=== PATIENT | male | born 1990 | race Caucasian/White ===

== ENCOUNTER 2016-12-19 16:44 | Emergency (ER) | payer OTHER ==
[~2016-12-19] VITALS: Ht 160 cm; Wt 54.5 kg
[~2016-12-19 16:44] MED LIST: ACET-1256 PO; CIPR-255 PO; DIAZ-165 PO; DIAZ12.5 PR; IBUP-103 PO; LEVE500T26 PO; LRS10 PO
[2016-12-19 16:56] VITALS: TEMP 36.4; Ht 160 cm; Wt 54.5 kg
[2016-12-19 18:04] LABS: BASO % 0.6 %; BASO ABS # 0.03 K/uL (0-0.2); COMPLETE YES; EOS % 5.3 %; HEMATOCRIT 39.3 % (42-52); IG% 0.2 %; LYMPH % 17.9 %; LYMPH ABS # 0.95 K/uL (1.2-3.4); MEAN CELL VOLUME 85.8 fL (80-100); MEAN CORPUSCULAR HEMOGLOBIN 30.8 pg (25-34); MEAN CORPUSCULAR HGB CONC 35.9 g/dl (32-36); MEAN PLATELET VOLUME 9.7 fL (7.4-10.4); MONO % 11.7 %; NEUT % 64.3 %; PLATELET COUNT 261 K/uL (130-400); RED BLOOD COUNT 4.58 M/uL (4.7-6.1); WHITE BLOOD COUNT 5.32 K/uL (4.8-10.8)
[2016-12-19] MEDS ORDERED: VLM5CL PO (18:05)
[2016-12-19] MEDS ORDERED: LEVE500T PO (18:05)
[2016-12-19 18:23] LABS: BUN/CREATININE RATIO 22.6 (10-20); CALCIUM 8.9 mg/dl (8.5-10.1); CREATININE 0.89 mg/dl (0.60-1.40); POTASSIUM 3.6 mmol/L (3.5-5.1)
--- NOTE | 2016-12-19 18:32 | DIAGNOSTIC IMAGING REPORT ---
AP CHEST WITH ABDOMINAL SERIES CLINICAL HISTORY: Constipation. FINDINGS: An AP upright chest radiograph is compared to study dated 06/08/2016. The examination is significantly degraded by patient rotation. Midline sternotomy wires are noted. The cardiac silhouette is mildly enlarged. The pulmonary vasculature is noncongested. There are low lung volumes. No airspace consolidation, large pleural effusion, or pneumothorax is seen. The skeletal structures are osteopenic. The bony thorax is grossly intact. Supine and decubitus abdominal radiographs are correlated with abdominal CT dated 12/18/2013. There is a nonobstructed abdominal bowel gas pattern noting rectosigmoid fecal impaction and moderate to severe constipation. No evidence of intraperitoneal free air is seen on the decubitus view. There are no abnormal abdominal calcifications. The lumbosacral spine and bony pelvis appear intact. IMPRESSION: 1. Mild cardiac enlargement with evidence of previous midline sternotomy. 2. Low lung volumes. The lungs are otherwise clear. 3. Nonobstructed abdominal bowel gas pattern. There is rectosigmoid fecal impaction and moderate to severe constipation. 4. No intraperitoneal free air is seen. Electronically signed by: Jairon Alfonso M.D. 12/19/2016 6:30 PM Dictated Date/Time: 12/19/2016 6:28 PM
[2016-12-19] MEDS ORDERED: SODIUM CHLORIDE 0.9% 500ML 500 ML IV STA (18:49)
[2016-12-19 19:00] LABS: URINE APPEARANCE CLEAR (CLEAR); URINE BILIRUBIN NEG (NEG); URINE COLOR DK YELLOW; URINE NITRITE NEG (NEG); URINE SPECIFIC GRAVITY 1.025 (1.000-1.030); UROBILINOGEN POS (NEG); ZZURINE CULT IF INDIC CATH NO
[2016-12-19] MEDS ORDERED: [UNRECOGNIZED DRUG - CODE] PO (19:08)
[2016-12-19] MEDS ORDERED: ZONI100C2 PO (19:08)
--- NOTE | 2016-12-19 19:16 | EMERGENCY ROOM VISIT NOTE ---
History First contact with patient: 17:23 Chief Complaint: CONSTIPATION Stated Complaint: CONSTIPATION Nursing Triage Summary: Pt presents with mom who states pt gets a suppository daily, has not had a bowel movement for 1 week. Denies emesis. Mom states, "He was very cranky today." History of Present Illness The patient is a 26 year old male with hx of Cerebral palsy, Developmental delay , chronic constipation who presents to the Emergency Room with complaints of constipation x 1 wk. Patient is non-verbal so history is per mother. According to mother, he has required regular dulcolax suppository every other day since childhood. Mother was concerned because he has not been able to have a Bowel movement in 1 week and wanted to make she he was not obstructed. Per mother he has not had any vomiting and has not exhibites any obvious new signs of abdominal pain or discomfort. He was recently treated outpatient for a UTI last week. He finished the abx 2 days ago. Review of Systems full ROS was not possible as patient is nonverbal Past Medical/Surgical History Medical Problems: (1) EP (epilepsy) (2) History of cerebral palsy (3) History of chronic constipation (4) History of seizure disorder (5) Kidney disease Family History Hypertension Kidney disease Kidney stones Social History Smoking Status: Never Smoker Alcohol Use: none Drug Use: none Marital Status: single Housing Status: lives with family Occupation Status: disabled Current/Historical Medications Scheduled Diazepam (Diazepam), 5 MG PO BID Levetiractam (Levetiracetam), 1,500 MG PO BID Zonisamide (Zonegran), 200 MG PO HS Zonisamide (Zonegran), 100 MG PO QAM Scheduled PRN Acetaminophen (Tylenol), 500 MG PO Q4H PRN for Pain Diazepam (Anticonvulsant) (Diastat Acudial), 20 MG TX UD PRN for Seizure Ibuprofen Tab (Advil), 200-600 MG PO Q4H PRN for Pain Allergies Coded Allergies: Amoxicillin (Verified Allergy, Unknown, ., 06/08/16) Clavulanic Acid (Verified Allergy, Unknown, ., 06/08/16) Physical Exam Vital Signs Date Time Temp Pulse Resp B/P Pulse Ox O2 Delivery O2 Flow Rate FiO2 12/19/16 20:00 68 18 128/72 98 12/19/16 18:50 74 20 134/89 96 Room Air 12/19/16 16:56 36.4 77 16 127/80 96 Room Air Physical Exam GENERAL: alert, no distress, non-toxic EYE EXAM: normal conjunctiva, PERRL and EOM's grossly intact OROPHARYNX: no exudate, no erythema, lips, buccal mucosa, and tongue normal and mucous membranes are moist NECK: supple, no nuchal rigidity, no adenopathy, non-tender LUNGS: Clear to auscultation. Normal chest wall mechanics HEART: no murmurs, S1 normal and S2 normal ABDOMEN: abdomen soft, non-tender, normo-active bowel sounds, no masses, no rebound or guarding. BACK: Back is symmetrical on inspection and there is no deformity, no midline tenderness, no CVA tenderness. SKIN: no rashes and no bruising UPPER EXTREMITIES: upper extremities are grossly normal. LOWER EXTREMITIES: No pitting edema. Medical Decision & Procedures ER Provider Diagnostic Interpretation: AP CHEST WITH ABDOMINAL SERIES CLINICAL HISTORY: Constipation. FINDINGS: An AP upright chest radiograph is compared to study dated 06/08/2016. The examination is significantly degraded by patient rotation. Midline sternotomy wires are noted. The cardiac silhouette is mildly enlarged. The pulmonary vasculature is noncongested. There are low lung volumes. No airspace consolidation, large pleural effusion, or pneumothorax is seen. The skeletal structures are osteopenic. The bony thorax is grossly intact. Supine and decubitus abdominal radiographs are correlated with abdominal CT dated 12/18/2013. There is a nonobstructed abdominal bowel gas pattern noting rectosigmoid fecal impaction and moderate to severe constipation. No evidence of intraperitoneal free air is seen on the decubitus view. There are no abnormal abdominal calcifications. The lumbosacral spine and bony pelvis appear intact. IMPRESSION: 1. Mild cardiac enlargement with evidence of previous midline sternotomy. 2. Low lung volumes. The lungs are otherwise clear. 3. Nonobstructed abdominal bowel gas pattern. There is rectosigmoid fecal impaction and moderate to severe constipation. 4. No intraperitoneal free air is seen. Laboratory Results 12/19/16 00:00 Red Blood Count 4.58, Mean Corpuscular Volume 85.8, Mean Corpuscular Hemoglobin 30.8, Mean Corpuscular Hemoglobin Concent 35.9, Mean Platelet Volume 9.7, Neutrophils (%) (Auto) 64.3, Lymphocytes (%) (Auto) 17.9, Monocytes (%) (Auto) 11.7, Eosinophils (%) (Auto) 5.3, Basophils (%) (Auto) 0.6, Neutrophils # (Auto ) 3.43, Lymphocytes # (Auto) 0.95, Monocytes # (Auto) 0.62, Eosinophils # (Auto ) 0.28, Basophils # (Auto) 0.03 12/19/16 00:00 Test 12/19/16 00:00 12/19/16 18:32 12/19/16 18:40 White Blood Count 5.32 K/uL (4.8-10.8) Red Blood Count 4.58 M/uL (4.7-6.1) Hemoglobin 14.1 g/dL (14.0-18.0) Hematocrit 39.3 % (42-52) Mean Corpuscular Volume 85.8 fL (80-100) Mean Corpuscular Hemoglobin 30.8 pg (25-34) Mean Corpuscular Hemoglobin Concent 35.9 g/dl (32-36) Platelet Count 261 K/uL (130-400) Mean Platelet Volume 9.7 fL (7.4-10.4) Neutrophils (%) (Auto) 64.3 % Lymphocytes (%) (Auto) 17.9 % Monocytes (%) (Auto) 11.7 % Eosinophils (%) (Auto) 5.3 % Basophils (%) (Auto) 0.6 % Neutrophils # (Auto) 3.43 K/uL (1.4-6.5) Lymphocytes # (Auto) 0.95 K/uL (1.2-3.4) Monocytes # (Auto) 0.62 K/uL (0.11-0.59) Eosinophils # (Auto) 0.28 K/uL (0-0.5) Basophils # (Auto) 0.03 K/uL (0-0.2) RDW Standard Deviation 41.2 fL (36.4-46.3) RDW Coefficient of Variation 13.1 % (11.5-14.5) Immature Granulocyte % (Auto) 0.2 % Immature Granulocyte # (Auto) 0.01 K/uL (0.00-0.02) Anion Gap 6.0 mmol/L (3-11) Est Creatinine Clear Calc Drug Dose 96.1 ml/min Estimated GFR () 135.8 Estimated GFR (Non- 117.2 BUN/Creatinine Ratio 22.6 (10-20) Calcium Level 8.9 mg/dl (8.5-10.1) Total Bilirubin 0.5 mg/dl (0.2-1) Direct Bilirubin 0.1 mg/dl (0-0.2) Aspartate Amino Transf (AST/SGOT) 23 U/L (15-37) Alanine Aminotransferase (ALT/SGPT) 32 U/L (12-78) Alkaline Phosphatase 176 U/L (45-117) Total Protein 7.7 gm/dl (6.4-8.2) Albumin 3.6 gm/dl (3.4-5.0) Lipase 169 U/L (73-393) Urine Color DK YELLOW Urine Appearance CLEAR (CLEAR) Urine pH 6.0 (4.5-7.5) Urine Specific [place] 1.025 (1.000-1.030) Urine Protein NEG (NEG) Urine Glucose (UA) NEG (NEG) Urine Ketones NEG (NEG) Urine Occult Blood NEG (NEG) Urine Nitrite NEG (NEG) Urine Bilirubin NEG (NEG) Urine Urobilinogen POS (NEG) Urine Leukocyte Esterase NEG (NEG) Urine WBC (Auto) 1-5 /hpf (0-5) Urine RBC (Auto) 0-4 /hpf (0-4) Urine Hyaline Casts (Auto) 5-10 /lpf (0-5) Urine Epithelial Cells (Auto) 10-20 /lpf (0-5) Urine Bacteria (Auto) NEG (NEG) Medications Administered Medications (Trade) Dose Ordered Sig/Dariela Route Start Time Stop Time Status Last Admin Dose Admin Sodium Chloride (Nss 500ml) 500 ml @ 999 mls/hr Q31M STAT IV 12/19/16 18:49 12/19/16 19:19 DC 12/19/16 18:49 999 MLS/HR Sodium Biphosphate/ Sodium Phosphate (Fleet Enema) 132 ml NOW STAT TX 12/19/16 19:24 12/19/16 19:26 DC 12/19/16 19:59 132 ML Procedure Manual Disimpaction Medical Decision 26 yo M w/ hx 1 wk history of constipation and recent completion of UTI abx therapy Constipation CBC: unremarkable BMP: BUN 20, BUN/cr 22.6, otherwise unremarkable LFT: Alk Phos 176 , otherwise wnl Abdominal XR: Non-obstructed abdominal bowel gas pattern. There is rectosigmoid fecal impaction and moderate to severe constipation. Hx of UTI UA: unremarkable -adequately treated with outpatient therapy - Lack of Bowel movement in 1 wk secondary to chronic constipation. bowel obstruction ruled out with Abdominal XR - Attempted Manual Disimpaction, minimal feces removed - Discharged with Fleets enema which mother requested to administer Impression Primary Impression: Constipation Departure Information Referrals Chan Hernandez M.D. (PCP) Patient Instructions My [facility] Resident Tracking Resident Involvement: Resident Care Provided Care Provided: Adult ED
[2016-12-19 19:18] LABS: MANUAL MICROSCOPIC REQUIRED? NO; REVIEW REQ? NO
[2016-12-19] MEDS ORDERED: SOD PHOSPHATE/SOD BIPHOSPHATE ENEMA 132 ML BTL PR STA (19:24)
[2016-12-19 20:00] VITALS: BP 128/72; PULSE 68; O2SAT 98
--- NOTE | 2016-12-19 22:08 | EMERGENCY ROOM VISIT NOTE ---
History Report prepared by Yue: Avni Shukla Under the Supervision of: Dr. Michael Blanchard D.O. First contact with patient: 17:23 Chief Complaint: CONSTIPATION Stated Complaint: CONSTIPATION Nursing Triage Summary: Pt presents with mom who states pt gets a suppository daily, has not had a bowel movement for 1 week. Denies emesis. Mom states, "He was very cranky today." History of Present Illness The patient is a 26 year old male who presents to the Emergency Room with complaints of persistent constipation beginning 1 week ago. Per the patient's mother, the patient has a history of cerebral palsy, seizure disorder, and chronic constipation. He requires suppositories every other day. For the last week he has not had a bowel movement and has tried 3 Dulcolax suppositories. He has not vomited since the onset of the constipation. The patient was recently on Bactrim for a UTI, and finished the course 2 days ago. He had a bout of constipation when he was younger. The patient is completely non-verbal, and has not stated complaints. He has been slowing down on eating today. The patient takes Keppra, Zonegran, and Valium. Source of History: parent Onset: 1 week ago Position: other (rectum) Quality: other (constipation) Timing: other (persistent) Associated Symptoms: No vomiting Review of Systems See HPI for pertinent positives & negatives. A total of 10 systems reviewed and were otherwise negative. Past Medical & Surgical Medical Problems: (1) EP (epilepsy) (2) History of cerebral palsy (3) History of chronic constipation (4) History of seizure disorder (5) Kidney disease Family History Hypertension Kidney disease Kidney stones Social History Smoking Status: Never Smoker Alcohol Use: none Drug Use: none Marital Status: single Housing Status: lives with family Occupation Status: disabled Current/Historical Medications Scheduled Diazepam (Diazepam), 5 MG PO BID Levetiractam (Levetiracetam), 1,500 MG PO BID Zonisamide (Zonegran), 200 MG PO HS Zonisamide (Zonegran), 100 MG PO QAM Scheduled PRN Acetaminophen (Tylenol), 500 MG PO Q4H PRN for Pain Diazepam (Anticonvulsant) (Diastat Acudial), 20 MG NV UD PRN for Seizure Ibuprofen Tab (Advil), 200-600 MG PO Q4H PRN for Pain Allergies Coded Allergies: Amoxicillin (Verified Allergy, Unknown, ., 06/08/16) Clavulanic Acid (Verified Allergy, Unknown, ., 06/08/16) Physical Exam Vital Signs Date Time Temp Pulse Resp B/P Pulse Ox O2 Delivery O2 Flow Rate FiO2 12/19/16 20:00 68 18 128/72 98 12/19/16 18:50 74 20 134/89 96 Room Air 12/19/16 16:56 36.4 77 16 127/80 96 Room Air Physical Exam GENERAL: Sitting up in med, holding auditory device over left ear, disheveled, no acute distress. EYE EXAM: normal conjunctiva OROPHARYNX: no exudate, no erythema, lips, buccal mucosa, and tongue normal and mucous membranes are moist NECK: supple, no nuchal rigidity, no adenopathy, non-tender LUNGS: Clear to auscultation. Normal chest wall mechanics HEART: no murmurs, S1 normal and S2 normal ABDOMEN: abdomen soft, non-tender, normo-active bowel sounds, no masses, no rebound or guarding. BACK: Back is symmetrical on inspection and there is no deformity, no midline tenderness, no CVA tenderness. SKIN: no rashes and no bruising UPPER EXTREMITIES: upper extremities are grossly normal. LOWER EXTREMITIES: No pitting edema. NEURO EXAM: alert; nonverbal; nonfocal. Medical Decision & Procedures ER Provider Diagnostic Interpretation: Radiology results have been interpreted by the radiologist and reviewed by me. AP CHEST WITH ABDOMINAL SERIES FINDINGS: An AP upright chest radiograph is compared to study dated 06/08/2016. The examination is significantly degraded by patient rotation. Midline sternotomy wires are noted. The cardiac silhouette is mildly enlarged. The pulmonary vasculature is noncongested. There are low lung volumes. No airspace consolidation, large pleural effusion, or pneumothorax is seen. The skeletal structures are osteopenic. The bony thorax is grossly intact. Supine and decubitus abdominal radiographs are correlated with abdominal CT dated 12/18/2013. There is a nonobstructed abdominal bowel gas pattern noting rectosigmoid fecal impaction and moderate to severe constipation. No evidence of intraperitoneal free air is seen on the decubitus view. There are no abnormal abdominal calcifications. The lumbosacral spine and bony pelvis appear intact. IMPRESSION: 1. Mild cardiac enlargement with evidence of previous midline sternotomy. 2. Low lung volumes. The lungs are otherwise clear. 3. Nonobstructed abdominal bowel gas pattern. There is rectosigmoid fecal impaction and moderate to severe constipation. 4. No intraperitoneal free air is seen. Electronically signed by: Jairon Alfonso M.D. 12/19/2016 6:30 PM Dictated Date/Time: 12/19/2016 6:28 PM Laboratory Results 12/19/16 00:00 Red Blood Count 4.58, Mean Corpuscular Volume 85.8, Mean Corpuscular Hemoglobin 30.8, Mean Corpuscular Hemoglobin Concent 35.9, Mean Platelet Volume 9.7, Neutrophils (%) (Auto) 64.3, Lymphocytes (%) (Auto) 17.9, Monocytes (%) (Auto) 11.7, Eosinophils (%) (Auto) 5.3, Basophils (%) (Auto) 0.6, Neutrophils # (Auto ) 3.43, Lymphocytes # (Auto) 0.95, Monocytes # (Auto) 0.62, Eosinophils # (Auto ) 0.28, Basophils # (Auto) 0.03 12/19/16 00:00 Test 12/19/16 00:00 12/19/16 18:32 12/19/16 18:40 White Blood Count 5.32 K/uL (4.8-10.8) Red Blood Count 4.58 M/uL (4.7-6.1) Hemoglobin 14.1 g/dL (14.0-18.0) Hematocrit 39.3 % (42-52) Mean Corpuscular Volume 85.8 fL (80-100) Mean Corpuscular Hemoglobin 30.8 pg (25-34) Mean Corpuscular Hemoglobin Concent 35.9 g/dl (32-36) Platelet Count 261 K/uL (130-400) Mean Platelet Volume 9.7 fL (7.4-10.4) Neutrophils (%) (Auto) 64.3 % Lymphocytes (%) (Auto) 17.9 % Monocytes (%) (Auto) 11.7 % Eosinophils (%) (Auto) 5.3 % Basophils (%) (Auto) 0.6 % Neutrophils # (Auto) 3.43 K/uL (1.4-6.5) Lymphocytes # (Auto) 0.95 K/uL (1.2-3.4) Monocytes # (Auto) 0.62 K/uL (0.11-0.59) Eosinophils # (Auto) 0.28 K/uL (0-0.5) Basophils # (Auto) 0.03 K/uL (0-0.2) RDW Standard Deviation 41.2 fL (36.4-46.3) RDW Coefficient of Variation 13.1 % (11.5-14.5) Immature Granulocyte % (Auto) 0.2 % Immature Granulocyte # (Auto) 0.01 K/uL (0.00-0.02) Anion Gap 6.0 mmol/L (3-11) Est Creatinine Clear Calc Drug Dose 96.1 ml/min Estimated GFR () 135.8 Estimated GFR (Non- 117.2 BUN/Creatinine Ratio 22.6 (10-20) Calcium Level 8.9 mg/dl (8.5-10.1) Total Bilirubin 0.5 mg/dl (0.2-1) Direct Bilirubin 0.1 mg/dl (0-0.2) Aspartate Amino Transf (AST/SGOT) 23 U/L (15-37) Alanine Aminotransferase (ALT/SGPT) 32 U/L (12-78) Alkaline Phosphatase 176 U/L (45-117) Total Protein 7.7 gm/dl (6.4-8.2) Albumin 3.6 gm/dl (3.4-5.0) Lipase 169 U/L (73-393) Urine Color DK YELLOW Urine Appearance CLEAR (CLEAR) Urine pH 6.0 (4.5-7.5) Urine Specific [place] 1.025 (1.000-1.030) Urine Protein NEG (NEG) Urine Glucose (UA) NEG (NEG) Urine Ketones NEG (NEG) Urine Occult Blood NEG (NEG) Urine Nitrite NEG (NEG) Urine Bilirubin NEG (NEG) Urine Urobilinogen POS (NEG) Urine Leukocyte Esterase NEG (NEG) Urine WBC (Auto) 1-5 /hpf (0-5) Urine RBC (Auto) 0-4 /hpf (0-4) Urine Hyaline Casts (Auto) 5-10 /lpf (0-5) Urine Epithelial Cells (Auto) 10-20 /lpf (0-5) Urine Bacteria (Auto) NEG (NEG) Laboratory results per my review. Medications Administered Medications (Trade) Dose Ordered Sig/Dariela Route Start Time Stop Time Status Last Admin Dose Admin Sodium Chloride (Nss 500ml) 500 ml @ 999 mls/hr Q31M STAT IV 12/19/16 18:49 12/19/16 19:19 DC 12/19/16 18:49 999 MLS/HR Sodium Biphosphate/ Sodium Phosphate (Fleet Enema) 132 ml NOW STAT NV 12/19/16 19:24 12/19/16 19:26 DC 12/19/16 19:59 132 ML ED Course ED COURSE: Vital signs were reviewed and showed normal. The patients medical record was reviewed The above diagnostic studies were performed and reviewed. ED treatments and interventions as stated above. 1744: The patient was evaluated in room C5. A complete history and physical examination was performed. 1848: Ordered NSS 500 ml @ 999 mls/hr IV. 1899: Disimpaction performed by resident with small amount of brown stool removed. 1923: Ordered Fleet Enema 132 ml NV. 1929: Upon reevaluation, the patient is doing well.I discussed my findings with the patient and his mother and they understand and agrees with the treatment plan. Based on the patients age, coexisting illnesses, exam and lab findings the decision to treat as an outpatient was made. The patient remained stable while under my care. The patient appeared well at the time of discharge. Medical Decision Differential diagnoses includes but is not limited to gastritis, peptic ulcer disease, GERD, gallbladder disease, pancreatitis, small bowel obstruction, acute coronary syndrome, pericarditis, ischemic bowel, irritable bowel disease, irritable bowel syndrome, appendicitis, diverticulitis, malignancy, hernia, urinary tract infection, torsion, perforation, trauma, infectious. Patient is a nonverbal 26-year-old male who presents the ER for no bowel movement for the past 7 days. Patient has no complaints at this time and does not appear to be in any pain per the mother. He has been acting normally. He normally has trouble with constipation. Labs show no significant leukocytosis or anemia. BMP along with LFTs, bilirubin and lipase were unremarkable. UA was negative. Keppra was pending. Obstruction series shows large fecal impaction. He was disimpacted with a small amount of stool removed by my resident. I was present at bedside for the entirety of the procedure. Following this I recommended enemas mom preferred to do this at home. I also recommended MiraLAX bowel prep but the mother notes that the last time she did this he had multiple seizures and consequently we held on any oral medications. She will continue enemas and suppositories at home and follow-up with her PCP. Patient had absolutely no tenderness on exam, normal labs and normal vitals and consequently I did not CT his abdomen pelvis. Discussed with parent concerning signs and symptoms to watch out for. Parent was instructed to follow up with their PCP and discussed with the parent their option to return to the ED at anytime for persistent or worsening symptoms. The appropriate anticipatory guidance and out-patient management, including indications for return to the emergency department, were explained at length to the parent and understood. Impression Primary Impression: Constipation Scribe Attestation The scribe's documentation has been prepared under my direction and personally reviewed by me in its entirety. I confirm that the note above accurately reflects all work, treatment, procedures, and medical decision making performed by me. Departure Information Dispostion Home / Self-Care Referrals Chan Hernandez M.D. (PCP) Patient Instructions My [facility] Additional Instructions Please follow up with your primary care doctor with in the next 24 hours. Any worsening of your symptoms, please return to the ED immediately. Any persistent fevers greater than 100.4, abdominal pain, persistent nausea vomiting , or any other concerning signs or symptoms from your standpoint. Please try to remain as hydrated as possible. Please continue to take as much fiber as possible. Please use enemas and suppositories as needed. Problem Qualifiers Primary Impression: Constipation Constipation type: chronic idiopathic constipation Qualified Codes: K59.04 - Chronic idiopathic constipation
== END 2016-12-19 20:02 | disposition home or self-care (01) ==
LOC: C.EDB 16:45 → C.EDC 20:02
DX: K59.00 Constipation, unspecified (principal); G40.909 Epilepsy, unspecified, not intractable, without status epilepticus; Z87.442 Personal history of urinary calculi; G80.9 Cerebral palsy, unspecified; Z79.899 Other long term (current) drug therapy; Z88.1 Allergy status to other antibiotic agents; Z88.8 Allergy status to other drugs, medicaments and biological substances; Z82.49 Family history of ischemic heart disease and other diseases of the circulatory system; Z84.1 Family history of disorders of kidney and ureter

== ENCOUNTER 2017-02-27 09:26 | Emergency (ER) | payer OTHER ==
[~2017-02-27] VITALS: Ht 160 cm; Wt 57.0 kg
[~2017-02-27 09:26] MED LIST changes: -CIPR-255 PO; -DIAZ-165 PO; +LEVE500T PO; -LEVE500T26 PO; -LRS10 PO; +VLM5CL PO; +ZONI100C2 PO; +[UNRECOGNIZED DRUG - CODE] PO
[2017-02-27 09:48] VITALS: Ht 160 cm; Wt 57.0 kg
[2017-02-27 10:17] LABS: URINE APPEARANCE CLEAR (CLEAR); URINE BILIRUBIN NEG (NEG); URINE COLOR DK YELLOW; URINE NITRITE NEG (NEG); URINE SPECIFIC GRAVITY 1.026 (1.000-1.030); UROBILINOGEN NEG (NEG); ZZURINE CULT IF INDIC CATH NO
[2017-02-27 10:20] LABS: MANUAL MICROSCOPIC REQUIRED? NO; REVIEW REQ? NO
--- NOTE | 2017-02-27 10:21 | EMERGENCY ROOM VISIT NOTE ---
History Report prepared by Yue: Millie Ashford Under the Supervision of: Dr. Roni Gilliland M.D. First contact with patient: 09:29 Chief Complaint: OTHER COMPLAINT Stated Complaint: SCROTUM SWOLLEN History of Present Illness The patient is a 27 year old male who presents to the Emergency Room with complaints of worsening swelling to his scrotum bilaterally for the past couple of months. Mother states that it has been swelling over the past few months, but over the last 2 weeks it has been progressing more rapidly, and this morning it was significantly worse. He is scheduled for an US in 3 days, but mother did not feel comfortable waiting any longer to be evaluated. She rates his pain as a 4/10 in severity. He has been urinating normally. The patient is not on Lasix. He had a hernia when he was an infant, but does not have a history of a hernia repair. Source of History: patient Onset: a couple of months ago Position: other (scrotum) Symptom Intensity: 4/10 Quality: other (swelling) Timing: worsening Associated Symptoms: No urinary symptoms Review of Systems See HPI for pertinent positives & negatives. A total of 10 systems reviewed and were otherwise negative. Past Medical & Surgical Medical Problems: (1) EP (epilepsy) (2) History of cerebral palsy (3) History of chronic constipation (4) History of seizure disorder (5) Kidney disease Family History Hypertension Kidney disease Kidney stones Social History Smoking Status: Never Smoker Alcohol Use: none Drug Use: none Marital Status: single Housing Status: lives with family Occupation Status: disabled Current/Historical Medications Scheduled Diazepam (Diazepam), 5 MG PO BID Levetiractam (Levetiracetam), 1,500 MG PO BID Zonisamide (Zonegran), 200 MG PO HS Zonisamide (Zonegran), 100 MG PO QAM Scheduled PRN Acetaminophen (Tylenol), 500 MG PO Q4H PRN for Pain Acetaminophen/Codeine (Tylenol W/Codeine #3), 1 TAB PO Q4H PRN for Pain Diazepam (Anticonvulsant) (Diastat Acudial), 20 MG DC UD PRN for Seizure Ibuprofen Tab (Advil), 200-600 MG PO Q4H PRN for Pain Allergies Coded Allergies: Amoxicillin (Verified Allergy, Unknown, ., 02/27/17) Clavulanic Acid (Verified Allergy, Unknown, ., 02/27/17) Physical Exam Vital Signs Date Time Temp Pulse Resp B/P (MAP) Pulse Ox O2 Delivery O2 Flow Rate FiO2 02/27/17 17:25 36.5 75 18 151/98 98 Room Air 02/27/17 16:50 36.4 70 18 151/98 96 Room Air 02/27/17 16:18 36.7 73 18 156/102 100 Room Air 02/27/17 16:05 36.0 78 15 172/97 99 Room Air 02/27/17 15:55 76 12 154/107 95 Room Air 02/27/17 15:45 70 14 158/105 100 Mask 10 02/27/17 15:35 63 13 137/92 100 Mask 10 02/27/17 15:28 36.2 62 12 123/82 99 Mask 10 02/27/17 13:48 36.4 02/27/17 13:17 65 16 137/83 100 Room Air 02/27/17 13:08 61 02/27/17 10:51 79 18 125/83 96 Room Air 02/27/17 09:48 36.8 66 16 135/70 99 Room Air Physical Exam GENERAL: Patient is cachectic in appearance. HEAD: Normocephalic atraumatic EYES: Ocular movements intact pupils equal and react to light OROPHARYNX mucous membranes are moist no exudates present no erythema or edema present NECK: Supple no nuchal rigidity CHEST: Good equal expansion LUNGS: Clear and equal to auscultation CARDIAC: Normal S1 and S2 ABDOMEN: Soft nontender no guarding : Scrotum is grossly enlarged, feels firm, no masses noted. BACK: No CVA tenderness EXTREMITIES: No pain upon palpation normal muscle strength in all groups no clubbing cyanosis or edema NEURO: Patient does not answer questions, is interested in listening to his iPod. Medical Decision & Procedures ER Provider Diagnostic Interpretation: Radiology results as stated below per my review and radiologist interpretation: TESTICULAR ULTRASOUND HISTORY: Pain. Mass. Pt c/o Swollen scrotum COMPARISON: None. FINDINGS: Right testis: Right testis is within the right inguinal canal. It appears to be uniform in appearance with a maximum dimension of 3.8 cm. Normal vascular flow is present. Left testis: There is a left-sided hydrocele. Left testis measures 10.9 x 5.3 cm. It is diffusely heterogeneous. A neoplastic process must be excluded. IMPRESSION: 1. Left testicular mass with the left testis enlarged compared to the right. 2. A left testicular neoplasm must be excluded. 3. Left-sided hydrocele. 4. Right testis shows normal vascular flow but is located within the right inguinal canal. Electronically signed by: Maldonado Lopez M.D. 02/27/2017 12:06 PM Dictated Date/Time: 02/27/2017 11:57 AM CHEST ONE VIEW PORTABLE CLINICAL HISTORY: Left testicular mass. COMPARISON STUDY: Chest radiograph December 19, 2016. FINDINGS: Lung volumes are mildly diminished. This is unchanged. There are median sternotomy wires. Mild cardiomegaly is unchanged. There is no evidence of pulmonary edema. No pneumothorax or pleural effusion is present. No consolidation is identified. IMPRESSION: No acute cardiopulmonary findings. No change in appearance of the chest. Electronically signed by: Jamey Calvo M.D. 02/27/2017 1:33 PM Dictated Date/Time: 02/27/2017 1:31 PM Laboratory Results 02/27/17 13:13 Red Blood Count 4.85, Mean Corpuscular Volume 84.5, Mean Corpuscular Hemoglobin 29.5, Mean Corpuscular Hemoglobin Concent 34.9, Mean Platelet Volume 10.1, Neutrophils (%) (Auto) 61.9, Lymphocytes (%) (Auto) 23.2, Monocytes (%) (Auto) 8.8, Eosinophils (%) (Auto) 5.5, Basophils (%) (Auto) 0.4, Neutrophils # (Auto) 3.04, Lymphocytes # (Auto) 1.14, Monocytes # (Auto) 0.43, Eosinophils # (Auto) 0.27, Basophils # (Auto) 0.02 02/27/17 12:27 Test 02/27/17 10:05 02/27/17 12:27 02/27/17 13:13 Urine Color DK YELLOW Urine Appearance CLEAR (CLEAR) Urine pH 6.0 (4.5-7.5) Urine Specific [place] 1.026 (1.000-1.030) Urine Protein TRACE (NEG) Urine Glucose (UA) NEG (NEG) Urine Ketones NEG (NEG) Urine Occult Blood NEG (NEG) Urine Nitrite NEG (NEG) Urine Bilirubin NEG (NEG) Urine Urobilinogen NEG (NEG) Urine Leukocyte Esterase TRACE (NEG) Urine WBC (Auto) 5-10 /hpf (0-5) Urine RBC (Auto) 0-4 /hpf (0-4) Urine Hyaline Casts (Auto) 1-5 /lpf (0-5) Urine Epithelial Cells (Auto) 5-10 /lpf (0-5) Urine Bacteria (Auto) NEG (NEG) Anion Gap 6.0 mmol/L (3-11) Est Creatinine Clear Calc Drug Dose 98.3 ml/min Estimated GFR () 134.2 Estimated GFR (Non- 115.8 BUN/Creatinine Ratio 18.3 (10-20) Calcium Level 8.6 mg/dl (8.5-10.1) Total Bilirubin 0.8 mg/dl (0.2-1) Direct Bilirubin 0.2 mg/dl (0-0.2) Aspartate Amino Transf (AST/SGOT) 21 U/L (15-37) Alanine Aminotransferase (ALT/SGPT) 13 U/L (12-78) Alkaline Phosphatase 56 U/L (45-117) Lactate Dehydrogenase 207 U/L (87-241) Total Protein 7.0 gm/dl (6.4-8.2) Albumin 3.7 gm/dl (3.4-5.0) Lipase 134 U/L (73-393) White Blood Count 4.91 K/uL (4.8-10.8) Red Blood Count 4.85 M/uL (4.7-6.1) Hemoglobin 14.3 g/dL (14.0-18.0) Hematocrit 41.0 % (42-52) Mean Corpuscular Volume 84.5 fL (80-100) Mean Corpuscular Hemoglobin 29.5 pg (25-34) Mean Corpuscular Hemoglobin Concent 34.9 g/dl (32-36) Platelet Count 189 K/uL (130-400) Mean Platelet Volume 10.1 fL (7.4-10.4) Neutrophils (%) (Auto) 61.9 % Lymphocytes (%) (Auto) 23.2 % Monocytes (%) (Auto) 8.8 % Eosinophils (%) (Auto) 5.5 % Basophils (%) (Auto) 0.4 % Neutrophils # (Auto) 3.04 K/uL (1.4-6.5) Lymphocytes # (Auto) 1.14 K/uL (1.2-3.4) Monocytes # (Auto) 0.43 K/uL (0.11-0.59) Eosinophils # (Auto) 0.27 K/uL (0-0.5) Basophils # (Auto) 0.02 K/uL (0-0.2) RDW Standard Deviation 42.2 fL (36.4-46.3) RDW Coefficient of Variation 13.8 % (11.5-14.5) Immature Granulocyte % (Auto) 0.2 % Immature Granulocyte # (Auto) 0.01 K/uL (0.00-0.02) Labs reviewed by ED physician. Medications Administered Medications (Trade) Dose Ordered Sig/Dariela Route Start Time Stop Time Status Last Admin Dose Admin Bupivacaine HCl (Marcaine 0.5% MPF Inj) 30 ml STK-MED ONCE .ROUTE 02/27/17 14:17 02/27/17 14:18 DC 02/27/17 15:00 20 ML Acetaminophen/ Hydrocodone Bitart ([place] 5/325 Tab) 1 tab Q4H PRN PO 02/27/17 15:45 02/27/17 18:36 DC 02/27/17 17:40 1 TAB Ketorolac Tromethamine (Toradol Inj) 30 mg STK-MED ONCE .ROUTE 02/27/17 15:38 02/27/17 15:39 DC 02/27/17 15:42 30 MG ECG Indication: other Rate (beats per minute): 68 Rhythm: normal sinus Findings: RBBB, no acute ischemic change, no ectopy ED Course 0948: Past medical records reviewed. The patient was evaluated in room A9B. A complete history and physical examination was performed. 1219: At this time I discussed the patient's case with Dr. Borja of urology. He requested an AFP and beta hCG. He is going to come to the ED to evaluate the patient and possibly take him to the OR. 1222: I reassessed the patient at this time. He is doing well. I discussed the results and treatment plan with the patient's mother. I answered all pertaining questions that she had. She expressed understanding and verbalized agreement. Medical Decision Medication Reconciliation: I attest that I have personally reviewed the patient' s current medication list This is a 27-year-old male who presents to see department complaining of left testicular mass. The patient was sent for an ultrasound which was concerning for testicular cancer. For this reason laboratory work was obtained. I did discuss the case with the urologist on-call who agreed to take the patient to the operating room. Mother was in agreement with the treatment plan. Consults Time Called: 1214 Consulting Physician: Dr. Borja Returned Call: 1219 At this time I discussed the patient's case with Dr. Borja of urology. He requested an AFP and beta hCG. He is going to come to the ED to evaluate the patient and possibly take him to the OR. Impression Primary Impression: Testicular mass Scribe Attestation The scribe's documentation has been prepared under my direction and personally reviewed by me in its entirety. I confirm that the note above accurately reflects all work, treatment, procedures, and medical decision making performed by me. Departure Information Dispostion Being Evaluated By Surgeon Prescriptions Acetaminophen/Codeine (Tylenol W/Codeine #3) 300 Mg/30 Mg Tab 1 TAB PO Q4H Y for Pain, #30 TAB Prov: Shiv Borja M.D. 02/27/17 Referrals Chan Hernandez M.D. (PCP) Patient Instructions My [facility]
--- NOTE | 2017-02-27 12:07 | DIAGNOSTIC IMAGING REPORT ---
TESTICULAR ULTRASOUND HISTORY: Pain. Mass. Pt c/o Swollen scrotum COMPARISON: None. FINDINGS: Right testis: Right testis is within the right inguinal canal. It appears to be uniform in appearance with a maximum dimension of 3.8 cm. Normal vascular flow is present. Left testis: There is a left-sided hydrocele. Left testis measures 10.9 x 5.3 cm. It is diffusely heterogeneous. A neoplastic process must be excluded. IMPRESSION: 1. Left testicular mass with the left testis enlarged compared to the right. 2. A left testicular neoplasm must be excluded. 3. Left-sided hydrocele. 4. Right testis shows normal vascular flow but is located within the right inguinal canal. Electronically signed by: Maldonado Lopez M.D. 02/27/2017 12:06 PM Dictated Date/Time: 02/27/2017 11:57 AM
[2017-02-27 13:00] LABS: BUN/CREATININE RATIO 18.3 (10-20); CREATININE 0.9 mg/dl (0.60-1.40); POTASSIUM 4.2 mmol/L (3.5-5.1)
[2017-02-27 13:04] LABS: CALCIUM 8.6 mg/dl (8.5-10.1)
[2017-02-27 13:17] VITALS: O2SAT 100
[2017-02-27 13:20] LABS: BASO % 0.4 %; BASO ABS # 0.02 K/uL (0-0.2); COMPLETE YES; EOS % 5.5 %; IG% 0.2 %; LYMPH % 23.2 %; LYMPH ABS # 1.14 K/uL (1.2-3.4); MEAN CELL VOLUME 84.5 fL (80-100); MEAN CORPUSCULAR HEMOGLOBIN 29.5 pg (25-34); MEAN CORPUSCULAR HGB CONC 34.9 g/dl (32-36); MEAN PLATELET VOLUME 10.1 fL (7.4-10.4); MONO % 8.8 %; NEUT % 61.9 %; PLATELET COUNT 189 K/uL (130-400); RED BLOOD COUNT 4.85 M/uL (4.7-6.1); WHITE BLOOD COUNT 4.91 K/uL (4.8-10.8)
[2017-02-27] MEDS ORDERED: CLINDAMYCIN 600 MG/54 ML D5W IV ONE (13:30)
--- NOTE | 2017-02-27 13:33 | Urology Consultation ---
History General Date of Service: Feb 27, 2017. Chief Complaint: testicular swelling Primary Care Physician: Chan Hernandez M.D. Pt seen a urologist before?: No History of Present Illness 27 yo male with MR presents with his mother and grandmother today with c/o scrotal swelling x 2 weeks. Per his mother, the swelling has gotten worse. The pt has MR, and is non-communicative. His mother provides history today. The pt exhibits no signs of pain. Testicular u/s showing left hydrocele with left testicular mass concerning for neoplasm. Tumor markers and labs pending. Per mother, the pt has a hx of polycystic kidney disease. He has not yet seen a instrument panel assembler for this issue, or had any recent imaging. She follows with Dr. Chun herself for this issue. Also, the pt's mother reports baseline difficulty voiding. He currently voids in a diaper, but occasionally has been unable to void for up to 24hrs. He has never needed catheters for this issue. He does have chronic constipation for which she administers suppositories. He has had seizures after using Miralax in the past. His mother also reports a hx of UTI in the past. Denies gross hematuria. Imaging Imaging: Ultrasound (testicular ) Laboratory Last 24 Hours Test 02/27/17 10:05 02/27/17 12:27 02/27/17 13:13 Urine Color DK YELLOW Urine Appearance CLEAR Urine pH 6.0 Urine Specific [place] 1.026 Urine Protein TRACE Urine Glucose (UA) NEG Urine Ketones NEG Urine Occult Blood NEG Urine Nitrite NEG Urine Bilirubin NEG Urine Urobilinogen NEG Urine Leukocyte Esterase TRACE Urine WBC (Auto) 5-10 /hpf Urine RBC (Auto) 0-4 /hpf Urine Hyaline Casts (Auto) 1-5 /lpf Urine Epithelial Cells (Auto) 5-10 /lpf Urine Bacteria (Auto) NEG Sodium Level 142 mmol/L Potassium Level 4.2 mmol/L Chloride Level 107 mmol/L Carbon Dioxide Level 29 mmol/L Anion Gap 6.0 mmol/L Blood Urea Nitrogen 17 mg/dl Creatinine 0.90 mg/dl Est Creatinine Clear Calc Drug Dose 98.3 ml/min Estimated GFR () 134.2 Estimated GFR (Non- 115.8 BUN/Creatinine Ratio 18.3 Random Glucose 92 mg/dl Calcium Level 8.6 mg/dl Total Bilirubin 0.8 mg/dl Direct Bilirubin 0.2 mg/dl Aspartate Amino Transf (AST/SGOT) 21 U/L Alanine Aminotransferase (ALT/SGPT) 13 U/L Alkaline Phosphatase 56 U/L Lactate Dehydrogenase 207 U/L Total Protein 7.0 gm/dl Albumin 3.7 gm/dl Lipase 134 U/L Problem List Medical Problems: (1) Constipation Status: Acute Past History urinary tract infection, other (epilepsy, microcephaly, cerebral palsy, mental retardation, hip dysplasia) Past Surgical History: orthopedic surgery (bilateral club feet ), other (ASD/ VSD Repair, partial coccyx removal ) Family History Hypertension Kidney disease Kidney stones Social History Smoking: non-smoker Alcohol: never Drug use: none Marital status: single Housing status: lives with family Occupation status: disabled Allergies Coded Allergies: Amoxicillin (Verified Allergy, Unknown, ., 02/27/17) Clavulanic Acid (Verified Allergy, Unknown, ., 02/27/17) Medications Home Medications: Home Meds and Scripts Medications Dose Route/Sig Max Daily Dose Days Date Category Dose Instructions Levetiracetam (Levetiractam) 500 Mg Tab 1,500 Mg PO BID 12/19/16 Reported Diazepam 5 Mg Tab 5 Mg PO BID 12/19/16 Reported Tylenol (Acetaminophen) 500 Mg Tab 500 Mg PO Q4H PRN 06/08/16 Reported Advil (Ibuprofen) 200 Mg Tab 200-600 Mg PO Q4H PRN 06/08/16 Reported Diastat Acudial (Diazepam (Anticonvulsant)) 20 Mg Gel 20 Mg RI UD PRN 12/18/13 Reported RECTALLY FOR SEIZURE LONGER THAN 10 MINUTES Zonegran (Zonisamide) 100 Mg Cap 100 Mg PO QAM 10/01/13 Reported Zonegran (Zonisamide) 100 Mg Cap 200 Mg PO HS 10/01/13 Reported Review of Systems Review of Systems Additional Comments: Pt unable to answer questions d/t mental status. Physical Exam Vital Signs: Vital Signs Past 12 Hours Date Time Temp Pulse Resp B/P (MAP) Pulse Ox O2 Delivery O2 Flow Rate FiO2 02/27/17 13:08 61 02/27/17 10:51 79 18 125/83 96 Room Air 02/27/17 09:48 36.8 66 16 135/70 99 Room Air Physical Exam: General Appearance: no apparent distress Eyes: bilateral eyes normal inspection ENT: hearing grossly normal Neck: no JVD Respiratory/Chest: lungs clear, normal breath sounds, no respiratory distress, no accessory muscle use Cardiovascular: regular rate, rhythm, no JVD Gastrointestinal: Abdomen: normal abdomen, pertinent finding (abdominal sounds present in all 4 quadrants, No HSM; non-tender abdomen) Genitourinary - Male: Penis: normal penis, circumcised Scrotum: pertinent finding (large firm scrotum with hydrocele on exam; difficult to differentiate testicles d/t hydrocele; non-tender on exam) Extremities: normal inspection Neurologic/Psychiatric: alert, normal mood/affect, + pertinent finding (pt with MR; alert, but does not speak) Skin: normal color Assessment & Plan Assessment & Plan A/P: Left testicular mass and hydrocele AFVSS. Testicular mass concerning for neoplasm. Will plan to proceed to the OR this afternoon for a left orchiectomy with Dr. Borja. Risks and benefits of the procedure discussed with the pt's mother. All questions answered. Consent obtained from mother today. Pre-op, labs, chest x-ray, and EKG pending this afternoon. He will remain NPO. Expect d/c home later this afternoon after surgery. ADDENDUM: Large left hydrocele - not readily able to appreciate the mass secondary to the hydrocele US - however, clearly appears to show replacement of the left testis with mass - highly concerning for malignancy. Suspected diagnosis, risks, benefits, and alternatives all discussed with the patient's mother and grandmother. Plan for OR now for L radical inguinal orchiectomy
--- NOTE | 2017-02-27 13:34 | DIAGNOSTIC IMAGING REPORT ---
CHEST ONE VIEW PORTABLE CLINICAL HISTORY: Left testicular mass. COMPARISON STUDY: Chest radiograph December 19, 2016. FINDINGS: Lung volumes are mildly diminished. This is unchanged. There are median sternotomy wires. Mild cardiomegaly is unchanged. There is no evidence of pulmonary edema. No pneumothorax or pleural effusion is present. No consolidation is identified. IMPRESSION: No acute cardiopulmonary findings. No change in appearance of the chest. Electronically signed by: Jamey Calvo M.D. 02/27/2017 1:33 PM Dictated Date/Time: 02/27/2017 1:31 PM
[2017-02-27 13:48] VITALS: TEMP 36.4
[2017-02-27] MEDS ORDERED: FENTANYL CITRATE INJ 50 MCG/1 ML 2 ML VIAL ONE (13:49)
[2017-02-27] MEDS ORDERED: MIDAZOLAM HCL 1 MG/ML 2ML VIAL ONE (13:49)
[2017-02-27] MEDS ORDERED: LIDOCAINE HCL 2% 2 ML VIAL (20MG/ML) ONE (13:49)
[2017-02-27] MEDS ORDERED: DEXAMETHASONE SOD INJ 4 MG/ML VIAL ONE (13:49)
[2017-02-27] MEDS ORDERED: ROCURONIUM BROMIDE 10 MG/ML 5 ML VIAL ONE (13:49)
[2017-02-27] MEDS ORDERED: PROPOFOL IV EMULSION 10 MG/ML 20 ML VIAL IV ONE (13:49)
[2017-02-27] MEDS ORDERED: ONDANSETRON INJ 2 MG/ML 2 ML VIAL ONE (13:49)
[2017-02-27] MEDS ORDERED: BUPIVACAINE 0.5 % 5 MG/1 ML MPF 30ML VIAL ONE (14:17)
[2017-02-27] MEDS ORDERED: ATROPINE SULFATE 0.1 MG/ML 5ML SYR IV PRN (14:45)
[2017-02-27] MEDS ORDERED: ONDANSETRON INJ 2 MG/ML 2 ML VIAL IV PRN (14:45)
[2017-02-27] MEDS ORDERED: LABETALOL HCL IV 5 MG/ML 20ML IV PRN (14:45)
[2017-02-27] MEDS ORDERED: HYDROmorphone INJ 2 MG/ML SYR/VIAL IV PRN (14:45)
[2017-02-27] MEDS ORDERED: ACET-749 PO (15:30)
--- NOTE | 2017-02-27 15:30 | [facility] Post Operative Brief Note ---
Immediate Operative Summary Operative Date Feb 27, 2017. Pre-Operative Diagnosis Left testicular mass and hydrocele Post-Operative Diagnosis Left testicular mass and hydrocele, direct left inguinal hernia Procedure(s) Performed Left Radical Inguinal Orchiectomy, left inguinal hernia repair Surgeon Dr. Borja Plant And Instrument Engineer Surgeon(s) none Estimated Blood Loss 10ml Findings Large left hydrocele. Large left testicular mass. Direct inguinal hernia. Details as per dictation. Specimens A. Left Testicle Drains none Anesthesia gen Complication(s) None Disposition Recovery Room / PACU (stable)
[2017-02-27] MEDS ORDERED: KETOROLAC TROMETHAMINE 30 MG/ML VIAL IV STA (15:33)
[2017-02-27] MEDS ORDERED: SODIUM CHLORIDE 0.9% 1000ML 1,000 ML IV SCH (15:33)
--- NOTE | 2017-02-27 15:33 | Discharge Instructions ---
Discharge Instructions Date of Service Feb 27, 2017. Admission Reason for Admission: Scrotum Swollen Discharge Discharge Diagnosis / Problem: Testicular mass Discharge Goals Goal(s): Decrease discomfort, Improve function, Increase independence, Improve disease control, Prevent Disease Progression Activity Recommendations Activity Limitations: per Instructions/Follow-up section Lifting Limitations: no more than 25 pounds Exercise/Sports Limitations: until after follow-up appointment May Resume Sexual Activity: when tolerated Shower/Bathe: tomorrow (shower, no bath) . Instructions / Follow-Up Instructions / Follow-Up Dr. Borja's office will call you to arrange a follow up appointment. If you do not hear from his office by the end of this week - please call [phone] to confirm an appointment time. You do not need to keep a dressing on the incision. You may remove the current dressing tomorrow morning. Discharge Diet Recommended Diet: Regular Diet Procedures Procedures Performed: Left Radical Inguinal Orchiectomy, left inguinal hernia repair Pending Studies Studies pending at discharge: yes List of pending studies: labs Medical Emergencies . Who to Call and When: Medical Emergencies: If at any time you feel your situation is an emergency, please call 911 immediately. . Non-Emergent Contact Non-Emergency issues call your: Urologist Call Non-Emergent contact if: you have a fever, temperature is above 101.5, your pain is not controlled, your pain is worsening . . "Provider Documentation" section prepared by Eugenio Harrison. . VTE Core Measure Inpt VTE Proph given/why not?: Treatment not indicated
[2017-02-27] MEDS ORDERED: KETOROLAC TROMETHAMINE 30 MG/ML VIAL ONE (15:38)
[2017-02-27] MEDS ORDERED: HYDROCODONE/ACETAMOPHEN 5/325MG TAB PO PRN ×2 (15:45)
[2017-02-27] MEDS ORDERED: ACETAMINOPHEN 325 MG TAB PO PRN (15:45)
--- NOTE | 2017-02-27 16:09 | Anesthesiology Progress Note ---
Anesthesia Post Op Note Date & Time Feb 27, 2017 at 16:09 Vital Signs Pain Intensity: 0 Vital Signs Past 12 Hours Date Time Temp Pulse Resp B/P (MAP) Pulse Ox O2 Delivery O2 Flow Rate FiO2 02/27/17 15:55 76 12 154/107 95 Room Air 02/27/17 15:45 70 14 158/105 100 Mask 10 02/27/17 15:35 63 13 137/92 100 Mask 10 02/27/17 15:28 36.2 62 12 123/82 99 Mask 10 02/27/17 13:48 36.4 02/27/17 13:17 65 16 137/83 100 Room Air 02/27/17 13:08 61 02/27/17 10:51 79 18 125/83 96 Room Air 02/27/17 09:48 36.8 66 16 135/70 99 Room Air Notes Mental Status: alert / awake / arousable, participated in evaluation Pt Amnestic to Procedure: Yes Nausea / Vomiting: adequately controlled Pain: adequately controlled Airway Patency, RR, SpO2: stable & adequate BP & HR: stable & adequate Hydration State: stable & adequate Anesthetic Complications: no major complications apparent Pt doing well.
[2017-02-27 16:18] VITALS: BP 156/102; PULSE 73; TEMP 36.7; O2SAT 100
[2017-02-27 16:50] VITALS: BP 151/98; PULSE 70; TEMP 36.4; O2SAT 96
[2017-02-27 17:25] VITALS: BP 151/98; PULSE 75; TEMP 36.5; O2SAT 98
--- NOTE | 2017-02-27 20:57 | OPERATIVE REPORT ---
DATE OF OPERATION: 02/27/2017 PREOPERATIVE DIAGNOSES: Left testicular mass and hydrocele. POSTOPERATIVE DIAGNOSES: Left testicular mass and hydrocele as well as left direct inguinal hernia. ANESTHESIA: General. ESTIMATED BLOOD LOSS: 10 mL. URINE OUTPUT: Not recorded. SPECIMENS: Left testis for routine pathology. DRAINS: There are no drains. DESCRIPTION OF THE PROCEDURE: Michael Jane was identified in the preoperative holding area. Appropriate informed consents were reviewed and completed and the patient was transported to the operating suite. Upon arrival, he received appropriate preoperative antibiotics in the form of clindamycin and general anesthesia. He was placed in the supine position with the bed slightly flexed to open the lower abdomen. He has a tense scrotum with a very large hydrocele and a very difficult to palpate testis within the hydrocele. Note, the right testis is not palpable within the scrotum, but is palpable at the external inguinal ring and can be manipulated into the scrotum with significant difficulty. On ultrasonographic evaluation, his left testis is grossly abnormal within the hydrocele consistent with a testicular tumor. His right testis is slightly atrophied, but otherwise normal. To begin the procedure, I marked an incision along the line between the anterior superior iliac spine and the pubic tubercle on the left. This incision was carried through the skin utilizing a 15-blade scalpel for a length of approximately 4-5 cm. I subsequently carried it through the superficial tissues including Elizabeth's fascia. Of note, there were 2 large veins encountered which were suture ligated utilizing 0 silk ties. I then exposed the external oblique fascia. I was able to demarcate the lateral aspect of the inguinal ligament and developed this. I was additionally able to identify the external inguinal ring and made an incision overlying the canal of this utilizing a 15-blade scalpel. I gently incised the remaining part of the canal through the external oblique fascia with care to avoid transection of the nerve. The nerve was readily visible and was medialized by placing a hemostat against the medial aspect of the external oblique fascia incorporating the nerve and retracting it medially. A Weitlaner retractor was then used to help assist this further by spreading the external oblique fascia. Within the external oblique fascia and the inguinal canal, I was able to develop the cord structures and circumferentially surround these. I did obtain some cremaster muscle fibers as I did this. Of note, he had significant varicosities within this section of the cord and these were all entrapped within the cord. I double ligated it with a 0.5 inch Amy drain to help with limiting any hematologic spread of disease. After controlling the cord, I dissected distally down through the upper portion of the scrotum until I was able to begin to manipulate and move the hydrocele. Of note, this hydrocele is large enough that it would not easily accommodate passage into the inguinal region without decompression. I did not want to perform a transdermal decompression through the scrotal wall, so I elevated this hydrocele up against the lower part of my incision and with visualization of the tunica vaginalis I performed a needle decompression of the left hydrocele. I withdrew approximately 350 mL of straw-colored fluid without difficulty utilizing a 60 mL syringe and a 16 gauge needle. After decompressing this amount, I felt that it was likely adequate to facilitate passage through into this inguinal incision. It became very apparent as well after decompression of the hydrocele that his testicular mass was quite large. With gentle manipulation; however, I was able to successfully deliver this through the incision. I worked my way carefully to the gubernacular attachments controlling these with Bovie electrocautery. This entirely freed the testis the exception of the cord structures. I divided the cord proximal to my previously placed tourniquet into 3 separate packets. One packet contained the vas deferens, one the main artery and one the remaining structures. Each of these was double ligated first using a 0 silk tie followed by suture ligation utilizing a 2-0 silk. All sutures were left at approximately 1-1/2 inches for future marking if need be. I then transected the cord just distal to these ties removing the testis en bloc. This was passed off the table as a specimen. I tucked the cord remnant into the internal inguinal ring and inspected. There was excellent hemostasis throughout all aspects of the incision and the left hemiscrotum. At that time I inspected the right side as well and was able to palpate the testis easily within the right inguinal region and now with the hydrocele reduced I was able to in turn manipulate this into the upper scrotum with much less difficulty. On inspection of the left inguinal canal, I noted that there was a significant posterior bulge consistent with an early direct inguinal hernia. To repair this I further developed the flaps of the external oblique fascia and utilizing a 0 Ethibond stitch, I placed approximately 5 simple interrupted sutures to reinforce and close the floor of this canal. There appeared to be much stronger closure at the conclusion of this and I followed this by closing the remaining aspects of the external oblique fascia over top of the nerve and the rest of the canal. The nerve was carefully avoided to ensure there was no entrapment during this closure. I then proceeded to infiltrate the canal as well as the subcutaneous tissues and skin with 0.5% Marcaine. I reapproximated Elizabeth's fascia using a 2-0 Vicryl followed by closure of the skin using a 4-0 Monocryl. I placed Dermabond across the incision and the case was concluded. There were no complications. I attest to the content of the Intraoperative Record and any orders documented therein. Any exception s are noted below.
[2017-02-28 14:33] LABS: AFP TUMOR MARKER SERUM 3.2 NG/ML (<6.1)
== END 2017-02-27 17:50 | disposition home or self-care (01) ==
LOC: C.EDB 09:28 → C.EDA 17:50
DX: C62.92 Malignant neoplasm of left testis, unspecified whether descended or undescended (principal); N43.3 Hydrocele, unspecified; K40.90 Unilateral inguinal hernia, without obstruction or gangrene, not specified as recurrent; G40.909 Epilepsy, unspecified, not intractable, without status epilepticus; G80.9 Cerebral palsy, unspecified; Z68.22 Body mass index [BMI] 22.0-22.9, adult; Z88.1 Allergy status to other antibiotic agents; Z88.8 Allergy status to other drugs, medicaments and biological substances; Z82.49 Family history of ischemic heart disease and other diseases of the circulatory system; Z84.1 Family history of disorders of kidney and ureter

== ENCOUNTER → 2017-03-08 | Outpatient (CLI) | payer OTHER ==
[~2017-03-08] MED LIST changes: +ACET-749 PO; +OPTIRAY 320 IV PRN
--- NOTE | 2017-03-08 10:06 | DIAGNOSTIC IMAGING REPORT ---
CT ABD/PELVIS IV AND ORAL CONT CLINICAL HISTORY: Left testicular neoplasm status post orchiectomy. COMPARISON STUDY: 12/18/2013 TECHNIQUE: Following the IV administration of 92 mL of Optiray-320, CT scan of the abdomen and pelvis was performed from the lung bases to the proximal femurs. Images are reviewed in the axial, sagittal, and coronal planes. IV contrast was administered without complication. CT DOSE: 505.11 mGycm FINDINGS: Lower chest: There are trace pleural effusions. There is minor basilar atelectasis. Liver: There are multiple hepatic cysts. No solid hepatic masses are visualized. Gallbladder: Unremarkable. Spleen: Normal in size and attenuation. Pancreas: Unremarkable. Adrenal glands: Unremarkable. Kidneys: There is bilateral renal enlargement. There are multiple bilateral renal cysts. The findings are consistent with autosomal dominant polycystic kidney disease. There are bilateral renal calculi. Bowel: There are no transition zone to indicate bowel obstruction. There is no acute diverticulitis. There is no evidence of acute appendicitis. There is moderate fecal retention. There is borderline rectal sigmoid wall thickening. Peritoneum: There is no free air. There is no ascites. There is infiltration of the fat in the region of the left inguinal canal consistent with recent surgery. There is a small air droplets within the left inguinal canal consistent with recent surgery. There is scrotal edema consistent with recent surgery. Vasculature: The abdominal aorta is normal in course and caliber. The inferior vena cava below the level the renal veins is difficult to identify Adenopathy: Small aortocaval lymph nodes are visualized. There is no pathologic adenopathy by size criteria. Pelvic viscera: The bladder, and pelvic viscera are unremarkable. Skeletal structures: No destructive osseous lesions are seen. IMPRESSION: 1. No evidence of metastatic disease 2. Evidence of autosomal dominant polycystic kidney disease with multiple renal cysts and hepatic cysts. 3. Bilateral nephrolithiasis 4. Moderate fecal retention. Mild wall thickening of the rectosigmoid. Constipation is suspected. 5. Postsurgical changes of a recent orchiectomy. 6. The inferior vena cava inferior to the level the renal veins is difficult to visualize. 7. Trace bilateral pleural effusions Electronically signed by: Chencho Mcconnell M.D. 03/08/2017 10:05 AM Dictated Date/Time: 03/08/2017 9:54 AM
== END | disposition home or self-care (01) ==
LOC: C.CTS 09:07
PROVIDERS: ATTEND Urology
DX: C62.90 Malignant neoplasm of unspecified testis, unspecified whether descended or undescended (principal); Q61.2 Polycystic kidney, adult type; K76.89 Other specified diseases of liver; N20.0 Calculus of kidney; K59.00 Constipation, unspecified

== ENCOUNTER 2018-01-23 19:55 | Emergency (ER) | payer OTHER ==
[~2018-01-23] VITALS: Ht 160 cm; Wt 59.7 kg
[~2018-01-23 19:55] MED LIST changes: -ACET-749 PO; -OPTIRAY 320 IV PRN
[2018-01-23] MEDS ORDERED: SODIUM CHLORIDE 0.9% 1000ML 1,000 ML IV STA ×2 (20:07→21:45)
[2018-01-23] MEDS ORDERED: DIAZEPAM INJ 5 MG/ML 2 ML CARP IV STA (20:15)
[2018-01-23 20:16] VITALS: TEMP 36.9; Ht 160 cm; Wt 59.7 kg
[2018-01-23] MEDS ORDERED: LSN5 PO (20:25)
--- NOTE | 2018-01-23 20:43 | DIAGNOSTIC IMAGING REPORT ---
SINGLE VIEW CHEST CLINICAL HISTORY: Atypical chest pain. FINDINGS: 2 AP, portable, upright and semierect chest radiographs are compared to study dated 02/27/2017. The examination is significantly degraded by portable technique and patient rotation. Midline sternotomy wires are noted. The heart is top normal for projection. The pulmonary vasculature is noncongested. There are low lung volumes with bibasilar atelectasis. The lungs and pleural spaces are otherwise clear. No pneumothorax is seen. The skeletal structures are osteopenic. The bony thorax is grossly intact. IMPRESSION: Low lung volumes with no acute cardiopulmonary abnormality. Electronically signed by: Jairon Alfonso M.D. 01/23/2018 8:42 PM Dictated Date/Time: 01/23/2018 8:41 PM
--- NOTE | 2018-01-23 20:50 | EMERGENCY ROOM VISIT NOTE ---
History Report prepared by Yue: Shaheed Menjivar Under the Supervision of: Dr. Micheal Urias M.D. First contact with patient: 20:02 Stated Complaint: MUSCLE SPASMS History of Present Illness The patient is a 28 year old male who presents to the Emergency Room with complaints of worse intermittent muscles spasms every 2-3 minutes today. The patient's family states that the patient has spasms once or twice per day, and it has gotten worse for the past three weeks more so at night. The patient has a history of cerebral palsy, epilepsy, and right hip dysplasia. He has not had any recent fever, chills, nausea, and vomiting, and the patient has not had very much to eat today which is not normal since he usually eats a lot. The family states that the patient has not had any recent falls. The family states that the patient takes Valium twice per day for his spasms, and he was given an extra one today around 1700, and nothing has helped his spasms. He does not currently take baclofen. The family states that the patient has been acting normally today other than his spasms, and he has not had any recent falls. The patient has a history of seizures, and the family states that the last seizure was in August, and his seizures consist of staring spells. Source of History: patient Onset: today Position: other (global) Quality: other (muscle spasms) Timing: intermittent, worsening Modifying Factors (Relieving): other (nothing) Associated Symptoms: No fevers, No chills, No nausea, No vomiting Review of Systems See HPI for pertinent positives and negatives. A total of ten systems were reviewed and were otherwise negative. Past Medical & Surgical Medical Problems: (1) EP (epilepsy) (2) History of cerebral palsy (3) History of chronic constipation (4) History of seizure disorder (5) Kidney disease Family History Hypertension Kidney disease Kidney stones Social History Smoking Status: Never Smoker Alcohol Use: none Drug Use: none Marital Status: single Housing Status: lives with family Occupation Status: disabled Current/Historical Medications Scheduled Cefdinir (Omnicef), 300 MG PO Q12H Diazepam (Diazepam), 5 MG PO BID Levetiractam (Levetiracetam), 1,500 MG PO BID Lisinopril (Lisinopril), 5 MG PO DAILY Saccharomyces Boulardii (Florastor), 1 CAP PO BID Zonisamide (Zonegran), 200 MG PO HS Zonisamide (Zonegran), 100 MG PO QAM Scheduled PRN Acetaminophen (Tylenol), 500 MG PO Q4H PRN for Pain Diazepam (Anticonvulsant) (Diastat Acudial), 20 MG NC UD PRN for Seizure Ibuprofen Tab (Advil), 200-600 MG PO Q4H PRN for Pain Allergies Coded Allergies: Amoxicillin (Verified Allergy, Unknown, ., 02/27/17) Clavulanic Acid (Verified Allergy, Unknown, ., 02/27/17) Physical Exam Vital Signs Date Time Temp Pulse Resp B/P (MAP) Pulse Ox O2 Delivery O2 Flow Rate FiO2 01/23/18 23:34 76 20 129/87 100 01/23/18 22:36 81 19 100 Room Air 01/23/18 22:31 125/99 01/23/18 22:06 91 23 83 Room Air 01/23/18 22:01 127/89 01/23/18 21:45 92 20 98 Room Air 01/23/18 21:35 94 01/23/18 21:30 99 16 133/94 100 Room Air 01/23/18 21:30 99 Room Air 01/23/18 20:16 36.9 102 20 130/91 97 Room Air Physical Exam GENERAL: Awake, alert, fatigued-appearing, in no distress HENT: Normocephalic, atraumatic. Dry cracked mucous membranes otherwise oropharynx unremarkable. EYES: Normal conjunctiva. Sclera non-icteric. NECK: Supple. No nuchal rigidity. FROM. No JVD. RESPIRATORY: Clear to auscultation. CARDIAC: Regular rate, normal rhythm. Extremities warm and well perfused. Pulses equal. ABDOMEN: Soft, non-distended. No tenderness to palpation. No rebound or guarding. No masses. RECTAL: Deferred. MUSCULOSKELETAL: Chest examination reveals no tenderness. The back is symmetrical on inspection without obvious abnormality. There is no CVA tenderness to palpation. No joint edema. LOWER EXTREMITIES: Calves are equal size bilaterally and non-tender. No edema. No discoloration. NEURO: Intermittent rigid muscle spasms in all extremities. Otherwise interacting at baseline per the family. SKIN: No rash or jaundice noted. Medical Decision & Procedures ER Provider Diagnostic Interpretation: Radiology results as stated below per my review and radiologist interpretation: CT SCAN OF THE BRAIN WITHOUT IV CONTRAST CLINICAL HISTORY: Muscle spasms. COMPARISON STUDY: No priors. TECHNIQUE: Unenhanced axial CT scan of the brain is performed from the vertex to the skull base. A dose lowering technique was utilized adhering to the principles of ALARA. The examination is significantly degraded by motion artifact. CT DOSE: 844.62 mGy.cm FINDINGS: Brain parenchyma: There is cortical atrophy identified, greatest involving the parietal lobes. These changes are likely on a congenital basis. There is no hemorrhage, mass effect, or evidence of acute territorial ischemia by CT criteria. Valderrama-white matter is preserved. No extra-axial fluid collection is seen. Ventricles, sulci, cisterns: Ventriculomegaly is likely chronic. Intracranial vasculature: The visualized intracranial vasculature at the skull base is normal in appearance. 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 No destructive calvarial lesion is identified. Sinuses and mastoids: The visualized paranasal sinuses are clear. The mastoid air cells are underpneumatized. Cerumen is noted in the external auditory canals. Orbits: The bony orbits are grossly intact. IMPRESSION: 1. There is no hemorrhage, mass effect, or evidence of acute territorial ischemia by CT criteria. 2. 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 3. 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 Correlation with the patient's medical history and any prior outside imaging studies will be required. Electronically signed by: Jairon Alfonso M.D. 01/23/2018 9:31 PM Dictated Date/Time: 01/23/2018 9:28 PM SINGLE VIEW CHEST CLINICAL HISTORY: Atypical chest pain. FINDINGS: 2 AP, portable, upright and semierect chest radiographs are compared to study dated 02/27/2017. The examination is significantly degraded by portable technique and patient rotation. Midline sternotomy wires are noted. The heart is top normal for projection. The pulmonary vasculature is noncongested. There are low lung volumes with bibasilar atelectasis. The lungs and pleural spaces are otherwise clear. No pneumothorax is seen. The skeletal structures are osteopenic. The bony thorax is grossly intact. IMPRESSION: Low lung volumes with no acute cardiopulmonary abnormality. Electronically signed by: Jairon Alfonso M.D. 01/23/2018 8:42 PM Dictated Date/Time: 01/23/2018 8:41 PM Laboratory Results 01/23/18 20:50 Red Blood Count 4.91, Mean Corpuscular Volume 87.2, Mean Corpuscular Hemoglobin 32.0, Mean Corpuscular Hemoglobin Concent 36.7, Mean Platelet Volume 10.8, Neutrophils (%) (Auto) 79.0, Lymphocytes (%) (Auto) 10.9, Monocytes (%) (Auto) 9.0, Eosinophils (%) (Auto) 0.4, Basophils (%) (Auto) 0.4, Neutrophils # (Auto) 5.99, Lymphocytes # (Auto) 0.83, Monocytes # (Auto) 0.68, Eosinophils # (Auto) 0.03, Basophils # (Auto) 0.03 01/23/18 20:50 Test 01/23/18 20:50 01/23/18 21:45 White Blood Count 7.58 K/uL (4.8-10.8) Red Blood Count 4.91 M/uL (4.7-6.1) Hemoglobin 15.7 g/dL (14.0-18.0) Hematocrit 42.8 % (42-52) Mean Corpuscular Volume 87.2 fL (80-100) Mean Corpuscular Hemoglobin 32.0 pg (25-34) Mean Corpuscular Hemoglobin Concent 36.7 g/dl (32-36) Platelet Count 188 K/uL (130-400) Mean Platelet Volume 10.8 fL (7.4-10.4) Neutrophils (%) (Auto) 79.0 % Lymphocytes (%) (Auto) 10.9 % Monocytes (%) (Auto) 9.0 % Eosinophils (%) (Auto) 0.4 % Basophils (%) (Auto) 0.4 % Neutrophils # (Auto) 5.99 K/uL (1.4-6.5) Lymphocytes # (Auto) 0.83 K/uL (1.2-3.4) Monocytes # (Auto) 0.68 K/uL (0.11-0.59) Eosinophils # (Auto) 0.03 K/uL (0-0.5) Basophils # (Auto) 0.03 K/uL (0-0.2) RDW Standard Deviation 41.3 fL (36.4-46.3) RDW Coefficient of Variation 12.8 % (11.5-14.5) Immature Granulocyte % (Auto) 0.3 % Immature Granulocyte # (Auto) 0.02 K/uL (0.00-0.02) Anion Gap 6.0 mmol/L (3-11) Est Creatinine Clear Calc Drug Dose 85.1 ml/min Estimated GFR () 113.2 Estimated GFR (Non- 97.7 BUN/Creatinine Ratio 27.0 (10-20) Lactic Acid Level 1.6 mmol/L (0.4-2.0) Calcium Level 9.3 mg/dl (8.5-10.1) Phosphorus Level 2.7 mg/dl (2.5-4.9) Magnesium Level 1.9 mg/dl (1.8-2.4) Total Bilirubin 0.6 mg/dl (0.2-1) Direct Bilirubin 0.2 mg/dl (0-0.2) Aspartate Amino Transf (AST/SGOT) 21 U/L (15-37) Alanine Aminotransferase (ALT/SGPT) 41 U/L (12-78) Alkaline Phosphatase 79 U/L (45-117) Total Creatine Kinase 205 U/L (39-308) Troponin I < 0.015 ng/ml (0-0.045) Total Protein 8.0 gm/dl (6.4-8.2) Albumin 4.5 gm/dl (3.4-5.0) Lipase 83 U/L (73-393) Urine Color YELLOW Urine Appearance CLOUDY (CLEAR) Urine pH 6.0 (4.5-7.5) Urine Specific [place] 1.025 (1.000-1.030) Urine Protein 1+ (NEG) Urine Glucose (UA) NEG (NEG) Urine Ketones NEG (NEG) Urine Occult Blood 3+ (NEG) Urine Nitrite NEG (NEG) Urine Bilirubin NEG (NEG) Urine Urobilinogen NEG (NEG) Urine Leukocyte Esterase LARGE (NEG) Urine WBC (Auto) >30 /hpf (0-5) Urine RBC (Auto) >30 /hpf (0-4) Urine Hyaline Casts (Auto) 1-5 /lpf (0-5) Urine Epithelial Cells (Auto) 0-5 /lpf (0-5) Urine Bacteria (Auto) 1+ (NEG) Urine Yeast (Auto) (NONE PRSENT) Laboratory results reviewed by me Medications Administered Medications (Trade) Dose Ordered Sig/Dariela Route Start Time Stop Time Status Last Admin Dose Admin Sodium Chloride 1,000 ml @ 999 mls/hr Q1H1M STAT IV 01/23/18 20:07 01/23/18 21:07 DC 01/23/18 21:06 999 MLS/HR Diazepam (Valium Inj) 5 mg STK-MED ONCE .ROUTE 01/23/18 20:59 01/23/18 21:00 DC 01/23/18 21:01 5 MG Sodium Chloride 1,000 ml @ 999 mls/hr Q1H1M STAT IV 01/23/18 21:45 01/23/18 22:45 DC 01/23/18 22:11 999 MLS/HR Ceftriaxone Sodium (Rocephin Inj) 1 gm NOW STAT IV 01/23/18 22:14 01/23/18 22:16 DC 01/23/18 22:37 1 GM ECG Per My Interpretation Indication: other (spasms) Rate (beats per minute): 100 Rhythm: sinus rhythm Findings: PVC (occasional ), RBBB, other (normal axis, significant artifact due to the patient's spasms) ED Course 2001: The patient was evaluated in room B5. A complete history and physical exam was performed. 2145: I reevaluated the patient, and he is doing well and getting more hydration. 2229: I reevaluated the patient. Discussed results and discharge instructions: the family verbalized understanding and agreement. The patient is ready for discharge. Medical Decision I reviewed the patient's past medical history, medications, and the nursing notes as described above. Differential diagnosis: Etiologies such as metabolic, infection, hypo/hyperglycemia, electrolyte abnormalities, cardiac sources, intracerebral event, toxicologic, neurologic, as well as others were entertained. The patient is a 28-year-old gentleman with a past medical history of cerebral palsy, renal disease, seizure disorder who presents to emergency department with increased extremity/muscle spasms per hpi. On arrival the patient is no acute distress, afebrile stable vital signs. Patient does appear clinically dry with dry cracked mucous membranes. He exhibits frequent recurrent episodes of extremity/muscle spasms, which the family report are not like his seizures given that the patient is alert during these episodes. The patient was given IV fluid hydration as well as 5 mg of IV Valium with resolution of symptoms. Chest x-ray negative. CT head without evidence of acute findings. Labs unremarkable including WBC, lactate, and CPK within normal limits. UA grossly positive for UTI. The patient was given IV ceftriaxone and will discharge on Cefdinir. The patient continued to feel improved in the emergency department with no subsequent episodes of muscle spasms. Plan for PCP follow-up. Findings and plan for follow-up reviewed with patient. Patient agreeable and d/c'd per discharge instructions. Medication Reconcilliation Current Medication List: was personally reviewed by me Blood Pressure Screening Patient's blood pressure: Normal blood pressure Impression Primary Impression: Urinary tract infection Additional Impressions: Dehydration Muscle spasm Scribe Attestation The scribe's documentation has been prepared under my direction and personally reviewed by me in its entirety. I confirm that the note above accurately reflects all work, treatment, procedures, and medical decision making performed by me. Departure Information Dispostion Home / Self-Care Prescriptions Saccharomyces Boulardii (Florastor) 250 Mg Cap 1 CAP PO BID for 10 Days, #20 CAP Prov: Micheal Urias M.D. 01/23/18 Cefdinir (OMNICEF) 300 Mg Cap 300 MG PO Q12H for 10 Days, #20 CAP Prov: Micheal Urias M.D. 01/23/18 Referrals Chan Hernandez M.D. (PCP) Forms HOME CARE DOCUMENTATION FORM, IMPORTANT VISIT INFORMATION, WORK / SCHOOL INSTRUCTIONS Patient Instructions ED Dehydration, ED Spasm Muscle, ED UTI Cystitis Male, My [facility] Additional Instructions Please follow up with your primary care physician in the next 1-3 days for re- evaluation. You were found to have a urinary tract infection which likely provoked your increased muscle spasms in the setting of associated dehydration. Otherwise, your exam, chest xray, lab results, and CT scan did not show signs of an emergent condition at this time. Continue your current medications as prescribed. If having persistent muscle spasms you may repeat your dose of Valium. Ceftin ear as directed. Florastor, probiotic, to help prevent antibiotic associated diarrhea. Drink plenty of fluids to ensure hydration. Return to the emergency department for worsening symptoms as described in the accompanying instructions. Problem Qualifiers
[2018-01-23] MEDS ORDERED: DIAZEPAM 5 MG/ML INJ 10ML VIAL ONE (20:59)
[2018-01-23 21:13] LABS: BASO % 0.4 %; BASO ABS # 0.03 K/uL (0-0.2); EOS % 0.4 %; EOS ABS # 0.03 K/uL (0-0.5); HEMATOCRIT 42.8 % (42-52); HEMOGLOBIN 15.7 g/dL (14.0-18.0); IG# 0.02 K/uL (0.00-0.02); LYMPH % 10.9 %; LYMPH ABS # 0.83 K/uL (1.2-3.4); MEAN CELL VOLUME 87.2 fL (80-100); MEAN CORPUSCULAR HGB CONC 36.7 g/dl (32-36); MEAN PLATELET VOLUME 10.8 fL (7.4-10.4); MONO ABS # 0.68 K/uL (0.11-0.59); NEUT ABS # 5.99 K/uL (1.4-6.5); PLATELET COUNT 188 K/uL (130-400); RED CELL DISTRIBUTION WIDTH CV 12.8 % (11.5-14.5); RED CELL DISTRIBUTION WIDTH SD 41.3 fL (36.4-46.3); WHITE BLOOD COUNT 7.58 K/uL (4.8-10.8)
[2018-01-23 21:27] LABS: ALBUMIN 4.5 gm/dl (3.4-5.0); ALT/SGPT 41 U/L (12-78); AST/SGOT 21 U/L (15-37); BLOOD UREA NITROGEN 28 mg/dl (7-18); CALCIUM 9.3 mg/dl (8.5-10.1); CARBON DIOXIDE 24 mmol/L (21-32); CREATININE 1.03 mg/dl (0.60-1.40); GLUCOSE 97 mg/dl (70-99); LIPASE 83 U/L (73-393); POTASSIUM 4.1 mmol/L (3.5-5.1); SODIUM 141 mmol/L (136-145)
[2018-01-23 21:30] VITALS: O2SAT 99
[2018-01-23 21:31] LABS: ALKALINE PHOSPHATASE 79 U/L (45-117); PHOSPHORUS 2.7 mg/dl (2.5-4.9)
--- NOTE | 2018-01-23 21:32 | DIAGNOSTIC IMAGING REPORT ---
CT SCAN OF THE BRAIN WITHOUT IV CONTRAST CLINICAL HISTORY: Muscle spasms. COMPARISON STUDY: No priors. TECHNIQUE: Unenhanced axial CT scan of the brain is performed from the vertex to the skull base. A dose lowering technique was utilized adhering to the principles of ALARA. The examination is significantly degraded by motion artifact. CT DOSE: 844.62 mGy.cm FINDINGS: Brain parenchyma: There is cortical atrophy identified, greatest involving the parietal lobes. These changes are likely on a congenital basis. There is no hemorrhage, mass effect, or evidence of acute territorial ischemia by CT criteria. Valderrama-white matter is preserved. No extra-axial fluid collection is seen. Ventricles, sulci, cisterns: Ventriculomegaly is likely chronic. Intracranial vasculature: The visualized intracranial vasculature at the skull base is normal in appearance. 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 No destructive calvarial lesion is identified. Sinuses and mastoids: The visualized paranasal sinuses are clear. The mastoid air cells are underpneumatized. Cerumen is noted in the external auditory canals. Orbits: The bony orbits are grossly intact. IMPRESSION: 1. There is no hemorrhage, mass effect, or evidence of acute territorial ischemia by CT criteria. 2. 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 3. 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 Correlation with the patient's medical history and any prior outside imaging studies will be required. Electronically signed by: Jairon Alfonso M.D. 01/23/2018 9:31 PM Dictated Date/Time: 01/23/2018 9:28 PM
[2018-01-23] MEDS ORDERED: CEFTRIAXONE SOD INJ 1 GM ADDVIAL IV STA (22:14)
[2018-01-23] MEDS ORDERED: SACC250C3 PO (22:17)
[2018-01-23] MEDS ORDERED: CEFD300C2 PO (22:17)
[2018-01-23 23:34] VITALS: BP 129/87; PULSE 76; O2SAT 100
== END 2018-01-23 23:35 | disposition home or self-care (01) ==
LOC: EDBD 19:55 → C.EDB 19:58
DX: N39.0 Urinary tract infection, site not specified (principal); E86.0 Dehydration; M62.838 Other muscle spasm; G40.909 Epilepsy, unspecified, not intractable, without status epilepticus; G80.9 Cerebral palsy, unspecified; Z88.1 Allergy status to other antibiotic agents; Z88.8 Allergy status to other drugs, medicaments and biological substances; Z79.899 Other long term (current) drug therapy

== ENCOUNTER 2018-02-01 04:05 | Emergency (ER) | payer OTHER ==
[~2018-02-01] VITALS: Ht 160 cm; Wt 60.5 kg
[~2018-02-01 04:05] MED LIST changes: -ACET-1256 PO; +CEFD300C2 PO; -IBUP-103 PO; -LEVE500T PO; +SACC250C3 PO; -VLM5CL PO; -ZONI100C2 PO; -[UNRECOGNIZED DRUG - CODE] PO
[2018-02-01 04:06] VITALS: TEMP 36.7; Ht 160 cm; Wt 60.5 kg
[2018-02-01] MEDS ORDERED: SODIUM CHLORIDE 0.9% 1000ML 1,000 ML IV STA (04:18)
[2018-02-01] MEDS ORDERED: DIAZEPAM INJ 5 MG/ML 2 ML CARP IV STA ×2 (04:18→05:05)
[2018-02-01] MEDS ORDERED: SACC250C PO (04:30)
[2018-02-01] MEDS ORDERED: CEFD1CAP14 PO (04:30)
[2018-02-01 04:34] LABS: BASO % 0.3 %; BASO ABS # 0.02 K/uL (0-0.2); EOS % 0.3 %; EOS ABS # 0.02 K/uL (0-0.5); HEMATOCRIT 42.4 % (42-52); HEMOGLOBIN 15.3 g/dL (14.0-18.0); IG# 0.02 K/uL (0.00-0.02); LYMPH % 15.6 %; LYMPH ABS # 0.95 K/uL (1.2-3.4); MEAN CELL VOLUME 86.9 fL (80-100); MEAN CORPUSCULAR HEMOGLOBIN 31.4 pg (25-34); MEAN CORPUSCULAR HGB CONC 36.1 g/dl (32-36); MEAN PLATELET VOLUME 10.3 fL (7.4-10.4); MONO % 6.6 %; NEUT % 76.9 %; NEUT ABS # 4.69 K/uL (1.4-6.5); PLATELET COUNT 217 K/uL (130-400); RED CELL DISTRIBUTION WIDTH CV 12.9 % (11.5-14.5); RED CELL DISTRIBUTION WIDTH SD 41.3 fL (36.4-46.3)
[2018-02-01 04:58] LABS: ALBUMIN 4.1 gm/dl (3.4-5.0); ALT/SGPT 37 U/L (12-78); AST/SGOT 17 U/L (15-37); BLOOD UREA NITROGEN 16 mg/dl (7-18); CARBON DIOXIDE 25 mmol/L (21-32); CREATININE 1.23 mg/dl (0.60-1.40); GLUCOSE 102 mg/dl (70-99); LIPASE 114 U/L (73-393); POTASSIUM 3.8 mmol/L (3.5-5.1); SODIUM 139 mmol/L (136-145)
[2018-02-01 05:01] LABS: ALKALINE PHOSPHATASE 84 U/L (45-117); TOTAL PROTEIN 8.2 gm/dl (6.4-8.2)
--- NOTE | 2018-02-01 05:37 | EMERGENCY ROOM VISIT NOTE ---
History First contact with patient: 04:08 Chief Complaint: OTHER COMPLAINT Stated Complaint: MUSCLE SPASMS History of Present Illness The patient is a 28 year old male who presents to the Emergency Room with complaints of increasing spasticity who has cerebral palsy CP for the past month. The mother reports that her son is having increasing muscle spasms over the past month. She has been given the Valium as directed which is 5 mg twice daily. She was seen here in the ER last week and placed on cefdinir for possible UTI. Mother reports they have an appointment in 2 months with neurology in [place]. The mother states she is called multiple times to get a sooner appointment but has been unsuccessful. Mother reports that the child is acting normal otherwise. Mother denies fevers, vomiting, diarrhea, lethargy, rashes, change in behavior. Mother states her son is eating and drinking normally. The mother gives the history as the patient is nonverbal with CP. Mother states that he the child crawls around or is wheelchair-bound. Review of Systems An 10 system review of systems was completed with positives and pertinent negatives listed in the HPI. Past Medical/Surgical History Medical Problems: (1) EP (epilepsy) (2) History of cerebral palsy (3) History of chronic constipation (4) History of seizure disorder (5) Kidney disease Family History Hypertension Kidney disease Kidney stones Social History Smoking Status: Never Smoker Alcohol Use: none Drug Use: none Marital Status: single Housing Status: lives with family Occupation Status: disabled Current/Historical Medications Scheduled Cefdinir (Omnicef), 300 MG PO Q12H Diazepam (Diazepam), 5 MG PO BID Levetiractam (Levetiracetam), 1,500 MG PO BID Lisinopril (Lisinopril), 5 MG PO DAILY Saccharomyces Boulardii (Florastor), 250 MG PO BID Zonisamide (Zonegran), 200 MG PO HS Zonisamide (Zonegran), 100 MG PO QAM Scheduled PRN Acetaminophen (Tylenol), 500 MG PO Q4H PRN for Pain Diazepam (Anticonvulsant) (Diastat Acudial), 20 MG AR UD PRN for Seizure Ibuprofen Tab (Advil), 200-600 MG PO Q4H PRN for Pain Physical Exam Vital Signs Date Time Temp Pulse Resp B/P (MAP) Pulse Ox O2 Delivery O2 Flow Rate FiO2 02/01/18 06:14 80 19 115/66 98 02/01/18 05:05 87 19 02/01/18 05:01 125/83 02/01/18 04:35 105 29 98 02/01/18 04:31 124/74 02/01/18 04:27 142/85 02/01/18 04:25 Room Air 02/01/18 04:11 108 02/01/18 04:08 126/80 02/01/18 04:06 36.7 112 16 126/80 98 Room Air Physical Exam VITALS: Vitals are noted on the nurse's note and reviewed by myself. Vital signs stable. GENERAL: Pleasant patient moving all extremities, in no acute distress, nondiaphoretic, well-developed well-nourished. SKIN: The skin was without rashes, erythema, edema, or bruising. There is no tenting of the skin. Capillary reflex less than 2 seconds. HEAD: Normocephalic atraumatic. EARS: External auditory canals clear, tympanic membranes pearly valderrama without erythema or effusion bilaterally. EYES: Pupils equal round and reactive to light and accommodation. Conjunctivae without injection, sclerae without icterus. Extraocular movements intact. NOSE: Patent, turbinates without inflammation or discharge. No sinus tenderness. MOUTH: Mucous membranes mildly dry. Pharynx without erythema or exudate. Uvula midline. Airway patent. Tongue does not deviate. NECK: Supple without nuchal rigidity. No lymphadenopathy. No thyromegaly. Cervical spine is nontender. No JVD. HEART: Regular rate and rhythm LUNGS: Clear to auscultation bilaterally without wheezes, rales or rhonchi. No retractions or accessory muscle use. ABDOMEN: Positive bowel sounds x 4. Normal tympanic percussion. Soft, nontender, without masses or organomegaly. Martínez sign negative. No guarding or rebound tenderness. No CVA tenderness MUSCULOSKELETAL: No muscle erythema, or edema noted. Intermittent rigid muscle spasms in all extremities NEURO: Patient was alert and moving all extremities. No focal neurological deficits. Medical Decision & Procedures Laboratory Results 02/01/18 04:20 Red Blood Count 4.88, Mean Corpuscular Volume 86.9, Mean Corpuscular Hemoglobin 31.4, Mean Corpuscular Hemoglobin Concent 36.1, Mean Platelet Volume 10.3, Neutrophils (%) (Auto) 76.9, Lymphocytes (%) (Auto) 15.6, Monocytes (%) (Auto) 6.6, Eosinophils (%) (Auto) 0.3, Basophils (%) (Auto) 0.3, Neutrophils # (Auto) 4.69, Lymphocytes # (Auto) 0.95, Monocytes # (Auto) 0.40, Eosinophils # (Auto) 0.02, Basophils # (Auto) 0.02 02/01/18 04:20 Test 02/01/18 04:20 02/01/18 04:35 White Blood Count 6.10 K/uL (4.8-10.8) Red Blood Count 4.88 M/uL (4.7-6.1) Hemoglobin 15.3 g/dL (14.0-18.0) Hematocrit 42.4 % (42-52) Mean Corpuscular Volume 86.9 fL (80-100) Mean Corpuscular Hemoglobin 31.4 pg (25-34) Mean Corpuscular Hemoglobin Concent 36.1 g/dl (32-36) Platelet Count 217 K/uL (130-400) Mean Platelet Volume 10.3 fL (7.4-10.4) Neutrophils (%) (Auto) 76.9 % Lymphocytes (%) (Auto) 15.6 % Monocytes (%) (Auto) 6.6 % Eosinophils (%) (Auto) 0.3 % Basophils (%) (Auto) 0.3 % Neutrophils # (Auto) 4.69 K/uL (1.4-6.5) Lymphocytes # (Auto) 0.95 K/uL (1.2-3.4) Monocytes # (Auto) 0.40 K/uL (0.11-0.59) Eosinophils # (Auto) 0.02 K/uL (0-0.5) Basophils # (Auto) 0.02 K/uL (0-0.2) RDW Standard Deviation 41.3 fL (36.4-46.3) RDW Coefficient of Variation 12.9 % (11.5-14.5) Immature Granulocyte % (Auto) 0.3 % Immature Granulocyte # (Auto) 0.02 K/uL (0.00-0.02) Anion Gap 7.0 mmol/L (3-11) Est Creatinine Clear Calc Drug Dose 71.3 ml/min Estimated GFR () 91.4 Estimated GFR (Non- 78.8 BUN/Creatinine Ratio 12.6 (10-20) Calcium Level 9.0 mg/dl (8.5-10.1) Total Bilirubin 0.3 mg/dl (0.2-1) Direct Bilirubin < 0.1 mg/dl (0-0.2) Aspartate Amino Transf (AST/SGOT) 17 U/L (15-37) Alanine Aminotransferase (ALT/SGPT) 37 U/L (12-78) Alkaline Phosphatase 84 U/L (45-117) Total Protein 8.2 gm/dl (6.4-8.2) Albumin 4.1 gm/dl (3.4-5.0) Lipase 114 U/L (73-393) Urine Color YELLOW Urine Appearance CLEAR (CLEAR) Urine pH 7.0 (4.5-7.5) Urine Specific [place] 1.015 (1.000-1.030) Urine Protein NEG (NEG) Urine Glucose (UA) NEG (NEG) Urine Ketones NEG (NEG) Urine Occult Blood NEG (NEG) Urine Nitrite NEG (NEG) Urine Bilirubin NEG (NEG) Urine Urobilinogen NEG (NEG) Urine Leukocyte Esterase TRACE (NEG) Urine WBC (Auto) 1-5 /hpf (0-5) Urine RBC (Auto) 0-4 /hpf (0-4) Urine Hyaline Casts (Auto) 1-5 /lpf (0-5) Urine Epithelial Cells (Auto) 5-10 /lpf (0-5) Urine Bacteria (Auto) NEG (NEG) Medications Administered Medications (Trade) Dose Ordered Sig/Dariela Route Start Time Stop Time Status Last Admin Dose Admin Sodium Chloride 1,000 ml @ 999 mls/hr Q1H1M STAT IV 02/01/18 04:18 02/01/18 05:18 DC 02/01/18 04:24 999 MLS/HR Diazepam (Valium Inj) 5 mg NOW STAT IV 02/01/18 04:18 02/01/18 04:20 DC 02/01/18 04:24 5 MG Diazepam (Valium Inj) 5 mg NOW STAT IV 02/01/18 05:05 02/01/18 05:06 DC 02/01/18 05:12 5 MG ED Course Prior records/ancillary studies reviewed and summarized above. Nursing notes reviewed. Additional history obtained from mother who gives the history. The patient's history was concerning for increasing spasticity who has CP. Differential diagnosis: Etiologies such as progression of CP, metabolic, infection, hypo/hyperglycemia, electrolyte abnormalities, cardiac sources, intracerebral event, toxicologic, neurologic, as well as others were entertained. Physical examination: As above. ER treatment provided: IV Lock Valium On reassessment the patient felt better. Diagnostics interpretation by me: ECG: Normal sinus, right bundle branch block, no acute ST-T wave changes, rate of 100. Impression right bundle branch block interpreted by myself and is unchanged from prior The labs revealed no worrisome leukocytosis or electrolyte abnormality Negative urine Imaging studies: CHEST ONE VIEW PORTABLE CLINICAL HISTORY: CP, increase MS mental status change COMPARISON STUDY: 01/23/2018 FINDINGS: Findings of a prior median sternotomy. Vague parenchymal infiltrate left base. Lungs otherwise appear clear. Several mildly distended loops of bowel inferior to the diaphragms. IMPRESSION: Vague parenchymal infiltrate left lung base. Mildly distended loops of bowel within the upper abdomen. The above report was generated using voice recognition software. It may contain grammatical, syntax or spelling errors. Electronically signed by: Maldonado Lopez M.D. [~ rep ct add3]] CT SCAN OF THE BRAIN WITHOUT IV CONTRAST CLINICAL HISTORY: Muscle spasms. COMPARISON STUDY: No priors. TECHNIQUE: Unenhanced axial CT scan of the brain is performed from the vertex to the skull base. A dose lowering technique was utilized adhering to the principles of ALARA. The examination is significantly degraded by motion artifact. CT DOSE: 844.62 mGy.cm FINDINGS: Brain parenchyma: There is cortical atrophy identified, greatest involving the parietal lobes. These changes are likely on a congenital basis. There is no hemorrhage, mass effect, or evidence of acute territorial ischemia by CT criteria. Valderrama-white matter is preserved. No extra-axial fluid collection is seen. Ventricles, sulci, cisterns: Ventriculomegaly is likely chronic. Intracranial vasculature: The visualized intracranial vasculature at the skull base is normal in appearance. 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 No destructive calvarial lesion is identified. Sinuses and mastoids: The visualized paranasal sinuses are clear. The mastoid air cells are underpneumatized. Cerumen is noted in the external auditory canals. Orbits: The bony orbits are grossly intact. IMPRESSION: 1. There is no hemorrhage, mass effect, or evidence of acute territorial ischemia by CT criteria. 2. 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 3. 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 Correlation with the patient's medical history and any prior outside imaging studies will be required. Electronically signed by: Jairon Alfonso M.D. Consultation: A consultation was placed with the hospitalist. The case was discussed and diagnostics were reviewed. The patient was evaluated in the ER for further treatment. Exam and history seem consistent with spasticity from cerebral palsy. Patient was not coughing and had no fever. He had no white count. He was not hypoxic. My attending and myself believe this is on over call. Patient is on low- dose Valium. The mother was advised to give Valium 5-10 mg 3 times daily and is allowed to give an extra dose if warranted. Case management will help facilitate sooner follow-up with neurology in [place]. Case management, Charley, antonio will did obtain the contact information and will inquire about this. The mother reports the child is at his baseline. He was afebrile nontoxic. His CT scan the other day that was negative of his brain. He had no leukocytosis. No electrolyte abnormality. He has history of polycystic kidney disease and I believe the hematuria is related to this. His urine culture from the other day was negative. By the evaluation outlined above emergent etiologies such as electrolyte abnormalities, cardiac sources, intracerebral event, toxologic, neurologic, abnormalities blood glucose, metabolic, as well as others were deemed relatively unlikely. The patient's mother was given a month supply of Valium by my attending, Dr. Britt Belcher. The mother of the patient informed about the findings as listed above. All questions were answered and pleased with the treatment. Return instructions were outlined and the patient was discharged in stable condition. Outpatient prescription management: Valium Referral: The patient was referred back to neurology and primary care physician for follow -up in 2 to 3 days for a recheck of the current condition. Case reviewed with my attending The chart was completed utilizing [employer] voice recognition software. Grammatical errors, random word insertions, pronoun errors, and incomplete sentences are an occassional consequence of this system due to software limitations, ambient noise, and hardware issues. Any formal questions or concerns about the content, text, or information contained within the body of this dictation should be directly addressed to the physician compounding assistant for clarification. Medical Decision As above Medication Reconcilliation Current Medication List: was personally reviewed by me Blood Pressure Screening Patient's blood pressure: Normal blood pressure Impression Primary Impression: Spasticity Additional Impression: Cerebral palsy Departure Information Dispostion Home / Self-Care Condition GOOD Referrals No Doctor, Assigned (PCP) Patient Instructions [facility] Additional Instructions Valium 5 m-2 tablets every 8 hours as needed for muscle spasms. Avoid alcohol, operating machinery or dangerous equipment, working on ladders or roofs , DRIVING, or situations where being under the influence may be dangerous. It is recommended to use an [id number] stool softener such as Colace, 100mg twice daily while taking this medication to avoid constipation. Recommend he stop the Flexeril. Case management will contact [place] neurology today and help facilitate a sooner appointment. If you do not hear back from case management today by noon , then call back to the ER and ask to speak to nurse rifle case repairer. Continue current medications. Return to the ER immediately for any fevers, abnormal behavior, vomiting, confusion, worsening signs or symptoms or as needed. Follow up with your primary care physician and neurology within 3-5 days for a recheck of your current condition. Problem Qualifiers
--- NOTE | 2018-02-01 06:28 | DIAGNOSTIC IMAGING REPORT ---
CHEST ONE VIEW PORTABLE CLINICAL HISTORY: CP, increase MS mental status change COMPARISON STUDY: 01/23/2018 FINDINGS: Findings of a prior median sternotomy. Vague parenchymal infiltrate left base. Lungs otherwise appear clear. Several mildly distended loops of bowel inferior to the diaphragms. IMPRESSION: Vague parenchymal infiltrate left lung base. Mildly distended loops of bowel within the upper abdomen. The above report was generated using voice recognition software. It may contain grammatical, syntax or spelling errors. Electronically signed by: Maldonado Lopez M.D. 02/01/2018 6:27 AM Dictated Date/Time: 02/01/2018 6:26 AM
[2018-02-01 08:14] VITALS: BP 107/76; PULSE 71; O2SAT 97
[2018-02-01] MEDS ORDERED: ACET-1256 PO (09:29)
[2018-02-01] MEDS ORDERED: IBUP-103 PO (09:29)
[2018-02-01] MEDS ORDERED: VLM5CL PO (18:05)
[2018-02-01] MEDS ORDERED: LEVE500T PO (18:05)
[2018-02-01] MEDS ORDERED: [UNRECOGNIZED DRUG - CODE] PO (19:08)
[2018-02-01] MEDS ORDERED: ZONI100C2 PO (19:08)
[2018-02-01] MEDS ORDERED: LSN5 PO (20:25)
[2018-02-03] MEDS ORDERED: DLN100 PO (10:42)
== END 2018-02-01 06:15 | disposition home or self-care (01) ==
LOC: EDBD 04:05 → C.EDA 04:06
DX: R25.2 Cramp and spasm (principal); G80.9 Cerebral palsy, unspecified; G40.909 Epilepsy, unspecified, not intractable, without status epilepticus

== ENCOUNTER 2018-02-01 15:01 | Inpatient (IN) | payer OTHER ==
[~2018-02-01] VITALS: Ht 160 cm; Wt 65.4 kg
[~2018-02-01 15:01] MED LIST changes: +ACET-1256 PO; +CEFD1CAP14 PO; +IBUP-103 PO; +SACC250C PO
[2018-02-01] MEDS ORDERED: SODIUM CHLORIDE 0.9% 1000ML 1,000 ML IV STA (15:24)
[2018-02-01] MEDS ORDERED: DIAZEPAM INJ 5 MG/ML 2 ML CARP IV STA (15:24)
--- NOTE | 2018-02-01 15:24 | EMERGENCY ROOM VISIT NOTE ---
History Report prepared by Yue: Donny Herrera Under the Supervision of: Dr. Micheal Urias M.D. First contact with patient: 15:04 Stated Complaint: SEIZURE, REFERRED BY DOCTOR History of Present Illness The patient is a 28 year old male with a history of epilepsy and cerebral palsy who presents to the Emergency Room via EMS with episodes of seizure-like episodes that started last night. Per the nursing staff, the patient came here from [facility], and was seen here earlier this morning as well. The patient has developmental delay. The patient's mother is here. The patient was given Valium 5 mg around 4 and a half hours ago, but the spasms/?seizures started happening again. He is currently being treated for a UTI, and tomorrow is his last day of his antibiotic. Source of History: parent, nursing staff Onset: Last night Position: other (global) Symptom Intensity: Valium did not help Quality: other (seizure) Timing: other (episodes) Note: Associated symptoms: Currently being treated for UTI. Review of Systems See HPI for pertinent positives and negatives. A total of ten systems were reviewed and were otherwise negative. Past Medical & Surgical Medical Problems: (1) EP (epilepsy) (2) History of cerebral palsy (3) History of chronic constipation (4) History of seizure disorder (5) Kidney disease (6) Status epilepticus Family History Hypertension Kidney disease Kidney stones Social History Smoking Status: Never Smoker Alcohol Use: none Drug Use: none Marital Status: single Housing Status: lives with family Occupation Status: disabled Current/Historical Medications Scheduled Cefdinir (Omnicef), 300 MG PO Q12H Diazepam (Diazepam), 5 MG PO BID Levetiractam (Levetiracetam), 1,500 MG PO BID Lisinopril (Lisinopril), 5 MG PO DAILY Saccharomyces Boulardii (Florastor), 250 MG PO BID Zonisamide (Zonegran), 200 MG PO HS Zonisamide (Zonegran), 100 MG PO QAM Scheduled PRN Acetaminophen (Tylenol), 500 MG PO Q4H PRN for Pain Diazepam (Anticonvulsant) (Diastat Acudial), 20 MG ME UD PRN for Seizure Ibuprofen Tab (Advil), 200-600 MG PO Q4H PRN for Pain Allergies Coded Allergies: Amoxicillin (Verified Allergy, Unknown, ., 02/01/18) Clavulanic Acid (Verified Allergy, Unknown, ., 02/01/18) Physical Exam Vital Signs Date Time Temp Pulse Resp B/P (MAP) Pulse Ox O2 Delivery O2 Flow Rate FiO2 02/01/18 16:13 71 14 116/91 99 Room Air 02/01/18 15:24 72 02/01/18 15:11 36.5 92 20 153/93 99 Room Air 02/01/18 15:11 99 Room Air Physical Exam GENERAL: Awake, alert, fatigued-appearing, in no distress HENT: Normocephalic, atraumatic. Dry cracked mucous membranes otherwise oropharynx unremarkable. EYES: Normal conjunctiva. Sclera non-icteric. NECK: Supple. No nuchal rigidity. FROM. No JVD. RESPIRATORY: Clear to auscultation. CARDIAC: Regular rate, normal rhythm. Extremities warm and well perfused. Pulses equal. ABDOMEN: Soft, non-distended. No tenderness to palpation. No rebound or guarding. No masses. RECTAL: Deferred. MUSCULOSKELETAL: Chest examination reveals no tenderness. The back is symmetrical on inspection without obvious abnormality. There is no CVA tenderness to palpation. No joint edema. LOWER EXTREMITIES: Calves are equal size bilaterally and non-tender. No edema. No discoloration. NEURO: Intermittent rigid muscle spasms in all extremities. Otherwise interacting at baseline per the family. DTR wnl. No clonus. SKIN: No rash or jaundice noted. Medical Decision & Procedures Laboratory Results 02/01/18 16:52 Red Blood Count 4.48, Mean Corpuscular Volume 86.8, Mean Corpuscular Hemoglobin 31.0, Mean Corpuscular Hemoglobin Concent 35.7, Mean Platelet Volume 10.2, Neutrophils (%) (Auto) 71.3, Lymphocytes (%) (Auto) 18.9, Monocytes (%) (Auto) 8.1, Eosinophils (%) (Auto) 1.1, Basophils (%) (Auto) 0.2, Neutrophils # (Auto) 3.17, Lymphocytes # (Auto) 0.84, Monocytes # (Auto) 0.36, Eosinophils # (Auto) 0.05, Basophils # (Auto) 0.01 02/01/18 16:52 Test 02/01/18 16:52 White Blood Count 4.45 K/uL (4.8-10.8) Red Blood Count 4.48 M/uL (4.7-6.1) Hemoglobin 13.9 g/dL (14.0-18.0) Hematocrit 38.9 % (42-52) Mean Corpuscular Volume 86.8 fL (80-100) Mean Corpuscular Hemoglobin 31.0 pg (25-34) Mean Corpuscular Hemoglobin Concent 35.7 g/dl (32-36) Platelet Count 196 K/uL (130-400) Mean Platelet Volume 10.2 fL (7.4-10.4) Neutrophils (%) (Auto) 71.3 % Lymphocytes (%) (Auto) 18.9 % Monocytes (%) (Auto) 8.1 % Eosinophils (%) (Auto) 1.1 % Basophils (%) (Auto) 0.2 % Neutrophils # (Auto) 3.17 K/uL (1.4-6.5) Lymphocytes # (Auto) 0.84 K/uL (1.2-3.4) Monocytes # (Auto) 0.36 K/uL (0.11-0.59) Eosinophils # (Auto) 0.05 K/uL (0-0.5) Basophils # (Auto) 0.01 K/uL (0-0.2) RDW Standard Deviation 41.4 fL (36.4-46.3) RDW Coefficient of Variation 13.0 % (11.5-14.5) Immature Granulocyte % (Auto) 0.4 % Immature Granulocyte # (Auto) 0.02 K/uL (0.00-0.02) Anion Gap 8.0 mmol/L (3-11) Est Creatinine Clear Calc Drug Dose 97.4 ml/min Estimated GFR () 133.3 Estimated GFR (Non- 115.0 BUN/Creatinine Ratio 13.5 (10-20) Calcium Level 8.5 mg/dl (8.5-10.1) Phosphorus Level 3.0 mg/dl (2.5-4.9) Magnesium Level 1.8 mg/dl (1.8-2.4) Total Bilirubin 0.5 mg/dl (0.2-1) Direct Bilirubin 0.2 mg/dl (0-0.2) Aspartate Amino Transf (AST/SGOT) 16 U/L (15-37) Alanine Aminotransferase (ALT/SGPT) 31 U/L (12-78) Alkaline Phosphatase 64 U/L (45-117) Total Creatine Kinase 271 U/L (39-308) Total Protein 7.0 gm/dl (6.4-8.2) Albumin 3.8 gm/dl (3.4-5.0) Lipase 97 U/L (73-393) Laboratory results reviewed by me Medications Administered Medications (Trade) Dose Ordered Sig/Dariela Route Start Time Stop Time Status Last Admin Dose Admin Sodium Chloride 1,000 ml @ 999 mls/hr Q1H1M STAT IV 02/01/18 15:24 02/01/18 16:24 DC 02/01/18 16:07 999 MLS/HR Phenytoin Sodium 1000 mg/Sodium Chloride 120 ml @ 360 mls/hr NOW ONCE IV 02/01/18 16:00 02/01/18 16:19 DC 02/01/18 16:07 360 MLS/HR Lorazepam (Ativan Inj) 2 mg STK-MED ONCE .ROUTE 02/01/18 15:52 02/01/18 15:53 DC 02/01/18 15:57 1 MG ECG Per My Interpretation Indication: other (seizure) Rate (beats per minute): 69 Rhythm: normal sinus Findings: RBBB, other (nonspecific precordial T-wave abnormalities) ED Course 1520: The patient was evaluated in room A2. A complete history and physical exam was performed. 1700: Upon reexamination, the patient was resting. I discussed the test results and treatment plan with the patient's mother. The patient will be evaluated for further management. 1705: I discussed the patient with Dr. Deb Pacheco die hardener - he will evaluate the patient for further treatment. Medical Decision I reviewed the patient's past medical history, medications, and the nursing notes as described above. Differential diagnosis: Etiologies such as infection, hypoglycemia, electrolyte abnormalities, cardiac sources, intracerebral event, trauma, toxicologic, neurologic, as well as others were entertained. The patient is a 28-year-old gentleman with a past medical history of cerebral palsy, and seizure disorder who presents emergency department with worsening of his extremity spasticity after being seen in the ED last night in the setting of being seen in the ED several weeks ago for the same diagnosed with UTI, now referred by the neurology clinic after he was seen there concern for partial seizures. On arrival the patient is in no acute distress, afebrile stable vital signs. Labs unremarkable. Patient demonstrates intermittent spasticity of all extremities with apparent deliberate gaze. Neurology PA at the bedside to evaluate the patient and Dr. Ramirez, neurology shader and toner who also evaluated the patient. She was given 1 mg of IV Ativan without significant improvement. He was subsequently given 1 g of Dilantin with resolution of his spastic movements. Given the patient appears to be controlled on Dilantin I discussed with Dr. Alonzo and we agree there is no need for transfer at this time, rather appropriate to admit the patient for further observation. Case was discussed with Junior Berumen hospitalist who will admit the patient for further management. Medication Reconcilliation Current Medication List: was personally reviewed by me Blood Pressure Screening Patient's blood pressure: Normal blood pressure Consults Time Called: 1700 Consulting Physician: Dr. Deb Pacheco die hardener Returned Call: 1705 I discussed the patient with Dr. Deb Pacheco die hardener - he will evaluate the patient for further treatment. Impression Primary Impression: Seizures Scribe Attestation The scribe's documentation has been prepared under my direction and personally reviewed by me in its entirety. I confirm that the note above accurately reflects all work, treatment, procedures, and medical decision making performed by me. Departure Information Dispostion Being Evaluated By Hospitalist Referrals No Doctor, Assigned (PCP)
[2018-02-01] MEDS ORDERED: LORAZEPAM 2 MG/ML 1 ML VIAL ONE (15:52)
[2018-02-01] MEDS ORDERED: NURSING VERBAL MED ORDER ONE (15:55)
[2018-02-01] MEDS ORDERED: PHENYTOIN IV INFUSION 1,000 MG in SODIUM CHLORIDE 0.9% 100ML 100 ML IV ONE (16:00)
[2018-02-01] MEDS ORDERED: LORAZEPAM 2 MG/ML 1 ML VIAL IV ONE (16:00)
[2018-02-01 17:02] LABS: BASO % 0.2 %; BASO ABS # 0.01 K/uL (0-0.2); EOS % 1.1 %; EOS ABS # 0.05 K/uL (0-0.5); HEMATOCRIT 38.9 % (42-52); HEMOGLOBIN 13.9 g/dL (14.0-18.0); IG# 0.02 K/uL (0.00-0.02); LYMPH % 18.9 %; LYMPH ABS # 0.84 K/uL (1.2-3.4); MEAN CELL VOLUME 86.8 fL (80-100); MEAN CORPUSCULAR HGB CONC 35.7 g/dl (32-36); MEAN PLATELET VOLUME 10.2 fL (7.4-10.4); MONO % 8.1 %; MONO ABS # 0.36 K/uL (0.11-0.59); NEUT % 71.3 %; NEUT ABS # 3.17 K/uL (1.4-6.5); PLATELET COUNT 196 K/uL (130-400); RED CELL DISTRIBUTION WIDTH SD 41.4 fL (36.4-46.3); WHITE BLOOD COUNT 4.45 K/uL (4.8-10.8)
[2018-02-01 17:41] LABS: ALBUMIN 3.8 gm/dl (3.4-5.0); CALCIUM 8.5 mg/dl (8.5-10.1); CREATININE 0.9 mg/dl (0.60-1.40); POTASSIUM 3.6 mmol/L (3.5-5.1)
[2018-02-01] MEDS ORDERED: ONDANSETRON INJ 2 MG/ML 2 ML VIAL IV PRN (17:45)
[2018-02-01] MEDS ORDERED: DIAZEPAM 5 MG/ML INJ 10ML VIAL IV PRN (17:45)
[2018-02-01] MEDS ORDERED: LEVE500T PO (18:05)
[2018-02-01] MEDS ORDERED: VLM5CL PO (18:05)
--- NOTE | 2018-02-01 18:29 | History and Physical ---
History & Physical Date & Time of Service: February 01, 2018 at 18:09 Chief Complaint: Seizure, Referred By Doctor Primary Care Physician: No Doctor, Assigned History of Present Illness Source: family (Mom) He is a 28-year-old male with significant past medical history of cerebral palsy and seizure disorder and apparently was sent in from neurologist office today with the probable status epilepticus. The history is taken from the mom and according to her he has been having spasm involving the upper and lower extremities at times and that has been going on for a while recently he was seen in the ER with the UTI and more of the symptoms. He was also seen in the ER yesterday with ongoing spasm involving the upper and lower extremities. Today he went to see his urologist and he was noted to have continued spasm type of movements involving the extremities and he was sent into ER for continuation of care. The episodes of spasm can come any time and usually lasts for less than a minute occasionally there may be incontinence of urine but no loss of consciousness and no injury from that activity. He received intravenous Dilantin in the ER and the spasms were controlled with that. He was seen by neurologist and Dilantin continue intravenously for continuation of care. Past Medical/Surgical History Medical Problems: (1) Back pain (2) Breakthrough seizure (3) Cerebral palsy (4) Constipation (5) Constipation (6) Dehydration (7) EP (epilepsy) (8) History of cerebral palsy (9) History of chronic constipation (10) History of seizure disorder (11) Kidney disease (12) Kidney stone on left side (13) MR (mental retardation) (14) Muscle spasm (15) Seizure (16) Spasticity (17) Status epilepticus (18) Testicular cancer (19) Testicular mass (20) Urinary tract infection Family History Hypertension Kidney disease Kidney stones Social History Smoking Status: Never Smoker Smokeless Tobacco Use: Yes (Mom takes care of him) Drug Use: none Marital Status: single Housing status: lives with family Occupational Status: disabled Immunizations History of Tetanus Vaccine?: Yes History of Hepatitis B Vaccine: Yes Allergies Coded Allergies: Amoxicillin (Verified Allergy, Unknown, ., 02/01/18) Clavulanic Acid (Verified Allergy, Unknown, ., 02/01/18) Home Medications Scheduled Cefdinir (Omnicef), 300 MG PO Q12H Diazepam (Diazepam), 5 MG PO BID Levetiractam (Levetiracetam), 1,500 MG PO BID Lisinopril (Lisinopril), 5 MG PO DAILY Saccharomyces Boulardii (Florastor), 250 MG PO BID Zonisamide (Zonegran), 200 MG PO HS Zonisamide (Zonegran), 100 MG PO QAM Scheduled PRN Acetaminophen (Tylenol), 500 MG PO Q4H PRN for Pain Diazepam (Anticonvulsant) (Diastat Acudial), 20 MG ND UD PRN for Seizure Ibuprofen Tab (Advil), 200-600 MG PO Q4H PRN for Pain Review of Systems Constitutional: + weakness (Bed bound.Cerebral Palsy) Musculoskeletal: + problem reported (Jarky movement with soasticity of extremoties ) Neurologic: + paralysis, + weakness (Cerebral Palsy) Physical Exam Vital Signs Date Time Temp Pulse Resp B/P (MAP) Pulse Ox O2 Delivery O2 Flow Rate FiO2 02/01/18 17:54 63 16 118/74 97 Room Air 02/01/18 16:13 71 14 116/91 99 Room Air 02/01/18 15:24 72 02/01/18 15:11 36.5 92 20 153/93 99 Room Air 02/01/18 15:11 99 Room Air General Appearance: + mild distress (Uneasy ) Head: normocephalic Eyes: normal inspection ENT: normal ENT inspection Neck: supple Respiratory/Chest: lungs clear, normal breath sounds Cardiovascular: regular rate, rhythm Abdomen/GI: normal bowel sounds, soft Extremities/Musculoskelatal: + pertinent finding (Extremities are inFlexed position ) Neurologic/Psych: + aphasia, + pertinent finding (Flaccid with flexture deformity of all extremities) Skin: normal color Lymphatic: no adenopathy Diagnostics Laboratory Results Results Past 24 Hours Test 02/01/18 16:52 Range/Units White Blood Count 4.45 4.8-10.8 K/uL Red Blood Count 4.48 4.7-6.1 M/uL Hemoglobin 13.9 14.0-18.0 g/dL Hematocrit 38.9 42-52 % Mean Corpuscular Volume 86.8 80-100 fL Mean Corpuscular Hemoglobin 31.0 25-34 pg Mean Corpuscular Hemoglobin Concent 35.7 32-36 g/dl Platelet Count 196 130-400 K/uL Mean Platelet Volume 10.2 7.4-10.4 fL Neutrophils (%) (Auto) 71.3 % Lymphocytes (%) (Auto) 18.9 % Monocytes (%) (Auto) 8.1 % Eosinophils (%) (Auto) 1.1 % Basophils (%) (Auto) 0.2 % Neutrophils # (Auto) 3.17 1.4-6.5 K/uL Lymphocytes # (Auto) 0.84 1.2-3.4 K/uL Monocytes # (Auto) 0.36 0.11-0.59 K/uL Eosinophils # (Auto) 0.05 0-0.5 K/uL Basophils # (Auto) 0.01 0-0.2 K/uL RDW Standard Deviation 41.4 36.4-46.3 fL RDW Coefficient of Variation 13.0 11.5-14.5 % Immature Granulocyte % (Auto) 0.4 % Immature Granulocyte # (Auto) 0.02 0.00-0.02 K/uL Sodium Level 142 136-145 mmol/L Potassium Level 3.6 3.5-5.1 mmol/L Chloride Level 111 98-107 mmol/L Carbon Dioxide Level 23 21-32 mmol/L Anion Gap 8.0 3-11 mmol/L Blood Urea Nitrogen 12 7-18 mg/dl Creatinine 0.90 0.60-1.40 mg/dl Est Creatinine Clear Calc Drug Dose 97.4 ml/min Estimated GFR () 133.3 Estimated GFR (Non- 115.0 BUN/Creatinine Ratio 13.5 10-20 Random Glucose 108 70-99 mg/dl Calcium Level 8.5 8.5-10.1 mg/dl Phosphorus Level 3.0 2.5-4.9 mg/dl Magnesium Level 1.8 1.8-2.4 mg/dl Total Bilirubin 0.5 0.2-1 mg/dl Direct Bilirubin 0.2 0-0.2 mg/dl Aspartate Amino Transf (AST/SGOT) 16 15-37 U/L Alanine Aminotransferase (ALT/SGPT) 31 12-78 U/L Alkaline Phosphatase 64 45-117 U/L Total Creatine Kinase 271 39-308 U/L Total Protein 7.0 6.4-8.2 gm/dl Albumin 3.8 3.4-5.0 gm/dl Lipase 97 73-393 U/L EKG SR ,rate of 69,RBBB: No change from prior Impression Assessment and Plan POSSIBLE STATUS EPILEPTICUS History of abnormal movements of extremities with spasticity which last for less than a minute Has had prolonged episode of abnormal movement of the spasticity today Received intravenous Dilantin in the emergency room and symptoms improved He will be admitted to telemetry unit Neurology Consult-gordon Fong. Seizure and fall precaution Continue with intravenous Dilantin May use Valium IV for any acute seizures If seizures are not controlled we need to transfer to tertiary care center Cerebral palsy with known seizure disorder Continue with Keppra on top of Dilantin He is bedbound and is taken care of by the mother Status post atrial and ventricular septal defect closure No acute cardiac symptoms History of seminoma testes Received antineoplastic therapy for neck DVT PROPHYLAXIS SCDs for now No pharmacologic anticoagulation due to seizure activity Will start Heparin from tomorrow if no seizure CODE STATUS: Full In my assessment the beneficiary meets criteria for 2 midnight stay in the hospital Resuscitation Status VTE Prophylaxis Will order VTE Prophylaxis: No Reason for no VTE drug order: Contraindicated Reason no Mechanical VTE Order: Contraindicated
[2018-02-01] MEDS ORDERED: [UNRECOGNIZED DRUG - CODE] PO (19:08)
[2018-02-01] MEDS ORDERED: ZONI100C2 PO (19:08)
[2018-02-01 20:20] VITALS: BP 118/77; PULSE 74; TEMP 36.3; O2SAT 96; Ht 160 cm; Wt 65.4 kg
[2018-02-01] MEDS ORDERED: LSN5 PO (20:25)
[2018-02-01] MEDS: DIAZEPAM 5MG TAB PO SCH (21:07)
[2018-02-01] MEDS: LEVETIRACETAM IV 1,500 MG in DEXTROSE 5% 100ML 100 ML IV SCH (21:07)
[2018-02-01] MEDS: D5NSS + 20MEQ KCL 1,000 ML IV SCH (22:29)
[2018-02-01] MEDS: PHENYTOIN IV 100 MG in SYRINGE 0 ML IV SCH (23:28)
[2018-02-01] MEDS: SODIUM CHLOR 0.9% 10ML FLUSH 20 ML in SYRINGE 0 ML IV SCH (23:29)
[2018-02-01 23:58] VITALS: BP 125/79; PULSE 67; TEMP 36.3; O2SAT 96
[2018-02-02 05:00] VITALS: BP 114/72; PULSE 86; TEMP 36.9; O2SAT 97
[2018-02-02] MEDS: PHENYTOIN IV 100 MG in SYRINGE 0 ML IV SCH (06:10)
[2018-02-02] MEDS: SODIUM CHLOR 0.9% 10ML FLUSH 20 ML in SYRINGE 0 ML IV SCH (06:11)
[2018-02-02 06:12] LABS: HEMATOCRIT 38.8 % (42-52); HEMOGLOBIN 13.6 g/dL (14.0-18.0); MEAN CELL VOLUME 87.8 fL (80-100); MEAN CORPUSCULAR HEMOGLOBIN 30.8 pg (25-34); MEAN CORPUSCULAR HGB CONC 35.1 g/dl (32-36); MEAN PLATELET VOLUME 10.1 fL (7.4-10.4); PLATELET COUNT 194 K/uL (130-400); RED CELL DISTRIBUTION WIDTH CV 13.1 % (11.5-14.5); RED CELL DISTRIBUTION WIDTH SD 42.7 fL (36.4-46.3); WHITE BLOOD COUNT 2.72 K/uL (4.8-10.8)
[2018-02-02 06:30] LABS: CALCIUM 8.3 mg/dl (8.5-10.1); CREATININE 0.99 mg/dl (0.60-1.40)
[2018-02-02 07:17] VITALS: BP 115/72; PULSE 77; TEMP 36.5; O2SAT 98
[2018-02-02] MEDS ORDERED: MAGNESIUM SULFATE 1GM / D5W 100 ML IV STA (07:40)
[2018-02-02] MEDS: ZONISAMIDE 100 MG CAP PO SCH (08:25)
[2018-02-02] MEDS: DIAZEPAM 5MG TAB PO SCH ×2 (08:38→20:45)
[2018-02-02] MEDS: LEVETIRACETAM IV 1,500 MG in DEXTROSE 5% 100ML 100 ML IV SCH (09:37)
[2018-02-02] MEDS: D5NSS + 20MEQ KCL 1,000 ML IV SCH (11:13)
--- NOTE | 2018-02-02 11:17 | PROGRESS NOTE ---
DATE: 02/02/2018 SUBJECTIVE: I am seeing Michael in followup of frequent seizures myoclonic versus flexor spasm. His mother indicates she has not seen any recurrent events. In speaking to her about this, this has been ongoing for 8 years, but frequent just over the last 10 days, but he has certainly had episodes of multiple seizures. It does sound like at times they have been stimulus induced if he is in pain or sometimes if he hears a loud noise. His mother has even noted some of the twitching in his face has resolved since Dilantin has been added. He does not appear to have any itching and is awaking back to his baseline, although his mother indicates he is not smiling as much as he had. His Dilantin level this morning was 18.6. VITAL SIGNS: VITAL SIGNS: 36.5, 77, 18, 115/72, 98%. GENERAL: He is awake, alert, following no commands, listening to music. Eye movements are conjugate and roving. He is at least essentially mute during the time I was there. There is mild increased tone in the arms and legs. He sits in a somewhat position. IMPRESSION AND PLAN: Michael looks much improved today. I think I would call these myoclonic seizures and they seem to have resolved with Dilantin. I have switched him to Dilantin 100 three times a day orally. When he is discharged, he can take 300 mg once a day. I would like him to have a Dilantin level in a week to be forwarded to my office. I have switched him to oral Keppra, he should continue Zonegran. It is a question in my mind whether or not we should take him off Zonegran at some point, he has had kidney stones and his mother reports that at times he has sediment in his urine. Ultimately, I would not make any changes as an outpatient. 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 He should see me in followup in the next 2 or 3 weeks. I would keep him overnight for monitoring to rule out recurrent seizures and if he is stable, discharge him tomorrow. ROBERTO
--- NOTE | 2018-02-02 11:51 | Progress Note ---
Internal Med Progress Note Date of Service: February 02, 2018. Provider Documentation: SUBJECTIVE: Seen and examine joel bedside Patient is non verbal No Seizure activity since hospitalization Family at bedside Comfortable lying in bed Family at bedside OBJECTIVE: Vital Signs-as noted below Physical Exam: General Appearance:Moderately built and nourished, no apparent distress Head: normocephalic, Atraumatic Eyes: normal inspection, EOMI, PERRL Neck: supple, Trachea midline Respiratory/Chest: Normal breath sounds, CTA Cardiovascular: S1, S2, No murmur Abdomen/GI:Soft, Non tender, Bowel sounds present Extremities/Musculoskelatal:normal inspection, no edema Neurologic/Psych:grossly no focal neurological deficits Skin: normal color, warm Lab data as noted below. ASSESSMENT & PLAN: Myoclonic Seizures: H/O Seizure disorder Continue Dilantin, Keppra, Diazepam, Zonegran IV Diazepam PRN for seizures Appreciate Neurology Input Seizure/fall precaution Will need Dilantin level checked in 1 week Needs follow up with Neurology in 2-3 weeks upon DC Cerebral palsy Stable S/P Atrial and ventricular septal defect closure No acute cardiac symptoms H/O seminoma testes Received antineoplastic therapy for neck DVT Px SCDs Code Status: Full Code Disposition: Monitor in Tele Vital Signs: Date Time Temp Pulse Resp B/P (MAP) Pulse Ox O2 Delivery O2 Flow Rate FiO2 02/02/18 08:00 Room Air 02/02/18 07:17 36.5 77 18 115/72 (86) 98 Room Air 02/02/18 05:00 36.9 86 16 114/72 (86) 97 Room Air 02/02/18 04:00 Room Air 02/02/18 00:05 Room Air 02/01/18 23:58 36.3 67 18 125/79 (94) 96 Room Air 02/01/18 20:20 36.3 74 16 118/77 96 Room Air 02/01/18 18:53 65 16 113/69 98 02/01/18 17:54 63 16 118/74 97 Room Air 02/01/18 16:13 71 14 116/91 99 Room Air 02/01/18 15:24 72 02/01/18 15:11 36.5 92 20 153/93 99 Room Air 02/01/18 15:11 99 Room Air Lab Results: Results Past 24 Hours Test 02/01/18 16:52 02/01/18 20:21 02/02/18 05:50 Range/Units White Blood Count 4.45 2.72 4.8-10.8 K/uL Red Blood Count 4.48 4.42 4.7-6.1 M/uL Hemoglobin 13.9 13.6 14.0-18.0 g/dL Hematocrit 38.9 38.8 42-52 % Mean Corpuscular Volume 86.8 87.8 80-100 fL Mean Corpuscular Hemoglobin 31.0 30.8 25-34 pg Mean Corpuscular Hemoglobin Concent 35.7 35.1 32-36 g/dl Platelet Count 196 194 130-400 K/uL Mean Platelet Volume 10.2 10.1 7.4-10.4 fL Neutrophils (%) (Auto) 71.3 % Lymphocytes (%) (Auto) 18.9 % Monocytes (%) (Auto) 8.1 % Eosinophils (%) (Auto) 1.1 % Basophils (%) (Auto) 0.2 % Neutrophils # (Auto) 3.17 1.4-6.5 K/uL Lymphocytes # (Auto) 0.84 1.2-3.4 K/uL Monocytes # (Auto) 0.36 0.11-0.59 K/uL Eosinophils # (Auto) 0.05 0-0.5 K/uL Basophils # (Auto) 0.01 0-0.2 K/uL RDW Standard Deviation 41.4 42.7 36.4-46.3 fL RDW Coefficient of Variation 13.0 13.1 11.5-14.5 % Immature Granulocyte % (Auto) 0.4 % Immature Granulocyte # (Auto) 0.02 0.00-0.02 K/uL Sodium Level 142 140 136-145 mmol/L Potassium Level 3.6 4.0 3.5-5.1 mmol/L Chloride Level 111 109 98-107 mmol/L Carbon Dioxide Level 23 24 21-32 mmol/L Anion Gap 8.0 7.0 3-11 mmol/L Blood Urea Nitrogen 12 14 7-18 mg/dl Creatinine 0.90 0.99 0.60-1.40 mg/dl Est Creatinine Clear Calc Drug Dose 97.4 88.6 ml/min Estimated GFR () 133.3 118.8 Estimated GFR (Non- 115.0 102.5 BUN/Creatinine Ratio 13.5 14.0 10-20 Random Glucose 108 93 70-99 mg/dl Calcium Level 8.5 8.3 8.5-10.1 mg/dl Phosphorus Level 3.0 3.0 2.5-4.9 mg/dl Magnesium Level 1.8 1.7 1.8-2.4 mg/dl Total Bilirubin 0.5 0.2-1 mg/dl Direct Bilirubin 0.2 0-0.2 mg/dl Aspartate Amino Transf (AST/SGOT) 16 15-37 U/L Alanine Aminotransferase (ALT/SGPT) 31 12-78 U/L Alkaline Phosphatase 64 45-117 U/L Total Creatine Kinase 271 39-308 U/L Total Protein 7.0 6.4-8.2 gm/dl Albumin 3.8 3.4-5.0 gm/dl Lipase 97 73-393 U/L Phenytoin (Dilantin) Level 22.6 18.6 10-20 mcg/mL
[2018-02-02] MEDS ORDERED: D5NSS + 20MEQ KCL 1,000 ML IV ONE (12:00)
[2018-02-02 12:09] VITALS: BP 125/74; PULSE 76; TEMP 36.7; O2SAT 97
[2018-02-02] MEDS: PHENYTOIN SODIUM ER 100 MG CAP PO SCH ×2 (14:08→20:45)
[2018-02-02 14:40] VITALS: BP 127/82; PULSE 83; TEMP 36.6; O2SAT 98
[2018-02-02 19:08] VITALS: BP 132/81; PULSE 80; TEMP 36.8; O2SAT 96
[2018-02-02] MEDS: LEVETIRACETAM 500 MG TAB PO SCH (20:45)
[2018-02-02] MEDS ORDERED: ZONISAMIDE 100 MG CAP PO SCH (21:00)
[2018-02-02 23:37] VITALS: BP 157/81; PULSE 86; TEMP 36; O2SAT 97
[2018-02-03] MEDS ORDERED: PHENYTOIN SODIUM ER 100 MG CAP PO SCH ×2
[2018-02-03 04:58] VITALS: BP 132/85; PULSE 91; TEMP 36.6; O2SAT 96
[2018-02-03 06:14] LABS: HEMATOCRIT 42.9 % (42-52); HEMOGLOBIN 15.2 g/dL (14.0-18.0); MEAN CELL VOLUME 87.4 fL (80-100); MEAN CORPUSCULAR HGB CONC 35.4 g/dl (32-36); MEAN PLATELET VOLUME 10.1 fL (7.4-10.4); PLATELET COUNT 200 K/uL (130-400); RED CELL DISTRIBUTION WIDTH CV 13.1 % (11.5-14.5); RED CELL DISTRIBUTION WIDTH SD 41.6 fL (36.4-46.3); WHITE BLOOD COUNT 4.17 K/uL (4.8-10.8)
[2018-02-03 06:39] LABS: CALCIUM 8.8 mg/dl (8.5-10.1); CREATININE 1.03 mg/dl (0.60-1.40); POTASSIUM 3.8 mmol/L (3.5-5.1)
[2018-02-03 07:03] VITALS: BP 122/76; PULSE 78; TEMP 36.7; O2SAT 97
[2018-02-03] MEDS ORDERED: LISINOPRIL 5 MG TAB PO SCH (09:00)
[2018-02-03] MEDS: LEVETIRACETAM 500 MG TAB PO SCH (09:11)
[2018-02-03] MEDS: ZONISAMIDE 100 MG CAP PO SCH (09:14)
[2018-02-03] MEDS: DIAZEPAM 5MG TAB PO SCH (09:15)
[2018-02-03] MEDS: PHENYTOIN SODIUM ER 100 MG CAP PO SCH ×2 (10:18→14:00)
--- NOTE | 2018-02-03 10:40 | Progress Note ---
Internal Med Progress Note Date of Service: February 03, 2018. Provider Documentation: SUBJECTIVE: Seen and examine joel bedside Doing well Comfortable lying in bed Patient non verbal No Seizure activity since hospitalization Family at bedside Discussed with Family and Neurology in detail OBJECTIVE: Vital Signs-as noted below Physical Exam: General Appearance:Moderately built and nourished, no apparent distress Head: normocephalic, Atraumatic Eyes: normal inspection, EOMI, PERRL Neck: supple, Trachea midline Respiratory/Chest: Normal breath sounds, CTA Cardiovascular: S1, S2, No murmur Abdomen/GI:Soft, Non tender, Bowel sounds present Extremities/Musculoskelatal:normal inspection, no edema Neurologic/Psych:grossly no focal neurological deficits Skin: normal color, warm Lab data as noted below. ASSESSMENT & PLAN: Myoclonic Seizures: H/O Seizure disorder Continue Dilantin, Keppra, Diazepam, Zonegran IV Diazepam PRN for seizures Appreciate Neurology Input Seizure/fall precaution Dilantin level:21.1 Continue Phenytoin at 300mg daily. May need to decrease if Phenytoin levels trend up Advised to recheck Dilantin level and LFTs checked in 1 week as per Needs follow up with Neurology in 2-3 weeks upon DC Cerebral palsy Stable S/P Atrial and ventricular septal defect closure No acute cardiac symptoms H/O seminoma testes Received antineoplastic therapy for neck DVT Px SCDs Code Status: Full Code Disposition: Plan to discharge home today Follow up with your PCP Dr. Shankar on 02/08/18 at 9:15AM Follow up with your Neurologist Ariana Lang on 02/26/18 at 1:25pm Get blood test (Phenytoin levels/LFTs) in 1 week and follow up with your Neurologist for possible phenytoin dose adjustment as advised Seek immediate medical attention if your symptoms reoccur or worsen Vital Signs: Date Time Temp Pulse Resp B/P (MAP) Pulse Ox O2 Delivery O2 Flow Rate FiO2 02/03/18 07:03 36.7 78 16 122/76 (91) 97 Room Air 02/03/18 04:58 36.6 91 18 132/85 (101) 96 Room Air 02/03/18 04:00 Room Air 02/03/18 00:07 Room Air 02/02/18 23:37 36.0 86 18 157/81 (106) 97 Room Air 02/02/18 20:00 Room Air 02/02/18 19:08 36.8 80 18 132/81 (98) 96 Room Air 02/02/18 16:00 Room Air 02/02/18 14:40 36.6 83 20 127/82 (97) 98 02/02/18 12:09 36.7 76 22 125/74 (91) 97 Room Air 02/02/18 12:00 Room Air Lab Results: Results Past 24 Hours Test 02/03/18 05:47 Range/Units White Blood Count 4.17 4.8-10.8 K/uL Red Blood Count 4.91 4.7-6.1 M/uL Hemoglobin 15.2 14.0-18.0 g/dL Hematocrit 42.9 42-52 % Mean Corpuscular Volume 87.4 80-100 fL Mean Corpuscular Hemoglobin 31.0 25-34 pg Mean Corpuscular Hemoglobin Concent 35.4 32-36 g/dl RDW Standard Deviation 41.6 36.4-46.3 fL RDW Coefficient of Variation 13.1 11.5-14.5 % Platelet Count 200 130-400 K/uL Mean Platelet Volume 10.1 7.4-10.4 fL Sodium Level 138 136-145 mmol/L Potassium Level 3.8 3.5-5.1 mmol/L Chloride Level 108 98-107 mmol/L Carbon Dioxide Level 23 21-32 mmol/L Anion Gap 7.0 3-11 mmol/L Blood Urea Nitrogen 10 7-18 mg/dl Creatinine 1.03 0.60-1.40 mg/dl Est Creatinine Clear Calc Drug Dose 85.1 ml/min Estimated GFR () 113.2 Estimated GFR (Non- 97.7 BUN/Creatinine Ratio 9.7 10-20 Random Glucose 95 70-99 mg/dl Calcium Level 8.8 8.5-10.1 mg/dl Magnesium Level 1.9 1.8-2.4 mg/dl Phenytoin (Dilantin) Level 21.1 10-20 mcg/mL
[2018-02-03] MEDS ORDERED: DLN100 PO (10:42)
--- NOTE | 2018-02-03 10:43 | Discharge Summary ---
Discharge Summary Date of Service February 03, 2018. Discharge Summary Admission Date: February 01, 2018 at 17:39 Discharge Date: February 03, 2018 Discharge Disposition: Home Principal Diagnosis: Seizure disorder Procedures: None Consultations: Neurology Pending Studies/Follow-Up: Follow up with your PCP Dr. Shankar on 02/08/18 at 9:15AM Follow up with your Neurologist Ariana Lang on 02/26/18 at 1:25pm Get blood test (Phenytoin levels/LFTs) in 1 week and follow up with your Neurologist for possible phenytoin dose adjustment as advised Seek immediate medical attention if your symptoms reoccur or worsen Medication Reconciliation New Medications: Phenytoin Sodium (Dilantin) 100 Mg Cap 300 MG PO DAILY for 30 Days, #90 CAP 1 Refill Continued Medications: Acetaminophen (Tylenol) 500 Mg Tab 500 MG PO Q4H PRN for Pain, TAB Cefdinir (Omnicef) 300 Mg Cap 300 MG PO Q12H for 10 Days, #20 CAP STARTED 01/24/2018, TAKE DIRECTED UNTIL GONE Diazepam (Diazepam) 5 Mg Tab 5 MG PO BID Diazepam (Anticonvulsant) (Diastat Acudial) 20 Mg Gel 20 MG OR UD PRN for Seizure RECTALLY FOR SEIZURE LONGER THAN 10 MINUTES Ibuprofen Tab (Advil) 200 Mg Tab 200-600 MG PO Q4H PRN for Pain, TAB Levetiractam (Levetiracetam) 500 Mg Tab 1500 MG PO BID Lisinopril (Lisinopril) 5 Mg Tab 5 MG PO DAILY Saccharomyces Boulardii (Florastor) 250 Mg Cap 250 MG PO BID for 10 Days STARTED 01/24/2018, TAKE DIRECTED UNTIL GONE Zonisamide (Zonegran) 100 Mg Cap 200 MG PO HS, CAP Zonisamide (Zonegran) 100 Mg Cap 100 MG PO QAM, CAP Admission Information HPI (per Admitting provider): He is a 28-year-old male with significant past medical history of cerebral palsy and seizure disorder and apparently was sent in from neurologist office today with the probable status epilepticus. The history is taken from the mom and according to her he has been having spasm involving the upper and lower extremities at times and that has been going on for a while recently he was seen in the ER with the UTI and more of the symptoms. He was also seen in the ER yesterday with ongoing spasm involving the upper and lower extremities. Today he went to see his urologist and he was noted to have continued spasm type of movements involving the extremities and he was sent into ER for continuation of care. The episodes of spasm can come any time and usually lasts for less than a minute occasionally there may be incontinence of urine but no loss of consciousness and no injury from that activity. He received intravenous Dilantin in the ER and the spasms were controlled with that. He was seen by neurologist and Dilantin continue intravenously for continuation of care. Physical Exam (per Admitting): General Appearance: + mild distress (Uneasy ) Head: normocephalic Eyes: normal inspection ENT: normal ENT inspection Neck: supple Respiratory/Chest: lungs clear, normal breath sounds Cardiovascular: regular rate, rhythm Abdomen/GI: normal bowel sounds, soft Extremities/Musculoskelatal: + pertinent finding (Extremities are inFlexed position ) Neurologic/Psych: + aphasia, + pertinent finding (Flaccid with flexture deformity of all extremities) Skin: normal color Lymphatic: no adenopathy Hospital Course Myoclonic Seizures: H/O Seizure disorder Continue Dilantin, Keppra, Diazepam, Zonegran IV Diazepam PRN for seizures Appreciate Neurology Input Seizure/fall precaution Dilantin level:21.1 Continue Phenytoin at 300mg daily. May need to decrease if Phenytoin levels trend up Advised to recheck Dilantin level and LFTs checked in 1 week as per Needs follow up with Neurology in 2-3 weeks upon DC Cerebral palsy Stable S/P Atrial and ventricular septal defect closure No acute cardiac symptoms H/O seminoma testes Received antineoplastic therapy for neck DVT Px SCDs Code Status: Full Code Disposition: Plan to discharge home today Follow up with your PCP Dr. Shankar on 02/08/18 at 9:15AM Follow up with your Neurologist Ariana Lang on 02/26/18 at 1:25pm Get blood test (Phenytoin levels/LFTs) in 1 week and follow up with your Neurologist for possible phenytoin dose adjustment as advised Seek immediate medical attention if your symptoms reoccur or worsen Total time spent on discharge = 35 minutes This includes examination of the patient, discharge planning, medication reconciliation, and communication with other providers. Discharge Instructions Discharge Instructions Date of Service February 03, 2018. Admission Reason for Admission: Status Epilepticus Discharge Discharge Diagnosis / Problem: Seizure disorder Discharge Goals Goal(s): Decrease discomfort, Improve function Activity Recommendations Activity Limitations: resume your previous activity Exercise/Sports Limitations: as tolerated . Instructions / Follow-Up Instructions / Follow-Up Follow up with your PCP Dr. Shankar on 02/08/18 at 9:15AM Follow up with your Neurologist Ariana Lang on 02/26/18 at 1:25pm Get blood test (Phenytoin levels/LFTs) in 1 week and follow up with your Neurologist for possible phenytoin dose adjustment as advised Seek immediate medical attention if your symptoms reoccur or worsen Current Hospital Diet Patient's current hospital diet: Regular Diet Discharge Diet Recommended Diet: Regular Diet Pending Studies Studies pending at discharge: no Medical Emergencies . Who to Call and When: Medical Emergencies: If at any time you feel your situation is an emergency, please call 911 immediately. . Non-Emergent Contact Non-Emergency issues call your: Primary Care Provider, Neurologist Call Non-Emergent contact if: you have a fever, your pain is not controlled, your pain is worsening, your pain is unusual for you, your pain is concerning you, you have any medication questions Seek immediate medical attention if your symptoms reoccur or worsen . . "Provider Documentation" section prepared by Benedict Feliciano. .
[2018-02-03 11:16] VITALS: BP 122/76; PULSE 78; TEMP 36.7; O2SAT 97
[2018-02-03 11:20] VITALS: BP 113/73; PULSE 78; TEMP 36.8; O2SAT 97
--- NOTE | 2018-02-03 11:50 | PROGRESS NOTE ---
DATE: 02/03/2018 SUBJECTIVE: I am seeing Michael in follow-up. He has congenital brain malformation, mental retardation, "cerebral palsy". For at least 8 years, he has had these episodes of myoclonic spasms, but had them every 3 minutes on the day of admission. They have resolved entirely with Dilantin as has some additional twitching. He is returning to his baseline. He is starting to smile some more. They have not witnessed any itching, myoclonic jerks, or twitching. PHYSICAL EXAMINATION: VITAL SIGNS: 36.7, 78, 16, 122/76, 97%. GENERAL: The patient is awake and alert. NEUROLOGIC: He has spontaneous eye movements, do not have any evidence of nystagmus. He is mute, smiled once, listened to music on a battery operated radio. He moves his extremities fairly symmetrically, although he has an upper motor neuron posture of all 4 extremities. IMPRESSION AND PLAN: The patient had multiple breakthrough seizures that looked like myoclonic spasms. He is much improved today. Although his Dilantin level is 21.1, I would continue 300 mg of Dilantin daily and recheck a level with a hepatic in 1 week. I should see him back in 2-3 weeks. I spoke to his mother on the phone. We spoke about the risk for rash, need for routine blood monitoring, when to seek advice about seizures and/or utilization of the Emergency Room. The patient may safely be discharged today with continuation of his prehospital dosing of Keppra and Zonegran. MTDD
[2018-02-03 14:46] VITALS: BP 122/74; PULSE 84; TEMP 36.9; O2SAT 97
[2018-02-03] MEDS ORDERED: NURSING VERBAL MED ORDER ONE (15:15)
--- NOTE | 2018-02-04 08:02 | NEUROLOGY CONSULTATION ---
DATE OF CONSULTATION: 02/01/2018 REASON FOR CONSULTATION: Frequent seizures. HISTORY OF PRESENT ILLNESS: The patient is a 28-year-old ambidextrous male with a history of cerebral palsy, secondary seizure disorder, microcephalous, and developmental delay, congenital heart disease, seminoma. On this background, the patient has had seizures since infancy. He generally has reasonably well controlled seizures with rare generalized seizures which began with head and eye deviation, probably to the right. Recently beginning about a week ago, the patient began having spasms of flexion of the upper extremities and flexion of the hips lasting about a minute intermittently. They were fairly frequent on 01/23/2018 and the patient was brought in by his mom to the hospital. At that time, it was thought this was related to urinary tract infection. He was evaluated, had a CT of the head, which I have reviewed, which shows colpocephaly, hydrocephalus. These were attributed to a urinary tract infection and treatment of the urinary tract infection helped the symptoms resolve. The patient was seen last night in our Emergency Room for frequent spells approximately every 3 minutes of these episodes. They improved somewhat with Ativan had been given in the ambulance. He was discharged from the Emergency Room and sent over to our office for an appointment where he was noted to have frequent episodes of flexor spasms lasting 1 minute or so and approximately every 3 minutes. He was sent to this facility for evaluation. We noted the aforementioned episodes of flexor spasms and treated with 1 mg of Ativan which did not break the episode and then loaded the patient with intravenous Dilantin 1 g. He appears to have not had any recurrent spells. Since having did that, there is some minor movement of the legs, but no extension and flexion at the trunk or flexion at the trunk and extension of the arms. He has been in his usual state of health. He has not otherwise been ill. None of his medicines are new or changed in dose. He has not had any falls. PAST SURGICAL HISTORY: Unknown to this examiner. It is said that he has a seminoma. SOCIAL HISTORY: Nonsmoker, nondrinker. He lives with his parents. PAST MEDICAL HISTORY: Had seizures, CP, autosomal dominant polycystic kidney disease, encounter for antineoplastic chemotherapy, status post ASD closure, VSD closure, and congenital aortic valve insufficiency. FAMILY HISTORY: In mother's family, there is polycystic kidney disease. No history of aneurysm, hypertension. MEDICATIONS: Prior to admission are Tylenol. He was finishing up Omnicef 300 every 12 hours. He was given Flexeril for the spasms. He has Diastat AcuDial 20 mg at home for prolonged seizure, takes Valium 5 mg twice a day, Keppra 1500 twice a day, Prinivil 5 mg once a day and Zonegran 100 mg in the morning, 200 at night. ALLERGIES: AMOXICILLIN AND CLAVULANIC ACID. PHYSICAL EXAMINATION: VITAL SIGNS: 36.5, 92, 20, 153/93 on admission, O2 sat 99%. LABORATORY DATA: White count 4.45, H & H 13.9, 38, platelet count 196. Chemistry profile pending. Toxicology pending. The patient when I examined him, he was awake, having intermittent flexor spasms. His pupils were reactive. There was no fixed gaze preference. When he was not having the episode, he was mute. He appeared to respond to external stimuli. He is qudriparetic with increased tone in the lowers. His reflexes were brisk. Toes were mute. Sensory, cerebellar is not testable. IMPRESSION: This patient has a longstanding history of seizures, cerebral palsy, colpocephaly, with breakthrough flexor spasms as a manifestation of seizure. PLAN: Continue Dilantin 100 mg 3 times a day, Dilantin at 8:00 p.m. and in the morning. Continue home Keppra dose, Zonegran dose, Valium if he is taking by mouth, otherwise, will have to be given intravenously which I would prefer not to do. Due to the fact that this is a change in the pattern of his usual seizure disorder, would consider repeating MRI of the brain if that was possible. The patient does have a history of a seminoma of the testes. We will check for any electrolyte abnormalities which could have caused this, although he had prior labs earlier in the last 2 weeks that I believe were noncontributory. If the patient were not to return to his cognitive baseline of being alert or have frequent spasms, seizures, he would need transfer to a tertiary care center for continuous EEG monitoring. [facility]
== END 2018-02-03 15:35 | disposition home or self-care (01) | DRG 101 ==
LOC: EDBD 15:01 → C.EDA 15:03 → C.MED 17:39 → ENRESERV 18:45
PROVIDERS: ADMIT Internal Medicine; ATTEND Internal Medicine
DX: G40.901 Epilepsy, unspecified, not intractable, with status epilepticus (principal); G80.9 Cerebral palsy, unspecified; Z82.49 Family history of ischemic heart disease and other diseases of the circulatory system; Z88.1 Allergy status to other antibiotic agents; Z88.8 Allergy status to other drugs, medicaments and biological substances

== ENCOUNTER → 2018-04-24 | Outpatient (CLI) | payer OTHER ==
[~2018-04-24] MED LIST changes: -CEFD1CAP14 PO; -CEFD300C2 PO; +DLN100 PO; -IBUP-103 PO; +LEVE500T PO; +LISI-730 PO; +LVNIS100 SQ; +OPTIRAY 320 IV PRN; -SACC250C PO; -SACC250C3 PO; +VLM5CL PO; +ZONI100C2 PO; +[UNRECOGNIZED DRUG - CODE] PO
--- NOTE | 2018-04-24 11:38 | DIAGNOSTIC IMAGING REPORT ---
CT SCAN OF THE ABDOMEN AND PELVIS WITH IV CONTRAST CLINICAL HISTORY: Testicular cancer. COMPARISON STUDY: Abdominal CT dated 03/08/2017. TECHNIQUE: Following the IV administration of 121 cc of Optiray 320, CT scan of the abdomen and pelvis is performed from the lung bases to the proximal femora. Images are reviewed in the axial, sagittal, and coronal planes. IV contrast was administered without complication. A dose lowering technique was utilized adhering to the principles of ALARA. The examination is degraded by motion artifact, as well as by streak artifact from the right arm which could not be elevated above the abdomen. CT DOSE: 377.56 mGy.cm FINDINGS: Lung bases: The heart is mildly enlarged and without pericardial effusion. There are small pleural effusions. Liver: The contrast-enhanced liver is normal in size, contour, and attenuation. There is no intrahepatic biliary ductal dilatation. The hepatic veins and portal veins are patent. There are numerous (greater than 20) hepatic cysts and hypodensities. These are similar to previous. Gallbladder: Unremarkable. Spleen: Normal in size and attenuation. Pancreas: Unremarkable. Adrenal glands: Unremarkable. Kidneys: The contrast enhanced kidneys are enlarged and without hydronephrosis. The kidneys are infiltrated by too numerous to count cysts consistent with autosomal dominant polycystic kidney disease. The largest cysts measure up to 5.5 cm. Additional subcentimeter cortical hypodensities also likely represent cysts but are too small for definitive characterization. Nonobstructing calculi are present in both kidneys. The kidneys enhance symmetrically. Abdominal vasculature: The abdominal aorta is normal in course and caliber. There is extensive deep venous thrombosis identified in the left common iliac vein into the left common femoral vein. The inferior vena cava is diminutive and may be occluded. Bowel: There is moderate colonic fecal retention. No bowel obstruction is seen. The appendix is well-visualized and normal. Peritoneum: There is no intraperitoneal free air or abdominal ascites. There is a fat-containing umbilical hernia. Lymphadenopathy: None. Pelvic viscera: The bladder is distended and grossly unremarkable. The prostate gland appears mildly enlarged measuring 5.1 cm in transverse diameter. The seminal vesicles are normal as visualized. There is irregular low-attenuation lesion identified in the right ventral pelvis on image #[id number] above the inguinal ring. This measures 2.7 x 2.2 cm, and there is an additional soft tissue nodule below the inguinal canal seen on image #[id number]. Skeletal structures: No lytic or blastic lesions are seen. IMPRESSION: 1. Streak and motion compromised examination. 2. There is no evidence of metastatic disease in the abdomen or pelvis. 3. There is abnormal nodular soft tissue seen above and below the right inguinal canal. This likely represents an undescended testis and epididymis, and appears proximally migrated as compared to 03/08/2017. 4. There is extensive left lower extremity deep venous thrombosis which extends from the common iliac vein into the visualized left lower extremity veins. 5. The inferior vena cava is diminutive and may be occluded. 6. Findings are consistent was autosomal dominant polycystic kidneys disease. 7. There are nonobstructing bilateral renal calculi. 8. Cardiomegaly and small pleural effusions. These are similar to previous. 9. Moderate colonic fecal retention. Electronically signed by: Jairon Alfonso M.D. 04/24/2018 11:36 AM Dictated Date/Time: 04/24/2018 11:06 AM
== END | disposition home or self-care (01) ==
LOC: C.CTS 10:00
PROVIDERS: ATTEND Physician Assistant
DX: C62.92 Malignant neoplasm of left testis, unspecified whether descended or undescended (principal); K59.00 Constipation, unspecified; I51.7 Cardiomegaly

== ENCOUNTER 2020-08-09 19:26 | Inpatient (IN) ==
[2020-08-09] MEDS ORDERED: SODIUM CHLORIDE 0.9% 1000ML 1,000 ML IV ONE (19:44)
[2020-08-09] MEDS ORDERED: CEFEPIME 2,000 MG/20 ML VIAL IV STA (19:44)
[2020-08-09] MEDS ORDERED: ALBUTEROL HFA 8 GM INHALER INH ONE (19:59)
--- NOTE | 2020-08-09 20:06 | Emergency Department Note ---
Impression & Plan Sepsis, Fever, Wheezing, COVID-19 ED Provider Note NAME: YULIANA COLIN AGE: 30 SEX: M : 1990 ARRIVES VIA: Walk-In INFORMANT: [mother] ED PROVIDER(S): [Jairon Stahl MD] CHIEF COMPLAINT: Fever HISTORY OF PRESENT ILLNESS: The patient is a 30-year-old male with epilepsy and mental delay. As per his mother, he has had a stuffy nose and cough for a few days. Today, he developed a fever. She states that he is wheezing but this is often the case. He wheezes sometimes when he is not sick. He does have an nebulizer that is used at home. The mother states that there was no wheezing on the ride up. He started doing the wheezing when he got to the ED. Mother did give some Tylenol just prior to arrival, it has not helped the fever. There has been no vomiting or diarrhea. No rash. Patient has had no known coronavirus exposures. There has been no sick contacts. Patient is having some difficulty with swallowing, aspiration is a concern. Over the mental delay, no further history obtainable. REVIEW OF SYSTEMS: Unobtainable given the mental delay. PMHx/PSHx: See Below SOCIAL HISTORY: See Below. PHYSICAL EXAM: GENERAL: Patient is in mild respiratory distress. HEENT: No acute trauma, normocephalic atraumatic, mucous membranes moist, no nasal congestion, no scleral icterus. NECK: No stridor, no adenopathy, no meningismus, trachea is midline. LUNGS: There is some expiratory wheeze heard. He does have an increased respiratory rate. There is some mild respiratory distress. HEART: Tachycardic, regular rhythm. Equal radial pulses bilaterally. ABDOMEN: Soft, nontender, bowel sounds positive, no hernias, no peritonitis. EXTREMITIES: No cyanosis, mild bilateral pedal edema, full range of motion of all the joints without pain or difficulty, no signs for acute trauma. NEUROLOGIC: Awake and alert, moves his upper extremities equally. Mental delay noted. Nonverbal. SKIN: No rash, no jaundice, no diaphoresis. DIFFERENTIAL DIAGNOSIS: Sepsis, UTI, pneumonia, metabolic, electrolyte abnormalities, influenza, coronavirus, aspiration, cardiac sources, intracerebral event, toxicologic, neurologic, as well as other pathologies. EMERGENCY DEPARTMENT COURSE/PROCEDURES: ECG: Indication was tachycardia. The ECG shows a sinus tachycardia with a rate of 120. There is a right bundle branch block. The QTc is 520. There is no ST elevation. No PVCs. Compared to an ECG from 01 November 2019, the rate has increased. Continuous Cardiac Monitoring: An order was placed for continuous cardiac monitoring. The monitor shows a rate of 102 with sinus tachycardia. Critical Care Note: I have personally spent 54 minutes of critical care time in the direct management of this patient. This includes bedside care, interpretation of diagnostic studies, and testing, discussion with consultants, patient, and family members, and other required patient management activities. This 54 minutes is in excess of all separately billable procedures. MEDICAL DECISION MAKING: There is no leukocytosis or concerning anemia. There is a normal platelet count. Potassium slightly low at 3.2. No kidney failure. Magnesium was somewhat low at 1.7. No worrisome liver enzyme elevation. Lactic acid level was slightly elevated consistent with dehydration and/or sepsis. Urinalysis result is currently pending. Valproic acid level was slightly elevated. Covid testing returned positive. Influenza testing returned negative. Chest x-ray did not show pneumonia or CHF. The patient presents wheezing, febrile, tachycardic. He does have some intellectual disability. The patient was aggressively managed. He did meet criteria for sepsis. He was given albuterol via MDI and a spacer. He received IV cefepime as empiric antibiotic coverage. He was given IV saline for hydration. Patient does meet criteria for a hospital stay. I do think his illness is from COVID-19. I spoke to the patient's mother, I spoke with case management. The on-call hospitalist was consulted. Past Med/Surg History Medical History Cerebral palsy Epilepsy Kidney disease Testicular cancer Surgical History No pertinent past surgical history Family History Other Hypertension Social History Smoking Status: Never smoker Hx Alcohol Use: No Hx Substance Use: No Communication Ability: Unable Weigher Packing Required: No Beliefs That Will Affect Care: None marital status: Single Current Living Situation: Parent current occupational status: disabled Feels Safe at Home: Yes Assistive Devices: None Allergies Allergies Allergy/AdvReac Type Severity Reaction Status Date / Time amoxicillin Allergy Unknown . Verified 08/09/20 21:02 clavulanic acid Allergy Unknown . Verified 08/09/20 21:02 Home Meds Home Medications Medication Instructions Recorded Confirmed Eliquis 5 mg PO BID 10/17/19 08/09/20 acetaminophen [Tylenol Extra 1,000 mg PO Q6H PRN 10/17/19 08/09/20 Strength] diazepam 5 mg PO BID 10/17/19 08/09/20 divalproex 500 mg PO BID 10/17/19 08/09/20 levetiracetam 1,500 mg PO BID 10/17/19 08/09/20 lisinopril 5 mg PO QAM 10/17/19 08/09/20 lorazepam 2 mg PO DIRECTED PRN 10/17/19 08/09/20 zonisamide 100 mg PO QAM 10/17/19 08/09/20 zonisamide 200 mg PO HS 10/17/19 08/09/20 baclofen 10 mg PO .QAFTERNOON 11/01/19 08/09/20 baclofen 20 mg PO BID 08/09/20 08/09/20 Previous Rx's Medication Instructions Recorded albuterol sulfate 0.63 mg INH Q8H PRN #75 ml 11/06/19 Results & Data (ED) Vital Signs Vital Signs - 24 hr 08/09/20 19:33 08/09/20 20:40 08/09/20 21:20 Temperature 39.4 C H Temperature Source Oral Pulse Rate 133 H Pulse Rate [Right Finger] 112 H Respiratory Rate 26 H 20 Respiratory Effort / Characteristics Spontaneous Non-Labored Respiratory Depth Normal Normal Blood Pressure 137/77 Blood Pressure [Right Arm] 135/81 Blood Pressure Mean 97 Blood Pressure Mean [Right Arm] 99 Blood Pressure Position [Right Arm] Lying Pulse Oximetry 93 94 94 Oxygen Delivery Method Room Air Room Air Room Air Sepsis Recent Fever Within 48 Hours Yes Sepsis New/Unexplained Change in Mental Status N/A Sepsis Action Taken by Nursing Physician Notified 08/09/20 21:48 08/09/20 23:00 Temperature 38.4 C H Temperature Source Oral Pulse Rate Pulse Rate [Right Finger] 102 H Respiratory Rate 20 Respiratory Effort / Characteristics Respiratory Depth Blood Pressure Blood Pressure [Right Arm] 95/60 L Blood Pressure Mean Blood Pressure Mean [Right Arm] 71 Blood Pressure Position [Right Arm] Lying Pulse Oximetry 93 Oxygen Delivery Method Room Air Sepsis Recent Fever Within 48 Hours Sepsis New/Unexplained Change in Mental Status Sepsis Action Taken by [facility] Medications Current Medication List: was personally reviewed by me Laboratory Data Attestation: I reviewed the patient's lab results. Result diagrams: 08/09/20 20:38 08/09/20 20:38 Lab Results 08/09/20 08/09/20 08/09/20 Range/Units 20:38 20:38 20:38 WBC 5.24 (4.8-10.8) K/uL RBC 4.78 (4.7-6.1) M/uL Hgb 14.6 (14.0-18.0) g/dL Hct 42.3 (42-52) % MCV 88.5 (80-100) fL MCH 30.5 (25-34) pg MCHC 34.5 (32-36) g/dL RDW Std Deviation 45.1 (36.4-46.3) fL RDW Coeff of Holley 14.0 (11.5-14.5) % Plt Count 145 (130-400) K/uL MPV 11.7 H (7.4-10.4) fL Immature Gran % (Auto) 0.2 % Neut % (Auto) 82.8 % Lymph % (Auto) 10.9 % Roberts % (Auto) 5.9 % Eos % (Auto) 0.2 % Baso % (Auto) 0.0 % Neut # (Auto) 4.34 (1.4-6.5) K/uL Lymph # (Auto) 0.57 L (1.2-3.4) K/uL Roberts # (Auto) 0.31 (0.11-0.59) K/uL Eos # (Auto) 0.01 (0-0.5) K/uL Baso # (Auto) 0.00 (0-0.2) K/uL Immature Gran # (Auto) 0.01 (0.00-0.02) K/uL Sodium 137 (136-145) mmol/L Potassium 3.2 L (3.5-5.1) mmol/L Chloride 108 H (98-107) mmol/L Carbon Dioxide 21 (21-32) mmol/L Anion Gap 8.0 (3-11) BUN 13 (7-18) mg/dl Creatinine 1.29 (0.6-1.4) mg/dl Est Cr Clr Drug Dosing 80.2 ml/min Est GFR ( Amer) 85.1 Est GFR (Non-Af Amer) 73.4 BUN/Creatinine Ratio 9.8 L (10-20) Glucose 113 H (70-99) mg/dl Lactate 2.3 H* (0.4-2.0) mmol/L Calcium 8.8 (8.5-10.1) mg/dl Magnesium 1.7 L (1.8-2.4) mg/dl Total Bilirubin 0.3 (0.2-1) mg/dl AST 11 L (15-37) U/L ALT 26 (12-78) U/L Alkaline Phosphatase 68 (45-117) U/L Total Protein 7.5 (6.4-8.2) gm/dl Albumin 3.5 (3.4-5.0) gm/dl Globulin 4.0 (2.5-4.0) gm/dl Albumin/Globulin Ratio 0.9 (0.9-2) Valproic Acid (50-100) mcg/ml COVID-19 Eval Order Influ A Molecular Assay (Negative) Influ B Molecular Assay (Negative) SARS-CoV-2, RNA, NAAT (NEGATIVE) 08/09/20 08/09/20 08/09/20 Range/Units 20:38 21:07 21:07 WBC (4.8-10.8) K/uL RBC (4.7-6.1) M/uL Hgb (14.0-18.0) g/dL Hct (42-52) % MCV (80-100) fL MCH (25-34) pg MCHC (32-36) g/dL RDW Std Deviation (36.4-46.3) fL RDW Coeff of Holley (11.5-14.5) % Plt Count (130-400) K/uL MPV (7.4-10.4) fL Immature Gran % (Auto) % Neut % (Auto) % Lymph % (Auto) % Roberts % (Auto) % Eos % (Auto) % Baso % (Auto) % Neut # (Auto) (1.4-6.5) K/uL Lymph # (Auto) (1.2-3.4) K/uL Roberts # (Auto) (0.11-0.59) K/uL Eos # (Auto) (0-0.5) K/uL Baso # (Auto) (0-0.2) K/uL Immature Gran # (Auto) (0.00-0.02) K/uL Sodium (136-145) mmol/L Potassium (3.5-5.1) mmol/L Chloride (98-107) mmol/L Carbon Dioxide (21-32) mmol/L Anion Gap (3-11) BUN (7-18) mg/dl Creatinine (0.6-1.4) mg/dl Est Cr Clr Drug Dosing ml/min Est GFR ( Amer) Est GFR (Non-Af Amer) BUN/Creatinine Ratio (10-20) Glucose (70-99) mg/dl Lactate (0.4-2.0) mmol/L Calcium (8.5-10.1) mg/dl Magnesium (1.8-2.4) mg/dl Total Bilirubin (0.2-1) mg/dl AST (15-37) U/L ALT (12-78) U/L Alkaline Phosphatase (45-117) U/L Total Protein (6.4-8.2) gm/dl Albumin (3.4-5.0) gm/dl Globulin (2.5-4.0) gm/dl Albumin/Globulin Ratio (0.9-2) Valproic Acid 101 H (50-100) mcg/ml COVID-19 Eval [facility] Influ A Molecular Assay (Negative) Influ B Molecular Assay (Negative) SARS-CoV-2, RNA, NAAT POSITIVE A* (NEGATIVE) 08/09/20 08/09/20 Range/Units 21:47 22:48 WBC (4.8-10.8) K/uL RBC (4.7-6.1) M/uL Hgb (14.0-18.0) g/dL Hct (42-52) % MCV (80-100) fL MCH (25-34) pg MCHC (32-36) g/dL RDW Std Deviation (36.4-46.3) fL RDW Coeff of Holley (11.5-14.5) % Plt Count (130-400) K/uL MPV (7.4-10.4) fL Immature Gran % (Auto) % Neut % (Auto) % Lymph % (Auto) % Roberts % (Auto) % Eos % (Auto) % Baso % (Auto) % Neut # (Auto) (1.4-6.5) K/uL Lymph # (Auto) (1.2-3.4) K/uL Roberts # (Auto) (0.11-0.59) K/uL Eos # (Auto) (0-0.5) K/uL Baso # (Auto) (0-0.2) K/uL Immature Gran # (Auto) (0.00-0.02) K/uL Sodium (136-145) mmol/L Potassium (3.5-5.1) mmol/L Chloride (98-107) mmol/L Carbon Dioxide (21-32) mmol/L Anion Gap (3-11) BUN (7-18) mg/dl Creatinine (0.6-1.4) mg/dl Est Cr Clr Drug Dosing ml/min Est GFR ( Amer) Est GFR (Non-Af Amer) BUN/Creatinine Ratio (10-20) Glucose (70-99) mg/dl Lactate 0.7 (0.4-2.0) mmol/L Calcium (8.5-10.1) mg/dl Magnesium (1.8-2.4) mg/dl Total Bilirubin (0.2-1) mg/dl AST (15-37) U/L ALT (12-78) U/L Alkaline Phosphatase (45-117) U/L Total Protein (6.4-8.2) gm/dl Albumin (3.4-5.0) gm/dl Globulin (2.5-4.0) gm/dl Albumin/Globulin Ratio (0.9-2) Valproic Acid (50-100) mcg/ml COVID-19 Eval Order Influ A Molecular Assay Negative (Negative) Influ B Molecular Assay Negative (Negative) SARS-CoV-2, RNA, NAAT (NEGATIVE) Administered Medications Discontinued Medications Albuterol (Albuterol Hfa 8 Gm Inhaler) 3 puffs INH NOW ONE Stop: 08/09/20 20:00 Last Admin: 08/09/20 21:09 Dose: 3 puffs Documented by: [id number] Sodium Chloride (Nss 1000ml) 1,000 mls @ 999 mls/hr IV .Q1H1M ONE Stop: 08/09/20 20:44 Last Infusion: 08/09/20 22:51 Dose: 0 mls/hr Documented by: [id number] Admin: 08/09/20 21:09 Dose: 999 mls/hr Documented by: [id number] Cefepime HCl (Maxipime) 2,000 mg in 20 mls @ 5 mls/min IV NOW STA; Protocol Stop: 08/09/20 19:47 Last Admin: 08/09/20 22:50 Dose: 5 mls/min Documented by: [id number] Sodium Chloride (Nss 1000ml) 500 mls @ 999 mls/hr IV .Q31M ONE Stop: 08/09/20 22:40 Last Admin: 08/10/20 00:07 Dose: 999 mls/hr Documented by: [id number] Imaging Data Radiologist's Impression: XR chest 1V portable CLINICAL HISTORY: Fever. COMPARISON STUDY: Chest radiograph November 03, 2019. FINDINGS: Lung volumes are diminished. This is unchanged. Gaseous distention of the stomach is noted. This is been shown on prior exams. There is mild left basilar opacity. No pneumothorax or pleural effusion is noted. Cardiomediastinal silhouette is stable. There is no evidence for pulmonary edema. IMPRESSION: 1. Low lung volumes with bibasilar opacities favor atelectasis. 2. Gaseous distention of the stomach which has been shown on several prior exams. 3. No significant change in appearance of the chest. Discharge Plan Visit Data Chief Complaint: Fever Stated Complaint: fever, cough, wheezing ED Provider: Jairon Stahl Discharge Problem: Sepsis, Fever, Wheezing, COVID-19 Patient Disposition: Admitted As Inpatient Condition: Fair Forms Stand Alone Forms: [facility] Prescriptions Prescriptions: No Action levetiracetam 500 mg tablet 1,500 mg PO BID RF: 0 divalproex 500 mg tablet,delayed release (DR/EC) 500 mg PO BID RF: 0 acetaminophen [Tylenol Extra Strength] 500 mg Tablet 1,000 mg PO Q6H PRN (Reason: Pain) RF: 0 zonisamide 100 mg capsule 100 mg PO QAM RF: 0 zonisamide 100 mg capsule 200 mg PO HS RF: 0 lisinopril 5 mg tablet 5 mg PO QAM RF: 0 lorazepam 1 mg tablet 2 mg PO DIRECTED PRN (Reason: Spasms) RF: 0 diazepam 5 mg tablet 5 mg PO BID RF: 0 Eliquis 5 mg tablet 5 mg PO BID RF: 0 baclofen 10 mg tablet 10 mg PO .QAFTERNOON RF: 0 albuterol sulfate 0.63 mg/3 mL solution for nebulization 0.63 mg INH Q8H PRN (Reason: bronchospasm) Qty: 75 RF: 0 baclofen 20 mg tablet 20 mg PO BID RF: 0 Referrals Referrals: Carlos Shankar PA-C [Primary Care Provider] - Discharge Problem: Sepsis Qualifiers: Sepsis type: sepsis due to unspecified organism Sepsis acute organ dysfunction status: without acute organ dysfunction Qualified Code(s): A41.9 - Sepsis, unspecified organism Fever Qualifiers: Fever type: unspecified Qualified Code(s): R50.9 - Fever, unspecified
--- NOTE | 2020-08-09 20:36 | XRay Report ---
XR chest 1V portable CLINICAL HISTORY: Fever. COMPARISON STUDY: Chest radiograph November 03, 2019. FINDINGS: Lung volumes are diminished. This is unchanged. Gaseous distention of the stomach is noted. This is been shown on prior exams. There is mild left basilar opacity. No pneumothorax or pleural ef fusion is noted. Cardiomediastinal silhouette is stable. There is no evidence for pulmonary edema. IMPRESSION: 1. Low lung volumes with bibasilar opacities favor atelectasis. 2. Gaseous distention of the stomach which has been shown on several prior exams. 3. No significant change in appearance of the chest. ACT 112: Negative or not required by law. Electronically signed by: Jamey Calvo M.D. 08/09/2020 8:34 PM
[2020-08-09 21:11] LABS: Albumin Level 3.5 gm/dl (3.4-5.0); BUN Creatinine Ratio 9.8 (10-20); Calcium 8.8 mg/dl (8.5-10.1); Creatinine Clr Calc Pharmacy 80.2 ml/min; Est GFR (African American) 85.1; Est GFR (Non-African American) 73.4; Magnesium 1.7 mg/dl (1.8-2.4); Potassium 3.2 mmol/L (3.5-5.1)
[2020-08-09 21:14] LABS: Albumin Globulin Ratio 0.9 (0.9-2); Bilirubin,Total 0.3 mg/dl (0.2-1); Total Protein 7.5 gm/dl (6.4-8.2)
[2020-08-09 21:42] LABS: Eosinophils # (auto) 0.01 K/uL (0-0.5); Eosinophils % (auto) 0.2 %; Hematocrit (blood only) 42.3 % (42-52); Hemoglobin 14.6 g/dL (14.0-18.0); Immature Granulocytes # (auto) 0.01 K/uL (0.00-0.02); Immature Granulocytes % (auto) 0.2 %; Lymphocytes # (auto) 0.57 K/uL (1.2-3.4); Lymphocytes % (auto) 10.9 %; Mean Corpuscular Hemoglobin 30.5 pg (25-34); Mean Corpuscular Hgb Conc 34.5 g/dL (32-36); Mean Corpuscular Volume 88.5 fL (80-100); Mean Platelet Volume 11.7 fL (7.4-10.4); Monocytes # (auto) 0.31 K/uL (0.11-0.59); Monocytes % (auto) 5.9 %; Neutrophils # (auto) 4.34 K/uL (1.4-6.5); Neutrophils % (auto) 82.8 %; Platelet Count 145 K/uL (130-400); RDW Standard Deviation 45.1 fL (36.4-46.3); Red Blood Count 4.78 M/uL (4.7-6.1); White Blood Count 5.24 K/uL (4.8-10.8)
[2020-08-09] MEDS ORDERED: SODIUM CHLORIDE 0.9% 1000ML 500 ML IV ONE (22:10)
[2020-08-09 23:01] LABS: Influenza A virus by PCR Negative (Negative); Influenza B virus by PCR Negative (Negative)
[2020-08-10] MEDS ORDERED: DEXAMETHASONE SOD INJ 10 MG/ML VIAL IV ONE (00:13)
[2020-08-10 00:17] LABS: Appearance Urine Clear (Clear); Bacteria Urine Automated Negative (Negative); Bilirubin Urine Negative (Negative); Blood Urine 3+ (Negative); Color Urine Yellow; Epithelial Cell Urine Auto 20-30 /lpf (0-5); Glucose Urine UA Negative (Negative); Ketones Urine 1+ (Negative); Leukocyte Esterase Urine 1+ (Negative); Nitrite Urine Negative (Negative); Protein Urine Negative (Negative); RBC Urine Automated >30 /hpf (0-4); Specific Gravity Urine 1.018 (1.000-1.030); Urobilinogen Urine Negative (Negative)
[2020-08-10] MEDS ORDERED: ONDANSETRON INJ 2 MG/ML 2 ML VIAL IV PRN (01:57)
[2020-08-10] MEDS ORDERED: NITROGLYCERIN SL 0.4 MG/TAB TAB SL PRN (01:57)
[2020-08-10] MEDS ORDERED: POLYETHYLENE (MIRALAX) 17 GM PACK PO PRN (01:57)
[2020-08-10] MEDS ORDERED: ACETAMINOPHEN 1,000 MG/100 ML VIAL IV PRN (01:57)
[2020-08-10] MEDS ORDERED: MAGNESIUM SULFATE / D5W 1 GM/100 ML BAG IV ONE (02:03)
[2020-08-10] MEDS ORDERED: POTASSIUM CHLORIDE 20 MEQ/15 ML UDC PO STA (02:03)
[2020-08-10] MEDS: SODIUM CHLORIDE 0.9% 1000ML 1,000 ML IV SCH ×3 (02:08→17:06)
[2020-08-10] MEDS ORDERED: LORazepam 1 MG TAB PO PRN (02:45)
[2020-08-10] MEDS: DOXYCYCLINE HYCLATE 100 MG in DEXTROSE 5% 100 ML IV SCH ×2 (02:49→13:24)
[2020-08-10] MEDS ORDERED: ALBUTEROL 0.083% NEBU SOLN 3 ML VIAL NEB PRN (02:49)
[2020-08-10] MEDS ORDERED: REMDESIVIR 200 MG in SODIUM CHLORIDE 0.9% 210 ML IV ONE (03:00)
[2020-08-10] MEDS ORDERED: LEVALBUTEROL 1.25MG/0.5ML NEB NEB PRN (03:11)
[2020-08-10] MEDS ORDERED: bisacodyL 10 MG SUPP PR PRN (03:22)
--- NOTE | 2020-08-10 05:20 | History and Physical Report ---
DATE OF ADMISSION: 08/10/2020 CHIEF COMPLAINT: Fever. COVID-19 positive. 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 As per mom, he does not ambulate much, he ambulates with help of support short distance. Currently, he is following with speech therapy at [facility] and is currently on pureed diet. The patient is nonverbal, was brought in by mother because of high fever at home. For the last couple of days patient has some congestion in the sinuses and has audible wheezing. The patient wheezes at times, this is not unusual for him as per mom. He has some stuffed nose and not much cough, today did not eat much . When he came in, he was having 103F temperature, tachycardic. Blood pressure was okay. Lactic acid was 2.3. No leukocytosis. COVID 19 came back as positive. As per the mother, there was no obvious exposure. Mother works as a small parts shaper operator, but she is not sick. No other people live with them. The patient is nonverbal and as per mother he was holding his head and she thought it could be from his sinusitis.No nausea, no vomiting, no diarrhea. He is chronically constipated. Denies any blood in stool or black stools. Sleeping okay. He is on diapers. No rash seen. Could not get any review of symptoms as the patient is nonverbal. ALLERGIES: AUGMENTIN. PAST MEDICAL HISTORY: As mentioned above. PAST SURGICAL HISTORY: Impacted tooth removal, bilateral feet tendon release, removal of the tailbone, repair of the heart septum defect in 4 months of age for ASD and VSD. MEDICATIONS: The patient is on Tylenol Extra Strength 1000 mg p.o. q. 6 hours p.r.n., albuterol nebulization q. 8 hours p.r.n., baclofen 20 mg p.o. b.i.d., baclofen 10 mg p.o. in the afternoon, diazepam 5 mg p.o. b.i.d., divalproex 500 mg p.o. b.i.d., Eliquis 5 mg p.o. b.i.d., Keppra 1500 mg p.o. b.i.d., lisinopril 5 mg p.o. a.m., Ativan 2mg po prn, Zonisamide 100 mg p.o. a.m. and 200 mg p.o. at bedtime. FAMILY HISTORY: Significant for mother has polycystic kidney disease, hypertension. Brother had asthma when younger. Paternal grandfather had kidney cancer. Maternal grandfather has hypertension, polycystic kidney disease. SOCIAL HISTORY: Lives with his mom. No alcohol, no drug use. No smoking. REVIEW OF SYMPTOMS: Unobtainable as the patient is nonverbal. PHYSICAL EXAMINATION: GENERAL: The patient is alert and awake, audible wheezing heard, not in acute distress. VITAL SIGNS: Temperature T-max 39.4, pulse 116, respiratory rate 22, blood pressure 135/81, oxygen 93% on room air. HEENT: Drooping of right eyelids. Pupils equal, round, reactive to light. Oral mucosa dry. NECK: No neck masses. Supple. CARDIOVASCULAR: S1, S2 heard. Tachycardia. No murmurs. RESPIRATORY SYSTEM: Normal AP diameter. No accessory muscle use. No wheezing, no crackles. ABDOMEN: Soft, bowel sounds sluggish. No distention, no guarding. No rigidity. CENTRAL NERVOUS SYSTEM: Alert and awake, nonverbal, does not obey commands. EXTREMITIES: No erythema or edema seen. LABORATORY DATA: WBC 5.2, hemoglobin 14.2, hematocrit 42.3, platelets 145. Sodium 137, potassium 3.2, chloride 108, bicarbonate 21, BUN 13, creatinine 1.29, serum glucose 113. Lactate 2.3, repeat is 0.7, calcium 8.8, magnesium 1.7, total bilirubin 0.3, AST 11, ALT 26, alkaline phosphatase 68. Urinalysis, +1 ketones, +3 blood, +1 leukocyte esterase. Urine bacteria negative. Valproic acid 101. SARS-CoV-2 RNA positive. Chest x-ray, low lung volumes with bibasilar opacity favor atelectasis. No significant change in appearance from previous chest x-ray. EKG: Sinus tachycardia, rate of 128, right bundle branch block and left bundle branch block. ASSESSMENT AND PLAN: This is a 30-year-old male who presents with sepsis from COVID-19. 1. Sepsis. Meets criteria with tachycardia, fever and COVID-19 positive, possible urinary tract infection: The patient has somewhat audible wheezing, patient has history of bronchitis in the past. We will give a dose of Decadron 10 mg iv now and continue 6mg daily. Continue xopenex nebs as needed, IV Tylenol p.r.n., nitroglycerin, Rocephin and doxycycline. IV fluids at 125 mL per hour. Closely monitor on tele floor. Notified Mother will start remdesivir if patient becomes hypoxic. Starting Remdesivir as patient requiring 2lts oxygen on the floor. 2. Possible urinary tract infection: We will follow the cultures, on Rocephin. 3. History of deep vein thrombosis, on Eliquis. 4. History of seizures: Continue Keppra, valproic acid, Valium, zonisamide, and Ativan p.r.n. 5. History of spasticity, on baclofen and Valium. 6. Nutrition: Currently, the patient is on pureed diet as per family, he is following with speech therapy at [facility]. 7. History of seminoma, status post left orchiectomy and chemo, currently under observation. 8. Electrolyte abnormality: We will replace potassium and magnesium. We will follow repeat labs. 9. Deep venous thrombosis prophylaxis, on Eliquis. DISPOSITION: Closely monitor in tele floor. Level 1 full code as per the discussion with his mother ROBERTO
[2020-08-10] MEDS: SODIUM CHLORIDE 0.9% 10ML FLUSH IV SCH (05:22)
[2020-08-10 06:25] LABS: Hematocrit (blood only) 39.8 % (42-52); Hemoglobin 13.5 g/dL (14.0-18.0); Immature Granulocytes # (auto) 0.01 K/uL (0.00-0.02); Immature Granulocytes % (auto) 0.1 %; Lymphocytes % (auto) 6.8 %; Mean Corpuscular Hemoglobin 30.3 pg (25-34); Mean Corpuscular Hgb Conc 33.9 g/dL (32-36); Mean Corpuscular Volume 89.4 fL (80-100); Mean Platelet Volume 11.3 fL (7.4-10.4); Monocytes # (auto) 0.28 K/uL (0.11-0.59); Monocytes % (auto) 3.8 %; Neutrophils % (auto) 89.3 %; Platelet Count 152 K/uL (130-400); RDW Coefficient of Variation 14.3 % (11.5-14.5); Red Blood Count 4.45 M/uL (4.7-6.1); White Blood Count 7.39 K/uL (4.8-10.8)
[2020-08-10 06:58] LABS: BUN Creatinine Ratio 9.4 (10-20); Calcium 8.2 mg/dl (8.5-10.1); Creatinine Clr Calc Pharmacy 74.9 ml/min; Est GFR (African American) 82.7; Est GFR (Non-African American) 71.4; Magnesium 2.3 mg/dl (1.8-2.4); Potassium 3.8 mmol/L (3.5-5.1)
--- NOTE | 2020-08-10 07:48 | Hospitalist Progress Note ---
Date of Service August 10, 2020 Assessment & Plan (1) Sepsis: (2) Fever: (3) COVID-19: (4) Pneumonia: (5) Bronchitis: (6) Respiratory distress: ASSESSMENT AND PLAN: This is a 30-year-old male c CP who presents with sepsis from COVID-19. 1. Sepsis. Meets criteria with tachycardia, fever and COVID-19 positive, possible urinary tract infection: Decadron, Xopenex nebs as needed, IV Tylenol p.r.n., nitroglycerin, Rocephin and Doxycycline. IV fluids at 125 mL per hour. Remdesivir as patient requiring 2lts oxygen on the floor. 2. Possible urinary tract infection: on Rocephin. 3. History of deep vein thrombosis, on Eliquis. 4. History of seizures: Continue Keppra, valproic acid, Valium, zonisamide, and Ativan p.r.n. 5. History of spasticity, on baclofen and Valium. 6. Nutrition: Currently, the patient is on pureed diet as per family, he is following with speech therapy at [facility]. 7. History of seminoma, status post left orchiectomy and chemo, currently under observation. 8. Electrolyte abnormality: We will replace potassium and magnesium. Labs Checked ROS-Sleeping Physical Exam Gen-NAD, febrile Head-NCAT, EOMI, PERRLA, Anicteric Sclera, No Posterior Pharyngeal Erythema Neck-Supple, No JVD, No Thyromegaly, No Masses, No LAD, No Bruits Lungs-Clear to Auscultation Bilaterally, No Rales, No Rhonchi, No Wheezing, No Crepitus Chest-No S4, +S1, +S2, No S3, No Murmurs, No Rubs, No Gallops, No Ectopy Abdomen-Soft, Bowel Sounds Present, Non Tender, Non Distended, No Hepatomegaly, No Splenomegaly, No Palpable Masses Musculoskeletal-not Assessed Extremities-No Cyanosis, No Clubbing, No Edema Nuero-Cranial Nerves II-XII grossly intact, Motor WNL, DTRs WNL, Strength WNL, Non Focal Admission and Anticipated Discharge Date Admission Date: August 10, 2020 Results & Data Results & Data ([facility]) Vital Signs (Past 12 Hours) Vital Signs Temp Pulse Pulse Pulse Resp BP BP 08/10/20 07:42 36.8 C 74 20 114/62 08/10/20 03:55 37.6 C H 103 H 22 116/60 08/10/20 03:02 08/10/20 03:00 104 H 08/10/20 01:51 39.2 C H 116 H 22 163/99 H 08/10/20 00:45 102 H 30 H 08/10/20 00:30 112 H 36 H 08/10/20 00:15 110 H 39 H 08/10/20 00:00 122 H 30 H 08/09/20 23:00 102 H 20 95/60 L 08/09/20 21:48 38.4 C H 08/09/20 21:20 112 H 20 135/81 08/09/20 20:40 Pulse Ox Pulse Ox 08/10/20 07:42 93 08/10/20 03:55 91 08/10/20 03:02 94 08/10/20 03:00 08/10/20 01:51 93 08/10/20 00:45 91 08/10/20 00:30 91 08/10/20 00:15 91 08/10/20 00:00 92 08/09/20 23:00 93 08/09/20 21:48 08/09/20 21:20 94 08/09/20 20:40 94 (1) Sepsis Sepsis acute organ dysfunction status: without acute organ dysfunction Sepsis type: sepsis due to unspecified organism Qualified Code(s): A41.9 - Sepsis, unspecified organism (2) Fever Fever type: unspecified Qualified Code(s): R50.9 - Fever, unspecified (3) Pneumonia Laterality: unspecified laterality Lung location: unspecified part of lung Pneumonia type: due to unspecified organism Qualified Code(s): J18.9 - Pneumonia, unspecified organism
[2020-08-10] MEDS: levETIRAcetam 500 MG TAB PO SCH ×2 (08:35→20:34)
[2020-08-10] MEDS: APIXABAN 5 MG TABLET PO SCH ×2 (08:35→20:34)
[2020-08-10] MEDS: DIVALPROEX DELAY RELEASE 500 MG TAB PO SCH ×2 (08:35→20:37)
[2020-08-10] MEDS: lisinopril 5 MG TAB PO SCH (08:35)
[2020-08-10] MEDS: BACLOFEN 20 MG TAB PO SCH ×2 (08:35→20:35)
[2020-08-10] MEDS: cefTRIAXone SODIUM 2,000 MG in DEXTROSE 5% 50 ML IV SCH (08:37)
[2020-08-10] MEDS: diazePAM 5 MG TABLET PO SCH ×2 (08:39→20:41)
[2020-08-10] MEDS: BACLOFEN 10 MG TAB PO SCH (13:24)
--- NOTE | 2020-08-10 16:50 | Electrocardiogram Report ---
Test Reason : Blood Pressure : / mmHG Vent. Rate : 120 BPM Atrial Rate : 120 BPM P-R Int : 124 ms QRS Dur : 162 ms QT Int : 368 ms P-R-T Axes : 051 -89 022 degrees QTc Int : 520 ms Sinus tachycardia Right bundle branch block Left anterior fascicular block Bifascicular block Abnormal ECG When compared with ECG of 01-NOV-2019 16:52, Left anterior fascicular block is now Present Confirmed by Stewart Davila ([id number]) on 08/10/2020 4:50:19 PM Referred By: REFERRED SELF Confirmed By:Stewart Davila
[2020-08-10] MEDS: dexAMETHasone 1 MG TAB PO SCH (20:36)
[2020-08-11] MEDS: SODIUM CHLORIDE 0.9% 1000ML 1,000 ML IV SCH ×3 (01:51→23:24)
[2020-08-11] MEDS: DOXYCYCLINE HYCLATE 100 MG in DEXTROSE 5% 100 ML IV SCH ×2 (01:52→13:32)
[2020-08-11] MEDS: REMDESIVIR 100 MG in SODIUM CHLORIDE 0.9% 230 ML IV SCH (03:49)
[2020-08-11] MEDS: SODIUM CHLORIDE 0.9% 10ML FLUSH IV SCH (04:07)
[2020-08-11 06:19] LABS: Hematocrit (blood only) 36.9 % (42-52); Hemoglobin 12.3 g/dL (14.0-18.0); Lymphocytes # (auto) 0.43 K/uL (1.2-3.4); Lymphocytes % (auto) 8.2 %; Mean Corpuscular Hemoglobin 30.1 pg (25-34); Mean Corpuscular Hgb Conc 33.3 g/dL (32-36); Mean Corpuscular Volume 90.2 fL (80-100); Mean Platelet Volume 11.3 fL (7.4-10.4); Monocytes # (auto) 0.21 K/uL (0.11-0.59); Neutrophils # (auto) 4.58 K/uL (1.4-6.5); Neutrophils % (auto) 87.8 %; Platelet Count 157 K/uL (130-400); RDW Coefficient of Variation 14.4 % (11.5-14.5); RDW Standard Deviation 47.4 fL (36.4-46.3); Red Blood Count 4.09 M/uL (4.7-6.1); White Blood Count 5.22 K/uL (4.8-10.8)
[2020-08-11 06:41] LABS: Albumin Level 2.8 gm/dl (3.4-5.0); BUN Creatinine Ratio 24.1 (10-20); Calcium 7.8 mg/dl (8.5-10.1); Creatinine Clr Calc Pharmacy 106.4 ml/min; Est GFR (African American) 126.3; Potassium 4.2 mmol/L (3.5-5.1)
[2020-08-11 06:44] LABS: Albumin Globulin Ratio 0.8 (0.9-2); Bilirubin,Total 0.2 mg/dl (0.2-1); Globulin 3.3 gm/dl (2.5-4.0); Total Protein 6.1 gm/dl (6.4-8.2)
[2020-08-11] MEDS: cefTRIAXone SODIUM 2,000 MG in DEXTROSE 5% 50 ML IV SCH (08:26)
[2020-08-11] MEDS: APIXABAN 5 MG TABLET PO SCH ×2 (08:28→21:16)
[2020-08-11] MEDS: BACLOFEN 20 MG TAB PO SCH ×2 (08:28→21:16)
[2020-08-11] MEDS: levETIRAcetam 500 MG TAB PO SCH ×2 (08:28→21:16)
[2020-08-11] MEDS: DIVALPROEX DELAY RELEASE 500 MG TAB PO SCH ×2 (08:28→21:16)
[2020-08-11] MEDS: lisinopril 5 MG TAB PO SCH (08:28)
[2020-08-11] MEDS: diazePAM 5 MG TABLET PO SCH ×2 (08:32→21:24)
--- NOTE | 2020-08-11 10:06 | Hospitalist Progress Note ---
Date of Service August 11, 2020 Assessment & Plan (1) Sepsis: (2) Fever: (3) COVID-19: (4) Pneumonia: (5) Bronchitis: (6) Respiratory distress: ASSESSMENT AND PLAN: This is a 30-year-old male c CP who presents with sepsis from COVID-19. 1. Sepsis. Meets criteria with tachycardia, fever and COVID-19 positive, possible urinary tract infection Decadron - given in ED, will cont. 6 mg daily, Remdesivir as patient requiring 2lts oxygen on the floor. Monitor CMP while on remdesivir. Empiric Rocephin and Doxycycline. Xopenex nebs as needed, IV Tylenol p.r.n., IV fluids at 125 mL per hour on admission, will stop IVF now. Mom is helping pt with eating. Pt is currently improving clinically. Mother at the bedside reports pt is more comfortable and breathing more easily. He is currently on RA satting 90-92%. 2. Possible urinary tract infection: on Rocephin. 3. History of deep vein thrombosis, on Eliquis. 4. History of seizures: Continue Keppra, valproic acid, Valium, zonisamide, and Ativan p.r.n. 5. History of spasticity, on baclofen and Valium. 6. Nutrition: Currently, the patient is on pureed diet as per family, he is following with speech therapy at [place]. 7. History of seminoma, status post left orchiectomy and chemo, currently under observation. 8. Electrolyte abnormality: Monitor and replace potassium and magnesium as needed. Admission and Anticipated Discharge Date Admission Date: August 10, 2020 Subjective Patient is lying in bed, in no acute distress. Currently on room air, satting 90 to 92%. Patient is nonverbal. Patient's mother at the bedside, reports that patient appears more comfortable and breathing more easily. Review of Systems Review of Systems: Not able to obtain full review of system as patient is nonverbal. However per the patient's mother at the bedside, patient seems to be more comfortable and breathing more easily now. Physical Exam Physical Exam: Gen- NAD, laying in bed, on RA Head-NCAT, EOMI, Anicteric Sclera Neck-Supple, No JVD Lungs- overall Clear to Auscultation Bilaterally, + mild bibasilar Rhonchi, No Wheezing, no crackles Chest- regular, No Murmur Abdomen- Soft, Bowel Sounds Present, Non Tender, Non Distended Musculoskeletal-not Assessed Extremities-No Cyanosis, No Clubbing, No Edema Neuro- awake, pt nonverbal, LE atrophied b/l d/t CP, pt moves upper extremities, per mother at the bedside pt is at baseline Skin - dry, warm Results & Data Results & Data ([facility]) Vital Signs (Past 12 Hours) Vital Signs Temp Pulse Pulse Pulse Resp BP Pulse Ox 08/11/20 07:37 66 18 110/65 92 08/11/20 04:16 36.7 C 69 20 114/63 92 08/10/20 23:57 36.9 C 67 16 120/76 94 08/10/20 23:54 74 Laboratory Results 08/11/20 08/11/20 08/11/20 Range/Units 05:49 05:49 05:49 WBC 5.22 (4.8-10.8) K/uL RBC 4.09 L (4.7-6.1) M/uL Hgb 12.3 L (14.0-18.0) g/dL Hct 36.9 L (42-52) % MCV 90.2 (80-100) fL MCH 30.1 (25-34) pg MCHC 33.3 (32-36) g/dL RDW Std Deviation 47.4 H (36.4-46.3) fL RDW Coeff of [place] 14.4 (11.5-14.5) % Plt Count 157 (130-400) K/uL MPV 11.3 H (7.4-10.4) fL Immature Gran % (Auto) 0.0 % Neut % (Auto) 87.8 % Lymph % (Auto) 8.2 % [place] % (Auto) 4.0 % Eos % (Auto) 0.0 % Baso % (Auto) 0.0 % Neut # (Auto) 4.58 (1.4-6.5) K/uL Lymph # (Auto) 0.43 L (1.2-3.4) K/uL [place] # (Auto) 0.21 (0.11-0.59) K/uL Eos # (Auto) 0.00 (0-0.5) K/uL Baso # (Auto) 0.00 (0-0.2) K/uL Immature Gran # (Auto) 0.00 (0.00-0.02) K/uL Sodium 142 (136-145) mmol/L Potassium 4.2 (3.5-5.1) mmol/L Chloride 114 H (98-107) mmol/L Carbon Dioxide 22 (21-32) mmol/L Anion Gap 6.0 (3-11) BUN 22 H D (7-18) mg/dl Creatinine 0.93 D (0.6-1.4) mg/dl Est Cr Clr Drug Dosing 106.4 ml/min Est GFR ( Amer) 126.3 Est GFR (Non-Af Amer) 109.0 BUN/Creatinine Ratio 24.1 H (10-20) Glucose 135 H (70-99) mg/dl Calcium 7.8 L (8.5-10.1) mg/dl Total Bilirubin 0.2 (0.2-1) mg/dl AST 11 L (15-37) U/L ALT 16 (12-78) U/L Alkaline Phosphatase 51 (45-117) U/L Total Protein 6.1 L (6.4-8.2) gm/dl Albumin 2.8 L (3.4-5.0) gm/dl Globulin 3.3 (2.5-4.0) gm/dl Albumin/Globulin Ratio 0.8 L (0.9-2) Valproic Acid 68 (50-100) mcg/ml Medications Administered Current Inpatient Medications Albuterol (Albuterol 0.083% Nebu Soln 3 Ml Vial) 0.63 mg NEB Q8H PRN PRN Reason: bronchospasm Stop: 09/09/20 02:48 Apixaban (Apixaban 5 Mg Tablet) 5 mg PO BID [facility] Stop: 09/09/20 08:59 Last Admin: 08/11/20 08:28 Dose: 5 mg Documented by: Baclofen (Baclofen 20 Mg Tab) 20 mg PO BID [facility] Stop: 09/09/20 08:59 Last Admin: 08/11/20 08:28 Dose: 20 mg Documented by: Baclofen (Baclofen 10 Mg Tab) 10 mg PO DAILY@1400 [facility] Stop: 09/09/20 13:59 Last Admin: 08/10/20 13:24 Dose: 10 mg Documented by: Bisacodyl (Bisacodyl 10 Mg Supp) 10 mg IN DAILY PRN PRN Reason: Constipation Stop: 09/09/20 03:21 Dexamethasone (Dexamethasone 1 Mg Tab) 6 mg PO DAILY@2100 [facility] Stop: 09/09/20 20:59 Last Admin: 08/10/20 20:36 Dose: 6 mg Documented by: Diazepam (Diazepam 5 Mg Tablet) 5 mg PO BID [facility] Stop: 09/09/20 08:59 Last Admin: 08/11/20 08:32 Dose: 5 mg Documented by: Divalproex Sodium (Divalproex Delay Release 500 Mg Tab) 500 mg PO BID [facility] Stop: 09/09/20 08:59 Last Admin: 08/11/20 08:28 Dose: 500 mg Documented by: Ceftriaxone Sodium 2,000 mg/ (Dextrose) 70 mls @ 100 mls/hr IV DAILY [facility]; Protocol Stop: 08/17/20 08:59 Last Infusion: 08/11/20 09:10 Dose: Infused Documented by: Acetaminophen (Ofirmev) 1,000 mg in 100 mls @ 400 mls/hr IV Q8H PRN PRN Reason: Pain or Fever Stop: 08/13/20 01:56 Last Infusion: 08/10/20 03:13 Dose: Infused Documented by: Sodium Chloride (Nss 1000ml) 1,000 mls @ 125 mls/hr IV .Q8H [facility] Stop: 09/09/20 01:56 Last Admin: 08/11/20 01:51 Dose: 125 mls/hr Documented by: Doxycycline Hyclate 100 mg/ (Dextrose) 110 mls @ 50 mls/hr IV Q12H [facility] Stop: 08/17/20 01:59 Last Infusion: 08/11/20 04:06 Dose: Infused Documented by: Remdesivir 100 mg/ Sodium (Chloride) 250 mls @ 250 mls/hr IV Q24H [facility]; Protocol Stop: 08/14/20 03:59 Last Infusion: 08/11/20 05:00 Dose: Infused Documented by: Levalbuterol HCl (Levalbuterol 1.25mg/0.5ml Neb) 1.25 mg NEB Q6H PRN PRN Reason: Shortness Of Breath Or Wheezing Stop: 09/09/20 03:14 Levetiracetam (Levetiracetam 500 Mg Tab) 1,500 mg PO BID [facility] Stop: 09/09/20 08:59 Last Admin: 08/11/20 08:28 Dose: 1,500 mg Documented by: Lisinopril (Lisinopril 5 Mg Tab) 5 mg PO QAM [facility] Stop: 09/09/20 08:59 Last Admin: 08/11/20 08:28 Dose: 5 mg Documented by: Lorazepam (Lorazepam 1 Mg Tab) 2 mg PO PRN PRN PRN Reason: Spasms Stop: 09/09/20 02:44 Nitroglycerin (Nitroglycerin Sl 0.4 Mg/Tab Tab) 0.4 mg SL UD PRN PRN Reason: Chest Pain Stop: 09/09/20 01:56 Ondansetron HCl (Ondansetron Inj 2 Mg/Ml 2 Ml Vial) 4 mg IV Q6H PRN PRN Reason: Nausea Stop: 09/09/20 01:56 Polyethylene Glycol (Polyethylene (Miralax) 17 Gm Pack) 17 gm PO DAILY PRN PRN Reason: Constipation Stop: 09/09/20 01:56 Sodium Chloride (Sodium Chloride 0.9% 10ml Flush) 30 ml IV Q24H [facility] Stop: 08/14/20 03:01 Last Admin: 08/11/20 04:07 Dose: 30 ml Documented by: Zonisamide (Zonisamide 100mg Capsule) 1 ea PO QAM [facility] Stop: 09/10/20 08:59 Last Admin: 08/11/20 08:29 Dose: 1 ea Documented by: Zonisamide (Zonisamide 100mg Capsule) 2 ea PO HS [facility] Stop: 09/09/20 20:59 Last Admin: 08/10/20 20:36 Dose: 2 ea Documented by: (1) Fever Fever type: unspecified Qualified Code(s): R50.9 - Fever, unspecified (2) Sepsis Sepsis acute organ dysfunction status: without acute organ dysfunction Sepsis type: sepsis due to unspecified organism Qualified Code(s): A41.9 - Sepsis, unspecified organism (3) Pneumonia Laterality: unspecified laterality Lung location: unspecified part of lung Pneumonia type: due to unspecified organism Qualified Code(s): J18.9 - Pneumonia, unspecified organism
[2020-08-11] MEDS: BACLOFEN 10 MG TAB PO SCH (13:30)
[2020-08-11] MEDS: dexAMETHasone 1 MG TAB PO SCH (21:16)
[2020-08-11] MEDS: bisacodyL 10 MG SUPP PR PRN (21:16)
[2020-08-12] MEDS: DOXYCYCLINE HYCLATE 100 MG in DEXTROSE 5% 100 ML IV SCH ×3 (02:54→23:53)
[2020-08-12] MEDS: REMDESIVIR 100 MG in SODIUM CHLORIDE 0.9% 230 ML IV SCH (02:54)
[2020-08-12 03:26] LABS: Appearance Urine Clear (Clear); Bacteria Urine Automated Negative (Negative); Bilirubin Urine Negative (Negative); Blood Urine 1+ (Negative); Color Urine Yellow; Glucose Urine UA Negative (Negative); Ketones Urine Trace (Negative); Leukocyte Esterase Urine Negative (Negative); Nitrite Urine Negative (Negative); Protein Urine Negative (Negative); Specific Gravity Urine 1.018 (1.000-1.030); Urobilinogen Urine Negative (Negative)
[2020-08-12] MEDS: SODIUM CHLORIDE 0.9% 10ML FLUSH IV SCH (04:09)
[2020-08-12 06:15] LABS: Hematocrit (blood only) 37.7 % (42-52); Hemoglobin 12.5 g/dL (14.0-18.0); Mean Corpuscular Hgb Conc 33.2 g/dL (32-36); Mean Corpuscular Volume 90.4 fL (80-100); Mean Platelet Volume 10.7 fL (7.4-10.4); Platelet Count 163 K/uL (130-400); RDW Coefficient of Variation 14.4 % (11.5-14.5); RDW Standard Deviation 47.7 fL (36.4-46.3); Red Blood Count 4.17 M/uL (4.7-6.1); White Blood Count 5.41 K/uL (4.8-10.8)
[2020-08-12 06:44] LABS: Albumin Level 2.8 gm/dl (3.4-5.0); BUN Creatinine Ratio 24.9 (10-20); Calcium 7.9 mg/dl (8.5-10.1); Creatinine Clr Calc Pharmacy 123.5 ml/min; Magnesium 2.3 mg/dl (1.8-2.4); Potassium 4.1 mmol/L (3.5-5.1)
[2020-08-12 06:45] LABS: Albumin Globulin Ratio 0.8 (0.9-2); Bilirubin,Total 0.3 mg/dl (0.2-1); Globulin 3.5 gm/dl (2.5-4.0); Phosphorus 1.8 mg/dl (2.5-4.9); Total Protein 6.3 gm/dl (6.4-8.2)
[2020-08-12] MEDS: APIXABAN 5 MG TABLET PO SCH ×2 (08:18→21:13)
[2020-08-12] MEDS: DIVALPROEX DELAY RELEASE 500 MG TAB PO SCH ×2 (08:19→21:13)
[2020-08-12] MEDS: BACLOFEN 20 MG TAB PO SCH ×2 (08:19→21:13)
[2020-08-12] MEDS: cefTRIAXone SODIUM 2,000 MG in DEXTROSE 5% 50 ML IV SCH (08:24)
[2020-08-12] MEDS: diazePAM 5 MG TABLET PO SCH ×2 (08:24→21:12)
[2020-08-12] MEDS: lisinopril 5 MG TAB PO SCH (08:52)
[2020-08-12] MEDS: levETIRAcetam 500 MG TAB PO SCH ×2 (08:52→21:13)
[2020-08-12] MEDS: BACLOFEN 10 MG TAB PO SCH (12:59)
[2020-08-12] MEDS ORDERED: POTASSIUM PHOS 3 MMOL/1 ML INFUSION IV STA (13:22)
--- NOTE | 2020-08-12 13:22 | Hospitalist Progress Note ---
Date of Service August 12, 2020 Assessment & Plan (1) Sepsis: (2) Fever: (3) COVID-19: (4) Pneumonia: (5) Bronchitis: (6) Respiratory distress: ASSESSMENT AND PLAN: This is a 30 y/o male c CP who presents with sepsis from COVID-19. 1. Sepsis. Meets criteria with tachycardia, fever and COVID-19 positive, possible urinary tract infection Decadron - given in ED, will cont. 6 mg daily, Remdesivir as patient requiring 2 L of oxygen on the floor. Monitor CMP while on remdesivir. Now improved, on RA satting 95% Empiric Rocephin and Doxycycline. Xopenex nebs as needed, IV Tylenol p.r.n., IV fluids at 125 mL per hour on admission, stopped IVF now. Mom is helping pt with eating, reports pt eats well. Pt is currently improving clinically. Mother at the bedside reports pt is more comfortable and breathing more easily. He is currently on RA satting 95 %. 2. Possible urinary tract infection: on Rocephin. 3. History of deep vein thrombosis, on Eliquis. 4. History of seizures: Continue Keppra, valproic acid, Valium, zonisamide, and Ativan p.r.n. 5. History of spasticity, on baclofen and Valium. 6. Nutrition: Currently, the patient is on pureed diet as per family, he is following with speech therapy at [place]. 7. History of seminoma, status post left orchiectomy and chemo, currently under observation. 8. Electrolyte abnormality: Monitor and replace potassium and magnesium, phosphorus as needed. Admission and Anticipated Discharge Date Admission Date: August 10, 2020 Subjective Patient is lying in bed, in no acute distress. Currently on room air, satting 95 %. Patient is nonverbal. Patient's mother at the bedside, reports that patient appears more comfortable and breathing more easily. Pt had BM. Review of Systems Review of Systems: Not able to obtain full review of system as patient is nonverbal. However per the patient's mother at the bedside, patient seems to be more comfortable and breathing more easily now. Physical Exam Physical Exam: Gen- NAD, sitting up in bed, on RA Head- NCAT, EOMI, Anicteric Sclera Neck- Supple, No JVD Lungs- overall good respiratory effort and good air movement, + mild bibasilar Rhonchi, N+ mild Wheezing, no crackles Chest- regular, No Murmur Abdomen- Soft, Bowel Sounds Present, Non Tender, Non Distended Musculoskeletal- not Assessed Extremities-No Cyanosis, No Clubbing, No Edema Neuro- awake, pt nonverbal, LE atrophied and contractured b/l d/t CP, pt moves upper extremities, per mother at the bedside pt is at baseline Skin - dry, warm Results & Data Results & Data ([facility]) Vital Signs (Past 12 Hours) Vital Signs Temp Pulse Pulse Resp BP Pulse Ox 08/12/20 13:14 36.4 C L 70 18 147/81 H 95 08/12/20 08:37 37.1 C 73 14 121/72 91 08/12/20 03:41 64 Laboratory Results 08/12/20 08/12/20 08/12/20 Range/Units Unknown 05:51 05:51 WBC 5.41 (4.8-10.8) K/uL RBC 4.17 L (4.7-6.1) M/uL Hgb 12.5 L (14.0-18.0) g/dL Hct 37.7 L (42-52) % MCV 90.4 (80-100) fL MCH 30.0 (25-34) pg MCHC 33.2 (32-36) g/dL RDW Std Deviation 47.7 H (36.4-46.3) fL RDW Coeff of [place] 14.4 (11.5-14.5) % Plt Count 163 (130-400) K/uL MPV 10.7 H (7.4-10.4) fL Sodium 140 (136-145) mmol/L Potassium 4.1 (3.5-5.1) mmol/L Chloride 113 H (98-107) mmol/L Carbon Dioxide 24 (21-32) mmol/L Anion Gap 3.0 (3-11) BUN 20 H (7-18) mg/dl Creatinine 0.80 (0.6-1.4) mg/dl Est Cr Clr Drug Dosing 123.5 ml/min Est GFR ( Amer) 138.0 Est GFR (Non-Af Amer) 119.0 BUN/Creatinine Ratio 24.9 H (10-20) Glucose 132 H (70-99) mg/dl Calcium 7.9 L (8.5-10.1) mg/dl Phosphorus 1.8 L (2.5-4.9) mg/dl Magnesium 2.3 (1.8-2.4) mg/dl Total Bilirubin 0.3 (0.2-1) mg/dl AST 30 (15-37) U/L ALT 28 (12-78) U/L Alkaline Phosphatase 53 (45-117) U/L Total Protein 6.3 L (6.4-8.2) gm/dl Albumin 2.8 L (3.4-5.0) gm/dl Globulin 3.5 (2.5-4.0) gm/dl Albumin/Globulin Ratio 0.8 L (0.9-2) Urine Color Yellow Urine Appearance Clear (Clear) Urine pH 8.0 H (4.5-7.5) Ur Specific [place] 1.018 (1.000-1.030) Urine Protein Negative (Negative) Urine Glucose (UA) Negative (Negative) Urine Ketones Trace H (Negative) Urine Blood 1+ H (Negative) Urine Nitrite Negative (Negative) Urine Bilirubin Negative (Negative) Urine Urobilinogen Negative (Negative) Ur Leukocyte Esterase Negative (Negative) Urine WBC (Auto) 1-5 (0-5) /hpf Urine RBC (Auto) 10-30 H (0-4) /hpf U Hyaline Cast (Auto) 1-5 (0-5) /lpf U Epithel Cells (Auto) 5-10 H (0-5) /lpf Urine Bacteria (Auto) Negative (Negative) Medications Administered Current Inpatient Medications Albuterol (Albuterol 0.083% Nebu Soln 3 Ml Vial) 0.63 mg NEB Q8H PRN PRN Reason: bronchospasm Stop: 09/09/20 02:48 Apixaban (Apixaban 5 Mg Tablet) 5 mg PO BID [facility] Stop: 09/09/20 08:59 Last Admin: 08/12/20 08:18 Dose: 5 mg Documented by: Baclofen (Baclofen 20 Mg Tab) 20 mg PO BID [facility] Stop: 09/09/20 08:59 Last Admin: 08/12/20 08:19 Dose: 20 mg Documented by: Baclofen (Baclofen 10 Mg Tab) 10 mg PO DAILY@1400 [facility] Stop: 09/09/20 13:59 Last Admin: 08/12/20 12:59 Dose: 10 mg Documented by: Bisacodyl (Bisacodyl 10 Mg Supp) 10 mg [place] BID PRN PRN Reason: Constipation Stop: 09/09/20 03:21 Last Admin: 08/11/20 21:16 Dose: 10 mg Documented by: Dexamethasone (Dexamethasone 1 Mg Tab) 6 mg PO DAILY@2100 [facility] Stop: 09/09/20 20:59 Last Admin: 08/11/20 21:16 Dose: 6 mg Documented by: Diazepam (Diazepam 5 Mg Tablet) 5 mg PO BID [facility] Stop: 09/09/20 08:59 Last Admin: 08/12/20 08:24 Dose: 5 mg Documented by: Divalproex Sodium (Divalproex Delay Release 500 Mg Tab) 500 mg PO BID [facility] Stop: 09/09/20 08:59 Last Admin: 08/12/20 08:19 Dose: 500 mg Documented by: Ceftriaxone Sodium 2,000 mg/ (Dextrose) 70 mls @ 100 mls/hr IV DAILY [facility]; Protocol Stop: 08/17/20 08:59 Last Infusion: 08/12/20 09:35 Dose: Infused Documented by: Acetaminophen (Ofirmev) 1,000 mg in 100 mls @ 400 mls/hr IV Q8H PRN PRN Reason: Pain or Fever Stop: 08/13/20 01:56 Last Infusion: 08/10/20 03:13 Dose: Infused Documented by: Sodium Chloride (Nss 1000ml) 1,000 mls @ 125 mls/hr IV .Q8H [facility] Stop: 09/09/20 01:56 Last Infusion: 08/11/20 23:25 Dose: Infused Documented by: Doxycycline Hyclate 100 mg/ (Dextrose) 110 mls @ 50 mls/hr IV Q12H [facility] Stop: 08/17/20 01:59 Last Admin: 08/12/20 12:59 Dose: 50 mls/hr Documented by: Remdesivir 100 mg/ Sodium (Chloride) 250 mls @ 250 mls/hr IV Q24H [facility]; Protocol Stop: 08/14/20 03:59 Last Infusion: 08/12/20 04:09 Dose: Infused Documented by: Levalbuterol HCl (Levalbuterol 1.25mg/0.5ml Neb) 1.25 mg NEB Q6H PRN PRN Reason: Shortness Of Breath Or Wheezing Stop: 09/09/20 03:14 Levetiracetam (Levetiracetam 500 Mg Tab) 1,500 mg PO BID [facility] Stop: 09/09/20 08:59 Last Admin: 08/12/20 08:52 Dose: 1,500 mg Documented by: Lisinopril (Lisinopril 5 Mg Tab) 5 mg PO QAM [facility] Stop: 09/09/20 08:59 Last Admin: 08/12/20 08:52 Dose: 5 mg Documented by: Lorazepam (Lorazepam 1 Mg Tab) 2 mg PO PRN PRN PRN Reason: Spasms Stop: 09/09/20 02:44 Nitroglycerin (Nitroglycerin Sl 0.4 Mg/Tab Tab) 0.4 mg SL UD PRN PRN Reason: Chest Pain Stop: 09/09/20 01:56 Ondansetron HCl (Ondansetron Inj 2 Mg/Ml 2 Ml Vial) 4 mg IV Q6H PRN PRN Reason: Nausea Stop: 09/09/20 01:56 Polyethylene Glycol (Polyethylene (Miralax) 17 Gm Pack) 17 gm PO DAILY PRN PRN Reason: Constipation Stop: 09/09/20 01:56 Last Admin: 08/11/20 13:47 Dose: 17 gm Documented by: Potassium Phosphate (Potassium Phos 3 Mmol/1 Ml Infusion) 9 mmol IV NOW STA Stop: 08/12/20 13:23 Sodium Chloride (Sodium Chloride 0.9% 10ml Flush) 30 ml IV Q24H [facility] Stop: 08/14/20 03:01 Last Admin: 08/12/20 04:09 Dose: 30 ml Documented by: Zonisamide (Zonisamide 100mg Capsule) 1 ea PO QAM [facility] Stop: 09/10/20 08:59 Last Admin: 08/12/20 08:23 Dose: 1 ea Documented by: Zonisamide (Zonisamide 100mg Capsule) 2 ea PO HS [facility] Stop: 09/09/20 20:59 Last Admin: 08/11/20 21:18 Dose: 2 ea Documented by: (1) Sepsis Sepsis acute organ dysfunction status: without acute organ dysfunction Sepsis type: sepsis due to unspecified organism Qualified Code(s): A41.9 - Sepsis, unspecified organism (2) Fever Fever type: unspecified Qualified Code(s): R50.9 - Fever, unspecified (3) Pneumonia Laterality: unspecified laterality Lung location: unspecified part of lung Pneumonia type: due to unspecified organism Qualified Code(s): J18.9 - Pneumonia, unspecified organism
[2020-08-12] MEDS ORDERED: POTASSIUM PHOSPHATE 9 MMOL in SODIUM CHLORIDE 0.9% 250 ML IV ONE (13:45)
[2020-08-12] MEDS: dexAMETHasone 1 MG TAB PO SCH (21:13)
[2020-08-13] MEDS: REMDESIVIR 100 MG in SODIUM CHLORIDE 0.9% 230 ML IV SCH (02:02)
[2020-08-13] MEDS: SODIUM CHLORIDE 0.9% 10ML FLUSH IV SCH (03:17)
[2020-08-13 06:08] LABS: Hematocrit (blood only) 38.6 % (42-52); Hemoglobin 12.9 g/dL (14.0-18.0); Mean Corpuscular Hgb Conc 33.4 g/dL (32-36); Mean Corpuscular Volume 89.8 fL (80-100); Platelet Count 198 K/uL (130-400); RDW Coefficient of Variation 14.2 % (11.5-14.5); RDW Standard Deviation 47.1 fL (36.4-46.3); White Blood Count 4.22 K/uL (4.8-10.8)
[2020-08-13 06:50] LABS: Albumin Level 2.8 gm/dl (3.4-5.0); BUN Creatinine Ratio 22.1 (10-20); Calcium 7.9 mg/dl (8.5-10.1); Creatinine Clr Calc Pharmacy 101.9 ml/min; Est GFR (African American) 120.1; Est GFR (Non-African American) 103.6
[2020-08-13 06:53] LABS: Albumin Globulin Ratio 0.8 (0.9-2); Bilirubin,Total 0.4 mg/dl (0.2-1); Globulin 3.5 gm/dl (2.5-4.0); Total Protein 6.3 gm/dl (6.4-8.2)
--- NOTE | 2020-08-13 08:36 | Hospitalist Progress Note ---
Date of Service August 13, 2020 Assessment & Plan (1) Sepsis: (2) Fever: (3) COVID-19: (4) Pneumonia: (5) Bronchitis: (6) Respiratory distress: ASSESSMENT AND PLAN: This is a 30 y/o male c CP who presents with sepsis from COVID-19. 1. Sepsis. Meets criteria with tachycardia, fever and COVID-19 positive, possible urinary tract infection Decadron - given in ED, will cont. 6 mg daily, Remdesivir as patient requiring 2 L of oxygen on the floor. Monitor CMP while on remdesivir. Now improved, on RA satting 93% Empiric Rocephin and Doxycycline. Xopenex nebs as needed, IV Tylenol p.r.n., IV fluids at 125 mL per hour on admission, stopped IVF now. Mom is helping pt with eating, reports pt eats well. Pt much improved clinically. Mother at the bedside reports pt is more comfortable and breathing more easily. He is currently on RA satting 93 %. Pt's mother comfortable taking pt home and take care of him there. 2. Possible urinary tract infection: on Rocephin. 3. History of deep vein thrombosis, on Eliquis. 4. History of seizures: Continue Keppra, valproic acid, Valium, zonisamide, and Ativan p.r.n. 5. History of spasticity, on baclofen and Valium. 6. Nutrition: Currently, the patient is on pureed diet as per family, he is following with speech therapy at [place]. 7. History of seminoma, status post left orchiectomy and chemo, currently under observation. 8. Electrolyte abnormality: Monitor and replace potassium and magnesium, phosphorus as needed. Admission and Anticipated Discharge Date Admission Date: August 10, 2020 Subjective Patient is sitting up in bed, in no acute distress. Currently on room air, satting 93 %. Patient is nonverbal. Patient's mother at the bedside, reports that patient appears more comfortable and breathing more easily. Patient's mother states that she can take care of him at home now, she feels that he is well enough / at baseline now. Review of Systems Review of Systems: All systems reviewed & are unremarkable except as noted in HPI & below Constitutional: no fever and no chills Respiratory: no cough and no dyspnea Cardiovascular: no chest pain and no palpitations Gastrointestinal: no abdominal pain, no nausea and no vomiting Physical Exam Physical Exam: Gen- NAD, sitting up in bed, on RA Head- NCAT, EOMI, Anicteric Sclera Neck- Supple, No JVD Lungs- overall good respiratory effort and good air movement,+ very mild Wheezing, no crackles Chest- regular, No Murmur Abdomen- Soft, Bowel Sounds Present, Non Tender, Non Distended Musculoskeletal- not Assessed Extremities-No Cyanosis, No Clubbing, No Edema Neuro- awake, pt nonverbal, LE atrophied and contractured b/l d/t CP, pt moves upper extremities, per mother at the bedside pt is at baseline Skin - dry, warm Results & Data Results & Data ([facility]) Vital Signs (Past 12 Hours) Vital Signs Temp Pulse Pulse Pulse Resp BP Pulse Ox 08/13/20 07:43 36.4 C L 79 18 130/82 92 08/13/20 07:29 78 08/13/20 06:38 36.5 C 67 16 123/75 08/13/20 02:02 36.9 C 77 14 104/64 92 08/13/20 00:42 61 08/13/20 00:00 36.7 C 69 16 145/81 H 92 08/12/20 21:17 36.8 C 66 16 153/93 H 93 Laboratory Results 08/13/20 08/13/20 Range/Units 05:37 05:37 WBC 4.22 L (4.8-10.8) K/uL RBC 4.30 L (4.7-6.1) M/uL Hgb 12.9 L (14.0-18.0) g/dL Hct 38.6 L (42-52) % MCV 89.8 (80-100) fL MCH 30.0 (25-34) pg MCHC 33.4 (32-36) g/dL RDW Std Deviation 47.1 H (36.4-46.3) fL RDW Coeff of Holley 14.2 (11.5-14.5) % Plt Count 198 (130-400) K/uL MPV 11.0 H (7.4-10.4) fL Sodium 138 (136-145) mmol/L Potassium 4.0 (3.5-5.1) mmol/L Chloride 110 H (98-107) mmol/L Carbon Dioxide 21 (21-32) mmol/L Anion Gap 7.0 (3-11) BUN 21 H (7-18) mg/dl Creatinine 0.97 (0.6-1.4) mg/dl Est Cr Clr Drug Dosing 101.9 ml/min Est GFR ( Amer) 120.1 Est GFR (Non-Af Amer) 103.6 BUN/Creatinine Ratio 22.1 H (10-20) Glucose 152 H (70-99) mg/dl Calcium 7.9 L (8.5-10.1) mg/dl Total Bilirubin 0.4 (0.2-1) mg/dl AST 26 (15-37) U/L ALT 44 (12-78) U/L Alkaline Phosphatase 59 (45-117) U/L Total Protein 6.3 L (6.4-8.2) gm/dl Albumin 2.8 L (3.4-5.0) gm/dl Globulin 3.5 (2.5-4.0) gm/dl Albumin/Globulin Ratio 0.8 L (0.9-2) Medications Administered Current Inpatient Medications Albuterol (Albuterol 0.083% Nebu Soln 3 Ml Vial) 0.63 mg NEB Q8H PRN PRN Reason: bronchospasm Stop: 09/09/20 02:48 Apixaban (Apixaban 5 Mg Tablet) 5 mg PO BID [facility] Stop: 09/09/20 08:59 Last Admin: 08/12/20 21:13 Dose: 5 mg Documented by: Baclofen (Baclofen 20 Mg Tab) 20 mg PO BID [facility] Stop: 09/09/20 08:59 Last Admin: 08/12/20 21:13 Dose: 20 mg Documented by: Baclofen (Baclofen 10 Mg Tab) 10 mg PO DAILY@1400 [facility] Stop: 09/09/20 13:59 Last Admin: 08/12/20 12:59 Dose: 10 mg Documented by: Bisacodyl (Bisacodyl 10 Mg Supp) 10 mg WI BID PRN PRN Reason: Constipation Stop: 09/09/20 03:21 Last Admin: 08/11/20 21:16 Dose: 10 mg Documented by: Dexamethasone (Dexamethasone 1 Mg Tab) 6 mg PO DAILY@2100 [facility] Stop: 09/09/20 20:59 Last Admin: 08/12/20 21:13 Dose: 6 mg Documented by: Diazepam (Diazepam 5 Mg Tablet) 5 mg PO BID [facility] Stop: 09/09/20 08:59 Last Admin: 08/12/20 21:12 Dose: 5 mg Documented by: Divalproex Sodium (Divalproex Delay Release 500 Mg Tab) 500 mg PO BID [facility] Stop: 09/09/20 08:59 Last Admin: 08/12/20 21:13 Dose: 500 mg Documented by: Ceftriaxone Sodium 2,000 mg/ (Dextrose) 70 mls @ 100 mls/hr IV DAILY [facility]; Protocol Stop: 08/17/20 08:59 Last Infusion: 08/12/20 09:35 Dose: Infused Documented by: Sodium Chloride (Nss 1000ml) 1,000 mls @ 125 mls/hr IV .Q8H [facility] Stop: 09/09/20 01:56 Last Infusion: 08/11/20 23:25 Dose: Infused Documented by: Doxycycline Hyclate 100 mg/ (Dextrose) 110 mls @ 50 mls/hr IV Q12H [facility] Stop: 08/17/20 01:59 Last Infusion: 08/13/20 02:08 Dose: Infused Documented by: Remdesivir 100 mg/ Sodium (Chloride) 250 mls @ 250 mls/hr IV Q24H [facility]; Protocol Stop: 08/14/20 03:59 Last Infusion: 08/13/20 03:16 Dose: Infused Documented by: Levalbuterol HCl (Levalbuterol 1.25mg/0.5ml Neb) 1.25 mg NEB Q6H PRN PRN Reason: Shortness Of Breath Or Wheezing Stop: 09/09/20 03:14 Levetiracetam (Levetiracetam 500 Mg Tab) 1,500 mg PO BID [facility] Stop: 09/09/20 08:59 Last Admin: 08/12/20 21:13 Dose: 1,500 mg Documented by: Lisinopril (Lisinopril 5 Mg Tab) 5 mg PO QAM [facility] Stop: 09/09/20 08:59 Last Admin: 08/12/20 08:52 Dose: 5 mg Documented by: Lorazepam (Lorazepam 1 Mg Tab) 2 mg PO PRN PRN PRN Reason: Spasms Stop: 09/09/20 02:44 Nitroglycerin (Nitroglycerin Sl 0.4 Mg/Tab Tab) 0.4 mg SL UD PRN PRN Reason: Chest Pain Stop: 09/09/20 01:56 Ondansetron HCl (Ondansetron Inj 2 Mg/Ml 2 Ml Vial) 4 mg IV Q6H PRN PRN Reason: Nausea Stop: 09/09/20 01:56 Polyethylene Glycol (Polyethylene (Miralax) 17 Gm Pack) 17 gm PO DAILY PRN PRN Reason: Constipation Stop: 09/09/20 01:56 Last Admin: 08/11/20 13:47 Dose: 17 gm Documented by: Sodium Chloride (Sodium Chloride 0.9% 10ml Flush) 30 ml IV Q24H [facility] Stop: 08/14/20 03:01 Last Admin: 08/13/20 03:17 Dose: 30 ml Documented by: Zonisamide (Zonisamide 100mg Capsule) 1 ea PO QAM [facility] Stop: 09/10/20 08:59 Last Admin: 08/12/20 08:23 Dose: 1 ea Documented by: Zonisamide (Zonisamide 100mg Capsule) 2 ea PO HS [facility] Stop: 09/09/20 20:59 Last Admin: 08/12/20 21:14 Dose: 2 ea Documented by: (1) Sepsis Sepsis acute organ dysfunction status: without acute organ dysfunction Sepsis type: sepsis due to unspecified organism Qualified Code(s): A41.9 - Sepsis, unspecified organism (2) Fever Fever type: unspecified Qualified Code(s): R50.9 - Fever, unspecified (3) Pneumonia Laterality: unspecified laterality Lung location: unspecified part of lung Pneumonia type: due to unspecified organism Qualified Code(s): J18.9 - Pneumonia, unspecified organism
[2020-08-13] MEDS: DIVALPROEX DELAY RELEASE 500 MG TAB PO SCH (09:01)
[2020-08-13] MEDS: cefTRIAXone SODIUM 2,000 MG in DEXTROSE 5% 50 ML IV SCH (09:01)
[2020-08-13] MEDS: levETIRAcetam 500 MG TAB PO SCH (09:02)
[2020-08-13] MEDS: BACLOFEN 20 MG TAB PO SCH (09:02)
[2020-08-13] MEDS: lisinopril 5 MG TAB PO SCH (09:02)
[2020-08-13] MEDS: APIXABAN 5 MG TABLET PO SCH (09:02)
[2020-08-13] MEDS: diazePAM 5 MG TABLET PO SCH (09:14)
[2020-08-13] MEDS: bisacodyL 10 MG SUPP PR PRN (09:15)
[2020-08-13] MEDS: DOXYCYCLINE HYCLATE 100 MG in DEXTROSE 5% 100 ML IV SCH (13:41)
[2020-08-13] MEDS: BACLOFEN 10 MG TAB PO SCH (15:31)
--- NOTE | 2020-08-13 17:45 | Discharge Summary ---
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 Lives at home, ambulates with help of support. On regular diet, nonverbal. Was brought in by the mother because of patient having some congestion and fever and cough. Trying to bring up phlegm, is not coming up. His vitals seem to be okay in the ER. His WBC is 4.18. Lactate is 1.2. Procalcitonin 0.1. Influenza A and B PCR negative. The patient has audible wheezing. Chest x-ray showed vague left basilar opacities, similar to prior, possible atelectasis versus focal infiltrate. The patient was given nebs and IV steroids and IV Levaquin in the ER. Seems comfortable and pleasant. As per the mother, there is no nausea, vomiting. He is chronically constipated. Normal bladder movements. Appetite is okay. Does not seem to be in pain. Could not get any history from the patient. Admission Exam Per Admitting Provider GENERAL: The patient is alert and awake. VITAL SIGNS: Temperature 37.5, pulse 84, respiratory rate 21, blood pressure 136/74, oxygen 95% on room air. HEENT: No pallor, no icterus. Pupils equal, round, reactive to light. NECK: No JVD, no neck masses, no carotid bruits. CARDIOVASCULAR: S1, S2 heard, regular rate and rhythm, no murmur, no gallop. RESPIRATORY SYSTEM: Normal AP diameter, mild tachypnea. Bilateral mild rhonchi and audible wheezes. ABDOMEN: Soft, bowel sounds present, nontender. No distention. CENTRAL NERVOUS SYSTEM: Alert and awake, nonverbal. Does not obey commands. Moves extremities. EXTREMITIES: No edema, no erythema. Principal Diagnosis Sepsis secondary to COVID-19 infection Discharge Exam Gen- NAD, sitting up in bed, on RA Head- NCAT, EOMI, Anicteric Sclera Neck- Supple, No JVD Lungs- overall good respiratory effort and good air movement,+ very mild Wheezing, no crackles Chest- regular, No Murmur Abdomen- Soft, Bowel Sounds Present, Non Tender, Non Distended Musculoskeletal- not Assessed Extremities-No Cyanosis, No Clubbing, No Edema Neuro- awake, pt nonverbal, LE atrophied and contractured b/l d/t CP, pt moves upper extremities, per mother at the bedside pt is at baseline Skin - dry, warm Discharge Data Allergies Allergy/AdvReac Type Severity Reaction Status Date / Time amoxicillin Allergy Unknown . Verified 08/09/20 21:02 clavulanic acid Allergy Unknown . Verified 08/09/20 21:02 Consultations 08/09/20 22:47 ED Decision to Admit Stat 08/10/20 01:57 Consult Case Management - Discharge Planning Routine Hospital Course (1) Sepsis: (2) Fever: (3) COVID-19: (4) Pneumonia: (5) Bronchitis: (6) Respiratory distress: ASSESSMENT AND PLAN: This is a 30 y/o male c CP who presents with sepsis from COVID-19. 1. Sepsis. Meets criteria with tachycardia, fever and COVID-19 positive, initially concern for possible urinary tract infection Blood cultx - negative UA- negative, not UTI Decadron - given in ED, will cont. 6 mg daily, Remdesivir as patient requiring 2 L of oxygen on the floor. Monitor CMP while on remdesivir. Now improved, on RA satting 93% Empiric Rocephin and Doxycycline. Xopenex nebs as needed, IV Tylenol p.r.n., IV fluids at 125 mL per hour on admission, stopped IVF next day. Mom is helping pt with eating, reports pt eats well. Pt much improved clinically. Mother at the bedside reports pt is more comfortable and breathing more easily. He is currently on RA satting 93 %. Pt's mother comfortable taking pt home and take care of him there. States they are we ll equipped to take care of him at home. 2. Possible urinary tract infection: on Rocephin. UA - negative, not UTI 3. History of deep vein thrombosis, on Eliquis. 4. History of seizures: Continue Keppra, valproic acid, Valium, zonisamide, and Ativan p.r.n. 5. History of spasticity, on baclofen and Valium. 6. Nutrition: Currently, the patient is on pureed diet as per family, he is following with speech therapy at [place]. 7. History of seminoma, status post left orchiectomy and chemo, currently under observation. 8. Electrolyte abnormality: Monitor and replace potassium and magnesium, phosph orus as needed. Total Time Total Time Spent Total Time Spent (In Minutes): 40 Total Time Includes: Examination of the Patient, Discharge Planning, Medication Reconciliation and Communication With Other Providers Discharge Plan Discharge Items Patient Disposition: Home - Self-Care Reason For Visit: FEVER Discharge Diagnosis: Sepsis secondary to COVID-19 infection Condition on Discharge: Fair Activity: Per Instructions section Non-emergency contact: Primary Care Provider Call non-emergency contact if: you have any medication questions and your symptoms worsen Follow-up/Referrals: Carlos Shankar PA-C [Primary Care Provider] - (Date & Time 08/17/2020 3:00 PM Provider Carlos Shankar Jr., PA-C Department [facility] [place] PLEASE NOTE: THIS IS A TELEVIDEO APPOINTMENT. PLEASE FOLLOW THE INSTRUCTIONS IN THE EMAIL YOU WILL RECEIVE. IF YOU HAVE ANY QUESTIONS, PLEASE CALL ) Diet: Heart Healthy Diet Texture: Pureed (blended smooth) Addtl Attending Provider Instructions: Recommend to follow-up with primary care provider, preferably via telemedicine. Please continue taking doxycycline and prednisone as prescribed. Use albuterol nebs as needed every 8 hrs. Strongly recommend social distancing d/t your diagnosis of COVID-19 infection, and please refer to more information below about your infection/COVID-19. Addtl Timber Setter Provider Instructions: Home Isolation COVID-19 Instructions The following information about Home Isolation is from the CDC Website: https://www.cdc.gov/coronavirus/2019-ncov/hcp/hlvjxpmt-ixqedcv-sfmjfl.html Stay home except to get medical care People who are mildly ill with COVID-19 are able to isolate at home during their illness. You should restrict activities outside your home, except for getting medical care. Do not go to work, school, or public areas. Avoid using public transportation, ride-sharing, or taxis. Separate yourself from other people and animals in your home People: As much as possible, you should stay in a specific room and away from other people in your home. Also, you should use a separate bathroom, if available. Animals: You should restrict contact with pets and other animals while you are sick with COVID-19, just like you would around other people. Although there have not been reports of pets or other animals becoming sick with COVID-19, it is still recommended that people sick with COVID-19 limit contact with animals until more information is known about the virus. When possible, have another member of your household care for your animals while you are sick. If you are sick with COVID-19, avoid contact with your pet, including petting, snuggling, being kissed or licked, and sharing food. If you must care for your pet or be around animals while you are sick, wash your hands before and after you interact with pets and wear a face mask. Call ahead before visiting your doctor If you have a medical appointment, call the healthcare provider and tell them that you have or may have COVID-19. This will help the healthcare providers office take steps to keep other people from getting infected or exposed. Wear a face mask You should wear a face mask when you are around other people (e.g., sharing a room or vehicle) or pets and before you enter a healthcare providers office. If you are not able to wear a face mask (for example, because it causes trouble breathing), then people who live with you should not stay in the same room with you, or they should wear a face mask if they enter your room. Cover your coughs and sneezes Cover your mouth and nose with a tissue when you cough or sneeze. Throw used ti ssues in a lined trash can. Immediately wash your hands with soap and water for at least 20 seconds or, if soap and water are not available, clean your hands with an alcohol-based hand automotive lube technician that contains at least 60% alcohol. Clean your hands often Wash your hands often with soap and water for at least 20 seconds, especially after blowing your nose, coughing, or sneezing; going to the bathroom; and before eating or preparing food. If soap and water are not readily available, use an alcohol-based hand automotive lube technician with at least 60% alcohol, covering all surfaces of your hands and rubbing them together until they feel dry. Soap and water are the best option if hands are visibly dirty. Avoid touching your eyes, nose, and mouth with unwashed hands. Avoid sharing personal household items You should not share dishes, drinking glasses, cups, eating utensils, towels, or bedding with other people or pets in your home. After using these items, they should be washed thoroughly with soap and water. Clean all high-touch surfaces everyday High touch surfaces include counters, tabletops, doorknobs, bathroom fixtures, toilets, phones, keyboards, tablets, and bedside tables. Also, clean any surfaces that may have blood, stool, or body fluids on them. Use a household cleaning spray or wipe, according to the label instructions. Labels contain instructions for safe and effective use of the cleaning product including precautions you should take when applying the product, such as wearing gloves and making sure you have good ventilation during use of the product. Monitor your symptoms Seek prompt medical attention if your illness is worsening (e.g., difficulty breathing).Beforeseeking care, call your healthcare provider and tell them that you have, or are being evaluated for, COVID-19. Put on a face mask before you enter the facility. These steps will help the healthcare providers office to keep other people in the office or waiting room from getting infected or exposed. Ask your healthcare provider to call the local or state health department. Persons who are placed under active monitoring or facilitated self- monitoring should follow instructions provided by their local health department or occupational health professionals, as appropriate. When working with your local health department check their available hours. If you have a medical emergency and need to call 911, notify the dispatch personnel that you have, or are being evaluated for COVID-19. If possible, put on a face mask before emergency medical services arrive. Discontinuing home isolation Patients with confirmed COVID-19 should remain under home isolation precautions until the risk of secondary transmission to others is thought to be low. The decision to discontinue home isolation precautions should be made on a [id number] basis, in consultation with healthcare providers and state and local health departments. Coronavirus disease 2019 (COVID-19) is a virus that causes a respiratory illness. It is caused by a coronavirus called 2019 novel coronavirus (2019- nCoV). There are many types of coronavirus. Coronaviruses are a very common cause of bronchitis. They may sometimes cause lung infection(pneumonia). Symptoms can range from mild to severe respiratory illness. These viruses are also foundin some animals. COVID-19 was first found in people in [facility], in late 2019. In 2020, several cases of COVID-19 have been confirmed in the [place] Public health officials are working to find the source. How the virus spreads is not yet fully known. It may be spread through droplets of fluid that a person coughs or sneezes into the air. It may be spread if you touch a surface with virus on it, such as a handle or object, and then touch your mouth. What are the symptoms of COVID-19? Some people have no symptoms or mild symptoms. Symptoms may appear 2 to 14 days after contact with the virus. Symptoms can include: Fever Coughing Trouble breathing What are possible complications from COVID-19? In many cases, this virus can cause infection (pneumonia) in both lungs. In some cases, this can cause . How is COVID-19 diagnosed? Your healthcare provider will ask about your symptoms. He or she will also ask about your recent travel and contact with sick people. Testing for the virus is only done through the CDC. If yourhealthcare provider thinks you may have COVID- 19, he or she will work with your local health department and the CDC on testing. Follow all instructions from your healthcare provider. COVID-19 is diagnosed by: Nasal and throat swab. A cotton-tipped swab is wiped inside your nose or throat. This is done to check for viruses in your nasal mucus. Sputum culture. A small sample of mucus coughed from your lungs (sputum) is collected if you have a cough. It is checked for the virus. How is COVID-19 treated? There is currently no medicine to treat the virus. Treatment is done to help your body while it fights the virus. This is known as supportive care. Supportive care may include: Pain medicine. These include acetaminophen and ibuprofen. They are used to help ease pain and reduce fever. Bed rest. This helps your body fight the illness. For severe illness, you may need to stay in the hospital. Care during severe illness may include: IV (intravenous) fluids.These are given through a vein to help keep your body hydrated. Oxygen. Supplemental oxygen or ventilation with a breathing machine (ventilator) may be given. This is done to keep enough oxygen in your body. Are you at risk for COVID-19? If youve been to a place where people have been sick with this virus, you are at risk for infection. You are at risk if you: Recently traveled to an affected area Had contact with a sick person who recently traveled to this area Had contact with a person who was diagnosed with COVID-19 How can COVID-19 be prevented? There is no vaccine yet. The best prevention is to not have contact with the virus. The CDC advises that people should not travel to areas where there are COVID-19 outbreaks right now for any reason that is not urgent. To help prevent spreading the infection, wash your hands often, or use an alcohol-basedhand automotive lube technician. If you are in an area with COVID-19: Wash your hands often. Or use an alcohol-based hand automotive lube technician often. Only touch your eyes, nose, or mouth with clean hands. Dont have contact with people who are sick. Follow local instructions about being in public. For example, you may be told to not use public transport for a period of time. Stay away from markets that have live or animals. Wash your hands after touching any animals. Don't touch animals that may be sick. Dont share eating or drinking tools with sick people. Dont kiss someone who is sick. Clean surfaces often with disinfectant. If you were in an area with COVID-19 in the last 14 days: Call your healthcare provider. He or she can talk with local health staff to see what action may be needed. Follow all instructions from your provider. Take your temperature every morning and evening for at least 14 days. This is to check for fever. Keep a record of the readings. Keep watch for symptoms of the virus. Tell your provider right away if you have symptoms. If you were in an area with COVID-19 and have a fever or other symptoms: Dont panic. Keep in mind that other illnesses can cause similar symptoms. Stay away from work, school, and public places. Limit physical contact with family members. Don't kiss anyone or share eating or drinking utensils. Clean surfaces you touch with disinfectant. This is to help prevent the virus from spreading. Call your healthcare provider. Explain that you have been exposed to COVID-19 and have symptoms. Do this before going to any hospital. Wait for instructions. Keep in mind that healthcare staff may wear protective equipment such as masks, gowns, gloves, and eye protection. You may be put in a separate room. This is to prevent the possible virus from spreading. Tell the healthcare staff about recent travel. This includes local travel on public transport. Staff may need to find other people you have been in contact with. Follow all instructions the healthcare staff give you. If you have been diagnosed with COVID-19 Follow all instructions from your healthcare provider. Dont leave your home, except to get medical care. Call your healthcare providers office before going. They can prepare and give you instructions. This will help prevent the virus from spreading. Dont go to work, school, or public areas. Dont use public transport or taxis. Stay away from other people in your home. Have them wear face masks around you. Dont share household items or food. Wear a face mask if you can. This includes at home or in a medical facility. Cover your face with a tissue when you cough or sneeze. Throw the tissue away. Wash your hands. Wash your hands often. Caregivers should: Follow all instructions from healthcare staff. Wear a face mask and protective clothing as advised. Wash hands often. Keep track of the sick persons symptoms. Clean surfaces, fabrics, and laundry thoroughly. Keep other people away from the sick person. When to call your healthcare provider Call your healthcare provider: If youve recently traveled and have symptoms If you have been diagnosed with COVID-19 and your symptoms are worse To learn more To find out more about COVID-19, visit the CDC website at www.cdc.gov/coronavirus/2019-ncov/index.html. [employer]. [address] [place] [address], [place] [address]. All rights reserved. This information is not intended as a substitute for professional medical care. Al ways follow your healthcare professional's instructions. This information has been adapted from [employer] Pending Studies at Discharge: No Stand-Alone Forms: [facility], Smoking Cessation Medications and DC Order Prescriptions: New albuterol sulfate 2.5 mg /3 mL (0.083 %) Solution For Nebulization 0.63 mg NEB Q8H PRN (Reason: shortness of breath or wheezing) 30 Days RF: 0 doxycycline hyclate 100 mg tablet 100 mg PO BID 3 Days Qty: 6 RF: 0 prednisone 20 mg tablet 40 mg PO DAILY 3 Days Qty: 6 RF: 0 Continued levetiracetam 500 mg tablet 1,500 mg PO BID RF: 0 divalproex 500 mg tablet,delayed release (DR/EC) 500 mg PO BID RF: 0 acetaminophen [Tylenol Extra Strength] 500 mg Tablet 1,000 mg PO Q6H PRN (Reason: Pain) RF: 0 zonisamide 100 mg capsule 100 mg PO QAM RF: 0 zonisamide 100 mg capsule 200 mg PO HS RF: 0 lisinopril 5 mg tablet 5 mg PO QAM RF: 0 lorazepam 1 mg tablet 2 mg PO DIRECTED PRN (Reason: Spasms) RF: 0 diazepam 5 mg tablet 5 mg PO BID RF: 0 Eliquis 5 mg tablet 5 mg PO BID RF: 0 baclofen 10 mg tablet 10 mg PO .QAFTERNOON RF: 0 baclofen 20 mg tablet 20 mg PO BID RF: 0 albuterol sulfate 0.63 mg/3 mL solution for nebulization 0.63 mg INH Q8H PRN (Reason: bronchospasm) 30 Days Qty: 75 RF: 0 Discharge Orders: Discharge Order (Routine); Ordered 08/13/20 Ordered By: Phil Kamara Admission Data Admit Date/Time: 08/10/20 00:11 Attending Provider: Phil Kamara Admit Provider: Hollis Mccollum Primary Care Provider: Carlos Shankar Other Providers: Luis Angel Sood ; Hollis Mccollum Other Interventions: Discharge Summary Assessment (RN) Last Done: 08/13/20 16:22
== END 2020-08-13 16:45 | disposition home or self-care (01) | DRG 177 ==
LOC: ED 19:26 → SUATTDRO 08-10 00:11 → 2E 08-10 00:11 → 2W 08-11 14:01

== ENCOUNTER 2024-05-18 19:08 | Inpatient (IN) ==
--- OUTSIDE RECORDS SUMMARY | 2024-05-18 19:15 | External Medical Summary | Summary of Care ---
Author Name Unknown Organization [facility] Address [address] [place] [address] Phone [phone] Care Team Providers Care Manager [employer] Name Role Phone Simeon Garner Primary Care Provider Reason for Visit * Auth/Cert Specialty Diagnoses / Procedures Referred By Elizabeth t Referred To Contact Diagnoses Intellectual disability Intellectual disability [F79] Procedures COMPREHENSIVE ORAL NEW OR EST EVAL INTRAOR COMPLETE FILM SERIES DENTAL PROPHYLAXIS ADULT TOPICAL FLUORIDE VARNISH RESIN 4/> SURF OR W INCIS AN RESIN COMPOSITE 4 OR MORE POSTERIOR COMPREHENSIVE ORAL EXAM INTAORAL COMPLETED SERIES PROPHY ADULT TOPICAL FLUORIDE VARNISH THERAPEUTIC APPLICATION FOR MODERATE TO HIGH CARIES RISK PATIENTS RESIN BASED COMPOSITE 4/OR MORE SURFACES, ANTERIOR RESIN BASED COMPOSITE 4/OR MORE SURFACES, POSTERIOR Giovani Simon DMD [address] [place] [address] Or [facility] [address] [place] [address] Referral ID Status Reason Start Date Expiration Date Visits Re quested Visits Authorized [id number] Encounter Details Date Type Department Care Team (Latest Contact Info) Description 05/16/2024 6:29 AM EDT - 05/16/2024 1:55 PM EDT Hospital Encounter OR [facility], OPERATING ROOM [facility] [address] [place] [address] Giovani Simon DMD [address] [place] [address] Discharge Disposition: Home with Services Allergies Active Allergy Reactions Criticality Noted Date Comments Clavulanic Acid Rash 05/31/2006 Diaper rash at 3 yrs old documented as of this encounter (statuses as of 05/17/2024) Medications Medication Sig Dispensed Refills Start Date End Date Status DIAPERS & SUPPLIES MISCIndications:Inco ntinence of feces use 7-8 everyday 300 11 09/01/2008 Active ACETAMINOPHEN 500 MG PO TABS NEEDED Active Zonisamide 100 MG Oral Capsule (Zonegran)Indication s:Generalized convulsive epilepsy without intractable epilepsy (HCC) Take 1 Cap by mouth daily before breakfast AND 2 Caps at bedtime. 90 Cap 5 12/22/2020 Active Divalproex Sodium 500 MG Oral Tablet Delayed Release (Depakote DR) take 1 tablet by mouth twice a day 60 Tab 5 03/07/2021 Active levETIRAcetam 500 MG Oral Tablet (Keppra)Indications: Generalized convulsive epilepsy without intractable epilepsy (HCC) take 3 tablets by mouth twice a day 180 Tab 5 04/05/2021 Active Additional Information Patient taking differently: 1,250 mg Oral BID (.AM/PM), Weaning him off currently., Reported on 03/04/2024 Lisinopril 5 MG Oral Tablet (Prinivil)Indication s:Hypertension, goal below 140/90 Take 1 Tab by mouth daily. 90 Tab 1 05/23/2021 Active diazePAM 5 MG Oral Tablet (Valium)Indications: Generalized convulsive epilepsy without intractable epilepsy (HCC) Take 1 Tab by mouth 2 times a day. 60 Tab 06/25/2021 Active Apixaban 5 MG Oral Tablet (Eliquis)Indications :Deep vein thrombosis (DVT) of left lower extremity, unspecified chronicity, unspecified vein (HCC) Take 1 Tab by mouth 2 times a day. 180 Tab 1 06/25/2021 Active Chlorhexidine Gluconate 0.12 % Mouth/Throat Solution (Periogard) Use 2 times a day. Swab on teeth / gums and spit out excess 473 mL 4 02/26/2024 Active Toothette Plus Untreated Mouth/Throat Swab Use with peridex 20 Each 10 02/26/2024 Active Vitamin D3 25 MCG (1000 UT) Oral Capsule Take 2 Capsules by mouth in the morning. 03/07/2024 Active documented as of this encounter (statuses as of 05/17/2024) Active Problems Problem Noted Date Diagnosed Date Ascending aorta dilatation 06/07/2021 History of testicular cancer 05/25/2020 Tonic seizures 04/10/2018 Localization-related focal e pilepsy with complex partial seizures 04/10/2018 Acute deep vein thrombosis ( DVT) of distal vein of left lower extremity 04/08/2018 ADPKD (autosomal dominant polycystic kidney dise ase) 08/22/2017 Encounter for antineoplastic chemotherapy 2016 Congenital aortic valve insufficiency 01/14/2016 S/P ventricular septal defect closure 01/14/2016 S/P atrial septal defect closure 01/14/2016 Developmental delay, severe 03/19/2014 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) 01/26/2011 Moderate intellectual disabilities 09/05/2007 Microcephalus 09/05/2007 ADVANCE DIRECTIVE INFORMATION 07/25/2006 Overview: Not applicable (under age of 18) PROPHYLACTIC MEASURE NEC 07/09/2003 GENERALIZED CONVULSIVE EPILE PSY; WITHOUT MENTION OF INTRACTABLE EPILEPSY CEREBRAL PALSY NOS documented as of this encounter (statuses as of 05/17/2024) Resolved Problems Problem Noted Date Diagnosed Date Resolved Date 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 04/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, N0, M0, S0) - Signed by Luis Billingsley MD on 03/26/2017 documented as of this encounter (statuses as of 05/17/2024) Immunizations Name Administration Dates Next Due Meningococcal Conjugate Vaccine (Menactra/Menveo ) 01/15/2006 Seasonal Influenza, PF, 6 M & above, IM , (FluLaval or Fluzone) 07/14/2019,08/12/2018 Seasonal Influenza, Split, IIV3, With Preserve, Inj 07/25/2006 documented as of this encounter Social History Tobacco Use Types Packs/Day Years Used Date Smoking Tobacco: Never Smokeless Tobacco: Never Alcohol Use Standard Drinks/Week Comments No 0 (1 standard drink = 0.6 oz pur e alcohol) PHQ-2 Answer Date Recorded PHQ-2 Score 0 07/31/2018 Hunger Vital Sign Answer Date Recorded Worried About Running Out of Food in the Last Ye ar Never true 06/07/2021 Ran Out of Food in the Last Year Never true 06/07/2021 Utilities Answer Date Recorded Do you have trouble paying y our heating, water, or electric bill? (Adult - for ages 18 years and over) Not on file 03/11/2024 Is your family able to pay t he heat, water, or electric bill? (Household - for ages 0-17 years) Not on file 03/11/2024 Does your family have access to good internet? (Household - for ages 0-17 years) Not on file 03/11/2024 Social Connections Answer Date Recorded How often do you feel lonely or isolated from those around you? (Adult - for ages 18 years and over) Not on file 03/11/2024 Sex and Gender Information Value Date Recorded Sex Assigned at Male 10/03/2023 11:39 AM EST Gender Identity Male 10/03/2023 11:39 AM EST Sexual Orientation Not on file Job Start Date Occupation Industry Not on file Not on file Not on file documented as of this encounter Last Filed Vital Signs Vital Sign Reading Time Taken Comments Blood Pressure 123/88 05/16/2024 1:15 PM EDT Pulse 72 05/16/2024 1:15 PM EDT Temperature 35.8 C (96.4 F) 05/16/2024 12:27 PM E DT Respiratory Rate 12 05/16/2024 1:15 PM EDT Oxygen Saturation 99% 05/16/2024 1:15 PM EDT Inhaled Oxygen Concentration - - Weight 72 kg (158 lb 11.2 oz) 05/16/2024 6:45 AM EDT Height 160 cm (5' 3") 05/16/2024 6:45 AM EDT Body Mass Index 28.11 05/16/2024 6:45 AM EDT documented in this encounter Functional Status Functional Status Response Date of Assess ment Are you deaf or do you have serious difficulty h earing? No 04/08/2018 Are you blind or do you have serious difficulty seeing, even when wearing glasses? No 04/08/2018 Do you have serious difficul ty walking or climbing stairs? (5 years old or older) Yes 04/08/2018 Do you have difficulty dress ing or bathing? (5 years old or older) Yes 04/08/2018 Because of a physical, menta l, or emotional condition, do you have difficulty doing errands alone such as visiting a doctor s office or shopping? (15 years old or older) Yes 04/08/20 18 Cognitive Status Response Date of Assessm ent Because of a physical, menta l, or emotional condition, do you have serious difficulty concentrating, remembering, or making decisions? (5 years old or older) No 04/08/2018 documented as of this encounter Discharge Summaries * Giovani Simon Alba, DMD - 05/16/2024 12:48 PM EDT Discharge Date: 05/16/2024 Check your Patient Education Brochure for further information. If you have any further questions or concerns after discharge and before 5:00 p.m. please contact your surgeon. After 5:00 p.m. or on the weekend, call [phone] and ask for the physician carbon cleaner. Scheduling Services is available daily between the hours of 8:00 a.m. and 9:00 p.m. by calling . The information below provides you with the instructions and the list of medications you need to betaking following discharge from the hospital. If you have any questions, please ask before leaving.Please carry this letter with you when you see your doctor in the clinic. If you have questions, you can reach us at the numbers above. Diet: Start with clear liquids (jello, tea, apple juice), avoid dairy products (milk, cheese, pudding, ice cream) and fried, greasy foods. Progress to prescribed diet as tolerated. If nausea should occur, have clear liquids only until soft foods can be tolerated. Activity: A responsible adult must be with the patient for 24 hours after surgery. Rest today and tomorrow, and then increase activity as tolerated. DO NOT drive, operate any appliances and/or machinery or sign legal documents for 24 hours. Control of Pain: OTC pain meds Warnings: Call your surgeon promptly in case of: A. Excessive bleeding B. Fever greater than 101 degrees F (38.3 degrees centigrade) C. Persistent nausea and vomiting D. Redness, swelling or pus-like drainage E. Pain that is not relieved by the medicine you were told to take Special Instructions: A. Dressing change: N/A Date you may return to work or school: N/A Appt P/O in 7-10 days * Giovani Simon DMD - 05/16/2024 12:42 PM EDT [address] [address] Admission Date: 05/16/2024 Discharge Date: 05/16/2024 DISCHARGE SUMMARY Admitting diagnosis: Need for comprehensive dental exam and needed dental care Hospital course: Oral rehab with GA. Disposition: To parents Condition on discharge: Alert / Awake Follow up: 7-10 days Discharge meds: Clinda e-scribed documented in this encounter Progress Notes * Giovani Simon DMD - 05/16/2024 12:45 PM EDT Giovani Simon DMD 05/16/2024 12:45 PM Pt was transported to the OR for oral rehab with GA. Pt tolerated the procedures well and was transported to the recovery area in stable condition. * Giovani Simon DMD - 05/16/2024 12:43 PM EDT [address] [address] OUTPATIENT SURGERY DISCHARGE SUMMARY NOTE Name: Michael Jane Location: [facility]/[place] Date: 05/16/2024 Time: 12:44 PM Surgery Date: 05/16/2024 Procedure: Oral Rehab with [place] Surgeon: Giovani Simon DMD Discharge Diagnosis: Dental caries of restorable and non-restorable teeth. After examination of this patient, I have determined he is ready for discharge to home when the patient meets criteria. Discharge instructions were given to the patient's. documented in this encounter H&P Notes * Giovani Simon DMD - 05/16/2024 7:23 AM EDT Pt was seen and examined and there are no changes to his H and P (04/17/24). Please see Anesthesia heart and lung eval and clearance for today. * Giovani Simon DMD - 05/14/2024 9:57 AM EDT Please see copied H and P that clears patient medically to proceed with oral rehab and GA. In addition I have had communication with Dr Liz. He believes that pt is OK to proceed and approved 1) D/C jaqui urias 2) No need for pre-med. Consent will be signed in Pre-op * Giovani Simon DMD - 05/14/2024 9:56 AM EDT Images from the original note were not included. documented in this encounter Nursing Notes * Suzanne Dye RN - 05/16/2024 1:11 PM EDT Dual Licensed Skin Assessment completed by self and Jimenez. The patient is/has a N/A Skin Breakdown (includes non blanchable erythema): No surgical changes only * Amaya Potter RN - 05/16/2024 7:40 AM EDT Dual Licensed Skin Assessment completed by self and Haim Bliss RN. The patient is/has a N/A Skin Breakdown (includes non blanchable erythema): No * Semaj West RN - 05/14/2024 12:35 PM EDT NO ANESTHESIA EVAL REQUESTED PER CASE DOCUMENTATION. PREOP PATIENT INFORMATION AND EDUCATION: MEDICATION INSTRUCTIONS: The day of surgery/procedure, you may TAKE the following medications with a sip of water up to 2 hours prior to your arrival time: Diazepam Levetiracetam Divalproex Zonisamide Tylenol if needed Periogard mouth solution Tylenol if needed AVOID/ DO NOT TAKE any medications the morning of surgery/procedure that are not listed above. STOP taking the following medications the noted number of days prior to surgery/procedure unless otherwise specified by your surgeon: Please follow surgeon's instructions regarding use of Aspirin, Coumadin, Plavix, Eliquis, and any other blood thinner including NSAIDs (non-steroidal anti- inflammatory drugs, eg, Advil, Ibuprofen, Motrin, Aleve, Naproxen); if you have any questions regarding your anticoagulation therapy please contact your surgeon's clinic. Please verify any proposed stoppage of your anticoagulation therapy with the agent's prescribing provider. 10 days prior to surgery/procedure Stop all Herbal supplements, Green Tea, Turmeric, Melatonin, CBD, THC, etc. Stop all Vitamins (including Vitamin E) 24 hours prior to surgery/procedure DO NOT consume any alcohol. DO NOT use medical marijuana. DO NOT smoke or use tobacco products of any kind after midnight prior to surgery. *Using any of these products may increase your risks of procedural complications. IF IT IS LESS THAN RECOMMENDED STOPPAGE TIME PLEASE STOP AT TIME OF NOTIFICATION. FASTING RECOMMENDATIONS: To reduce risk, it is important for all elective surgery patients to follow the specific fasting guidelines listed below. If you have received more stringent guidelines, please follow the MOST RESTRICTIVE guidelines that you have been provided. DO NOT EAT after midnight on the night prior to your surgery date. You are allowed to drink clear liquids up to two hours prior to arrival time to the hospital or surgery center. Examples of clear liquids include water, clear fruit juice without pulp, clear carbonated beverages, clear tea, and black coffee. Any drinks given by your surgical service take as directed. Infant/pediatric patients who currently drink breast milk, infant formula, and non-human milk must not eat after midnight. These patients are allowed to drink only the liquids listed below up to two hours prior to arrival time to the hospital or surgery center: Ingested Material Minimum Fasting Time Clear liquid After midnight up to 2 hours prior to arrival time Breast milk Up to 4 hours prior to arrival time formula Up to 6 hours prior to arrival time Non-human milk Up to 6 hours prior to arrival time THE DAY BEFORE YOUR SURGERY: -Drink plenty of fluid the day before your surgery. Contact your surgeon's office if you develop any of the following within 2 weeks of surgery: A cold Infection Fever Shingles Chicken pox or exposure to chicken pox Open areas such as scrapes, cuts, pina or other skin conditions Rashes GENERAL INSTRUCTIONS FOR PREPARING FOR SURGERY: BATHING INSTRUCTIONS: Bathe the evening prior to and the morning of surgery/procedure. Cleanse your body using ONLY anti-bacterial soap (eg, Dial, Safeguard) or any specific soap/cleansers and instructions provided by your surgeon (eg, Chlorhexidine). -You should brush your teeth the morning of surgery. Do NOT apply any lotions, powders, sprays, creams, oils, make-up, or deodorants after bathing. No hairspray, or nail niuean on fingers or toes. Day of surgery/procedure do not use tampons. If you wear contacts wear your eyeglasses if available otherwise bring your contact supplies with you to remove them prior to your surgery/procedure. If you wear glasses or dentures, please bring cases in which you can store them during your surgery. Please remove all piercings and jewelry and leave them at home. Wear comfortable and loose clothing. -Please leave all valuables at home. -If you use a CPAP and are staying overnight, please bring your mask and tubing with you to the hospital. -If you use an assistive mobility device (walker, cane, etc), please label it with your name and bring to hospital. -An escort cdl dedicated truck driver is required if you are being discharged the same day of the surgery. You should have a responsible adult over the age of 18 [address] you home. This person should be present with youin the hospital at the time of discharge and for the first 24 hours after the surgery to support your needs. If you are taking a taxi home, you must have your responsible alliance party accompany you in the taxi ride home at the time of discharge. OR times subject to change. Please check voice[employer]pad[employer] messages the day/evening before your surgery forany updates. PRE-OP: You will be taken to the pre-op area where your vital signs (blood pressure, pulse and temperature)will be taken. Any preparations that need to be done will be done there. When it is time for your surgery, you will be taken to the operating room. PARENTS OF PEDIATRIC PATIENTS WILL BE ALLOWED TO STAY WITH THEIR CHILDREN UNTIL THEY ARE ESCORTED TO THE OPERATING ROOM OUTPATIENT SURGERY PATIENTS: After your surgery you will be taken to the Same Day Surgery Unit when you are awake and will go home from there. You will get instructions about your home care before you leave. Arrange to have someone drive you home from the hospital. You may not drive for 24 hours after anesthesia. You must havean adult stay with you at home for 24 hours after your operation. This is very important. If you are not able to comply with these guidelines, your Short Stay surgery cannot be done. ADMISSION PATIENTS: After your stay in the recovery area, you will be taken to your room. Your family may visit you in your room based on current visitation policy. If a next day discharge is expected, it is important to make arrangements for a cdl dedicated truck driver to take you home. Please be aware our visitation policies are subject to change Professionals, attendants, caregivers or family members are allowable visitors for patients with intellectual, developmental or cognitive disabilities, communication barriers or behavioral concerns. Because patients' and families' needs vary, they will be taken into account when applying visitation restrictions. [facility]: Contact # [phone] Directions to Surgical Suite in from the [place] Entrance The Surgical Waiting Room can be found in the Lobby of [facility]. Enter through Main Lobby Entrance and the Waiting Room is directly in front of you. Proceed to check in and give them your name. Directions to Surgical Suite from the East Entrance Enter the East entrance and follow the hallway to the J elevator. Take the J elevator up to Level 1. Continue down the long hallway to the main [facility] Lobby. The Surgical Waiting Room will be on your Right. Proceed to check in and give them your Name. Directions to Surgical Suite from the Parking Garage Enter the [facility] lobby and proceed down the hollis to the left. At the end of the hollis, turn right. Continue down the long hallway to the main [facility] Lobby. The Surgical Waiting Room will be on your Right. Proceed to check in and give them your Name. Pre-operative chart review completed-instructions provided based on current medication list in [facility] Presurgery instructions sent to patient via [employer] message. documented in this encounter OR Notes * OR Surgeon - Giovani Simon DMD - 05/16/2024 1:55 PM EDT OPERATIVE RECORD [address] [address] [place] [facility] [address] [address] Michael Jane : 1990 DATE: 05/16/2024 START TIME: 845 END TIME: 1210 SERVICE: Dental Medicine and Surgery PREOPERATIVE DIAGNOSIS: Need for comprehensive dental exam and needed dental care POSTOPERATIVE DIAGNOSIS: Dental caries of restorable and non-restorable teeth, SURGEON: Giovani Simon DMD SALON COORDINATOR: Xochitl Galarza ANESTHESIA: General Nasotracheal OPERATION: Oral Rehabilitation with GA FINDINGS: Dental caries of restorable and non-restorable teeth, ESTIMATED BLOOD LOSS: 15 mL FLUIDS: 900 mL SPECIMEN: None DRAINS: None URINE OUTPUT: None COMPLICATIONS: None CONDITION: Stable LOCAL ANESTHESIA: 10.2cc of Lido 2% with epi 1/100,000 for extractions. INDICATIONS AND HISTORY: This is a 34 year old male with a past medical history of ....... 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 DESCRIPTION OF OPERATION: The patient was identified and the procedures verified. The patient was brought into the OR on an eye stretcher. The patient was induced under General Anesthesia and and intubated nasotracheally. A full mouth series of radiographs were taken and developed. The patient was draped in the usual fashion, A single moist gauze throat pack was placed. Clinical and radiographic comprehensive dental examination revealed dental caries and restorable teeth # 3,4,6,8,9,10,11,12,15,18,28,29,30. Clinical and radiographic examination also revealed Severe decay teeth # 1,2,5,7,16,17,31,32. Teeth # 3,DF ; 4,MFD ; 6,8,MFD ; 9,MIDFL ; 10,MFD ; 11,12,F ; 15,DF ; 28,29,30,F had caries removedand were restored with acid etch, dunaway and composite. Tooth #18,F had caries removed and was restored with amalgam. Teeth # 1,2,5,7,16,17,31,32 were removed by simple with no complications. #17 and #32 sockets were packed with surgifoam. 10 (3-0) chromic gut sutures were placed. The max and pal teeth were scaled with an ultrasonic contract post office clerk, The max and pal teeth were coated with acidulated phosphate fluoride 1.23%. The single moist gauzethroat pack was removed. The sponge count was correct. The patient was extubated and transported tothe recovery area in stable condition. Giovani Simon DMD 05/16/2024 4:27 PM * Operative Report Brief - Giovani Simon DMD - 05/16/2024 12:46 PM EDT [facility] [address] [facility] [address] OPERATIVE REPORT - BRIEF Name: Michael Jane Date: 05/16/2024 Time: 12:46 PM Location: [facility] Service: Dental Medicine Date of Operation: 05/16/2024 Pre-op Diagnosis: Need for comprehensive dental exam and needed dental care Post-op Diagnosis: Dental caries of restorable and non-restorable teeth Operation: Oral Rehab with GA Surgeon: Giovani Simon DMD Assistants: Xochitl Galarza Anesthesia: General Nasotracheal Drains: none Estimated Blood Loss: 15 ml. IV Fluids: 900 ml. Urine Output: N/A Specimens/Disposition: None Apparent Intraoperative Complications: NONE Patient Condition: stable Disposition: In and Out recovery unit Attestation: I performed the procedure documented in this encounter Plan of Treatment Health Maintenance Due Date Last Done Comments HIV Screening 01/23/2004 Hepatitis C Screening 2007 Hepatitis B Vaccine (1 of 3 - 19+ 3-dose series) 01/23/2008 DTaP,Tdap,and Td Vaccines (7 - Tdap) 05/24/2015 05/24/2005, 05/31/1994, 09/04/1990, Additional history exists Depression Screening 12/29/2018 12/29/2017 COVID-19 Vaccine (1 - 2022-24 season) 2023 Influenza Vaccine (FLU shot) (#1) 2024 07/14/2019, 08/12/2018, 07/25/2006 Diabetes Screening 05/16/2027 05/16/2024, 0 05/16/2024, 03/04/2024, Additional history exists MENINGOCOCCAL (MENACTRA/MENVEO) Completed 01/15/2006, 01/15/2006 HPV (Gardasil) Vaccine Aged Out No lo nger eligible based on patient's age to complete this topic Pneumococcal Vaccine: Pediatrics (0 to 5 Years) and At-Risk Patients (6 to 64 Years) Aged Out No longer eligible based on patient's age to complete this topic documented as of this encounter Medical Devices Not on filedocumented as of this encounter Procedures Procedure Name Priority Date/Time Associated Diagnosis Comments GLUCOSE METER, POINT OF CARE [facility] 05/16/2024 9:54 AM EDT GLUCOSE METER, POINT OF CARE [facility] 05/16/2024 7:37 AM EDT documented in this encounter Results * GLUCOSE METER, POINT OF CARE (05/16/2024 9:54 AM EDT) Glucose Meter 115 70 - 120 mg/dL 05/16/2024 9:57 AM EDT [facility] Blood Whole blood specimen / Unknown 05/16/2024 9:54 AM EDT 05/16/2024 9:57 AM EDT Giovani Simon DMD LAB POINT OF CARE TE ST DOCKED DEVICE UNSOLICITED RESULTS [facility] [address] [place] [address] * GLUCOSE METER, POINT OF CARE (05/16/2024 7:37 AM EDT) Glucose Meter 83 70 - 120 mg/dL 05/16/2024 7:58 AM EDT [facility] Blood Whole blood specimen / Unknown 05/16/2024 7:37 AM EDT 05/16/2024 7:58 AM EDT Giovani Simon DMD LAB POINT OF CARE TE ST DOCKED DEVICE UNSOLICITED RESULTS [facility] [address] [place] [address] documented in this encounter Administered Medications Inactive Administered Medications - up to 3 most recent administrations Medication Order MAR Action Action Date Dose Rate Site fentaNYL (PF) inj 50 mcg 50 mcg, IV Push, Q5 MIN PRN Pain, Moderate, Starting on Sun05/16/24 at 0720, Until Sun05/16/24 at 1755, Administer up to a total of 100mcg. Administer only postop in PACU When given IV Push its recommended that the dose be given over 3 to 5 minutes., PACU HYDROmorphone (Dilaudid) inj 0.2 mg 0.2 mg, IV Push, Q15 MIN PRN Pain, Severe, Starting on Sun05/16/24 at 0720, Until Sun05/16/24 at 1755, Administer only postop in PACU. Hold for respiratory rate less than 12. Administer up to a total of 1mg., PACU isolyte-S pH 7.4 infusion Intravenous, at 25 mL/hr, All Patients EXCEPT Dialysis patients Plasma-LYTE 148, isolyte-S, and isolyte-S pH 7.4 are considered equivalent - including for MAR barcode scanning., CONTINUOUS, Starting on Sun05/16/24 at 0730, Until Sun05/16/24 at 1755, Pre-Op Rate Verify 05/16/2024 12:27 PM EDT 25 mL/hr 25 mL/hr Restarted 05/16/2024 7:41 AM EDT Continue from Pre-Op 05/16/2024 7:39 AM EDT lidocaine 1 % inj 1 mg 1 mg (0.1 mL), Percutaneous, ONCE PRN Other, Difficult IV starts requiring > 20 guage catheter and/ or by patient request, Starting on Sun05/16/24 at 0654, Until Sun05/16/24 at 1755, For 1 dose, Pre-Op ondansetron (Zofran) inj 4 mg 4 mg, IV Push, Q6H PRN Nausea, Starting on Sun05/16/24 at 0720, Until Sun05/16/24 at 1755, For 1 day, Administer only during the first hour post-op in PACU., PACU oxygen GAS Inhalation, OXYGEN, First dose on Sun05/16/24 at 0800, Until Discontinued, Device/Managed by: Low Flow Device, Goal SPO2 (%): 91-95, Starting Device: Nasal Cannula, Initial Flow Rate (LPM): 2, Lowest Support: Nasal Cannula: Flow 0-6 LPM. Titrate up/down by 1 LPM., Higher Support: Non-Rebreather (NRB) Mask: Minimum of 10 LPM. Titrate to maintain bag inflation., Titration Interval: Q2 minutes and as needed., Notify Provider: Other, Notify Provider [other]: If SpO2 less than 88% or NOT maintaining SpO2 greater than 92% notify physician immediately., Until awake OR SpO2 greater than 95% for 15 minutes, then Titrate O2 flow rate down to maintain SpO2 greater than 92% If SpO2 is less than 88% place patient on NRB mask at 10 LPM documented in this encounter Active and Recently Administered Medications Times are shown in EDT. Scheduled Medication Order 05/14/2024 05/15/2024 05/16/2024 oxygen GAS Inhalation, OXYGEN, First dose on Sun05/16/24 at 0800, Until Discontinued, Device/Managed by: Low Flow Device, Goal SPO2 (%): 91-95, Starting Device: Nasal Cannula, Initial Flow Rate (LPM): 2, Lowest Support: Nasal Cannula: Flow 0-6 LPM. Titrate up/down by 1 LPM., Higher Support: Non-Rebreather (NRB) Mask: Minimum of 10 LPM. Titrate to maintain bag inflation., Titration Interval: Q2 minutes and as needed., Notify Provider: Other, Notify Provider [other]: If SpO2 less than 88% or NOT maintaining SpO2 greater than 92% notify physician immediately., Until awake OR SpO2 greater than 95% for 15 minutes, then Titrate O2 flow rate down to maintain SpO2 greater than 92% If SpO2 is less than 88% place patient on NRB mask at 10 LPM 1230 (Oxygen Off - P rovider: Suzanne Dye RN) Continuous Medication Order 05/14/2024 05/15/2024 05/16/2024 isolyte-S pH 7.4 infusion Intravenous, at 25 mL/hr, All Patients EXCEPT Dialysis patients Plasma-LYTE 148, isolyte-S, and isolyte-S pH 7.4 are considered equivalent - including for MAR barcode scanning., CONTINUOUS, Starting on Sun05/16/24 at 0730, Until Sun05/16/24 at 1755, Pre-Op 0739 (New Bag - Prov ider: Amaya Potter RN)0739 (Continue from Pre-Op - Provider: MARY Antunez)0740 (Paused - Provider: MARY Antunez - Comment: Switch to gravity)0741 (Restarted - Provider: MARY Antunez)1024 (Anes Intra-Op Fluid - Provider: MARY Antunez)1217 (Anes Intra-Op Fluid - Provider: MARY Antunez)1227 (Rate Verify - Provider: Suzanne Dye RN) PRN Medication Order 05/14/2024 05/15/2024 05/16/2024 fentaNYL (PF) inj 50 mcg 50 mcg, IV Push, Q5 MIN PRN Pain, Moderate, Starting on Sun05/16/24 at 0720, Until Sun05/16/24 at 1755, Administer up to a total of 100mcg. Administer only postop in PACU When given IV Push its recommended that the dose be given over 3 to 5 minutes., PACU HYDROmorphone (Dilaudid) inj 0.2 mg 0.2 mg, IV Push, Q15 MIN PRN Pain, Severe, Starting on Sun05/16/24 at 0720, Until Sun05/16/24 at 1755, Administer only postop in PACU. Hold for respiratory rate less than 12. Administer up to a total of 1mg., PACU lidocaine 1 % inj 1 mg 1 mg (0.1 mL), Percutaneous, ONCE PRN Other, Difficult IV starts requiring > 20 guage catheter and/ or by patient request, Starting on Sun05/16/24 at 0654, Until Sun05/16/24 at 1755, For 1 dose, Pre-Op lidocaine-epinephrine 2 %-1:177526 inj (CANCELED) ONCE PRN INTRA PROCEDURE, Starting on Sun05/16/24 at 1152, Until Sun05/16/24 at 1223, Intra-Op 1152 (Given - Provid er: Giovani Simon DMD) ondansetron (Zofran) inj 4 mg 4 mg, IV Push, Q6H PRN Nausea, Starting on Sun05/16/24 at 0720, Until Sun05/16/24 at 1755, For 1 day, Administer only during the first hour post-op in PACU., PACU sterile water for irrigation irrigation (CANCELED) ONCE PRN INTRA PROCEDURE, Starting on Sun05/16/24 at 0724, Until Sun05/16/24 at 1223, Intra-Op 0724 (Given - Provid er: Giovani Simon DMD)1152 (Given - Provider: Giovani Simon DMD) documented in this encounter Advance Directives * Full Code (Latest Code Status on File) Date Activated Date Inactivated Comments 04/08/2018 8:23 AM 04/14/2018 7:04 PM This order r eflects the patients wishes and were consensually agreed upon. Question Answer Comments Discussion of Advance Directives occurred with: Family Care Teams Manager [employer] Relationship Specialty Start Date End Date Simeon Garner DO [address] [place] [address] PCP - General Family Medicine 07/14/22 documented as of this encounter
--- OUTSIDE RECORDS SUMMARY | 2024-05-18 19:15 | External Medical Summary ---
Author Name Unknown Address Unknown Organization : Laboratory Report Ordering Provider Test Date Status NAVYA IQBAL 05/16/2024 07:37:00 Final Observation Date Value Abnormality Reference (Units ) Status Glucose Point of Care 05/16/2024 07:37:00 83 70-120 (mg/dL) Final Performing Location
--- OUTSIDE RECORDS SUMMARY | 2024-05-18 19:15 | External Medical Summary | Summary of Care ---
Author Name Unknown Organization [facility] Address [address] [place] [address] Phone [phone] Care Team Providers Care Substitute Teacher Name Role Phone Simeon Garner Primary Care Provider Encounter Details Date Type Department Care Team (Late st Contact Info) Description 05/16/2024 Orders Only Dental Medicine, [place] [address], [place] [id number] Giovani Simon, [facility] [address] [place] [address] Allergies Active Allergy Reactions Criticality Noted Date Comments Clavulanic Acid Rash 05/31/2006 Diaper rash at 3 yrs old documented as of this encounter (statuses as of 05/16/2024) Medications Medication Sig Dispensed Refills Start Date End Date Status Clindamycin HCl 150 MG Oral Capsule (Cleocin) Take one cap every 6 hours (4 a day) to completion 32 Capsule 05/16/2024 Active Acetaminophen-Cod eine 300-30 MG Oral Tablet Take 1 tablet by mouth every 4 hours as needed for breakthrough pain. 16 Tablet 05/16/2024 Active DIAPERS & SUPPLIES MISCIndications:I ncontinence of feces use 7-8 everyday 300 11 09/01/2008 Suspended Additional Information ACETAMINOPHEN 500 MG PO TABS NEEDED Suspended Zonisamide 100 MG Oral Capsule (Zonegran)Indicat ions:Generalized convulsive epilepsy without intractable epilepsy (HCC) Take 1 Cap by mouth daily before breakfast AND 2 Caps at bedtime. 90 Cap 5 12/22/2020 Suspended Additional Information Divalproex Sodium 500 MG Oral Tablet Delayed Release (Depakote DR) take 1 tablet by mouth twice a day 60 Tab 5 03/07/2021 Suspended Additional Information levETIRAcetam 500 MG Oral Tablet (Keppra)Indicatio ns:Generalized convulsive epilepsy without intractable epilepsy (HCC) take 3 tablets by mouth twice a day 180 Tab 5 04/05/2021 Suspended Additional Information Patient taking differently: 1,250 mg Oral BID (.AM/PM), Weaning him off currently., Reported on 03/04/2024 Lisinopril 5 MG Oral Tablet (Prinivil)Indicat ions:Hypertension , goal below 140/90 Take 1 Tab by mouth daily. 90 Tab 1 05/23/2021 Suspended Additional Information diazePAM 5 MG Oral Tablet (Valium)Indicatio ns:Generalized convulsive epilepsy without intractable epilepsy (HCC) Take 1 Tab by mouth 2 times a day. 60 Tab 06/25/2021 Suspended Additional Information Apixaban 5 MG Oral Tablet (Eliquis)Indicati ons:Deep vein thrombosis (DVT) of left lower extremity, unspecified chronicity, unspecified vein (HCC) Take 1 Tab by mouth 2 times a day. 180 Tab 1 06/25/2021 Suspended Additional Information Chlorhexidine Gluconate 0.12 % Mouth/Throat Solution (Periogard) Use 2 times a day. Swab on teeth / gums and spit out excess 473 mL 4 02/26/2024 Suspended Additional Information Toothette Plus Untreated Mouth/Throat Swab Use with peridex 20 Each 10 02/26/2024 Suspended Additional Information Vitamin D3 25 MCG (1000 UT) Oral Capsule Take 2 Capsules by mouth in the morning. 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, N0, M0, S0) - Signed by Luis Billingsley MD on 03/26/2017 documented as of this encounter (statuses as of 05/16/2024) Immunizations Name Administration Dates Next Due Meningococcal [...] on file documented as of this encounter Functional Status Functional Status Response [...] No 04/08/2018 documented as of this encounter Plan of Treatment Scheduled Procedures Name Priority Associated Diagnoses Date/Ti me COMPREHENSIVE ORAL EXAM Intellectual disability 05/16/2024 7:00 AM EDT INTAORAL COMPLETED SERIES Intellectual disability 05/16/2024 7:00 AM EDT PROPHY ADULT Intellectual disability 05/16/2024 7:00 AM EDT TOPICAL FLUORIDE VARNISH THERAPEUTIC APPLICATION FOR MODERATE TO HIGH CARIES RISK PATIENTS Intellectual disability 05/16/2024 7:00 AM EDT RESIN BASED COMPOSITE 4/OR MORE SURFACES, ANTERIOR Intellectual disability 05/16/2024 7:00 AM EDT RESIN BASED COMPOSITE 4/OR MORE SURFACES, POSTERIOR Intellectual disability 05/16/2024 7:00 AM EDT Health Maintenance Due Date Last Done Comments [...] Not on filedocumented as of this encounter Advance Directives * Full Code (Latest Code Status on File) Date Activated Date Inactivated Comments 04/08/2018 8:23 AM 04/14/2018 7:04 PM This order r eflects the patients wishes and were consensually agreed upon. Question Answer Comments Discussion of Advance Directives occurred with: Family Care Teams Substitute Teacher Relationship Specialty Start Date End Date Simeon Garner DO [address] [address] PCP - General Family Medicine 07/14/22 documented as of this encounter
--- OUTSIDE RECORDS SUMMARY | 2024-05-18 19:15 | External Medical Summary | Continuity of Care Document ---
Author Name Unknown Organization [facility] [address] [facility] Address [address] [facility] [place] [id number] Care Team Providers Care Evs Manager Name Role Phone Simeon Garner Primary Care Physician [phone] Encounter [facility] [id number] Date(s): 04/03/24 - 04/03/24 [facility] [address] [facility] [address] [facility] [place] [address] [id number] [phone] Encounter Diagnosis Generalized convulsive epilepsy without intractable epilepsy(Discharge Diagnosis) - 04/03/24 Spastic quadriplegic cerebral palsy(Discharge Diagnosis) - 04/03/24 Discharge Disposition: Home or Self Care Attending Physician: DO Murray Joseph Phu Thanh Referring Physician: DO Garner Franklin J Allergies, Adverse Reactions, Alerts Substance Criticality Severity Reaction Reaction Severity Status Augmentin Rash Active Assessment and Plan Extracted from: Title:Neurology Office Visit Note Author:DO Murray Joseph Phu Thanh Date:04/03/24 1.Generalized convulsive e pilepsy without intractable epilepsy 2.Spastic quadriplegic cerebral palsy Mr. 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 Mr. Colincontinues to have a stable frequency of 3-4 self limiting seizures a year. The reduction of levetiracetam has improved his alertness and engagement with daily activities. After discussion with mother, we will continue to reduce levetiracetam to a dosage of 750mg BID and look for signs of change in seizure frequency and sedation/motivation/engagement with daily activities. Recommendations 1. Decrease levetiracetam to 750mg BID. Reduce to levetiracetam to 1000mg BID for 1 month, then target dosage of levetiracetam 750mg BID target dosage 2. New antiseizure medication regimen: levetiracetam 750mg BID, zonisamide 300mg qhs, and [id number] BID. 3. Follow up in 4 months. I spent a total of 39 minutes with this patient on this date of service in face to face time (24minutes) and non-face to face tasks including chart review, review of labs and imaging, placing orders, documentationofthe visit, andcommunication with family members or caregivers. Immunizations Given and Recorded Vaccine Date Status Refusal Reason influenza virus vaccine, inactivated 07/12/22 Give n Medications albuterol-ipratropium 2.5 mg-0.5 mg/3 mL inhalation solution Start: 11/11/21 9:50:00 AM EST, 3 mL, inhaled, tid, Disp# 90 mL, Refills: 1, PRN: as needed for shortness of breath or wheezing, Pharmacy: [id number] Start Date: 11/11/21 Status: Ordered diazePAM 5 mg oral tablet Start: 03/25/24 2:42:00 PM EDT, 1 tab, PO, bid, Disp# 60 tab, Refills: 3, Pharmacy: [facility]/pharmacy #[id number] Start Date: 03/25/24 Stop Date: 07/23/24 Status: Ordered divalproex sodium 500 mg oral delayed release tablet Start: 04/03/24 8:57:00 AM EDT, 1 tab, PO, bid, Disp# 180 tab, Refills: 3, Pharmacy: [facility]/pharmacy #[id number] Start Date: 04/03/24 Status: Ordered Duclolax Suppository Start: 03/18/24 10:57:00 AM EDT, Duclolax Suppository, eRx Product Type: Supply, See Instructions, Disp# 16 supp, Refills: 3, One every other day, Note to Pharmacy: [facility] 16 supp[facility], [id number] Start Date: 03/18/24 Status: Ordered Eliquis 5 mg oral tablet Start: 11/21/23 6:13:00 PM EST, 1 tab, PO, bid, Disp# 120 tab, Refills: 3, [id number] Start Date: 11/21/23 Status: Ordered famotidine 20 mg oral tablet Start: 01/28/24 4:45:00 PM EDT, 1 tab, PO, bid, Disp# 60 tab, Refills: 3, Pharmacy: [id number] Start Date: 01/28/24 Status: Ordered Flexeril 5 mg oral tablet Start: 06/07/23 2:24:00 PM EDT, 1 tab, PO, bid, Disp# 28 tab, Refills: 1, PRN: as needed for spasm, [id number] Start Date: 06/07/23 Stop Date: 07/05/23 Status: Ordered levETIRAcetam 500 mg oral tablet Start: 04/03/24 8:59:00 AM EDT, 1.5 tabs, PO, bid, Disp# 270 tab, Refills: 3, Pharmacy: [facility]/pharmacy#[id number] Start Date: 04/03/24 Stop Date: 03/29/25 Status: Ordered lisinopril 5 mg oral tablet Start: 10/01/23 11:59:00 AM EST, See Instructions, Disp# 90 tab, Refills: 3, take 1 tablet by mouth daily, [facility] #[id number] Start Date: 10/01/23 Status: Ordered Vitamin D3 Start: 03/18/24 10:35:00 AM EDT, See Instructions, 1000mcg bid Start Date: 03/18/24 Status: Ordered zonisamide 100 mg oral capsule Start: 04/03/24 9:00:00 AM EDT, 3 cap, PO, qhs, Disp# 270 cap, Refills: 3, Pharmacy: [facility]/pharmacy #[id number] Start Date: 04/03/24 Stop Date: 03/29/25 Status: Ordered Mental Status 04/03/24 Barriers to Learning one year Cognitive deficit Mandatory Health Literacy Documentation Yes Health Literacy Communication Barriers N ever Primary Language Swiss Problem List Condition Confirmation Course Effective Dates Status Health St atus Informant Abnormal movements Confirmed Active Multiple nevi Confirmed Active Development delay Confirmed Active Trouble swallowing Confirmed Active SOB (shortness of breath) Confirmed Active Dystonic movements Confirmed Active Painful urination Confirmed Active Epilepsy Confirmed Active Generalized convulsive epilepsy without intractable epilepsy Confirmed Active PEARSON (headache) Confirmed Active HTN, goal below 140/90 Confirmed Active Incontinence of feces Confirmed Active Polycystic kidney disease Confirmed Active Seizure disorder Confirmed Active Testicular seminoma Confirmed Active Muscle spasm Confirmed Active Spastic quadriplegic cerebral palsy Confirmed Active Wheezing Confirmed Active Diagnosis Diagnosis Type Effective Dates Health Status Clinical Service Informant Generalized convulsive epilepsy without intractable epilepsy Discharge Diagnosis 04/03/24 Non-Specified Spastic quadriplegic cerebral palsy Discharge Diagnosis 04/03/24 Non-Specified Procedures Procedure Date Related Diagnosis Body Site Status CT of chest and abdomen 03/31/24 C ompleted Chest x-ray 1 06/24/21 Completed Pediatric echocardiography 2 06/07/21 Completed MRI 09/2020 Completed EMG - Electromyography 3 09/08/[address] of abdomen and pelvis 4 05/17/[address] of abdomen and pelvis 5 05/19/19 Completed MRI of lumbar spine 6 04/29/19 Com pleted Plain x-ray of pelvis 7 04/17/[address] of abdomen and pelvis 8 04/24/18 Completed EEG video telemetry 9 04/08/[address] of chest 10 04/01/18 Completed Doppler ultrasound of vascul ar structure of left lower limb 11 03/29/[address] of abdomen and pelvis 12 03/08/17 Completed Testicle 13 02/27/17 Completed EEG 14 10/19/00 Completed Surgery 1990 Completed Coccyx 1989 Completed Open heart surgery 1988 Com pleted 1Patchy left lower lobe airspace opacity. This could represent atelectasis or pneumonia. 2Abnormal transthoracic echocardiogram. Limited study The LV size and wall thickness is normal. Septal motion is decreased, posterior wall is normal, overall EF is probably normal. No LVOT obstruction Aortic stenosis is absent The aortic valve is not well visualized There is mild aortic insufficiency 3Abnormal but non-specific study. This study is confounded by less than ideal baseline conditions inregards to extremity temperature (difficulty maintaining the temperature throughout the study), positioning the patient and patient inability to follow commands. There was no convincing electrophysiologic evidence suggestive of inflammatory myopathy based on lack of spontaneous activity and lack ofearly recruitment with normal motor unit morphology in limited muscles tested that he was able to activate. However, unable to exclude the possibility completely. There is also no convincing evidenceof a large fiber polyneuropathy. 41. There is no evidence of metastatic disease in the abdomen or pelvis 2. Again seen are findings of autosomal dominant polycystic kidney disease 3. Bilateral nephrolithiasis 4. Undescended right testis is again noted 5. Findings suggest previous left-sided orchiectomy 6. Additional findings as above 51. No evidence for metastatic disease within the abdomen or pelvis 2. Redemonstration of the undescended right testis. Prior left orchiectomy 3. Trace bilateral pleural effusions, unchanged 4. 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 Frequent suspected tonic seizures, typically clustering in the morning and evening hours. Seizures became more frequent and more prolonged after discontinuation of phenytoin and then improved backto baseline with increasing Depakote dose 2. Right temporal slowing and sharp waves, at times periodic 3. 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 11extensive DVT 12No intra-abdominal retroperitoneal lymphadenopathy Polycystic kidney disease with multiple cyst noted in the kidney as well as the liver Bilateral nephrolithiasis present 13removal of left 14Frequent right frontocentral temporal spike wave discharges and biposterior slowing 15bilateral club foot and 1994 89mos old Social History Social History Type Response Smoking Status Never smoked cigaret priyanka Sex Male Neurology Outpatient Note * DO Murray Joseph Phu [facility]: PERFORM Event Display: Neurology Outpt Note Authored Date: [id number] Chief Complaint neuro f/u History of Present Illness Mr. 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 Patient is accompanied by his mother, [place], who is providing all thehistory as the patient is nonverbal. Interval History I last saw Mr. Colin in our outpatient neurology [id number]/12/[address] Ulloa. At thatappointment, patient's seizure frequency had been very stable (3-4 per year) for many years. We hada very long discussion regarding the necessity of being on three antiseizure medications and that after discussing the risk (potentially increasing seizures)versus thebenefits (potentially increase functional status)of reducing medication, we agree to reduce the levetiracetam from 1500mg BID to levetiracetam 1250mg BID. Since that appointment, patient's mother reports he had two very short,self-limiting seizures which are typical for him. She did not that there has been a very positive increase in his interactive nature and he more willing to engage. These changes occurred roughly one week after reducing the levetiracetam. As of note,patient hadantiseizuremedication levels taken on 03/04/2024 which showedDepakoteat 65 and levetiracetam at 50 per patients verbalreport to me atthe appointment. Workup 1) 12/21/19 ambulatory EEG: abnormal 48 hour and 38 minute ambulatory EEG due to 1) intermittent, interictal epileptiform activity in the right temporal head region suggestive of an underlying predisposition for focal onset seizures, 2) intermittent, focal slowing in the right temporal head region consistent with an underlying structural or vascular lesion in that region. Multiple spasms were captured during the recording with no correlated EEG abnormality and are likely nonepileptic. ( 2) 02/02/21 brain and spine MRI w/wo and MRA head: Extensive white matter volume loss predominantly peritrigonal, with dysplastic corpus callosum, colpocephaly, atrophic limbic system including hippocampi, fornices and mamillary bodies and periventricular abnormal white matter T2/FLAIR hyperintensity, findings could represent chronic sequela of insult. Unremarkable MR angiography head. Unremarkable MRI of the cervical and lumbar spine without high-grade central canal or neural foraminal stenosis. 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 This deletion includes a portion of the KANSL1 gene which is associated with Koolen-Yeimi syndrome. While a number of the features of Koolen-Yeimi syndrome fit Daniela presentation, with his history of cognitive and motor decline and muscle spasms, he seems to be more severely affected than what has been described in the literature. Given the concern for possible neurodegenerative or storage disorders they recommended further testing with whole exome sequencing (RAYMUNDO). The RAYMUNDO results identified a pathogenicvariant in the PKD1 gene, which is associated with autosomal dominant polycystic kidney disease. The variant identified for Yuliana was also found to be present in his mother, which is consistent with the family history. Physical Exam Limited due to TELEHEATH evaluation. Could not evaluate as patient was sleeping through the entire appointment. Assessment/Plan 1.Generalized convulsive epilepsy without intractable epilepsy 2.Spastic quadriplegic cerebral palsy Mr. 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 Mr. Colincontinues to have a stable frequency of 3-4 self limiting seizures a year. The reduction of levetiracetam has improved his alertness and engagement with daily activities. After discussion with mother, we will continue to reduce levetiracetam to a dosage of 750mg BID and look for signsof change in seizure frequency and sedation/motivation/engagement with daily activities. Recommendations 1. Decrease levetiracetam to 750mg BID. Reduce to levetiracetam to 1000mg BID for 1 month, then target dosage of levetiracetam 750mg BID target dosage 2. New antiseizure medication regimen: levetiracetam 750mg BID, zonisamide 300mg qhs, and walgkidi433dy BID. 3. Follow up in 4 months. I spent a total of 39 minutes with this patient on this date of service in face to face time (24minutes) and non-face to face tasks including chart review, review of labs and imaging, placing orders, documentationofthe visit, andcommunication with family members or caregivers. Problem List/Past Medical History Ongoing Abnormal movements Development delay Dystonic movements Epilepsy Generalized convulsive epilepsy without intractable epilepsy PEARSON (headache) HTN, goal below 140/90 Incontinence of feces Koolen-Yeimi syndrome Multiple nevi Muscle spasm Painful urination Polycystic kidney disease Seizure disorder SOB (shortness of breath) Spastic quadriplegic cerebral palsy Testicular seminoma Trouble swallowing Wheezing Procedure/Surgical History CT of chest and abdomen| Service Date: 4Chest x-ray| Service Date: 1Pediatric echocardiography| Service Date: 06/07/2021MRI| Service Date: 1EMG - Electromyography| Service Date: 09/08/2020CT of abdomen and pelvis| Service Date: 05/17/2020CT of abdomen and pelvis| Service Date: 05/19/2019MRI of lumbar spine| Service Date: 04/29/2019Plain x-ray of pelvis| Service Date: 04/17/2019CT of abdomen and pelvis| Service Date: 04/24/2018EEG video telemetry| Service Date: 04/08/2018CT of chest| Service Date: 04/01/2018Doppler ultrasound of vascular structure of left lower limb| Service Date: 03/29/2018CT of abdomen and pelvis| Service Date: 03/08/2017Testicle| Service Date: 02/27/2017EEG| Service Date: 10/19/2000Surgery| Service Date: 1990Coccyx| Service Date: 1989Open heart surgery| Service Date: 1988 Medications albuterol-ipratropium(albuterol-ipratropium 2.5 mg-0.5 mg/3 mL inhalation solution), 3 mL, inhaled,tid, PRN, 1 refills apixaban(Eliquis 5 mg oral tablet), 1 tab, PO, bid cholecalciferol(Vitamin D3), See Instructions cyclobenzaprine(Flexeril 5 mg oral tablet), 5 mg= 1 tab, PO, bid, PRN, 1 refills diazePAM(diazePAM 5 mg oral tablet), 5 mg= 1 tab, PO, bid, 3 refills divalproex sodium(divalproex sodium 500 mg oral delayed release tablet), 1 tab, PO, bid, 3 refills famotidine(famotidine 20 mg oral tablet), 1 tab, PO, bid levETIRAcetam(levETIRAcetam 500 mg oral tablet), 1.5 tabs, PO, bid, 3 refills lisinopril(lisinopril 5 mg oral tablet), See Instructions, 3 refills unlisted medication(Duclolax Suppository), See Instructions, 3 refills zonisamide(zonisamide 100 mg oral capsule), 300 mg= 3 cap, PO, qhs, 3 refills Allergies AugmentinRash Social History Smoking Status Never smoked cigarettes Family History Asthma: Brother. Hypertension: Mother. Polycystic kidney disease: Mother. Health Status Family Member(s) Immunizations Vaccine Date Status influenza virus vaccine, inactivated 07/12/2022 Given Recommendations Health Maintenance Pending(in the next year) Due Adult Influenza Vaccine due03/23/24and every 1year Adult COVID-19 Vaccination due04/03/24Unknown Frequency Adult Social Determinants of Health Screening due04/03/24Unknown Frequency Adult Tdap/Td Vaccine due04/03/24Unknown Frequency Hepatitis C Screening due04/03/24One-time only Pneumococcal Vaccine Adults and Adolescents with Chronic Illness due04/03/24One-time only Shingles Vaccine due04/03/24One-time only Due In Future Body Mass Index not due until02/19/25and every 366 Satisfied(in the past 1 year) There are no satisfied recommendations within the defined date range Electronic Signature on File Electronically Reviewed/Signed by: Wilder Murray DO Author Signature Dt/Tm:04/03/2024 09:52 AM Department of Neurology [facility] Patient Care team information Care Team Personnel Name: DO Garner Franklin J Position: Physician - Family Med Member Role: Primary Care Provider Address: Address: [facility] [address] [address] Care Team Related Persons Name: KASHMIR RATLIFF Alba Address: home [address] [place] [address] [phone]"
--- OUTSIDE RECORDS SUMMARY | 2024-05-18 19:15 | External Medical Summary | Summary of Care ---
Author Name Unknown Organization [facility] Address [address] [place] [address] Phone [phone] Care Team Providers Care Spring Fitter Helper Name Role Phone PatsySimeon clark Primary Care Provider Reason for Visit * Reason Onset Date Comments Test Results 04/24/2024 Encounter Details Date Type Department Care Team (Late st Contact Info) Description 04/24/2024 Telephone Nephrology, [place] [address] [facility] [place] [address] Dior Koehler MD [address] [facility] [place] [address] Test Results Allergies Active Allergy Reactions Criticality Noted Date Comments Clavulanic Acid Rash 05/31/2006 Diaper rash at 3 yrs old documented as of this encounter (statuses as of 04/24/2024) Medications Medication Sig Dispensed Refills Start Date [...] Sodium 500 MG Oral Tablet Delayed Release (Aracely BUNN) take 1 tablet by mouth twice a [...] as of this encounter (statuses as of 04/24/2024) Active Problems Problem Noted Date Diagnosed Date [...] as of this encounter (statuses as of 04/24/2024) Resolved Problems Problem Noted Date Diagnosed Date Resolved Date 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 04/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, N0, M0, S0) - Signed by Luis Billingsley MD on 03/26/2017 documented as of this encounter (statuses as of 04/24/2024) Immunizations Name Administration Dates Next Due Meningococcal [...] No 04/08/2018 documented as of this encounter Miscellaneous Notes * Telephone Encounter - Mago Brown RN - 04/24/2024 11:40 AM EDT TE with pt's mother Criss regarding CT results,diet,fluid intake and other possible treatments. Shestates that her sister take Tolvaptan and she is not interested in pursuing this for Michael ant this time. She was appreciative of the call and note from Dr Koehler. * Telephone Encounter - Mago Brown RN - 04/24/2024 11:35 AM EDT ----- Message from Dior Koehler MD sent at 04/23/2024 4:37 PM EDT ----- Kidney CT shows total cyst volume 2882 mL; when I use this to calculate his risk for full blown kidney failure (stage 5/ESRD) he is a Bravo Class 1E. The Bravo cohort generally developed for older patients (so it may or may not apply here) >> but overall his 10 year risk of ESRD is 67%. In general he should -eat less than 2 gm daily sodium diet -control blood pressure -aim for at least 90 oz daily fluid intake most of which should be water We could talk about medicine like tolvaptan which has been shown to slow the rate of kidney function decline for a patient like Michael with high risk PCKD >> however he would need bloodwork at least every 3 months and possibly more often and be at risk for complications such as liver toxicity and hypernatremia as well as strongly increased thirst and increased urine output. MyG sent; neph nurse, pls go over above w/ pt's mom >> if they are interested in tolvaptan, pls refer to provider who rx's it (believe that's Dr Stover) to discuss. Else continue general measures above. documented in this encounter Plan of Treatment Upcoming Encounters Date Type Department Care Team (Latest Contact Info) Description 05/16/2024 7:45 AM EDT Hospital Encounter [facility], [facility] [address] [place] [phone] Giovani Simon DMD [address] [place] [address] 05/16/2024 7:45 AM EDT - 05/16/2024 1:05 PM EDT Surgery OR C, OPERATING RO[facility] [address] [place] [address] Giovani Simon DMD [address] [place], [place] [phone] COMPREHENSIVE ORAL EXAM Scheduled Procedures Name Priority Associated Diagnoses Date/Ti md COMPREHENSIVE ORAL EXAM Intellectual disability 05/16/2024 7:45 AM EDT INTAORAL COMPLETED SERIES Intellectual disability 05/16/2024 7:45 AM EDT PROPHY ADULT Intellectual disability 05/16/2024 7:45 AM EDT TOPICAL FLUORIDE VARNISH THERAPEUTIC APPLICATION FOR MODERATE TO HIGH CARIES RISK PATIENTS Intellectual disability 05/16/2024 7:45 AM EDT RESIN BASED COMPOSITE 4/OR MORE SURFACES, ANTERIOR Intellectual disability 05/16/2024 7:45 AM EDT RESIN BASED COMPOSITE 4/OR MORE SURFACES, POSTERIOR Intellectual disability 05/16/2024 7:45 AM EDT Health Maintenance Due Date Last Done Comments HIV Screening 01/23/2004 Hepatitis C Screening 2007 Hepatitis B Vaccine (1 of 3 - 19+ 3-dose series) 01/23/2008 DTaP,Tdap,and Td Vaccines (7 - Tdap) 05/24/2015 05/24/2005, 05/31/1994, 09/04/1990, Additional history exists Depression Screening 12/29/2018 12/29/2017 COVID-19 Vaccine ( season) 2023 Influenza Vaccine (FLU shot) (#1) 2024 07/14/2019, 08/12/2018, 07/25/2006 MENINGOCOCCAL (MENACTRA/MENVEO) Completed 01/15/2006, 01/15/2006 HPV (Gardasil) [...] Advance Directives occurred with: Family Care Teams Spring Fitter Helper Relationship Specialty Start Date End Date Simeon Garner DO [address] [place] [address] PCP - General Family Medicine 07/14/22 documented as of this encounter
--- OUTSIDE RECORDS SUMMARY | 2024-05-18 19:15 | External Medical Summary | Summary of Care ---
Author Name Unknown Organization [facility] Address [address] [place] [address] Phone [phone] Care Team Providers Care Black Mill Operator Name Role Phone Simeon Garner DO Primary Care Provider Encounter Details Date Type Department Care Team (Late st Contact Info) Description 04/15/2024 Documentation Dental Medicine, [place] [address] [place], [place] [phone] Giovani Simon, [facility] [address], [place] [phone] Allergies Active Allergy Reactions Criticality Noted Date Comments Clavulanic Acid Rash 05/31/2006 Diaper rash at 3 yrs old documented as of this encounter (statuses as of 04/15/2024) Medications Medication Sig Dispensed Refills Start Date [...] as of this encounter (statuses as of 04/15/2024) Active Problems Problem Noted Date Diagnosed Date [...] as of this encounter (statuses as of 04/15/2024) Resolved Problems Problem Noted Date Diagnosed Date Resolved Date 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 04/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, N0, M0, S0) - Signed by Luis Billingsley MD on 03/26/2017 documented as of this encounter (statuses as of 04/15/2024) Immunizations Name Administration Dates Next Due Meningococcal [...] as of this encounter Plan of Treatment Upcoming Encounters Date Type Department Care Team (Latest Contact Info) Description 05/16/2024 7:45 AM EDT Hospital Encounter OR C, OPERATING ROOM [facility] [address] [place] [address] Giovani Simon DMD [address] [place] [address] 05/16/2024 7:45 AM EDT - 05/16/2024 1:05 PM EDT Surgery OR [facility], OPERATING ROOM [facility] [address] [place] [address] Giovani Simon DMD [address], [place] [phone] COMPREHENSIVE ORAL EXAM Scheduled Procedures Name Priority Associated Diagnoses Date/Ti me COMPREHENSIVE ORAL EXAM Intellectual disability 05/16/2024 7:45 [...] exists Depression Screening 12/29/2018 12/29/2017 COVID-19 Vaccine (2022- season) 2023 Influenza Vaccine (FLU shot) (#1) [...] Advance Directives occurred with: Family Care Teams Black Mill Operator Relationship Specialty Start Date End Date Simeon Garner DO [address] [address] PCP - General Family Medicine 07/14/22 documented as of this encounter
--- OUTSIDE RECORDS SUMMARY | 2024-05-18 19:15 | External Medical Summary | Summary of Care ---
Author Name Unknown Organization [facility] Address [address] [place] [address] Phone [phone] Care Team Providers Care Lotus Notes Administrator Name Role Phone PatsySimeon clark Primary Care Provider Reason for Visit * Reason Onset Date Comments Advice 03/28/2024 Encounter Details Date Type Department Care Team (Late st Contact Info) Description 03/28/2024 Telephone Nephrology, [place] [address] [facility] [address] Dior Koehler MD [address] [facility] [address] Advice Allergies Active Allergy Reactions Criticality Noted Date Comments Clavulanic Acid Rash 05/31/2006 Diaper rash at 3 yrs old documented as of this encounter (statuses as of 03/31/2024) Medications Medication Sig Dispensed Refills Start Date End Date Status DIAPERS & SUPPLIES MISCIndications:Inco ntinence of feces use 7-8 everyday 300 11 09/01/2008 Active ACETAMINOPHEN 500 MG PO TABS NEEDED Active Zonisamide 100 MG Oral Capsule (Zoneismael)Indication s:Generalized convulsive epilepsy without intractable epilepsy (HCC) [...] as of this encounter (statuses as of 03/31/2024) Active Problems Problem Noted Date Diagnosed Date [...] as of this encounter (statuses as of 03/31/2024) Resolved Problems Problem Noted Date Diagnosed Date Resolved Date 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 04/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, N0, M0, S0) - Signed by Luis Billingsley MD on 03/26/2017 documented as of this encounter (statuses as of 03/31/2024) Immunizations Name Administration Dates Next Due DT - Diptheria/Tetanus (PEDS) 05/24/2005, 994 DTaP Dipth/Tet/Acell Pertussis (Infanrix), Peds 09/04/1990,02/01/1990,1989,06/29 HIB PRP-T, 4 Dose, PF, IM (Hiberix) 04/24,11/26/1992,10/29/1992,06/12 MMR - Measles/Mumps/Rubella Vaccine 05/31/1994,0 06/12/1991 Meningococcal Conjugate Vacc ine (Menactra/Menveo) 01/15/2006 OPV - Polio Virus Vaccine (Oral) 994,09/09/1990,1989,06/29 PPD 05/31/1994 Seasonal Influenza, PF, 6 M & above, IM , (FluLaval or Fluzone) 07/14/2019,08/12/2018 Seasonal Influenza, Split, I IV3, With Preserve, Inj 07/25/2006 TB Madelin Test 05/14/2001 Varicella Vaccine (Chicken Pox) 05/14/2001 documented as of this encounter Social History [...] encounter Miscellaneous Notes * Telephone Encounter - Mikayla Bradley LPN - 03/31/2024 9:05 AM EDT Spoke with mother Criss She states he is doing "Really well" States is happy and active No changes to his baseline mental status Denies fever or chill Reviewed with mother if he would develop fever chills become visibly uncomfortable If she would notice any change in smell of urine or change to current mental status She will contact office * Telephone Encounter - Sue Gayle OSA - 03/31/2024 7:33 AM EDT Criss returning call. Please contact Criss at home number. Thank you! * Telephone Encounter - Mikayla Bradley LPN - 03/28/2024 4:23 PM EDT LMM to return call to follow up * Telephone Encounter - Dior Koehler MD - 03/28/2024 3:27 PM EDT March 26 2024 outside urine studies Straight cath specimen Urine culture with greater than 50 white cells, 2+ leukocyte esterase no bacteria or epithelial cells trace blood trace ketones 1+ protein specific gravity 1.019 pH 7.5 clear yellow urine ACR 121 Urine culture with Enterococcus faecalis ward-sensitive accept to tetracycline -Note that patient also grew Enterococcus faecalis on September 01, 2023 -some albuminuria present but this will be difficult to evaluate easily with straight catheterization: Continue low-dose lisinopril -with no bacteria on urine specimen, suspect this is contamination or /and colonization: Would not treat this positive culture as UTI Please review with patient's mother: This is an area requiring more art than science in medicine. If parent really worried patient is having an infection we can treat but my recommendation is no treatment unless symptoms of infection. 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) documented in this encounter Plan of Treatment Upcoming Encounters Date Type Department Care Team (Latest Contact Info) Description 03/31/2024 3:15 PM EDT Imaging Radiology [address] [address] 03/31/2024 4:00 PM EDT Imaging Radiology [address] [place] [address] 05/16/2024 7:45 AM EDT Hospital Encounter OR [facility], OPERATING ROOM [facility] [address] [place] [address] Giovani Simon, DMD [address] [place] [address] 05/16/2024 7:45 AM EDT - 05/16/2024 1:05 PM EDT Surgery OR [facility], OPERATING ROOM [facility] [address] [place] [address] Giovani Simon, DMD [address] [place] [address] COMPREHENSIVE ORAL EXAM Scheduled Procedures Name Priority [...] Depression Screening 12/29/2018 12/29/2017 COVID-19 Vaccine ( - 2022-24 season) 2023 Influenza Vaccine (FLU [...] Advance Directives occurred with: Family Care Teams Lotus Notes Administrator Relationship Specialty Start Date End Date Simeon Garner DO [address] [place] [address] [place] [address] PCP - General Family Medicine 07/14/22 documented as of this encounter
--- OUTSIDE RECORDS SUMMARY | 2024-05-18 19:15 | External Medical Summary | Summary of Care ---
Author Name Unknown Organization [facility] Address [address] [place] [address] Phone [phone] Care Team Providers Care Application Tester Name Role Phone Simeon Garner Primary Care Provider Reason for Visit * Reason Onset Date Comments Pre Cert/Prior Auth 05/12/2024 Insurance OR Encounter Details Date Type Department Care Team (Late st Contact Info) Description 05/12/2024 Telephone Dental Medicine, [place] [address] [place], [place] [phone] Giovani Simon, [facility] [address] [place] [address] Pre Cert/Prior Auth (Insurance OR) Allergies Active Allergy Reactions Criticality Noted Date Comments Clavulanic Acid Rash 05/31/2006 Diaper rash at 3 yrs old documented as of this encounter (statuses as of 05/12/2024) Medications Medication Sig Dispensed Refills Start Date [...] as of this encounter (statuses as of 05/12/2024) Active Problems Problem Noted Date Diagnosed Date [...] as of this encounter (statuses as of 05/12/2024) Resolved Problems Problem Noted Date Diagnosed Date Resolved Date 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 04/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, N0, M0, S0) - Signed by Luis Billingsley MD on 03/26/2017 documented as of this encounter (statuses as of 05/12/2024) Immunizations Name Administration Dates Next Due Meningococcal [...] encounter Miscellaneous Notes * Telephone Encounter - Graciela Aragon OSA - 05/12/2024 11:31 AM EDT pre-authorization #[id number] at 03:30 PM for MICHAEL COLIN documented in this encounter Plan of Treatment Upcoming Encounters Date Type Department Care Team (Latest Contact Info) Description 05/16/2024 7:45 AM EDT Hospital Encounter [facility], [facility]PERATING RO[facility] [address] [place] [address] Giovani Simon, [place] [address] [place] [address] 05/16/2024 7:45 AM EDT - 05/16/2024 1:05 PM EDT Surgery OR [facility], [facility]PERATING ROOM [facility] [address] [place] [address] Giovani Simon, DMD [address] [place] [address] COMPREHENSIVE ORAL EXAM Scheduled Procedures Name Priority [...] Advance Directives occurred with: Family Care Teams Application Tester Relationship Specialty Start Date End Date Simeon Garner DO [address] [place] [address] PCP - General Family Medicine 07/14/22 documented as of this encounter
--- OUTSIDE RECORDS SUMMARY | 2024-05-18 19:15 | External Medical Summary | Summary of Care ---
Author Name Unknown Organization [facility] Address [address] [place] [address] Phone [phone] Care Team Providers Care Solar Energy Consultant And Designer Name Role Phone Simeon Garner DO Primary Care Provider Reason for Visit * Reason Onset Date Comments Advice 05/06/2024 Clearance Encounter Details Date Type Department Care Team (Late st Contact Info) Description 05/06/2024 Telephone Pediatric Cardiology, [place] [address] [place], [place] [phone] Clint Liz MD [address] [place] [address] Advice (Clearance) Allergies Active Allergy Reactions Criticality Noted Date Comments Clavulanic Acid Rash 05/31/2006 Diaper rash at 3 yrs old documented as of this encounter (statuses as of 05/15/2024) Medications Medication Sig Dispensed Refills Start Date [...] as of this encounter (statuses as of 05/15/2024) Active Problems Problem Noted Date Diagnosed Date [...] as of this encounter (statuses as of 05/15/2024) Resolved Problems Problem Noted Date Diagnosed Date Resolved Date 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 04/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 said it may take 4-5 hr procedure & needed to know if Dr Liz would clear him for the anesthesia? Please call mom back thank you Outcome: TE documented in this encounter Plan of Treatment Upcoming Encounters Date Type Department Care Team (Latest Contact Info) Description 05/16/2024 7:45 AM EDT Hospital Encounter [facility], OPERATING ROOM [facility] [address] [place] [address] Giovani Simon, [facility] [address] [place] [address] 05/16/2024 7:45 AM EDT - 05/16/2024 12:45 PM EDT Surgery OR [facility] [address] [place] [address] Giovani Simon, DMD [address] [place] [address] COMPREHENSIVE ORAL EXAM Scheduled Procedures Name Priority Associated Diagnoses Date/Ti sc COMPREHENSIVE ORAL EXAM Intellectual disability 05/16/2024 7:45 [...] Advance Directives occurred with: Family Care Teams Solar Energy Consultant And Designer Relationship Specialty Start Date End Date Simeon Garner DO [address] [address] PCP - General Family Medicine 07/14/22 documented as of this encounter
--- OUTSIDE RECORDS SUMMARY | 2024-05-18 19:15 | External Medical Summary ---
Author Name Unknown Address Unknown Organization : Laboratory Report Ordering Provider Test Date Status NAVYA IQBAL 05/16/2024 09:54:42 Final Observation Date Value Abnormality Reference (Units ) Status Glucose Point of Care 05/16/2024 09:54:42 115 70-120 (mg/dL) Final Performing Location
--- OUTSIDE RECORDS SUMMARY | 2024-05-18 19:15 | External Medical Summary | Summary of Care ---
Author Name Unknown Organization [facility] Address [address] [facility] [place] [place] [address] Phone [phone] Care Team Providers Care Shaping Machine Tender Name Role Phone Simeon Garner Primary Care Provider Reason for Visit * Reason Onset Date Comments Pre Cert/Prior Auth 03/31/2024 Encounter Details Date Type Department Care Team (Late st Contact Info) Description 03/31/2024 Telephone Nephrology, [place] 200 [facility] [place] [address] Aren Zarate MD [address] [facility] [place] [address] Pre Cert/Prior Auth Allergies Active Allergy Reactions Criticality Noted Date [...] encounter Miscellaneous Notes * Telephone Encounter - Sanjuana Hughes RN - 03/31/2024 3:27 PM EDT Spoke to mother, Criss and explained circumstance. Discussed with radiology team to ensure appropriate studies were ordered and to be completed. * Addendum Note - Aren Zarate MD - 03/31/2024 2:40 PM EDTAddended by: AREN ZARATE on: 03/31/2024 02:40 PM Modules accepted: Orders * Telephone Encounter - Aren Zarate MD - 03/31/2024 2:35 PM EDT After purchasing manager/sales contacted pt's mother, found that pt scheduled for CT chest angiography today. Recommend combining with CT abd/pelvis as currently ordered/planned. Called peer to peer back; ref # [id number] Spoke w/ Dr Alicea who notes that CT chest apporived; and now abd CT is approved. Abd CT Auth # [id number] Auth Period til 05/19/24 or coverage termination, whichever is first. PLS update pt and his mom that he can now proceed w/ imaging study as ordered PLS verify order as currently entered will get 3D reconstruction * Addendum Note - Aren Zarate MD - 03/31/2024 2:21 PM EDTAddended by: AREN ZARATE on: 03/31/2024 02:21 PM Modules accepted: Orders * Telephone Encounter - Aren Zarate MD - 03/31/2024 2:06 PM EDT Called peer to peer with reference [id number]. Patient's CT scan is reportedly scheduled for this afternoon at 3:[address] scan is NOT covered by insurance and should not be done. Insurance company wants MRI and not CT scan for total cyst volume calculation. I am not sure whether our institution does MRI for this indication. Renal nurse please contact radiology clinical resource manager/ purchasing manager/sales to find out if [facility] can do anMRI to calculate total cyst volume; >>if so, pls contact pt to find out answers to questions in the order which is pended (christopher any hx of forgeign bodies in eye >>if not, pls let me know and will proceed w/ CT * Telephone Encounter - Mago Brown RN - 03/31/2024 10:48 AM EDT Will have provider review on arrival to clinic. documented in this encounter Plan of Treatment Upcoming Encounters Date Type Department Care Team (Latest Contact Info) Description 03/31/2024 4:00 PM EDT Imaging Radiology [address] [address] Arrived 05/16/2024 7:45 AM EDT Hospital En[place] [facility] [facility] [address] [place] [address] [phone] Giovani Simon, [facility] [address] [place] [address] 05/16/2024 7:45 AM EDT - 05/16/2024 1:05 PM EDT Surgery [place] [facility] [address] [place] [address] [phone] Giovani Simon DMD [address] [place] [address] COMPREHENSIVE ORAL EXAM Scheduled Orders Name Type Priority Associated Diagnoses Order Schedule CT 3D RECONSTRUCTION BODY Medical Imaging Routine ADPKD (autosomal dominant polycystic kidney disease) Expected: 03/31/2024, Expires: 05/01/2025 Scheduled Procedures Name Priority Associated Diagnoses Date/Ti [...] Not on filedocumented as of this encounter Visit Diagnoses Diagnosis ADPKD (autosomal dominant polycystic kidney disease)- Primary Polycystic kidney, autosomal dominant Intellectual disability Unspecified intellectual disabilities documented in this encounter Advance Directives * Full Code (Latest Code Status on File) Date Activated Date Inactivated Comments 04/08/2018 8:23 AM 04/14/2018 7:04 PM This order r eflects the patients wishes and were consensually agreed upon. Question Answer Comments Discussion of Advance Directives occurred with: Family Care Teams Shaping Machine Tender Relationship Specialty Start Date End Date Simeon Garner DO [address] [address] PCP - General Family Medicine 07/14/22 documented as of this encounter
--- OUTSIDE RECORDS SUMMARY | 2024-05-18 19:15 | External Medical Summary | Summary of Care ---
Author Name Unknown Organization [facility] Address [address] [place] [facility] [place] [address] Phone [phone] Care Team Providers Care Woven Wood Shade Assembler Name Role Phone Simeon Garner Primary Care Provider Reason for Visit * Reason Onset Date Comments Pre Cert/Prior Auth 03/31/2024 Encounter Details Date Type Department Care Team (Late st Contact Info) Description 03/31/2024 Telephone Nephrology, Leelee [place] 200 [facility] [place] [address] Aren Zarate MD 200 [facility] [place] [address] Pre Cert/Prior Auth Allergies Active Allergy Reactions [...] as of this encounter Miscellaneous Notes * Addendum Note - Aren Zarate MD - 03/31/2024 2:40 PM EDTAddended by: AREN ZARATE on: 03/31/2024 02:40 PM Modules accepted: Orders * Telephone Encounter - Aren Zarate MD - 03/31/2024 2:35 PM EDT After neuropsychiatric aide contacted pt's mother, found that pt scheduled for CT chest angiography today. Recommend combining with CT abd/pelvis as currently ordered/planned. Called peer to peer back; ref # [id number] Spoke w/ Dr Alicea who notes that CT chest apporived; and now abd CT is approved. Abd CT Auth # [id number] Auth Period til 05/19/24 or coverage termination, [...] EDT Called peer to peer with reference [id number]. Patient's CT scan is reportedly scheduled for this afternoon at 3:[address] scan is NOT covered by insurance and should not be done. Insurance company wants MRI and not CT scan for total cyst volume calculation. I am not sure whether our institution does MRI for this indication. Renal nurse please contact radiology clinical data management director/ neuropsychiatric aide to find out if [facility] can do anMRI to calculate total cyst [...] Description 03/31/2024 3:15 PM EDT Imaging Radiology [address] [place] [address] 03/31/2024 4:00 PM EDT Imaging Radiology [address] [place] [address] 05/16/2024 7:45 AM EDT Hospital Encounter OR [facility], OPERATING ROOM [facility] [address] [place] [address] Giovani Simon, DMD [address] [place] [address] 05/16/2024 7:45 AM EDT - 05/16/2024 1:05 PM EDT Surgery OR [facility], OPERATING ROOM [facility] [address] [place] [address] Giovani Simon, DMD [address] [place] [address] COMPREHENSIVE ORAL EXAM Scheduled Orders Name Type [...] Advance Directives occurred with: Family Care Teams Woven Wood Shade Assembler Relationship Specialty Start Date End Date Simeon Garner DO [address] [address] PCP - General Family Medicine 07/14/22 documented as of this encounter
--- OUTSIDE RECORDS SUMMARY | 2024-05-18 19:15 | External Medical Summary | Summary of Care ---
Author Name Unknown Organization [facility] Address [address] [facility] [place] [address] Phone [phone] Care Team Providers Care Soc Analyst Name Role Phone Simeon Garner Primary Care Provider Reason for Visit * Reason Onset Date Comments Pre Cert/Prior Auth 03/31/2024 Encounter Details Date Type Department Care Team (Late st Contact Info) Description 03/31/2024 Telephone Nephrology, eLelee Hillman 200 [facility] [place] [address] Dior Koehler MD 200 [facility] [place] [address] Pre Cert/Prior Auth Allergies Active Allergy Reactions [...] 03/31/2024) Immunizations Name Administration Dates Next Due Meningococcal [...] Description 03/31/2024 3:15 PM EDT Imaging Radiology [address] [place] [address] 03/31/2024 4:00 PM EDT Imaging Radiology [address] 132 [facility] [place] [address] 05/16/2024 7:45 AM EDT Hospital Encounter OR [facility], OPERATING ROOM [facility] [address] [place] [address] Giovani Simon, HIRAM [address] [place] [address] 05/16/2024 7:45 AM EDT - 05/16/2024 1:05 PM EDT Surgery [facility], [facility] [address] [place] [address] Giovani Simon, DMD [address] [place] [address] COMPREHENSIVE ORAL EXAM Scheduled Procedures Name Priority Associated Diagnoses Date/Ti mn COMPREHENSIVE ORAL EXAM Intellectual disability 05/16/2024 7:45 [...] Screening 12/29/2018 12/29/2017 COVID-19 Vaccine ( - 2022- season) 2023 Influenza Vaccine (FLU shot) (#1) [...] Advance Directives occurred with: Family Care Teams Soc Analyst Relationship Specialty Start Date End Date Simeon Garner DO [address] [address] PCP - General Family Medicine 07/14/22 documented as of this encounter
--- OUTSIDE RECORDS SUMMARY | 2024-05-18 19:15 | External Medical Summary | Summary of Care ---
Author Name Unknown Organization [facility] Address [address] [place] [address] Phone [phone] Care Team Providers Care Playground Official Name Role Phone PatsySimeon clark Primary Care Provider Encounter Details Date Type Department Care Team (Late st Contact Info) Description 03/26/2024 Result Scan Unspecified Department Dior Koehler MD [address] [place] [address] <No scans attached> Allergies Active Allergy Reactions Criticality Noted Date Comments Clavulanic Acid Rash 05/31/2006 Diaper rash at 3 yrs old documented as of this encounter (statuses as of 04/02/2024) Medications Medication Sig Dispensed Refills Start Date [...] as of this encounter (statuses as of 04/02/2024) Active Problems Problem Noted Date Diagnosed Date [...] as of this encounter (statuses as of 04/02/2024) Resolved Problems Problem Noted Date Diagnosed Date Resolved Date 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 04/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, N0, M0, S0) - Signed by Luis Billingsley MD on 03/26/2017 documented as of this encounter (statuses as of 04/02/2024) Immunizations Name Administration Dates Next Due Meningococcal [...] EDT Hospital Encounter OR C, OPERATING ROOM [facility], [facility] [address] [place] [address] Giovani Simon DMD [address] [place] [address] 05/16/2024 7:45 AM EDT - 05/16/2024 1:05 PM EDT Surgery OR [facility] [address] [place] [address] Giovani Simon DMD [address] [place] [address] COMPREHENSIVE ORAL EXAM Scheduled Procedures Name Priority Associated Diagnoses Date/Ti wy COMPREHENSIVE ORAL EXAM Intellectual disability 05/16/2024 7:45 [...] Procedure Name Priority Date/Time Associated Diagnosis Comments OUTSIDE LAB RESULTS 03/26/2024 documented in this encounter Results * OUTSIDE LAB RESULTS (03/26/2024) 03/26/2024 Dior Koehler MD LABORATORY documented in this encounter Advance Directives * Full Code (Latest Code Status on File) Date Activated Date Inactivated Comments 04/08/2018 8:23 AM 04/14/2018 7:04 PM This order r eflects the patients wishes and were consensually agreed upon. Question Answer Comments Discussion of Advance Directives occurred with: Family Care Teams Playground Official Relationship Specialty Start Date End Date Simeon Garner DO [address] [facility] [address] [place] [address] PCP - General Family Medicine 07/14/22 documented as of this encounter
--- OUTSIDE RECORDS SUMMARY | 2024-05-18 19:15 | External Medical Summary | Continuity of Care Document ---
Author Name Unknown Organization [facility] [id number] [place] [phone] Care Team Providers Care Lumber Inspector Name Role Phone Simeon Garner Primary Care Physician [phone] Encounter [facility] [id number] Date(s): 04/17/24 - 04/17/24 [facility] 0 [facility] 207 [facility] 1850 [facility], [address] [address] [place] [phone] Encounter Diagnosis Preoperative examination(Discharge Diagnosis) - 04/17/24 Tooth decay(Discharge Diagnosis) - 04/17/24 HTN, goal below 140/90(Discharge Diagnosis) - 04/17/24 Spastic quadriplegic cerebral palsy(Discharge Diagnosis) - 04/17/24 Epilepsy(Discharge Diagnosis) - 04/17/24 Dystonic movements(Discharge Diagnosis) - 04/17/24 Koolen-Yeimi syndrome(Discharge Diagnosis) - 04/17/24 Discharge Disposition: Home or Self Care Attending Physician: DO Garner Franklin J Allergies, Adverse Reactions, Alerts Substance Criticality Severity Reaction Reaction Severity Status Augmentin Rash Active Assessment and Plan Extracted from: Title:Office Visit Note Author:Yandel Barfield MD, Parandonnayothy Son Date:04/17/24 1.Preoperative examination 34/M broughtin by chantefor pre operative evaluationfor a dental surgery (molar Tooth extraction) planned 16 may. Mom says that surgery would be about 6 hours, so Pt will be under GA during that time. This is a complex patient with multiple comorbidities: hx of epilepsy on meds,spastic quadriplegia, Koolen-Yeimi syndrome, HTN, polycystic kidneys, testicular tumor, DVT on eliquis..Patient has cardiac murmur, also reviewed his old notes - MR ( hx of previous cardiacsurgery) Chronic condition, at goal Goal: _optimize care. Data:_reviewed previousnotes, labs,images,vitals, externalspecialist, notes, Plan: -Given pts cardiac condition we have advised mom to check with Ptscardiologist, Dr Liz recommended to contacthis pedscardiologist for an input regarding - since surgery is about 6 hours. - Also advised to recheck with cardiologistas regarding endocarditis prophylaxisbefore dental surgery. -once we have information back from the communications professor we will complete the dental surgery form. 2.Tooth decay 3.HTN, goal below 140/90 4.Spastic quadriplegic cerebral palsy 5.Epilepsy 6.Dystonic movements 7.Koolen-eYimi syndrome (Complaint of) Immunizations Given and Recorded Vaccine Date Status Refusal Reason influenza virus vaccine, inactivated 07/12/22 Give n Medications albuterol-ipratropium 2.5 mg-0.5 mg/3 mL inhalation solution Start: 11/11/21 9:50:00 AM EST, 3 mL, inhaled, tid, Disp# 90 mL, Refills: 1, PRN: as needed for shortness of breath or wheezing, Pharmacy: [facility] Start Date: 11/11/21 Status: Ordered diazePAM 5 mg oral tablet Start: 03/25/24 2:42:00 PM EDT, 1 tab, PO, bid, Disp# 60 tab, Refills: 3, Pharmacy: [facility]/pharmacy #[id number] Start Date: 03/25/24 Stop Date: 07/23/24 Status: Ordered divalproex sodium 500 mg oral delayed release tablet Start: 04/03/24 8:57:00 AM EDT, 1 tab, PO, bid, Disp# 180 tab, Refills: 3, Pharmacy: [facility]/pharmacy #[id number] Start Date: 04/03/24 Status: Ordered Duclolax Suppository Start: 03/18/24 10:57:00 AM EDT, Duclolax Suppository, eRx Product Type: Supply, See Instructions, Disp# 16 supp, Refills: 3, One every other day, Note to Pharmacy: one box of 16 suppository, [id number] Start Date: 03/18/24 Status: Ordered Eliquis 5 mg oral tablet Start: 11/21/23 6:13:00 PM EST, 1 tab, PO, bid, Disp# 120 tab, Refills: 3, [id number] Start Date: 11/21/23 Status: Ordered famotidine 20 mg oral tablet Start: 01/28/24 4:45:00 PM EDT, 1 tab, PO, bid, Disp# 60 tab, Refills: 3, Pharmacy: [id number] Start Date: 01/28/24 Status: Ordered Flexeril 5 mg oral tablet Start: 06/07/23 2:24:00 PM EDT, 1 tab, PO, bid, Disp# 28 tab, Refills: 1, PRN: as needed for spasm, [id number] Start Date: 06/07/23 Stop Date: 07/05/23 Status: Ordered levETIRAcetam 500 mg oral tablet Start: 04/03/24 8:59:00 AM EDT, 1.5 tabs, PO, bid, Disp# 270 tab, Refills: 3, Pharmacy: [facility]/pharmacy#[id number] Start Date: 04/03/24 Stop Date: 03/29/25 Status: Ordered lisinopril 5 mg oral tablet Start: 10/01/23 11:59:00 AM EST, See Instructions, Disp# 90 tab, Refills: 3, take 1 tablet by mouth daily, Pharmacy: [facility] #[id number] Start Date: 10/01/23 Status: Ordered Vitamin D3 Start: 03/18/24 10:35:00 AM EDT, See Instructions, 1000mcg bid Start Date: 03/18/24 Status: Ordered zonisamide 100 mg oral capsule Start: 04/03/24 9:00:00 AM EDT, 3 cap, PO, qhs, Disp# 270 cap, Refills: 3, Pharmacy: [facility]/pharmacy #[id number] Start Date: 04/03/24 Stop Date: 03/29/25 Status: Ordered Mental Status 04/17/24 Barriers to Learning one year Cognitive deficit Mandatory Health Literacy Documentation Yes Health Literacy Communication Barriers U nable to assess Primary Language Other: Problem List Condition Confirmation Course Effective Dates [...] Effective Dates Health Status Clinical Service Informant Preoperative examination Discharge Diagnosis 04/17/24 Non-Specified Tooth decay Discharge Diagnosis 04/17/24 Non-Specified Epilepsy Discharge Diagnosis 04/17/24 Non-Specified Dystonic movements Discharge Diagnosis 04/17/24 Non-Specified Spastic quadriplegic cerebral palsy Discharge Diagnosis 04/17/24 Non-Specified HTN, goal below 140/90 Discharge Diagnosis 04/17/24 Non-Specified Procedures Procedure Date Related Diagnosis Body [...] 14bilateral club foot and 1994 89mos old Vital Signs Most recent to oldest [Reference Range]: 1 Heart Rate 67 bpm (04/17/24 4:03 PM) Respiratory Rate 18 br/min (04/17/24 4:03 PM) Blood Pressure 122/82mmHg (04/17/24 4:03 PM) Cuff Pulse Pressure 40 mmHg (04/17/24 4:03 PM) Social History Social History Type Response Smoking Status Never smoked cigaret priyanka Sex Male Sex Representation Male (finding) [facility] Outpt Note * DO Yost Gretchen Elizabeth: MODIFY DO Yost Gretchen Elizabeth: MODIFY Event Display: [facility] Outpt Note Authored Date: [id number] Chief Complaint pre op clearance. dental sx History of Present Illness Brought in by mother, main historian as pt is non-verbal. having his molarsteeth removed - decayed. pt last GA 3 yrs for an MRI. pt currently on eliquis 5mg BID for DVT.hx of some bleeding gums. weaning off keppra because of 4 medical meds. Preoperative evaluation Requested by: Dentist Dr Giovani Simon, Planned surgery: Tooth extraction [_] high risk (aortic, peripheral vascular) [X_] intermediate risk (intraperitoneal, intrathoracic, CEA, head and neck, orthopedic, prostate) [_] low risk (endoscopic or superficial procedures, cataract surgery, breast surgery, ambulatory procedures) Planned anesthesia: GA (approx. 6 hours) Exercise tolerance = walks with help, inside the room. 1 MET: resting oxygen consumption 4 METs: Climbing flight of stairs Walking up a hill Walking on level ground at 4 mph Heavy house work < 4 METs:X mainly wheelchair bound, but stands up with walks inside the house with helppatient. Slow ballroom dancing Golfing with a cart Playing musical instrument Walking slower than 4 mph Bleeding tendency: Takes [id number] BIDfor DVT Lt(2018). Prior anesthesia: 3 years ago underGA Revised Cardiac Risk Index: Score [_] [_] High Risk Surgery [_] Ischemic Heart Disease [_] History of CHF [_] History of cerebrovascular disease [_] Insulin therapy for DM [_] Pre-op Cr >2 Review of Systems unable to obtain -pt nonverbal Physical Exam Vitals & Measurements HR:67(Monitored) RR:18 BP:122/82 SpO2:99% PHQ2 Data(Data Documented on:04/17/2024 16:02) Emotional health assessment NEGATIVE General: _wheel chair, Alert , No acute distress, pt non verbal. HEENT: _ microcephalic, moist oral mucosa _ Cardiovascular: _Normal rate, Regular rhythm, systolicmurmur 3/6, No gallop. Respiratory: _Lungs are clear to auscultation, Respirations are non-labored, Breath sounds are equal Gastrointestinal: _Soft, Non-tender, Non-distended, Normal bowel sounds. Neurologic:full neuro examnot possibleat this timebutpt isat baseline. Integumentary: _Warm, Dry, Casar. Assessment/Plan 1.Preoperative examination 34/M broughtin by momfor pre operative evaluationfor a dental surgery (molar Tooth extraction) planned 16 may. Mom says that surgery would be about 6 hours, so Pt will be under GA duringthat time. This is a complex patient with multiple comorbidities: hx of epilepsy on meds,spastic quadriplegia, Koolen-Yeimi syndrome, HTN, polycystic kidneys, testicular tumor, DVT on eliquis..Patient has cardiac murmur, also reviewed his old notes - MR ( hx of previous cardiacsurgery) Chronic condition, at goal Goal: _optimize care. Data:_reviewed previousnotes, labs,images,vitals, externalspecialist, notes, Plan: -Given pts cardiac condition we have advised mom to check with Ptscardiologist, Dr Liz recommended to contacthis pedscardiologist for an input regarding - since surgery is about 6 hours. - Also advised to recheck with cardiologistas regarding endocarditis prophylaxisbefore dental surgery. -once we have information back from the communications professor we will complete the dental surgery form. 2.Tooth decay 3.HTN, goal below 140/90 4.Spastic quadriplegic cerebral palsy 5.Epilepsy 6.Dystonic movements 7.Koolen-Yeimi syndrome (Complaint of) Attestation Patient seen and examined in concert with Dr. Humphries, agree with history and physical documented above. Medically complex patient with need of multiple extractions under general anesthesia.Willrequire hold of apixaban oneday(at least two doses) prior to surgery. Per review of last cardiology note, antibiotic prophylaxis not recommended. Due to reported length of general anesthesia (~6 hours) agree with consultation of patient's cardiology. Plan reviewed in detail and patient understanding. Problem List/Past Medical History Ongoing Abnormal movements [...] 1Pediatric echocardiography| Service Date: 06/07/2021MRI| Service Date: MG - Electromyography| Service Date: 09/08/2020CT of abdomen [...] Vaccine due03/23/24and every 1year Adult COVID-19 Vaccination due04/17/24Unknown Frequency Adult Social Determinants of Health Screening due04/17/24Unknown Frequency Adult Tdap/Td Vaccine due04/17/24Unknown Frequency Hepatitis C Screening due04/17/24One-time only Pneumococcal Vaccine Adults and Adolescents with Chronic Illness due04/17/24One-time only Shingles Vaccine due04/17/24One-time only Due In Future Body Mass Index not due until02/19/25and every 366day Satisfied(in the past 1 year) There are no satisfied recommendations within the defined date range Electronic Signature on File Electronically Reviewed/Signed by: Karsten Barfield MD Author Signature Dt/Tm:04/17/2024 05:51 PM Resident Department of Family Medicine Electronically Reviewed/Signed by: Annetta Bazanigner Signature Dt/Tm: 04/17/2024 07:41 PM Department of Family Medicine PP Patient Care team information Care Team Personnel Name: DO Garner Franklin J Position: Physician - Family Med Member Role: Primary Care Provider Address: [address] [place] [address] [place] Care Team Related Persons Name: KASHMIR RATLIFF"
--- OUTSIDE RECORDS SUMMARY | 2024-05-18 19:15 | External Medical Summary | Summary of Care ---
Author Name Unknown Organization [facility] Address [address] [place] [facility] [place] [address] Phone [phone] Care Team Providers Care Truck Leasing Manager Name Role Phone Simeon Garner Primary Care Provider Reason for Visit * Reason Onset Date Comments Pre Cert/Prior Auth 03/31/2024 Encounter Details Date Type Department Care Team (Late st Contact Info) Description 03/31/2024 Telephone Nephrology, Leelee [place] 200 [facility] [place] [address] Aren Zarate MD 200 [facility] [place] [address] Pre Cert/Prior Auth Allergies Active Allergy Reactions [...] EDT Called peer to peer with reference 4. [id number]. Patient's CT scan is reportedly scheduled for this afternoon at 3:[address] scan is NOT covered by insurance and should not be done. Insurance company wants MRI and not CT scan for total cyst volume calculation. I am not sure whether our institution does MRI for this indication. Renal nurse please contact radiology clinical education academic coordinator/ senior product manager to find out if [facility] can do anMRI to calculate total cyst [...] Description 03/31/2024 3:15 PM EDT [address] [address] 03/31/2024 4:00 PM EDT Imaging Radiology [address] [facility] [address] 05/16/2024 7:45 AM EDT [facility] Encounter [facility], [facility]PER[facility] ROOM [facility] [address] [place] [address] Giovani Simon, HIRAM [address] [place] [address] 05/16/2024 7:45 AM EDT - 05/16/2024 1:05 PM EDT Surgery [facility] [address] [place] [address] Giovani Simon, HIRAM [address] [place] [address] COMPREHENSIVE ORAL EXAM Scheduled Procedures Name Priority Associated Diagnoses Date/Ti co COMPREHENSIVE ORAL EXAM Intellectual disability 05/16/2024 7:45 [...] Advance Directives occurred with: Family Care Teams Truck Leasing Manager Relationship Specialty Start Date End Date Simeon Garner DO [address] [place] [address] PCP - General Family Medicine 07/14/22 documented as of this encounter
--- OUTSIDE RECORDS SUMMARY | 2024-05-18 19:15 | External Medical Summary | Summary of Care ---
Author Name Unknown Organization [facility] Address [address] [place] [address] Phone [phone] Care Team Providers Care Oil Refinery Operator Name Role Phone Simeon Garner DO Primary Care Provider Encounter Details Date Type Department Care Team (Late st Contact Info) Description 05/16/2024 Orders Only Dental Medicine, [place] [address] [place], [place] [id number] Giovani Simon, [facility] [address] [place] [address] Allergies Active Allergy Reactions Criticality Noted Date Comments Clavulanic Acid Rash 05/31/2006 Diaper rash at 3 yrs old documented as of this encounter (statuses as of 05/16/2024) Medications Medication Sig Dispensed Refills Start Date End Date Status Clindamycin HCl 150 MG Oral Capsule (Cleocin) Take one cap every 6 hours (4 a day) to completion 32 Capsule 05/16/2024 Active DIAPERS & SUPPLIES MISCIndications:I ncontinence [...] Advance Directives occurred with: Family Care Teams Oil Refinery Operator Relationship Specialty Start Date End Date Simeon Garner DO [address] [address] PCP - General Family Medicine 07/14/22 documented as of this encounter
--- OUTSIDE RECORDS SUMMARY | 2024-05-18 19:16 | External Medical Summary ---
Author Name Unknown Address Unknown Organization K01:LABORATORY [facility] - [address] [place] [address] Laboratory Report Ordering Provider Test Date Status ELLIOT YOUNGER 03/04/2024 09:51:15 Final Observation Date Value Abnormality Reference (Units ) Status Uric Acid 03/04/2024 09:51:15 6.4 3.4-7.0 (m g/dL) Final Performing Location LABORATORY C - [address] [place] [address]
--- OUTSIDE RECORDS SUMMARY | 2024-05-18 19:16 | External Medical Summary | Summary of Care ---
Author Name Unknown Organization [facility] Address [address] [place] [address] Phone [phone] Care Team Providers Care Fresh Work Inspector Name Role Phone PatsySimeon clark Primary Care Provider Reason for Visit * Reason Onset Date Comments Advice 03/26/2024 Encounter Details Date Type Department Care Team (Late st Contact Info) Description 03/26/2024 Telephone Nephrology, [address] [address] [facility] [place] [address] Dior Koehler MD [address] [facility] [place] [address] Advice Allergies Active Allergy Reactions Criticality Noted Date Comments Clavulanic Acid Rash 05/31/2006 Diaper rash at 3 yrs old documented as of this encounter (statuses as of 03/26/2024) Medications Medication Sig Dispensed Refills Start Date [...] as of this encounter (statuses as of 03/26/2024) Active Problems Problem Noted Date Diagnosed Date [...] as of this encounter (statuses as of 03/26/2024) Resolved Problems Problem Noted Date Diagnosed Date Resolved Date 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 04/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 She verbalized understanding. * Telephone Encounter - Mago Brown RN - 03/26/2024 2:57 PM EDT ----- Message from Dior Koehler MD sent at 03/26/2024 2:53 PM EDT ----- Regarding: RE: CT IV contrast dye should be OK for this pt. Recommend holding lisinopril day before, day of , and dayafter CT. Copying my nurses to follow so they can update pt's mom if we move forward with CT scan re lisinopril ----- Message ----- From: Clint Liz MD Sent: 03/25/2024 2:25 PM EDT To: Jewel Burnham MD; # Subject: CT Natalie Rodriguez is scheduled for renal CT March 31. His echo quality is poor and I think a CT of the aorta wouldbe helpful. Can we image the aorta at the same time as this CT? Would it require additional contrast? If so, would the load be acceptable given his renal disease? Thanks Wilfredo documented in this encounter Plan of Treatment Upcoming Encounters Date Type Department Care Team (Latest Contact Info) Description 03/31/2024 3:15 PM EDT Imaging Radiology [address] [place] [address] 03/31/2024 4:00 PM EDT Imaging Radiology [address] [place] [address] 05/16/2024 7:45 AM EDT Hospital Encounter [place] [facility] [place], OPERATING ROOM [facility] [place] [place], [facility] [address] [place] [phone] Giovani Simon, DMD [address] [place] [address] 05/16/2024 7:45 AM EDT - 05/16/2024 1:05 PM EDT Surgery OR [facility] [place], OPERATING ROOM [facility] [place], [facility] [address] [place] [address] Giovani Simon, DMD [address], [place] [id number] COMPREHENSIVE ORAL EXAM Scheduled Procedures Name Priority [...] Advance Directives occurred with: Family Care Teams Fresh Work Inspector Relationship Specialty Start Date End Date Simeon Garner DO [address] [place] [address] PCP - General Family Medicine 07/14/22 documented as of this encounter
--- OUTSIDE RECORDS SUMMARY | 2024-05-18 19:16 | External Medical Summary ---
Author Name Unknown Address Unknown Organization [id number][facility] [place] [address] Laboratory Report Ordering Provider Test Date Status ELLIOT YOUNGER 03/04/2024 09:51:15 Final Observation Date Value Abnormality Reference (Units ) Status Magnesium 03/04/2024 09:51:15 2.1 1.5-2.6 (m g/dL) Final Performing Location [facility] [place] [address]
--- OUTSIDE RECORDS SUMMARY | 2024-05-18 19:16 | External Medical Summary ---
Author Name Unknown Address Unknown Organization [id number]:[facility] [place] [address] [place] [address] Laboratory Report Ordering Provider Test Date Status ELLIOT YOUNGER 03/04/2024 09:51:15 Final Deficient: <20 ng/mL
Ins ufficient: 20-29 ng/mL
Recommended/Optimum:30-50 ng/mL

Vitamin D intoxication is rare. If suspicious of Vitamin D toxicity, evaluation of serum Calcium and PTH is recommended. Observation Date Value Abnormality Reference (Units ) Status 25-OH Vitamin D total 03/04/2024 09:51:15 15 Below low normal >19 (ng/mL) Final Performing Location [facility] - [address] [place] [address]
--- OUTSIDE RECORDS SUMMARY | 2024-05-18 19:16 | External Medical Summary ---
Author Name Unknown Address Unknown Organization [id number]:LABORATORY [facility] [place] - [address] [facility] [place] [address] Laboratory Report Ordering Provider Test Date Status LISSY YOUNGERERSEN 03/04/2024 09:51:15 Final Observation Date Value Abnormality Reference (Units ) Status Triglyceride 03/04/2024 09:51:15 213 Above high normal <=174 (mg/dL) Final Triglyceride Reference Range s (mg/dL):
<150 Acceptable
150-174 Borderline high
175-499 High
>=500 Very high Cholesterol 03/04/2024 09:51:15 186 <200 (mg /dL) Final Total Cholesterol Reference Ranges (mg/dL):
<200 Desirable
200-239 Borderline high
>=240 High HDL 03/04/2024 09:51:15 37 Below low normal >39 (mg/dL) Final HDL Cholesterol Reference Ra nges (mg/dL):
>=60 High (Desirable)
<50 Low (Undesirable) For Females
<40 Low (Undesirable) For Males NON-HDL CHOLESTEROL 03/04/2024 09:51:15 149 <=159 (mg/dL) Final Non-HDL Cholesterol Referenc e Range (mg/dL):
<100 Target level for high risk ASCVD patient
<130 Optimal for general population
130-159 Near optimal for general population
160-189 Borderline High
190-219 High
>=220 Very High LDL, (calculated) 03/04/2024 09:51:15 106 <= 129 (mg/dL) Final LDL Cholesterol Reference Ra nges (mg/dL):
<70 Target level for high risk ASCVD patient
<100 Optimal for general population
100-129 Near optimal for general population
130-159 Borderline high
160-189 High
>=190 Very high Performing Location LABORATORY [facility] - [address] [facility] [address]
--- OUTSIDE RECORDS SUMMARY | 2024-05-18 19:16 | External Medical Summary | Summary of Care ---
Author Name Unknown Organization [facility] Address [address] [place] [address] Phone [phone] Care Team Providers Care Physician In Private Practice Name Role Phone Simeon Garner Primary Care Provider Reason for Visit * Reason Onset Date Comments Test Results 03/07/2024 Encounter Details Date Type Department Care Team (Late st Contact Info) Description 03/07/2024 Telephone Nephrology, [place] [address] [facility] [place] [address] Dior Koehler MD [address] [facility] [place] [address] Test Results Allergies Active Allergy Reactions Criticality Noted Date Comments Clavulanic Acid Rash 05/31/2006 Diaper rash at 3 yrs old documented as of this encounter (statuses as of 03/07/2024) Medications Medication Sig Dispensed Refills Start Date [...] as of this encounter (statuses as of 03/07/2024) Active Problems Problem Noted Date Diagnosed Date [...] as of this encounter (statuses as of 03/07/2024) Resolved Problems Problem Noted Date Diagnosed Date Resolved Date 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 Aware to start Vitamin D 2,000 units daily. Will obtain repeat urine test after completed with antibiotic. * Telephone Encounter - Mago Brown RN - 03/07/2024 10:07 AM EDT ----- Message from Dior Koehler MD sent at 03/06/2024 5:22 PM EDT ----- Kidney labs stable; numerous labs were drawn this visit such as cholesterol, anti seizure medication levels. Defer management of these 2 PCP and/or Neurology. -await catheterized urine specimens which were to be done through PCP or/and Urology: Please facilitate if necessary -D3 per protocol documented in this encounter Plan of Treatment Upcoming Encounters Date Type Department Care Team (Latest Contact Info) Description 03/25/2024 10:00 AM EDT [facility] [address] [place] [address] Clint Liz MD [address] [place] [address] 05/16/2024 7:45 AM EDT Hospital Encounter OR [facility], OPERATING ROOM [facility] [place] [address] [place] [phone] Giovani Simon DMD [address] [place] [address] 05/16/2024 7:45 AM EDT - 05/16/2024 1:05 PM EDT Surgery OR [facility], OPERATING ROOM [facility], [facility] [address] [place] [address] Giovani Simon, DMD [address] [place] [address] COMPREHENSIVE ORAL EXAM Scheduled Procedures Name Priority [...] 01/23/2004 Hepatitis C Screening 2007 Hepatitis B (1 of 3 - 19+ 3-dose series) 01/23/2008 DTaP,Tdap,and Td Vaccines (7 - Tdap) 05/24/2015 05/24/2005, 05/31/1994, 09/04/1990, Additional history exists Depression Screening 12/29/2018 12/29/2017 COVID-19 Vaccine ( - 2022- season) 2023 Influenza Vaccine (FLU shot) (Season Ended) 2024 07/14/2019, 08/12/2018, 07/25/2006 MENINGOCOCCAL (MENACTRA/MENVEO) Completed 01/15/2006, 01/15/2006 GARDASIL-HPV IMMUNIZATION SERIES Aged Out No longer eligible based on [...] Advance Directives occurred with: Family Care Teams Physician In Private Practice Relationship Specialty Start Date End Date Simeon Garner DO [address] [address] PCP - General Family Medicine 07/14/22 documented as of this encounter
--- OUTSIDE RECORDS SUMMARY | 2024-05-18 19:16 | External Medical Summary | Summary of Care ---
Author Name Unknown Organization [facility] Address [address] [place] [address] Phone [phone] Care Team Providers Care Sixth Grade Teacher Name Role Phone PatsySimeon clark Primary Care Provider Reason for Visit * Reason Comments Outpatient Testing Encounter Details Date Type Department Care Team (Late st Contact Info) Description 03/04/2024 9:50 AM EDT Laboratory Laboratory [facility] [address] [place] [address] [place] [phone] [place], [facility] [address] [place] [address] Arrived Allergies Active Allergy Reactions Criticality Noted Date Comments Clavulanic Acid Rash 05/31/2006 Diaper rash at 3 yrs old documented as of this encounter (statuses as of 03/04/2024) Medications Medication Sig Dispensed Refills Start Date [...] with peridex 20 Each 10 02/26/2024 Active documented as of this encounter (statuses as of 03/04/2024) Active Problems Problem Noted Date Diagnosed Date [...] as of this encounter (statuses as of 03/04/2024) Resolved Problems Problem Noted Date Diagnosed Date Resolved Date 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 04/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, N0, M0, S0) - Signed by Luis Billingsley MD on 03/26/2017 documented as of this encounter (statuses as of 03/04/2024) Immunizations Name Administration Dates Next Due Meningococcal [...] 03/25/2024 10:00 AM EDT Office Visit Pediatric Cardiology, [place] [address] [place] [phone] Clint Liz MD [address] [place] [address] 05/16/2024 7:45 AM EDT Hospital Encounter [place] [facility] [place], OPERATING ROOM [facility] [address] [place] [phone] Giovani Simon, HIRAM [address] [place] [address] 05/16/2024 7:45 AM EDT - 05/16/2024 1:05 PM EDT Surgery [facility] [address] [place] [phone] Giovani Simno, DMD [address], [place] [phone] COMPREHENSIVE ORAL EXAM Scheduled Procedures Name Priority Associated Diagnoses Date/Ti va COMPREHENSIVE ORAL EXAM Intellectual disability 05/16/2024 7:45 [...] Screening 12/29/2018 12/29/2017 COVID-19 Vaccine ( - season) 2023 Influenza Vaccine (FLU shot) (Season [...] Advance Directives occurred with: Family Care Teams Sixth Grade Teacher Relationship Specialty Start Date End Date Simeon Garner DO [address] [address] PCP - General Family Medicine 07/14/22 documented as of this encounter
--- OUTSIDE RECORDS SUMMARY | 2024-05-18 19:16 | External Medical Summary ---
Author Name Unknown Address Unknown Organization [id number]:[facility] [place] [address] Laboratory Report Ordering Provider Test Date Status ELLIOT YOUNGER 03/04/2024 09:51:15 Final Observation Date Value Abnormality Reference (Units ) Status SYNC LEUKOCYTES IN BLOOD BY AUTOMATED COUNT 03/04/2024 09:51:15 4.91 4.00-10.80 (K/uL) Final Segs 03/04/2024 09:51:15 61.9 40.0-75.0 (%) Final Lymphs % 03/04/2024 09:51:15 25.3 18.0-42.0 (%) Final Monos 03/04/2024 09:51:15 10.2 1.0-11.0 (%) Final Eosinophils 03/04/2024 09:51:15 2.4 0.0-6.0 (%) Final Basos 03/04/2024 09:51:15 0.2 0.0-2.0 (%) Final Absolute Segs 03/04/2024 09:51:15 3.04 1.80-7.70 (K/uL) Final Lymphs, absolute 03/04/2024 09:51:15 1.24 1.00-4.80 (K/ul) Final Monos, Abs 03/04/2024 09:51:15 0.50 0.00-1.10 (K/uL) Final Eos, Abs 03/04/2024 09:51:15 0.12 0.00-0.70 (K/uL) Final Basos, Abs 03/04/2024 09:51:15 0.01 0.00-0.20 (K/uL) Final Performing Location [facility] [place] [address]
--- OUTSIDE RECORDS SUMMARY | 2024-05-18 19:16 | External Medical Summary ---
Author Name Unknown Address Unknown Organization [id number]:[facility] [address] [place] [address] Laboratory Report Ordering Provider Test Date Status ARENELLIOT 03/04/2024 09:51:15 Final Observation Date Value Abnormality Reference (Units ) Status BUN 03/04/2024 09:51:15 23 Above high normal 6-20 (mg/dL) Final Creatinine 03/04/2024 09:51:15 1.1 0.6-1.2 (mg/dL) Final Glomerular filtration rate/1.73 sq M.predicted [Volume Rate/Area] in Serum, Plasma or Blood by Creatinine-based formula (CKD-EPI) 03/04/2024 09:51:15 90 >=60 (mL/min) Final eGFR is calculated based on the CKD-EPI 2020 equation Sodium 03/04/2024 09:51:15 141 135-146 (m mol/L) Final Potassium 03/04/2024 09:51:15 4.4 3.5-5.1 (m mol/L) Final Cl 03/04/2024 09:51:15 105 98-107 (mm ol/L) Final CO2 03/04/2024 09:51:15 25 22-32 (mmo l/L) Final Anion gap 03/04/2024 09:51:15 11 7-15 (mmol /L) Final Glucose 03/04/2024 09:51:15 92 70-120 (mg /dL) Final Albumin 03/04/2024 09:51:15 4.7 3.8-5.0 (g /dL) Final AST (Aspartate aminotransferase) 03/04/2024 09:51:15 11 10-50 (U/L) Final Alk Phos 03/04/2024 09:51:15 64 35-130 (U/ L) Final Bilirubin, Total 03/04/2024 09:51:15 0.6 <=1 .2 (mg/dL) Final Calcium 03/04/2024 09:51:15 9.8 8.4-10.2 ( mg/dL) Final Protein 03/04/2024 09:51:15 6.9 6.0-8.3 (g /dL) Final ALT (Alanine aminotransferase) 03/04/2024 09:51:15 27 10-50 (U/L) Final Performing Location [facility] [address] [place] [address]
--- OUTSIDE RECORDS SUMMARY | 2024-05-18 19:16 | External Medical Summary ---
Author Name Unknown Address Unknown Organization K01:[facility] - [address] [place] [address] Laboratory Report Ordering Provider Test Date Status ELLIOT YOUNGER 03/04/2024 09:51:15 Final Observation Date Value Abnormality Reference (Units ) Status Valproic Acid, level 03/04/2024 09:51:15 62 50-100 (ug/mL) Final Performing Location [facility] - [address] [place] [address]
--- OUTSIDE RECORDS SUMMARY | 2024-05-18 19:16 | External Medical Summary | Summary of Care ---
Author Name Unknown Organization [facility] Address [address] [facility] [place] [address] Phone [phone] Care Team Providers Care Supervising Airplane Pilot Name Role Phone PatsySimeon Primary Care Provider Encounter Details Date Type Department Care Team (Late st Contact Info) Description 03/31/2024 Orders Only Nephrology, [address] [place] [address] Dior Koehler MD 200 [facility] [place] [address] Allergies Active Allergy Reactions Criticality Noted Date [...] Description 03/31/2024 3:15 PM EDT Imaging Radiology [address] [address] 03/31/2024 4:00 PM EDT Imaging Radiology [address] [address] 05/16/2024 7:45 AM EDT Hospital Encounter OR [facility] [place], OPERATING ROOM [facility] [place] [address] [place] [address] Giovani Simon DMD [address] [place] [address] 05/16/2024 7:45 AM EDT - 05/16/2024 1:05 PM EDT Surgery OR [facility] [place], OPERATING ROOM [facility] [place] [address] [place] [address] Giovani Simon DMD [address] [place], [place] [phone] COMPREHENSIVE ORAL EXAM Scheduled Procedures Name Priority [...] Advance Directives occurred with: Family Care Teams Supervising Airplane Pilot Relationship Specialty Start Date End Date Simeon Garner DO [address] [place] [address] PCP - General Family Medicine 07/14/22 documented as of this encounter
--- OUTSIDE RECORDS SUMMARY | 2024-05-18 19:16 | External Medical Summary ---
Author Name Unknown Address Unknown Organization [id number]:LABORATORY [facility] [place] - [address] [address] Laboratory Report Ordering Provider Test Date Status ELLIOT YOUNGER 03/04/2024 09:51:15 Final Observation Date Value Abnormality Reference (Units ) Status Parathyrin.intact [Mass/volume] in Serum or Plasma 03/04/2024 09:51:15 40 15-65 (pg/mL) Final Performing Location LABORATORY [facility] [place] - [address] [place] [address]
--- OUTSIDE RECORDS SUMMARY | 2024-05-18 19:16 | External Medical Summary | Summary of Care ---
Author Name Unknown Organization [facility] Address [address] [place] [address] Phone [phone] Care Team Providers Care Childcare Teacher Name Role Phone Simeon Morgan Primary Care Provider Reason for Visit * Reason Comments Polycystic Disease NEW PATIENT Encounter Details Date Type Department Care Team (Late st Contact Info) Description 03/04/2024 8:20 AM EDT Office Visit Nephrology, [place] [address] [facility] [place] [address] Dior Koehler MD [address] [facility] [place] [address] ADPKD (autosomal dominant polycystic kidney disease)*; Spastic quadriplegic cerebral palsy (HCC); Millie-Danlos disease; Koolen-Yeimi syndrome; Recurrent UTI; Bacteriuria, asymptomatic Allergies Active Allergy Reactions Criticality Noted Date Comments Clavulanic Acid Rash 05/31/2006 Diaper rash at 3 yrs old documented as of this encounter (statuses as of 03/16/2024) Medications Medication Sig Dispensed Refills Start Date End Date Status DIAPERS & SUPPLIES MISCIndications:In continence of feces use 7-8 everyday 300 11 09/01/2008 Active ACETAMINOPHEN 500 MG PO TABS NEEDED Active Zonisamide 100 MG Oral Capsule (Zonegran)Indicati ons:Generalized convulsive epilepsy without intractable epilepsy (HCC) Take 1 Cap by mouth daily before breakfast AND 2 Caps at bedtime. 90 Cap 5 12/22/2020 Active Divalproex Sodium 500 MG Oral Tablet Delayed Release (Depakote DR) take 1 tablet by mouth twice a day 60 Tab 5 03/07/2021 Active levETIRAcetam 500 MG Oral Tablet (Keppra)Indication s:Generalized convulsive epilepsy without intractable epilepsy (HCC) take 3 tablets by mouth twice a day 180 Tab 5 04/05/2021 Active Additional Information Patient taking differently: 1,250 mg Oral BID (.AM/PM), Weaning him off currently., Reported on 03/04/2024 Lisinopril 5 MG Oral Tablet (Prinivil)Indicati ons:Hypertension, goal below 140/90 Take 1 Tab by mouth daily. 90 Tab 1 05/23/2021 Active diazePAM 5 MG Oral Tablet (Valium)Indication s:Generalized convulsive epilepsy without intractable epilepsy (HCC) Take 1 Tab by mouth 2 times a day. 60 Tab 06/25/2021 Active Apixaban 5 MG Oral Tablet (Eliquis)Indicatio ns:Deep vein thrombosis (DVT) of left lower extremity, [...] with peridex 20 Each 10 02/26/2024 Active LORazepam 1 MG Oral Tablet (ATIVAN)Indication s:Spastic quadriplegic cerebral palsy (HCC) Take 2 Tabs by mouth as needed (for seizure clusters). 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, N0, M0, S0) - Signed by Luis Billingsley MD on 03/26/2017 documented as of this encounter (statuses as of 03/16/2024) Immunizations Name Administration Dates Next Due Meningococcal Conjugate Vaccine (Menactra/Menveo ) 01/15/2006 Seasonal Influenza, PF, 6 M & above, IM , (FluLaval or Fluzone) 07/14/2019,08/12/2018 Seasonal Influenza, Split, IIV3, With Preserve, Inj 07/25/2006 documented as of this encounter Social History Tobacco Use Types Packs/Day Years Used Date Smoking Tobacco: Never Smokeless Tobacco: Never Tobacco Cessation:Counseling Given: Not Answered Alcohol Use Standard Drinks/Week Comments No 0 [...] Sign Reading Time Taken Comments Blood Pressure 115/77 03/04/2024 8:31 AM EDT Pulse 65 03/04/2024 8:31 AM EDT Temperature 36.2 C (97.1 F) 03/04/2024 8:31 AM ED T Respiratory Rate 18 03/04/2024 8:31 AM EDT Oxygen Saturation 99% 03/04/2024 8:31 AM EDT Inhaled Oxygen Concentration - - Weight 72.6 kg (160 lb) 03/04/2024 8:31 AM EDT p er mother Height - - Body Mass Index 28.34 10/20/2019 9:44 AM EST documented in this encounter Functional Status Functional [...] (15 years old or older) Yes 04/08/20 Cognitive Status Response Date of Assessm ent Because of a physical, menta l, or emotional condition, do you have serious difficulty concentrating, remembering, or making decisions? (5 years old or older) No 04/08/2018 documented as of this encounter Patient Instructions * Patient Instructions* Dior Koehler MD - 03/04/2024 8:57 AM EDT -will get a copy of last note w/ genetics team at [facility] -labs today/ blood tests -recommend straight cath w/ PCP and/or urology to get urine specimens to assess for urine inflammation, ?infection, and to check proteinuria status (lab slips given) -no change to current meds --avoid medicines like aleve, advil, ibuprofen, aspirin more than 81 mg daily and other NSAIDS which are not good for kidney patients. Take only tylenol (acetaminophen) up to 2000 mg daily as needed for pain or as directed by your primary care provider. -will [place] back w/ you to discuss need or not for repeat CT documented in this encounter Progress Notes * Dior Koehler MD - 03/04/2024 8:45 AM EDT NEPHROLOGY CLINIC NOTE [facility] [address] 03/04/2024, 8:45 AM Patient Name: Michael Jane Michael Jane is a 34 year old male being seen in consultation today in Nephrology clinic, at the request of Simeon Morgan, * for polycystic kidney disease. 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 Ventricular septal defect 1989 surgical repair Patient Active Problem List Diagnosis GENERALIZED CONVULSIVE EPILEPSY; WITHOUT MENTION OF INTRACTABLE EPILEPSY CEREBRAL PALSY NOS PROPHYLACTIC MEASURE NEC ADVANCE DIRECTIVE INFORMATION Moderate intellectual disabilities Microcephalus (HCC) 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) Developmental delay, severe Congenital aortic valve insufficiency S/P ventricular septal defect closure S/P atrial septal defect closure Encounter for antineoplastic chemotherapy ADPKD (autosomal dominant polycystic kidney disease) 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 Pt with Koolen Yeimi syndrome (genetic syndrome), spastic quadriplegic cerebral palsy; s/p vsd /asd closure with moderate intellectual disabilities. Suffers from chronic constipation. Since 2018 physical health declined; used to run /crawl on own but mm/ joints worsening/changing ?from Millie Danlos syndrome (dx early 2023) and now weaker; harder to crawl; does not walk anymore. W/ adrenaline onboard , can walk/run; else slow going and generally wheelchair bound. 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 Follows w/ Dr Borja (though most recent [facility] [place] urology does not comment on testic CA and instead seminoma). Other PMH includes epilepsyw/o SE, painful voiding, LLE DVT 2018, melanocytic nevi. Pt also with history of nephrolithiasis on imaging though has never passed stone, no longer drinking iced tea and drinks lots of water. Saw urology early February 2024 >> started on trial of suppressive abtx for recurrent UTI; concern for early UTI at that time; mom also concerned for pain w/ voiding. Mother, two aunts, a sister and grandfather all with polycystic kidney disease. Pt grandfather and older sister have all had kidney txplts; Mom's renal function still wnl/acceptable. I follow one of pt's family members. No tobacco. No nsaids. No diabetes. No family history of aneurysms. Gets his neuro and genetics care at [facility]. REVIEW OF SYSTEMS: Pt unable to give ROS; Mom supplies Prone to mm spasms w/ transitions/ discomfort; look like seizures but aren't Painful urination a few times weekly (pt throws/gets angry) No further gross hematuria since August Chronic constipation dependent fully on suppositories Denies breathing sx, edema, or abd pain Current Outpatient Medications Medication Sig Dispense Refill ACETAMINOPHEN 500 MG PO TABS NEEDED Zonisamide 100 MG Oral Capsule (Zonegran) Take 1 Cap by mouth daily before breakfast AND 2 Caps at bedtime. 90 Cap 5 Divalproex Sodium 500 MG Oral Tablet Delayed Release (Depakote DR) take 1 tablet by mouth twice a day 60 Tab 5 levETIRAcetam 500 MG Oral Tablet (Keppra) take 3 tablets by mouth twice a day (Patient taking differently: Take 2.5 Tablets by mouth in the morning and 2.5 Tablets before bedtime. Weaning him off currently. .) 180 Tab 5 Lisinopril 5 MG Oral Tablet (Prinivil) Take 1 Tab by mouth daily. 90 Tab 1 diazePAM 5 MG Oral Tablet (Valium) Take 1 Tab by mouth 2 times a day. 60 Tab 0 Apixaban 5 MG Oral Tablet (Eliquis) Take 1 Tab by mouth 2 times a day. 180 Tab 1 Chlorhexidine Gluconate 0.12 % Mouth/Throat Solution (Periogard) Use 2 times a day. Swab on teeth /gums and spit out excess 473 mL 4 DIAPERS & SUPPLIES [facility] use 7-8 everyday 300 11 Toothette Plus Untreated Mouth/Throat Swab Use with peridex 20 Each 10 No current facility-administered medications for this visit. Review of patient's allergies indicates: Allergen Reactions Augmentin [Clavulanic Acid] Rash Diaper rash at 3 yrs old Social History Socioeconomic History Marital status: Single Spouse name: Not on file Number of children: Not on file Years of education: Not on file Highest education level: Not on file Occupational History Not on file Tobacco Use Smoking status: Never Smokeless tobacco: Never Vaping Use Vaping status: Never Used Substance and Sexual Activity Alcohol use: No Drug use: No Sexual activity: Not on file Other Topics Concern Not on file Social History Narrative Not on file Social Determinants of Health Financial Resource Strain: Not on file Food Insecurity: No Food Insecurity (06/07/2021) Hunger Vital Sign Worried About Running Out of Food in the Last Year: Never true Ran Out of Food in the Last Year: Never true Transportation Needs: Not on file Physical Activity: Not on file Stress: Not on file Social Connections: Not on file Intimate Partner Violence: Not on file Housing Stability: Not on file Family History Problem Relation Name Age of Onset Arthritis Grandmother (Paternal) Asthma Brother when younger Diabetes Grandmother (Paternal) Cancer Grandfather (Paternal) kidney Genitourinary Disorder Mother Polycystic kidney Genitourinary Disorder Aunt (Unspecified) maternal polycystic kidney Genitourinary Disorder Aunt (Unspecified) maternal- polycystic kidney Genitourinary Disorder Grandfather (Maternal) polycystic kidney Hypertension Mother Hypertension Aunt (Unspecified) Hypertension Grandfather (Maternal) Hypertension Aunt (Unspecified) Family Status Relation Status Mo Alive Fa Alive Sis Alive MGMA Alive MGFA Alive PGMA Alive PGFA at age 50s renal ca Bro (Not Specified) AUNT (Not Specified) AUNT (Not Specified) AUNT (Not Specified) AUNT (Not Specified) PHYSICAL EXAMINATION: BP Readings from Last 6 Encounters: 03/04/24 115/77 10/11/23 118/74 08/25/22 125/80 06/07/21 114/76 05/25/20 149/84 04/19/20 126/77 Wt Readings from Last 6 Encounters: 03/04/24 72.6 kg (160 lb) 11/11/19 78.9 kg (174 lb) 10/20/19 76.7 kg (169 lb) 10/20/19 76.7 kg (169 lb) 07/14/19 76.7 kg (169 lb) 04/29/19 75.9 kg (167 lb 4.8 oz) Pulse Readings from Last 6 Encounters: 03/04/24 65 08/25/22 56 06/07/21 67 05/25/20 76 04/19/20 72 03/02/20 64 NAD, alert, nonverbal, in w/c atraumatic, eomi nonicteric sclerae MMM; smacks lips Supple neck RRR w/o m/g/r; no edema in TEDS CTAB w/ reduced air mvt NT abd, +BS, soft No CVA TTP, + diaper No cyanosis or clubbing No rash No tremor, moves BLUE / claps, mom gives hx LABS: 09/01/23 137/ 4/ 105/ / / ; alb 4.6 UA> 1009; cloudy; 1+ protein, 3+ blood, 3+ LE E facalis on ur cx PERTINENT IMAGING INFO: [facility] 08/2023 non con PCKD; cannot exclude mass on non con study BL nephrolithiasis w/o hydro Evidence of prior L endarterectomy w/oe/o metastatic dz ASSESSMENT AND PLAN: ADPKD (autosomal dominant polycystic kidney disease) (Primary) - COMPREHENSIVE METABOLIC PANEL - CBC WITH WBC DIFFERENTIAL - MAGNESIUM - PTH - 25-HYDROXY VITAMIN D - URIC ACID - LIPID PANEL WITH DIRECT LDL IF TG IS HIGH Spastic quadriplegic cerebral palsy (HCC) - LEVETIRACETAM LEVEL - VALPROIC ACID LEVEL Check-out note: -pls have mom sign release of info for pt's last clinic note from [facility] genetics visit Dr Martin Rodriguez -to lab PCKD > w/ normal blood tests of kidney function and normal bp -CT scan to calculate total cyst volume > nurse pool reminder sent to have them place order; ok for IV contrast -update full lab panel today -cont lisinopril dose ok Mom asks for drug levels since blood work upsettin to pt; assures me he's at proper po status for these labs and providers rx'ing these meds will receive/respond to these levels Patient Instructions -will get a copy of last note w/ genetics team at [facility] -labs today/ blood tests -recommend straight cath w/ PCP and/or urology to get urine specimens to assess for urine inflammation, ?infection, and to check proteinuria status (lab slips given) -no change to current meds --avoid medicines like aleve, advil, ibuprofen, aspirin more than 81 mg daily and other NSAIDS which are not good for kidney patients. Take only tylenol (acetaminophen) up to 2000 mg daily as needed for pain or as directed by your primary care provider. -will arrange scan to assess cyst volume and try to get better picture of cysts/evaluate for renal masses Dior Koehler MD CC: Ref: SIMEON MORGAN[[id number]] [address] [address] (office) [phone] (fax) PCP: SIMEON MORGAN [address] [address] [phone] This chart was completed in part utilizing [employer] Speech Voice Recognition Software. Randomword insertions, pronoun errors, and incomplete sentences are an occasional consequence of this system due to software limitations, and ambient noise. Any questions or concerns about the content, text, or information contained within the body of this dictation should be directly addressed to the provider for clarification. documented in this encounter Nursing Notes * Mago Brown RN - 03/04/2024 8:34 AM EDT New patient today with history of PCKD. Mother accompanies this pt today. She denies any recent illness or hospital stays. Was last seen by Dr Chun. Has not had any labs recently. Follows with Dr Morgan at [facility]. documented in this encounter Miscellaneous Notes * Result Encounter Note - Dior Koehler MD - 03/06/2024 5:22 PM EDT Kidney labs stable; numerous labs were drawn [...] 10:00 AM EDT Office Visit Pediatric Cardiology, [place] [address] [place] [address] Clint Liz MD [address] [place] [address] 05/16/2024 7:45 AM EDT Hospital Encounter [place] [facility], OPERATING ROOM [facility], [facility] [address] [place] [address] Giovani Simon, DMD [address] [place] [address] 05/16/2024 7:45 AM EDT - 05/16/2024 1:05 PM EDT Surgery OR [facility], OPERATING ROOM [facility] [address] [place] [id number] Giovani Simon DMD [address], [place] [id number] COMPREHENSIVE ORAL EXAM Scheduled Orders Name Type Priority Associated Diagnoses Orde r Schedule URINALYSIS WITH MICROSCOPIC EXAM Lab Routine Recurrent UTI Bacteriuria, asymptomatic Ordered: 03/04/2024 URINALYSIS, REFLEX TO CULTURE (NOT FOR NEUTROPENIC PATIENTS) Lab Routine Recurrent UTI Bacteriuria, asymptomatic Ordered: 03/04/2024 PROTEIN/ CREATININE RATIO, URINE Lab Routine ADPKD (autosomal dominant polycystic kidney disease) Ordered: 03/04/2024 ALBUMIN / CREATININE RATIO, URINE Lab Routine ADPKD (autosomal dominant polycystic kidney disease) Ordered: 03/04/2024 Scheduled Procedures Name Priority Associated Diagnoses Date/Ti [...] ( season) 2023 Influenza Vaccine (FLU shot) (Season [...] Procedure Name Priority Date/Time Associated Diagnosis Comments DIFFERENTIAL, AUTOMATED Routine 03/04/2024 9:51 AM EDT ADPKD (autosomal dominant polycystic kidney disease) LEVETIRACETAM LEVEL Routine 03/04/2024 9 :51 AM EDT Spastic quadriplegic cerebral palsy (HCC) LIPID PANEL WITH DIRECT LDL IF TG IS HIGH Routine 03/04/2024 9:51 AM EDT ADPKD (autosomal dominant polycystic kidney disease) 25-HYDROXY VITAMIN D Routine 03/04/2024 9:51 AM EDT ADPKD (autosomal dominant polycystic kidney disease) COMPREHENSIVE METABOLIC PANEL Routine 03/04/2024 9:51 AM EDT ADPKD (autosomal dominant polycystic kidney disease) CBC Routine 03/04/2024 9:51 AM EDT ADPKD (autosomal dominant polycystic kidney disease) PTH Routine 03/04/2024 9:51 AM EDT ADPKD (autosomal dominant polycystic kidney disease) VALPROIC ACID LEVEL Routine 03/04/2024 9 :51 AM EDT Spastic quadriplegic cerebral palsy (HCC) CBC Routine 03/04/2024 9:51 AM EDT ADPKD (autosomal dominant polycystic kidney disease) URIC ACID Routine 03/04/2024 9:51 AM EDT ADPKD (autosomal dominant polycystic kidney disease) MAGNESIUM Routine 03/04/2024 9:51 AM EDT ADPKD (autosomal dominant polycystic kidney disease) documented in this encounter Results * DIFFERENTIAL, AUTOMATED (03/04/2024 9:51 AM EDT) Pathologist [facility] WBC 4.91 4.00 - 10.80 K/uL 03/04/2024 9:58 AM EDT [facility]02 Neutrophils % 61.9 40.0 - 75.0 % 03/04/2024 9:58 AM EDT LABORATORY [facility] 56-02 Lymphocytes % 25.3 18.0 - 42.0 % 03/04/2024 9:58 AM EDT [facility]02 Monocytes % 10.2 1.0 - 11.0 % 03/04/2024 9:58 AM EDT [facility] 56-02 Eosinophils % 2.4 0.0 - 6.0 % 03/04/2024 9:58 AM EDT [facility] 56-02 Basophils % 0.2 0.0 - 2.0 % 03/04/2024 9:58 AM EDT [facility] 56[facility]02 Absolute Neutrophils 3.04 1.80 - 7.70 K/uL 03/04/2024 9:58 AM EDT [facility] 56-02 Absolute Lymphocytes 1.24 1.00 - 4.80 K/ul 03/04/2024 9:58 AM EDT [facility] 56[facility]02 Absolute Monocytes 0.50 0.00 - 1.10 K/uL 03/04/2024 9:58 AM EDT [facility] 56[facility]02 Absolute Eosinophils 0.12 0.00 - 0.70 K/uL 03/04/2024 9:58 AM EDT LABORATORY [facility] 56-02 Absolute Basophils 0.01 0.00 - 0.20 K/uL 03/04/2024 9:58 AM EDT [facility] [place] 56-02 Blood Venous blood specimen / Unknown Venipuncture / Unknown 03/04/2024 9:51 AM EDT 03/04/2024 9:51 AM EDT Dior Koehler MD LAB BLOOD ORDERAB LES [facility] 56- [address] [place] [address] * (ABNORMAL) CBC (03/04/2024 9:51 AM EDT) WBC 4.91 4.00 - 10.80 K/uL 03/04/2024 9:58 AM EDT [facility] 56- RBC 4.54 4.50 - 5.25 M/uL 03/04/2024 9:58 AM EDT [facility] 56 HGB 13.7(L) 14.0 - 16.8 g/dL 03/04/2024 9:58 AM EDT [facility] 56 HCT 41.5 40.0 - 48.4 % 03/04/2024 9:58 AM EDT [facility] 56- MCV 91.4 82.0 - 99.5 fL 03/04/2024 9:58 AM EDT [facility] 56- MCH 30.2 27.0 - 34.0 pg 03/04/2024 9:58 AM EDT [facility] 56- MCHC 33.0 32.0 - 36.0 g/dL 03/04/2024 9:58 AM EDT [facility] 56- RDW 13.6 11.5 - 15.5 % 03/04/2024 9:58 AM EDT [facility] 56- PLT 171 140 - 400 K/uL 03/04/2024 9:58 AM EDT [facility] 56- MPV 11.9 6.6 - 11.1 fL 03/04/2024 9:58 AM EDT [facility] 56- Blood Venous blood specimen / Unknown Venipuncture / Unknown 03/04/2024 9:51 AM EDT 03/04/2024 9:51 AM EDT Dior Koehler MD LAB BLOOD ORDERAB LES [facility] 56-[address] [place] [address] * VALPROIC ACID LEVEL (03/04/2024 9:51 AM EDT) Valproic Acid Level 62 50 - 100 ug/mL 03/04/2024 8:46 PM EDT LABORATORY C Blood Venous blood specimen / Unknown Venipuncture / Unknown 03/04/2024 9:51 AM EDT 03/04/2024 9:51 AM EDT Dior Koehler MD LAB BLOOD ORDERAB LES Performing Organization Address City/[facility]/ZIP Co de Phone Number LABORATORY [facility] [address] [place] [address] * LEVETIRACETAM LEVEL (03/04/2024 9:51 AM EDT) Pathologist [facility] Levetiracetam 50 3 - 63 ug/mL 03/05/2024 10:21 AM EDT LAB[facility]ATORY [facility] Blood Venous blood specimen / Unknown Venipuncture / Unknown 03/04/2024 9:51 AM EDT 03/04/2024 9:51 AM EDT Dior Koehler MD LAB BLOOD ORDERAB LES Performing Organization Address [facility]/ZIP Co de Phone Number LABORATORY [facility] [address] [place] [address] * (ABNORMAL) LIPID PANEL WITH DIRECT LDL IF TG IS HIGH (03/04/2024 9:51 AM EDT) Triglycerides 213(H) <=174 mg/dL 03/04/2024 8:46 PM EDT LABORATORY [facility] Comment: Triglyceride Reference Ranges (mg/dL): <150 Acceptable 150-174 Borderline high 175-499 High >=500 Very high Cholesterol 186 <200 mg/dL 03/04/2024 8:46 PM EDT LABORATORY [facility] Comment: Total Cholesterol Reference Ranges (mg/dL): <200 Desirable 200-239 Borderline high >=240 High HDL Cholesterol 37(L) >39 mg/dL 8:46 PM EDT LABORATORY [facility] Comment: HDL Cholesterol Reference Ranges (mg/dL): >=60 High (Desirable) <50 Low (Undesirable) For Females <40 Low (Undesirable) For Males Non-HDL Cholesterol 149 <=159 mg/dL 03/04/2024 8:46 PM EDT LABORATORY [facility] Comment: Non-HDL Cholesterol Reference Range (mg/dL): <100 Target level for high risk ASCVD patient <130 Optimal for general population 130-159 Near optimal for general population 160-189 Borderline High 190-219 High >=220 Very High LDL Cholesterol 106 <=129 mg/dL 03/04/2024 8:46 PM EDT LAB[facility]ATORY [facility] Comment: LDL Cholesterol Reference Ranges (mg/dL): <70 Target level for high risk ASCVD patient <100 Optimal for general population 100-129 Near optimal for general population 130-159 Borderline high 160-189 High >=190 Very high Blood Venous blood specimen / Unknown Venipuncture / Unknown 03/04/2024 9:51 AM EDT 03/04/2024 9:51 AM EDT Dior Koehler MD LAB BLOOD ORDERAB LES [facility] [address] [place] [address] * URIC ACID (03/04/2024 9:51 AM EDT) Uric Acid 6.4 3.4 - 7.0 mg/dL 03/04/2024 8:46 PM EDT LABORATORY [facility] Blood Venous blood specimen / Unknown Venipuncture / Unknown 03/04/2024 9:51 AM EDT 03/04/2024 9:51 AM EDT Dior Koehler MD LAB BLOOD ORDERAB LES [facility] [address] [place] [address] * (ABNORMAL) 25-HYDROXY VITAMIN D (03/04/2024 9:51 AM EDT) 25-Hydroxy Vitamin D 15(L) >19 ng/mL 03/04/2024 9:30 PM EDT LAB[facility]ATORY [facility] Blood Venous blood specimen / Unknown Venipuncture / Unknown 03/04/2024 9:51 AM EDT 03/04/2024 9:51 AM EDT Narrative LABORATORY [facility] - 03/04/2024 9:30 PM EDT Deficient: <20 ng/mL Insufficient: 20-29 ng/mL Recommended/Optimum:30-50 ng/mL Vitamin D intoxication is rare. If suspicious of Vitamin D toxicity, evaluation of serum Calcium and PTH is recommended. Dior Koehler MD LAB BLOOD ORDERAB LES [facility] [address] [place] [address] * PTH (03/04/2024 9:51 AM EDT) Pathologist [facility] PTH 40 15 - 65 pg/mL 03/04/2024 9:30 PM EDT LAB[facility]ATORY [facility] [place] Blood Venous blood specimen / Unknown Venipuncture / Unknown 03/04/2024 9:51 AM EDT 03/04/2024 9:51 AM EDT Dior Koehler MD LAB BLOOD ORDERAB LES Performing Organization Address [facility] Co de Phone Number LABORATORY [facility] [place] [address] [place] [address] * MAGNESIUM (03/04/2024 9:51 AM EDT) Pathologist [facility] Magnesium 2.1 1.5 - 2.6 mg/dL 03/04/2024 10:47 AM EDT LABORATORY [place] 56-02 Blood Venous blood specimen / Unknown Venipuncture / Unknown 03/04/2024 9:51 AM EDT 03/04/2024 9:51 AM EDT Dior Koehler MD LAB BLOOD ORDERAB LES [facility] 56-02 [address] [place] [address] * (ABNORMAL) COMPREHENSIVE METABOLIC PANEL (03/04/2024 9:51 AM EDT) BUN 23(H) 6 - 20 mg/dL 03/04/2024 10:47 AM EDT [facility] 56 Creatinine 1.1 0.6 - 1.2 mg/dL 03/04/2024 10:47 AM [facility] 56 Estimated Glomerular Filtration Rate 90 >=60 mL/min 03/04/2024 10:47 AM [facility] 56 Comment:eGFR is calculated b ased on the CKD-EPI 2020 equation Sodium 141 135 - 146 mmol/L 03/04/2024 10:47 AM [facility] 56 Potassium 4.4 3.5 - 5.1 mmol/L 03/04/2024 10:47 AM [facility] 56 Chloride 105 98 - 107 mmol/L 03/04/2024 10:[address] CO2 25 22 - 32 mmol/L 03/04/2024 10:47 AM [facility] 56 Anion Gap 11 7 - 15 mmol/L 03/04/2024 10:47 AM [facility] 56 Glucose 92 70 - 120 mg/dL 03/04/2024 10:47 AM [facility] 56 Albumin 4.7 3.8 - 5.0 g/dL 03/04/2024 10:47 AM [facility] 56- AST 11 10 - 50 U/L 03/04/2024 10:47 AM [facility] 56 Alkaline Phosphatase 64 35 - 130 U/L 03/04/2024 10:47 AM [facility] 56- Bilirubin, Total 0.6 <=1.2 mg/dL 03/04/2024 10:47 AM [facility] 56- Calcium 9.8 8.4 - 10.2 mg/dL 03/04/2024 10:47 AM [facility] 56- Protein 6.9 6.0 - 8.3 g/dL 03/04/2024 10:47 AM [facility] ALT 27 10 - 50 U/L 03/04/2024 10:47 AM EDT [facility] Blood Venous blood specimen / Unknown Venipuncture / Unknown 03/04/2024 9:51 AM EDT 03/04/2024 9:51 AM EDT Dior Koehler MD LAB BLOOD ORDERAB LES [facility] [address] [place] [address] documented in this encounter Visit Diagnoses Diagnosis ADPKD (autosomal dominant polycystic kidney disease)- Primary Polycystic kidney, 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 Question Answer Comments Discussion of Advance Directives occurred with: Family Care Teams Childcare Teacher Relationship Specialty Start Date End Date Simeon Morgan DO [address] [place] [address] PCP - General Family Medicine 07/14/22 documented as of this encounter
--- OUTSIDE RECORDS SUMMARY | 2024-05-18 19:16 | External Medical Summary | Summary of Care ---
Author Name Unknown Organization [facility] Address [address] [place] [address] Phone [phone] Care Team Providers Care Cylinder Valve Repairer Name Role Phone Simeon Garner Primary Care Provider Reason for Referral * Precert (Within 10 days (routine)) - Pending Review Specialty Diagnoses / Procedures Referred By Contac t Referred To Contact Radiology Diagnoses Ascending aorta dilatation (HCC) Congenital aortic valve insufficiency Microcephalus (HCC) S/P atrial septal defect closure S/P ventricular septal defect closure Procedures CTA CHEST NON-CORONARY W CONTRAST Clint Liz MD [address] [place] [address] Referral ID Status Reason Start Date Expiration Date V isits Requested Visits Authorized [id number] Pending Review 03/25/2024 999 999 * Precert (Within 10 days (routine)) - Pending Review Specialty Diagnoses / Procedures Referred By Contac t Referred To Contact Cardiac Studies Diagnoses Ascending aorta dilatation (HCC) Congenital aortic valve insufficiency Microcephalus (HCC) S/P atrial septal defect closure S/P ventricular septal defect closure Procedures PEDS ECHO, TTE CONGENITAL LIMITED Clint Liz MD [address] [place] [address] Referral ID Status Reason Start Date Expiration Date Visits Requested Visits Authorized [id number] Pending Review Precert 03/25/2025 999 999 Reason for Visit * Reason Comments Follow Up Encounter Details Date Type Department Care Team (Late st Contact Info) Description 03/25/2024 10:00 AM EDT Office Visit Pediatric Cardiology, [place] [address] [place] [address] Clint Liz MD [address] [place] [address] Ascending aorta dilatation (HCC)*; Congenital aortic valve insufficiency; Microcephalus (HCC); S/P atrial septal defect closure; S/P ventricular septal defect closure Allergies Active Allergy Reactions Criticality Noted Date Comments Clavulanic Acid Rash 05/31/2006 Diaper rash at 3 yrs old documented as of this encounter (statuses as of 03/25/2024) Medications Medication Sig Dispensed Refills Start Date [...] as of this encounter (statuses as of 03/25/2024) Active Problems Problem Noted Date Diagnosed Date [...] as of this encounter (statuses as of 03/25/2024) Resolved Problems Problem Noted Date Diagnosed Date Resolved Date 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 04/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, N0, M0, S0) - Signed by Luis Billingsley MD on 03/26/2017 documented as of this encounter (statuses as of 03/25/2024) Immunizations Name Administration Dates Next Due Meningococcal [...] Sign Reading Time Taken Comments Blood Pressure 125/76 03/25/2024 10:01 AM EDT Pulse 56 03/25/2024 10:01 AM EDT Temperature - - Respiratory Rate 18 03/25/2024 10:01 AM EDT Oxygen Saturation 97% 03/25/2024 10:01 AM EDT Inhaled Oxygen Concentration - - Weight 72.6 kg (160 lb) 03/25/2024 10:01 AM EDT per mother Height - - Body Mass Index [...] No 04/08/2018 documented as of this encounter Progress Notes * Clint Liz MD - 03/25/2024 10:00 AM EDT [facility] Adult Congenital Cardiology Office Note 03/24/2024 Michael Jane Date of : 1990 Age: [age] year old Date of visit: 03/24/2024 Primary Care Provider: Simeon Garner, DO Referring provider if different: Historian: mother I had the pleasure of seeing Michael today. Known diagnoses: ICD-10-CM 1. Ascending aorta dilatation (HCC) I77.810 2. Congenital aortic valve insufficiency Q23.1 3. Microcephalus (HCC) Q02 4. S/P atrial septal defect closure Z87.74 5. S/P ventricular septal defect closure Z87.74 His mother says she is concerned about his dental health and how that may affect his heart. He had a CT done in the ED earlier this year for hematuria and the report included the phrase "The heart ismildly enlarged." This caused some concern; she contacted me and we made plans to bring him in soonfor further evaluation to included serial imaging of the aorta, the aortic valve and to also assessthe heart size. She tries to brush his teeth twice daily but it's difficult. He has cavities. Cannot get work done on them until April. He clutches his chest from time to time. Also has body spasms that have been unexplained. Some care is provided at [facility]: Neurology and Genetics. Mom notices that he is hypermobile and concerned he may have EDS. Genetics did not offer testing, not sure what the diagnosis is yet. 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 ANESTHESIA FOR CAT OR MRI SCAN 12/27/2010 ANESTHESIA FOR NON-INVASIVE IMAGING (MRI OR CT) performed by [facility] ANESTHESIA FOR CAT OR MRI SCAN 02/19/2014 ANESTHESIA FOR NON-INVASIVE IMAGING (MRI OR CT) performed by [facility] ANESTHESIA FOR CAT OR MRI SCAN N/A 04/29/2019 ANESTHESIA FOR NON-INVASIVE IMAGING (MRI OR CT) performed by [facility] IMPACT TOOTH REMOV PART BONY 08/04/2011 REM IMPACTED TOOTH - PART BONY performed by GIOVANI SIMON [facility] INCISION OF TENDON SHEATH 1991 tendon release bilat feet INCISION OF TENDON SHEATH 1996 tendon release bilat feet. REMOVAL OF TAIL BONE 1990 partial removal/protruding coccyx REPAIR HEART SEPTUM DEFECTS 1988 4 months of age. ASD/VSD Medications Current Outpatient Medications Medication Sig Dispense Refill [facility] [place] use 7-8 everyday 300 11 ACETAMINOPHEN 500 MG PO TABS NEEDED Zonisamide [...] and spit out excess 473 mL 4 Toothette Plus Untreated Mouth/Throat Swab Use with peridex 20 Each 10 Vitamin D3 25 MCG (1000 UT) Oral Capsule Take 2 Capsules by mouth in the morning. No current facility-administered medications for this visit. Family History Family History Problem Relation Name Age of Onset Arthritis Grandmother (Paternal) Asthma Brother when younger Diabetes Grandmother (Paternal) Cancer Grandfather (Paternal) kidney Genitourinary Disorder Mother Polycystic kidney Genitourinary Disorder Aunt (Unspecified) maternal polycystic kidney Genitourinary Disorder Aunt (Unspecified) maternal- polycystic kidney Genitourinary Disorder Grandfather (Maternal) polycystic kidney Hypertension Mother Hypertension Aunt (Unspecified) Hypertension Grandfather (Maternal) Hypertension Aunt (Unspecified) No family history of congenital heart disease or sudden cardiac Social History Lives with family Allergies Review of patient's allergies indicates: Allergen Reactions Augmentin [Clavulanic Acid] Rash Diaper rash at 3 yrs old Physical Examination BP 125/76 (BP Site: Right Arm, BP Position: Sitting, BP Cuff Size: Regular) | Pulse 56 | Resp 18 | Wt 72.6 kg (160 lb) Comment: per mother | SpO2 97% | BMI 28.34 kg/m | BSA 1.8 m General: no acute distress, cooperative, acyanotic, and in a wheelchair Head: atraumatic Neck: supple and no masses, JVD: none Lungs: clear to auscultation and good air movement bilaterally Chest: Scars: sternotomy scar. Deformity: none Abdomen: abdomen soft, non-tender, limited exam Extremities: no edema, no clubbing, no cyanosis Pulses: normal upper and lower extremity pulses Skin: warm, no rashes, and no skin lesions Cardiac Exam Palpation: Precordium: normal impulses, non-tender, and no thrill Auscultation: Quality of auscultation: adequate Rhythm: regular S1: normal intensity, S2: normal intensity, Clicks: none, Gallops: none, Rub: None Systolic Murmurs: none Diastolic murmurs: early diastolic murmur II out of IV, high pitched at mid left sternal border andlower left sternal border Continuous murmur: none My physical examination did not reveal any evidence of abuse. Testing Tests reviewed: 2021 echo Interpretation Summary Abnormal transthoracic echocardiogram . The left ventricle is normal in structure,size and function. The aortic valve is not well visualized. Aortic stenosis is absent. There is trivial aortic insufficiency . The aortic root is normal. The ascending aorta is mildly dilated . Tests done today: Limited echo Dilated aorta, around 4.1-4.2 max but imaging is poor and these may be a little inaccurate Mild to moderate aortic insufficiency, very eccentric jet, very difficult to measure LV is normal size and function No significant mitral valve regurgitation Trace tricuspid valve regurgitation, normal Impression ICD-10-CM 1. Ascending aorta dilatation ([facility]) I77.810 2. Congenital aortic valve insufficiency Q23.1 3. Microcephalus ([facility]) Q02 4. S/P atrial septal defect closure Z87.74 5. S/P ventricular septal defect closure Z87.74 Fortunately his heart is not enlarged as suggested by the CT report. However his aorta is dilated. I reviewed prior reports and images; all are of limited quality due to poor echo windows and poor imaging of the ascending aorta. I re-made measurements and overall I think that there is either no change or at the most, 1-2 mm more than 3 years ago. The aortic insufficiency is not severe. Again it's hard to compare studies and be accurate about this, but it's mild to at the most perhaps moderate, but not severe. The LV health is good. It would be helpful to obtain an occasional CT of the aorta to get a better handle on it since his echo's are difficult. We'll try to piggyback on to the scheduled renal CT next week; otherwise, another time. This will depend on contrast load and renal function. I have a call in to CT techs and Nephrology about this. My recommendations are as follows: Tests (ordered) Aortic CT with contrast Treatment None for now Ensure BP control; his has been OK Follow up visits, if any Follow up in 1 year Testing to be done prior to next visit: None Testing to be done at the next visit: Limited Echocardiogram Other recommendations Endocarditis risk: There is an increased lifetime risk of endocarditis; however, AHA found no benefit of prophylactic antibiotics for patients with this lesion. Prophylaxis is not recommended. Attention to good dental hygiene is strongly recommended as this may be the best prevention. This was discussed with those present today. Thank you sincerely for referring Michael to us. Please call me if you have any questions at [phone]. If I can help you further, please don't hesitate to contact me. I spent a total of 40-54 minutes (exact time 54 mins) on the date of service in preparation, delivery, and documentation of the care provided to Michael Jane excluding any time spent in the performance of separately billed services. ADDENDUM I spoke to CT techs and they state that the renal CTA and chest CTA can be combined with one contrast load. Images are obtained at different phases so both can be done at the same sitting Chest CTA ordered Clint Liz MD 03/24/2024 10:11 PM documented in this encounter Plan of Treatment Upcoming Encounters Date Type Department Care Team (Latest Contact Info) Description 03/31/2024 3:15 PM EDT Imaging Radiology [facility] [place] [address] [facility] [place] [address] 05/16/2024 7:45 AM EDT Hospital Encounter [facility], OPERATING ROOM [facility] [place] [address] [address] Giovani Simon, DMD [address] [place] [address] 05/16/2024 7:45 AM EDT - 05/16/2024 1:05 PM EDT Surgery [facility], OPERATING ROOM [facility] [place] [address] [place] [address] Giovani Simon, DMD [address] [place] [address] COMPREHENSIVE ORAL EXAM Scheduled Orders Name Type Priority Associated Diagnoses Orde r Schedule PEDS ECHO, TTE CONGENITAL LIMITED Echocardiology Routine Ascending aorta dilatation (HCC) Congenital aortic valve insufficiency Microcephalus (HCC) S/P atrial septal defect closure S/P ventricular septal defect closure Expected: 03/25/2025 (Approximate), Expires: 04/25/2026 CTA CHEST NON-CORONARY W CONTRAST Medical Imaging Routine Ascending aorta dilatation (HCC) Congenital aortic valve insufficiency Microcephalus (HCC) S/P atrial septal defect closure S/P ventricular septal defect closure Ordered: 03/25/2024 Scheduled Procedures Name Priority Associated Diagnoses Date/Ti [...] as of this encounter Visit Diagnoses Diagnosis Ascending aorta dilatation (HCC)- Primary Thoracic aortic ectasia Congenital aortic valve insufficiency Congenital insufficiency of aortic valve Microcephalus (HCC) Microcephalus S/P atrial septal defect closure Other postprocedural status S/P ventricular septal defect closure Other postprocedural status Intellectual disability Unspecified intellectual disabilities documented in this encounter Advance Directives * Full Code (Latest Code Status on File) Date Activated Date Inactivated Comments 04/08/2018 8:23 AM 04/14/2018 7:04 PM This order r eflects the patients wishes and were consensually agreed upon. Question Answer Comments Discussion of Advance Directives occurred with: Family Care Teams Cylinder Valve Repairer Relationship Specialty Start Date End Date Simeon Garner DO [address] [place] [address] PCP - General Family Medicine 07/14/22 documented as of this encounter
--- OUTSIDE RECORDS SUMMARY | 2024-05-18 19:16 | External Medical Summary ---
Author Name Unknown Address Unknown Organization K01:LABORATORY [facility] - [address] [place] [address] Laboratory Report Ordering Provider Test Date Status ELLIOT YOUNGER 03/04/2024 09:51:15 Final Observation Date Value Abnormality Reference (Units ) Status Levetiracetam level 03/04/2024 09:51:15 50 3-63 (ug/mL) Final Performing Location LAB[facility]ATORY [facility] [address] [place] [address]
--- OUTSIDE RECORDS SUMMARY | 2024-05-18 19:16 | External Medical Summary | Summary of Care ---
Author Name Unknown Organization [facility] Address [address] [place] [address] Phone [phone] Care Team Providers Care Electrochemist Name Role Phone Simeon Garner Primary Care Provider Reason for Referral * Precert (Within 10 days (routine)) - Pending Review Specialty Diagnoses / Procedures Referred By Elizabeth lujan Referred To Contact Radiology Diagnoses ADPKD (autosomal dominant polycystic kidney disease) Procedures CT KIDNEY W WO IV CONTRAST - WO ORAL CONTRAST CT KIDNEY W WO IV CONTRAST - WO ORAL CONTRAST Dior Koehler MD [address] [place] [address] [id number] Referral ID Status Reason Start Date Expiration Date V isits Requested Visits Authorized [id number] Pending Review 03/31/2024 999 999 Reason for Visit * Reason Onset Date Comments Outpatient Testing 03/17/2024 Encounter Details Date Type Department Care Team (Late st Contact Info) Description 03/17/2024 Telephone [facility] [address] [place] [address] [id number] Dior Koehler MD [address] [id number] Outpatient Testing Allergies Active Allergy Reactions Criticality Noted Date Comments Clavulanic Acid Rash 05/31/2006 Diaper rash at 3 yrs old documented as of this encounter (statuses as of 03/17/2024) Medications Medication Sig Dispensed Refills Start Date [...] as of this encounter (statuses as of 03/17/2024) Active Problems Problem Noted Date Diagnosed Date [...] as of this encounter (statuses as of 03/17/2024) Resolved Problems Problem Noted Date Diagnosed Date Resolved Date 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 04/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 Aware that Dr Koehler would like a CT scan. Mother in agreement and order placed. * Telephone Encounter - Mago Brown RN - 03/17/2024 12:58 PM EDT ----- Message from Dior Koehler MD sent at 03/16/2024 9:53 PM EDT ----- Regarding: PCKD pt needs baseline CT to calc volume -CT scan to calculate total cyst volume > nurse pool reminder sent to have them place order; ok for IV contrast documented in this encounter Plan of Treatment Upcoming Encounters Date Type Department Care Team (Latest Contact Info) Description 03/25/2024 10:00 AM EDT Office Visit Pediatric Cardiology, [place] [address] [place] [address] Clint Liz MD [address] [place] [address] 05/16/2024 7:45 AM EDT Hospital Encounter [place] [facility] [facility] [place] [address] [place] [id number] Giovani Simon, DMD [address] [place] [address] 05/16/2024 7:45 AM EDT - 05/16/2024 1:05 PM EDT Surgery [place] [facility] [facility] [facility] [address] [place] [address] Giovani Simon, DMD [address] [place], [place] [id number] COMPREHENSIVE ORAL EXAM Scheduled Orders Name Type Priority Associated Diagnoses Orde r Schedule CT KIDNEY W WO IV CONTRAST - WO ORAL CONTRAST Medical Imaging Routine ADPKD (autosomal dominant polycystic kidney disease) Expected: 03/31/2024 (Approximate), Expires: 04/16/2025 Scheduled Procedures Name Priority Associated Diagnoses Date/Ti [...] Advance Directives occurred with: Family Care Teams Electrochemist Relationship Specialty Start Date End Date Simeon Garner DO [address] [address] PCP - General Family Medicine 07/14/22 documented as of this encounter
--- OUTSIDE RECORDS SUMMARY | 2024-05-18 19:16 | External Medical Summary | Continuity of Care Document ---
Author Name Unknown Organization [facility] [address] [address] [place] [address] [phone] Care Team Providers Care Brokerage Manager Name Role Phone Simeon Garner Primary Care Physician [phone] Encounter [facility] [id number] Date(s): 03/18/24 - 03/18/24 [facility] [address] [facility] [address] [address] [place] [phone] Encounter Diagnosis Constipation(Discharge Diagnosis) - 03/18/24 Recurrent UTI(Discharge Diagnosis) - 03/18/24 Development delay(Discharge Diagnosis) - 03/18/24 Dystonic movements(Discharge Diagnosis) - 03/18/24 Epilepsy(Discharge Diagnosis) - 03/18/24 Discharge Disposition: Home or Self Care Attending Physician: DO Garner Franklin J Allergies, Adverse Reactions, Alerts Substance Criticality Severity Reaction Reaction Severity Status Augmentin Rash Active Assessment and Plan Extracted from: Title:General Exam * Author:DO Garner Franklin J Date:03/18/24 Impression and Plan Diagnosis Recurrent UTI (DZN11-BI N39.0, Discharge, Medical). Epilepsy (WMT75-EW G40.909, Discharge, Medical). 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 Development delay (URZ95-YG R62.50, Discharge, Medical). Constipation (QHR64-JM K59.00, Discharge, Medical). Plan: Neuro developmental delay/Cerebral palsy with spasm/Seizure history (chronic/stable) Neurology consultation reviewed; increased level of alertness as Depakote is decreased Recent lab work completed by neurology with regards to medication levels. Elevated triglycerides (new) Slight elevation of serum triglycerides is not overly concerning at his age. Too young to use cardiovascular risk calculator; LDL is very good, so even at age 44, would not be in a statin benefit group. No intervention other than dietary modification at this point Would recheck in 1-2 years. Constipation (chronic/stable) Prescription for Dulcolax suppositories every other day sent to pharmacy History of DVT (chronic/stable) Hypercoagulability workup was negative (results printed for mom) It sounds as if it was an unprovoked clot, and even with a negative workup, I suspect he is at increased risk due to his general immobility For now, continue apixaban 5 mg p.o. twice daily for now Minimal risk for fall, and has had no difficulties with anticoagulation thus far Polycystic kidney disease (chronic/stable) Recent blood work completed at outside facility shows preserved renal function Kidneys looked unchanged on CT scan of the abdomen pelvis in the emergency department (09/15) Repeat CT scan scheduled Nephrology has ordered repeat urinalysis I placed order for medical outpatient services to perform straight catheterization (mom will try to self schedule, let us know if she has difficulty) GERD (chronic/stable) Improved since we added famotidine Continue famotidine 20 mg p.o. 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 He was diagnosed with a left testicular seminoma, status post left orchiectomy, normal alpha-fetoprotein level and beta hCG level. He was evaluated by radiation oncology but thought secondary to his developmental disorder would not have been able to stand the radiation treatment. Urology consultation reviewed. Orders PowerOrders Patient Care Ambulatory: Follow Up Appointment Ambulatory (Order): In 6 Months, Appointment Type Patient Preference, 40 Evaluation and Management: [id number] Outpatient Visit Est Lvl 5 (Order): 03/18/2024 11:13 EDT, FAMILY MEDICINE, Constipation | Recurrent UTI | Development delay | Dystonic movements | Epilepsy. Immunizations Given and Recorded Vaccine Date Status Refusal Reason influenza virus vaccine, inactivated 07/12/22 Give n Medications albuterol-ipratropium 2.5 mg-0.5 mg/3 mL inhalation solution Start: 11/11/21 9:50:00 AM EST, 3 mL, inhaled, tid, Disp# 90 mL, Refills: 1, PRN: as needed for shortness of breath or wheezing, Pharmacy: [id number] Start Date: 11/11/21 Status: Ordered diazePAM 5 mg oral tablet Start: 11/21/23 6:14:00 PM EST, 1 tab, PO, bid, Disp# 60 tab, Refills: 3, Pharmacy: [facility] #[id number] Start Date: 11/21/23 Stop Date: 03/20/24 Status: Ordered divalproex sodium 500 mg oral delayed release tablet Start: 10/23/23 3:15:00 PM EST, 1 tab, PO, bid, Disp# 60 tab, Refills: 3, Pharmacy: [facility] #[id number] Start Date: 10/23/23 Status: Ordered Duclolax Suppository Start: 03/18/24 10:57:00 AM EDT, Duclolax Suppository, eRx Product Type: Supply, See Instructions, Disp# 16 supp, Refills: 3, One every other day, Note to Pharmacy: one box [facility] 16 suppository, [id number] Start Date: 03/18/24 Status: Ordered Eliquis 5 mg oral tablet Start: 11/21/23 6:13:00 PM EST, 1 tab, PO, bid, Disp# 120 tab, Refills: 3, [facility]: [id number] Start Date: 11/21/23 Status: Ordered famotidine 20 mg oral tablet TAKE 1 TABLET BY MOUTH TWICE A DAY Start Date: 03/18/24 Status: Ordered famotidine 20 mg oral tablet Start: 01/28/24 4:45:00 PM EDT, 1 tab, PO, bid, Disp# 60 tab, Refills: 3, Pharmacy: [id number] Start Date: 01/28/24 Status: Ordered Flexeril 5 mg oral tablet Start: 06/07/23 2:24:00 PM EDT, 1 tab, PO, bid, Disp# 28 tab, Refills: 1, PRN: as needed for spasm, [facility]acy: [facility] #[id number] Start Date: 06/07/23 Stop Date: 07/05/23 Status: Ordered Keppra 1000 mg oral tablet Start: 12/04/23 11:24:00 AM EDT, 1 tab, PO, bid, Disp# 60 tab, Refills: 6, do not crush or chew, Pharmacy: [facility] #[id number] Start Date: 12/04/23 Stop Date: 07/01/24 Status: Ordered Keppra 250 mg oral tablet Start: 12/04/23 11:25:00 AM EDT, 1 tab, PO, bid, Disp# 60 tab, Refills: 6, Pharmacy: [facility] #[id number] Start Date: 12/04/23 Stop Date: 07/01/24 Status: Ordered lisinopril 5 mg oral tablet Start: 10/01/23 11:59:00 AM EST, See Instructions, Disp# 90 tab, Refills: 3, take 1 tablet by mouth daily, Pharmacy: [facility] #[id number] Start Date: 10/01/23 Status: Ordered Vitamin D3 Start: 03/18/24 10:35:00 AM EDT Start Date: 03/18/24 Status: Ordered zonisamide 100 mg oral capsule Start: 11/21/23 6:13:00 PM EST, See Instructions, Disp# 270 cap, Refills: 3, take 1 capsule by mouthevery morning and 2 capsules by mouth at bedtime, Pharmacy: [facility] #[id number] Start Date: 11/21/23 Status: Ordered Mental Status 03/18/24 Barriers to Learning one year Cognitive deficit Mandatory Health Literacy Documentation Yes Health Literacy Communication Barriers U nable to assess Primary Language Cameroonian Problem List Condition Confirmation Course Effective Dates [...] Effective Dates Health Status Clinical Service Informant Dystonic movements Discharge Diagnosis 03/18/24 Non-Specified Epilepsy Discharge Diagnosis 03/18/24 Non-Specified Recurrent UTI Discharge Diagnosis 03/18/24 Non-Specified Constipation Discharge Diagnosis 03/18/24 Non-Specified Development delay Discharge Diagnosis 03/18/24 Non-Specified Procedures Procedure Date Related Diagnosis Body Site Status Chest x-ray 1 06/24/21 Completed Pediatric echocardiography [...] to oldest [Reference Range]: 1 Heart Rate 68 bpm (03/18/24 10:07 AM) Blood Pressure 122/80mmHg (03/18/24 10:07 AM) Cuff Pulse Pressure 42 mmHg (03/18/24 10:07 AM) Social History Social History Type Response Smoking Status Never smoked cigaret priyanka Sex Male Outpatient Note * DO Garner Franklin J: PERFORM, MODIFY, SIGN, VERIFY Event Display: .Outpt Note Authored Date: [id number] Patient: YULIANA COLIN Age: 34 years Sex: Male : 1990 Associated Diagnoses: None Author: DO Garner Franklin J Visit Information Visit type: Scheduled follow-up. Chief Complaint 03/18/2024 10:05 EDT 6 month follow up History of Present Illness Yuliana is here for a 6-month follow-up. Since I saw him last, he has had several specialty appointments. He saw neurology and they are slowly decreasing Keppra (now on 1250mg BID) and Mom noted increased awake/interaction about a week later. Even during today's appointment, he is as awake/alert, and interactive as I have seen him. He also saw rheumatology in September (Maya Pacheco). Rheumatology noted hypermobility. EDS a possibility. Saw nephrology at [facility] and has a CT scan (March 31 here in [place]). He has a noted history of polycystic kidney disease -he had a CT of the abdomen pelvis in the emergency department backin August, as well. He sees cardiology on March 25 in [place]. He has a dental appointment upcoming. One of the specialist had ordered a lipid profile and referred him to us for review. Overall, this looks very good (see labs below). Review of Systems Constitutional: Negative. Respiratory: Negative. Cardiovascular: Negative. Musculoskeletal: Negative. Neurologic: Alert and oriented X4. Health Status Allergies: Allergic Reactions (Selected) Severity Not Documented Augmentin- Rash.. Current medications: (Selected) Prescriptions Prescribed Eliquis 5 mg oral tablet: 1 tab, PO, bid, 120 tab, 3 Refill(s) Flexeril 5 mg oral tablet: 1 tab, PO, bid, for 14 day, PRN: as needed for spasm, 28 tab, 1 Refill(s) Keflex 500 mg oral capsule: 1 cap, PO, bid, for 7 day, 14 cap, 0 Refill(s) Keppra 1000 mg oral tablet: 1 tab, PO, bid, for 30 day, do not crush or chew, 60 tab, 6 Refill(s) Keppra 250 mg oral tablet: 1 tab, PO, bid, for 30 day, 60 tab, 6 Refill(s) LORazepam 1 mg oral tablet: See Instructions, 1-2 tab PO daily as needed for myoclonic seziures/spasms, 20 tab, 3 Refill(s) albuterol-ipratropium 2.5 mg-0.5 mg/3 mL inhalation solution: 3 mL, inhaled, tid, PRN: as needed for shortness of breath or wheezing, 90 mL, 1 Refill(s) diazePAM 5 mg oral tablet: 1 tab, PO, bid, for 30 day, 60 tab, 3 Refill(s) divalproex sodium 500 mg oral delayed release tablet: 1 tab, PO, bid, 60 tab, 3 Refill(s) famotidine 20 mg oral tablet: 1 tab, PO, bid, 60 tab, 3 Refill(s) lisinopril 5 mg oral tablet: See Instructions, take 1 tablet by mouth daily, 90 tab, 3 Refill(s) zonisamide 100 mg oral capsule: See Instructions, take 1 capsule by mouth every morning and 2 capsules by mouth at bedtime, 270 cap, 3 Refill(s). 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 HTN, goal below 140/90 / SNOMED CT 8544918650 / Confirmed Incontinence of feces / SNOMED CT 241369952 / Confirmed Generalized convulsive epilepsy without intractable epilepsy / SNOMED CT 680545659 / Confirmed Dystonic movements / SNOMED CT 00490834 / Confirmed Abnormal movements / SNOMED CT 029871316 / Confirmed Seizure disorder / SNOMED CT 942025989 / Confirmed Development delay / SNOMED CT 847642348 / Confirmed 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 / Complaint of Testicular seminoma / SNOMED CT 386416672 / Confirmed SOB (shortness of breath) / SNOMED CT 169608307 / Confirmed Multiple nevi / SNOMED CT 7496159271 / Confirmed Epilepsy / SNOMED CT 468908065 / Confirmed Polycystic kidney disease / SNOMED CT 085624325 / Confirmed All Problems PEARSON (headache) / SNOMED CT 10859564 / Confirmed Wheezing / SNOMED CT 21117765 / Confirmed Trouble swallowing / SNOMED CT 54455164 / Confirmed Painful urination / SNOMED CT 10042592 / Confirmed Muscle spasm / SNOMED CT 71062357 / Confirmed Spastic quadriplegic cerebral palsy / SNOMED CT 67551514 / Confirmed HTN, goal below 140/90 / SNOMED CT 2580422094 / Confirmed Incontinence of feces / SNOMED CT 762585343 / Confirmed Generalized convulsive epilepsy without intractable epilepsy / SNOMED CT 095392066 / Confirmed Dystonic movements / SNOMED CT 02794129 / Confirmed Abnormal movements / SNOMED CT 680314351 / Confirmed Seizure disorder / SNOMED CT 937309539 / Confirmed Development delay / SNOMED CT 446447390 / Confirmed Koolen-Yeimi syndrome / SNOMED CT 9194544546 / Complaint of Testicular seminoma / SNOMED CT 186533355 / Confirmed SOB (shortness of breath) / SNOMED CT 811511978 / Confirmed Multiple nevi / SNOMED CT 3017901545 / Confirmed Epilepsy / SNOMED CT 657488870 / Confirmed Polycystic kidney disease / SNOMED CT 463368915 / Confirmed. Histories Family History: Asthma Brother Hypertension Mother Polycystic kidney disease Mother . Social History Social & Psychosocial Habits No Data Available . Physical Examination Vital Signs 03/18/2024 10:07 EDT Heart Rate 68 bpm Systolic Blood Pressure 122 mmHg Diastolic Blood Pressure 80 mmHg Cuff Pulse Pressure 42 mmHg SpO2 98 % Measurements from flowsheet : Measurements 03/18/2024 10:07 EDT Height/Weight Refused Height/Weight Taken General: Awake. He is somewhat interactive; he will tap on the table until I respond with a similartap, then he will stop. Turns to voice.. Eye: Normal conjunctiva. Neck: Supple. Respiratory: Lungs are clear to auscultation, Respirations are non-labored, Breath sounds are equal. Cardiovascular: Normal rate, Regular rhythm. Musculoskeletal Seated in W/C. Neurologic: Alert. Health Maintenance Health Maintenance Pending (in the next year) OverDue Adult Influenza Vaccine due 03/23/23 and every 1 year Due Adult COVID-19 Vaccination due 03/18/24 Unknown Frequency Adult Social Determinants of Health Screening due 03/18/24 Unknown Frequency Adult Tdap/Td Vaccine due 03/18/24 Unknown Frequency Hepatitis C Screening due 03/18/24 One-time only Lipid Screening due 03/18/24 Unknown Frequency Pneumococcal Vaccine Adults and Adolescents with Chronic Illness due 03/18/24 One-time only Shingles Vaccine due 03/18/24 One-time only Due In Future Body Mass Index not due until 02/19/25 and every 366 day Satisfied (in the past 1 year) Satisfied Body Mass Index on 04/04/23. Satisfied by VERONICA Thakur Meagan Review / Management Results review: Outside labs Triglycerides 213 Total cholesterol 186 HDL 37 LDL 106 CBC unremarkable BMP showed preserved renal function, the only slightly elevated BUN (23) suspect reflective of his fasting state for the blood work. Impression and Plan Diagnosis Recurrent UTI (ZEZ34-XR N39.0, Discharge, Medical). Epilepsy (AYZ90-LF G40.909, Discharge, Medical). Dystonic movements (UAO22-BT G24.9, Discharge, Medical). Development delay (QYY10-FR R62.50, Discharge, Medical). Constipation (HTN45-BN K59.00, Discharge, Medical). Plan: Neuro developmental delay/Cerebral palsy with spasm/Seizure history (chronic/stable) Neurology consultation reviewed; increased level of alertness as Depakote is decreased Recent lab work completed by neurology with regards to medication levels. Elevated triglycerides (new) Slight elevation of serum triglycerides is not overly concerning at his age. Too young to use cardiovascular risk calculator; LDL is very good, so even at age 44, would not be in a statin benefit group. No intervention other than dietary modification at this point Would recheck in 1-2 years. Constipation (chronic/stable) Prescription for Dulcolax suppositories every other day sent to pharmacy History of DVT (chronic/stable) Hypercoagulability workup was negative (results printed for mom) It sounds as if it was an unprovoked clot, and even with a negative workup, I suspect he is at increased risk due to his general immobility For now, continue apixaban 5 mg p.o. twice daily for now Minimal risk for fall, and has had no difficulties with anticoagulation thus far Polycystic kidney disease (chronic/stable) Recent blood work completed at outside facility shows preserved renal function Kidneys looked unchanged on CT scan of the abdomen pelvis in the emergency department (09/15) Repeat CT scan scheduled Nephrology has ordered repeat urinalysis I placed order for medical outpatient services to perform straight catheterization (mom will try toself schedule, let us know if she has difficulty) GERD (chronic/stable) Improved since we added famotidine Continue famotidine 20 mg p.o. 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 He was diagnosed with a left testicular seminoma, status post left orchiectomy, normal alpha-fetoprotein level and beta hCG level. He was evaluated by radiation oncology but thought secondary to his developmental disorder would not have been able to stand the radiation treatment. Urology consultation reviewed. Orders PowerOrders Patient Care Ambulatory: Follow Up Appointment Ambulatory (Order): In 6 Months, Appointment Type Patient Preference, 40 Evaluation and Management: [id number] Outpatient Visit Est Lvl 5 (Order): 03/18/2024 11:13 EDT, FAMILY MEDICINE, Constipation | Recurrent UTI | Development delay | Dystonic movements | Epilepsy. Professional Services [id number]: 35 mins; this included review of outside labs brought in by the patient's mother today. Documentation and orders: 10 minutes Electronic Signature on File Electronically Reviewed/Signed by: Simeon Garner DO Author Signature Dt/Tm:03/18/2024 02:54 PM Department of Family Medicine [facility] Patient Care team information Care Team Personnel Name: DO Garner Franklin J Position: Physician - Family Med Member Role: Primary Care Provider Address: Address: [address] [place] [address] Care Team Related Persons Name: KASHMIR RATLIFF Address: home [address] [place] [phone]"
--- OUTSIDE RECORDS SUMMARY | 2024-05-18 19:16 | External Medical Summary | Summary of Care ---
Author Name Unknown Organization [facility] Address [address] [place] [address] Phone [phone] Care Team Providers Care Auto Emissions Technician Name Role Phone Simeon Garner Primary Care Provider Encounter Details Date Type Department Care Team (Latest Contact Info) Description 09/01/2023 3:30 PM EST - 09/01/2023 11:59 PM EST Hospital Encounter Radiology Film File [address] [place] [address] Discharge Disposition: Home - Self Care Allergies Active Allergy Reactions Criticality Noted Date [...] a day. 180 Tab 1 06/25/2021 Active documented as of this encounter (statuses [...] Description 03/31/2024 3:15 PM EDT Imaging Radiology [address] [place] [address] 05/16/2024 7:45 AM EDT Hospital Encounter [place] [facility] [place], OPERATING ROOM [facility] [address] [place] [phone] Gioavni Simon DMD [address] [place] [address] 05/16/2024 7:45 AM EDT - 05/16/2024 1:05 PM EDT Surgery OR [facility] [place], OPERATING ROOM [facility] [address] [place] [phone] Giovani Simon DMD [address], [place] [phone] COMPREHENSIVE ORAL EXAM Scheduled Procedures Name Priority Associated Diagnoses Date/Ti ma COMPREHENSIVE ORAL EXAM Intellectual disability 05/16/2024 7:45 [...] Procedure Name Priority Date/Time Associated Diagnosis Comments RADIOLOGY EXAM - CT (IMAGES ONLY, NO REPORT) Routine 09/01/2023 3:30 PM EST documented in this encounter Results * RADIOLOGY EXAM - CT (IMAGES ONLY, NO REPORT) (09/01/2023 3:30 PM EST) 09/01/2023 3:29 PM EST Narrative Scheduling, Silent - 03/24/2024 5:40 PM EDT This is an imaging study not interpreted or resulted by a [employer]er or [employer] contracted radiologist. Simeon Garner DO RAD CT documented in this encounter Advance Directives * Full Code (Latest Code Status on File) Date Activated Date Inactivated Comments 04/08/2018 8:23 AM 04/14/2018 7:04 PM This order r eflects the patients wishes and were consensually agreed upon. Question Answer Comments Discussion of Advance Directives occurred with: Family Care Teams Auto Emissions Technician Relationship Specialty Start Date End Date Simeon Garner DO [address] [address] PCP - General Family Medicine 07/14/22 documented as of this encounter
--- OUTSIDE RECORDS SUMMARY | 2024-05-18 19:16 | External Medical Summary | Summary of Care ---
Author Name Unknown Organization [facility] Address [address] [place] [address] Phone [phone] Care Team Providers Care Cosmetology Professor Name Role Phone PatsySimeon clark Primary Care Provider Reason for Visit * Reason Onset Date Comments Advice 03/28/2024 Encounter Details Date Type Department Care Team (Late st Contact Info) Description 03/28/2024 Telephone Nephrology, [place] [address] [place] [address] Dior Koehler MD [address] [place] [address] Advice Allergies Active Allergy Reactions Criticality Noted [...] encounter Miscellaneous Notes * Telephone Encounter - Sue Gayle OSA [...] Description 03/31/2024 3:15 PM EDT Imaging Radiology [address] [address] 03/31/2024 4:00 PM EDT Imaging Radiology [address] [address] 05/16/2024 7:45 AM EDT Hospital Encounter OR [facility] [place], OPERATING ROOM [facility] [place] [address] [place] [phone] Giovani Simon DMD [address] [place] [address] 05/16/2024 7:45 AM EDT - 05/16/2024 1:05 PM EDT Surgery OR [facility] [place], OPERATING ROOM [facility] [address] [place] [phone] Giovani Simon DMD [address] [place] [address] COMPREHENSIVE ORAL EXAM Scheduled Procedures Name Priority Associated Diagnoses Date/Ti wv COMPREHENSIVE ORAL EXAM Intellectual disability 05/16/2024 7:45 [...] Advance Directives occurred with: Family Care Teams Cosmetology Professor Relationship Specialty Start Date End Date Simeon Garner DO [address] [place] [address] PCP - General Family Medicine 07/14/22 documented as of this encounter
--- OUTSIDE RECORDS SUMMARY | 2024-05-18 19:16 | External Medical Summary | Summary of Care ---
Author Name Unknown Organization [facility] Address [address] [place] [address] Phone [phone] Care Team Providers Care Dermatological Surgeon Name Role Phone Simeon Garner Primary Care Provider Reason for Referral * Precert (Within 10 days (routine)) - Pending Review Specialty Diagnoses / Procedures Referred By Elizabeth lujan Referred To Contact Cardiac Studies Diagnoses S/P atrial septal defect closure S/P ventricular septal defect closure Microcephalus (HCC) Ascending aorta dilatation (HCC) Congenital aortic valve insufficiency Procedures PEDS ECHO, TTE CONGENITAL LIMITED Clint Liz MD [address] [place] [address] Referral ID Status Reason Start Date Expiration Date Visits Requested Visits Authorized [id number] Pending Review Precert 03/25/[id number] Encounter Details Date Type Department Care Team (Late st Contact Info) Description 03/24/2024 Orders Only Pediatric Cardiology, [facility] [address] [place] [address] Clint Liz MD [address] [place] [address] S/P atrial septal defect closure*; S/P ventricular septal defect closure; Microcephalus (HCC); Ascending aorta dilatation (HCC); Congenital aortic valve insufficiency Allergies Active Allergy Reactions Criticality Noted Date Comments Clavulanic Acid Rash 05/31/2006 Diaper rash at 3 yrs old documented as of this encounter (statuses as of 03/24/2024) Medications Medication Sig Dispensed Refills Start Date [...] as of this encounter (statuses as of 03/24/2024) Active Problems Problem Noted Date Diagnosed Date [...] as of this encounter (statuses as of 03/24/2024) Resolved Problems Problem Noted Date Diagnosed Date Resolved Date 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 [address] [place] [address] Clint Liz MD [address] [place] [address] 03/31/2024 3:15 PM EDT Imaging Radiology [facility], [address] [place] [address] 05/16/2024 7:45 AM EDT Hospital En[place] [facility] [address] [place] [phone] Giovani Simon, DMD [address] [place] [address] 05/16/2024 7:45 AM EDT - 05/16/2024 1:05 PM EDT Surgery [place] [facility] [address] [place] [phone] Giovani Simon, DMD [address] [place], [place] [id number] COMPREHENSIVE ORAL EXAM Scheduled Orders Name Type Priority Associated Diagnoses Orde r Schedule PEDS ECHO, TTE CONGENITAL LIMITED Echocardiology Routine S/P atrial septal defect closure S/P ventricular septal defect closure Microcephalus (HCC) Ascending aorta dilatation (HCC) Congenital aortic valve insufficiency Expected: 03/25/2024, Expires: 03/24/2025 Scheduled Procedures Name Priority Associated Diagnoses Date/Ti [...] as of this encounter Visit Diagnoses Diagnosis S/P atrial septal defect closure- Primary Other postprocedural status S/P ventricular septal defect closure Other postprocedural status Microcephalus (HCC) Microcephalus Ascending aorta dilatation (HCC) Thoracic aortic ectasia Congenital aortic valve insufficiency Congenital insufficiency of aortic valve Ascending aorta dilatation (HCC)- Primary Thoracic aortic [...] Advance Directives occurred with: Family Care Teams Dermatological Surgeon Relationship Specialty Start Date End Date Simeon Garner DO [address] [place] [address] PCP - General Family Medicine 07/14/22 documented as of this encounter
--- OUTSIDE RECORDS SUMMARY | 2024-05-18 19:16 | External Medical Summary ---
Author Name Unknown Address Unknown Organization [id number]:[facility] [place] [address] Laboratory Report Ordering Provider Test Date Status ARENZARATE 03/04/2024 09:51:15 Final Observation Date Value Abnormality Reference (Units ) Status WBC, Total 03/04/2024 09:51:15 4.91 4.00-10.8 0 (K/uL) Final RBC 03/04/2024 09:51:15 4.54 4.50-5.25 (M/uL) Final Hemoglobin 03/04/2024 09:51:15 13.7 Below low normal 14 .0-16.8 (g/dL) Final HCT 03/04/2024 09:51:15 41.5 40.0-48.4 (%) Final MCV 03/04/2024 09:51:15 91.4 82.0-99.5 (fL) Final MCH 03/04/2024 09:51:15 30.2 27.0-34.0 (pg) Final MCHC 03/04/2024 09:51:15 33.0 32.0-36.0 (g/dL) Final RDW 03/04/2024 09:51:15 13.6 11.5-15.5 (%) Final Platelets 03/04/2024 09:51:15 171 140-400 (K /uL) Final MPV 03/04/2024 09:51:15 11.9 6.6-11.1 ( fL) Final Performing Location [facility] [place] [address]
[2024-05-18] MEDS: SODIUM CHLORIDE 0.9% 1,000 ML IV ONE ×3 (19:54→22:15)
[2024-05-18 19:57] LABS: Basophils # (auto) 0.02 K/uL (0.00-0.20); Basophils % (auto) 0.3 %; Eosinophils # (auto) 0.03 K/uL (0.00-0.50); Eosinophils % (auto) 0.5 %; Hemoglobin 13.4 g/dl (14.0-18.0); Immature Granulocytes # (auto) 0.01 K/uL (0.01-0.20); Immature Granulocytes % (auto) 0.2 %; Lymphocytes # (auto) 0.65 K/uL (1.20-3.40); Lymphocytes % (auto) 11.2 %; Mean Corpuscular Hemoglobin 30.2 pg (25.0-34.0); Mean Corpuscular Hgb Conc 33.5 g/dL (32.0-36.0); Mean Corpuscular Volume 90.3 fL (80.0-100.0); Mean Platelet Volume 11.7 fL (9.4-12.4); Monocytes # (auto) 0.38 K/uL (0.11-0.59); Monocytes % (auto) 6.5 %; Neutrophils # (auto) 4.73 K/uL (1.40-6.50); Neutrophils % (auto) 81.3 %; Platelet Count 169 K/uL (130-400); RDW Coefficient of Variation 13.5 % (11.5-14.5); RDW Standard Deviation 45.1 fL (36.4-46.3); Red Blood Count 4.43 M/uL (4.70-6.10); White Blood Count 5.82 K/ul (4.8-10.8)
[2024-05-18 20:06] LABS: INR 1.1 (0.9-1.1); Partial Thromboplastin Ratio 1.4; Partial Thromboplastin Time 38 Seconds (21-31); Prothrombin Time 11.4 Seconds (9.0-12.0)
[2024-05-18 20:13] LABS: Albumin Level 4.3 gm/dl (3.4-5.0); Bilirubin Direct 1.2 mg/dl (0-0.2); Bilirubin,Total 2.1 mg/dl (0.2-1.0); Magnesium 1.9 mg/dl (1.7-2.4); Total Protein 7.2 gm/dl (6.0-8.3)
[2024-05-18 20:19] LABS: Troponin I High Sensitivity 13.3 pg/ml (0-20)
[2024-05-18 20:21] LABS: iSTAT Creatinine 1.8 mg/dl (0.6-1.3); iSTAT Hemoglobin 14.3 g/dl (14.0-18.0); iSTAT Ionized Calcium 1.08 mmol/l (1.12-1.32); iSTAT Potassium 3.9 mmol/L (3.3-5.0)
[2024-05-18 20:38] LABS: Amorphous Sediment Urine Present (None Prsent); Appearance Urine Turbid (Clear); Bacteria Urine Automated 2+ (None Seen); Bilirubin Urine 1+ (Negative); Blood Urine 3+ (Negative); Cast Urine Automated >20 /lpf (0-2); Color Urine Orange; Epithelial Cell Urine Auto 0-2 /hpf (0-2); Glucose Urine UA Negative (Negative); Ketones Urine Negative (Negative); Leukocyte Esterase Urine 2+ (Negative); Nitrite Urine Negative (Negative); Protein Urine 2+ (Negative); RBC Urine Automated >20 /hpf (0-2); Specific Gravity Urine 1.022 (1.000-1.030); Urobilinogen Urine Negative (Negative); WBC Urine Automated >50 /hpf (0-5)
[2024-05-18] MEDS: PIPERACILLIN/TAZOBACTAM 4.5 GM/120 ML BAG IV ONE (21:02)
[2024-05-18] MEDS: SODIUM CHLORIDE 0.9% 500 ML IV ONE (21:02)
[2024-05-18 21:18] LABS: Adenovirus PCR Not Detected (NotDetected); Bordetella parapertussis PCR Not Detected (NotDetected); Bordetella pertussis PCR Not Detected (NotDetected); Chlamydia pneumoniae PCR Not Detected (NotDetected); Coronavirus 229E PCR Not Detected (NotDetected); Coronavirus CoV-2 (COVID19)PCR Not Detected (NotDetected); Coronavirus HKU1 PCR Not Detected (NotDetected); Coronavirus NL63 PCR Not Detected (NotDetected); Coronavirus OC43PCR Not Detected (NotDetected); Human Metapneumovirus PCR Not Detected (NotDetected); Influenza A PCR Not Detected (NotDetected); Influenza B PCR Not Detected (NotDetected); Mycoplasma pneumoniae PCR Not Detected (NotDetected); Parainfluenza Virus 1 PCR Not Detected (NotDetected); Parainfluenza Virus 2 PCR Not Detected (NotDetected); Parainfluenza Virus 3 PCR Not Detected (NotDetected); Parainfluenza Virus 4 PCR Not Detected (NotDetected); Respiratory Syncytial VirusPCR Not Detected (NotDetected); Rhinovirus/Enterovirus PCR Not Detected (NotDetected)
[2024-05-18 21:25] LABS: Calcium 9.9 mg/dl (8.6-10.3); Creatinine Clr Calc Pharmacy 47.6 ml/min; Est GFR (African American) 54.2; Est GFR (Non-African American) 46.8
--- NOTE | 2024-05-18 21:26 | CT Scan Report ---
Exam(s): CT ABDOMEN + PELVIS Without Contrast EXAM: CT Abdomen and Pelvis Without Intravenous Contrast CLINICAL HISTORY: Reason for exam: abd pain ro sbo. TECHNIQUE: Axial computed tomography images of the abdomen and pelvis without intravenous contrast. CTDI is 26 mGy and DLP is 1520 mGy-cm. Automated exposure control was utilized for the study. A dose lowering technique was utilized adhering to the principles of ALARA. COMPARISON: 09/01/2023 FINDINGS: Lung bases: Extensive bilateral nodular interstitial infiltrates. ABDOMEN: Liver: See below. Gallbladder and bile ducts: Unremarkable. No calcified stones. No ductal dilation. Pancreas: Unremarkable. No ductal dilation. Spleen: Unremarkable. No splenomegaly. Adrenals: Unremarkable. No mass. Kidneys and ureters: Innumerable bilateral renal and hepatic cysts consistent with polycystic renal disease. No hydroureter present. Stomach and bowel: Minimal amount of stool within the rectum. No obstruction. No mucosal thickening. PELVIS: Appendix: No findings to suggest acute appendicitis. Bladder: Hutchinson catheter within the urinary bladder. No stones. Reproductive: Unremarkable as visualized. ABDOMEN and PELVIS: Intraperitoneal space: Unremarkable. No free air. No significant fluid collection. Bones/joints: No acute fracture. No dislocation. Soft tissues: Unremarkable. Vasculature: Unremarkable. No abdominal aortic aneurysm. Lymph nodes: Unremarkable. No enlarged lymph nodes. IMPRESSION: Patchy nodular interstitial infiltrates within the lower lobes bilaterally. While this may represent infectious or inflammatory pneumonitis, underlying neoplasm cannot be entirely excluded. Recommend chest CT follow-up to resolution. Findings consistent with polycystic renal disease unchanged from prior exam Electronically signed by: Michael Lowe MD 05/18/24 21:25 PM
[2024-05-18] MEDS: ACETAMINOPHEN 1,000 MG/100 ML VIAL IV STA (21:56)
[2024-05-18] MEDS ORDERED: STAT IV Infusion **Titration per Protocol STA (22:12)
--- NOTE | 2024-05-18 22:20 | CT Scan Report ---
Exam(s): CT FACIAL Without Contrast EXAM: CT Maxillofacial Without Intravenous Contrast CLINICAL HISTORY: Reason for exam: sepsis ro abscsess. TECHNIQUE: Axial computed tomography images of the face without intravenous contrast. CTDI is 26 mGy and DLP is 1520 mGy-cm. Automated exposure control was utilized for the study. A dose lowering technique was utilized adhering to the principles of ALARA. COMPARISON: None FINDINGS: Bones/joints: Nondisplaced fracture of the lateral right maxillary sinus wall. Soft tissues: The presence or absence of an abscess cannot be assessed on this unenhanced CT scan. There is asymmetric inflammatory change since swelling about the right upper facial soft tissues near the teeth. Orbits: Unremarkable. Sinuses: Unremarkable. No air-fluid levels. Other findings: Poor dentition. IMPRESSION: Poor dentition with is asymmetric soft tissue swelling about the upper teeth on the right. The presence or absence of an abscess cannot be assessed on this unenhanced CT scan. Remote nondisplaced fracture of the right maxillary sinus wall. Electronically signed by: Michael Lowe MD 05/18/24 22:19 PM
--- NOTE | 2024-05-18 22:47 | History & Physical Report ---
Date of Service May 18, 2024 Assessment & Plan (1) Sepsis: (2) Acute hypotension: (3) Aspiration pneumonia: (4) Urinary tract infection: (5) Koolen-Yeimi syndrome: (6) Testicular carcinoma: (7) Epilepsy: (8) Cerebral palsy: (9) Acute DVT (deep venous thrombosis): Plan Sepsis with hypotension due to aspiration pneumonia and UTI- Patient with declining blood pressure despite adequate fluid rehydration, being started on Levophed infusion with admission to the ICU Empiric linezolid 600 mg IV every 12 hours and Zosyn 4.5 g IV every 8 hours. Of note, family/geological technical officer reports patient tolerates amoxicillin NPO Holding lisinopril Consult casing runner seen Aspiration pneumonia- Duonebs every 4 hours while awake and every 2 hours when necessary. IV antibiotics as above Nasal cannula oxygen, titrate to keep pulse ox around 92-94% Patient was intolerant of wearing mask Urinary tract infection- Follow urine culture and sensitivity IV antibiotics as above IV fluid rehydration Seizure disorder/cerebral palsy- Changing medications to IV: Diazepam 5 mg PO to IV twice daily, Change divalproex from 500 p.o. twice daily to 250 IV 4 times daily Change Keppra from 750 mg p.o. twice daily to 750 mg IV twice daily GERD/hiatal hernia- Change famotidine 20 mg p.o. twice daily to Protonix 40 mg IV twice daily DVT history- Change Eliquis 5 mg p.o. twice daily to heparin IV standard dosing per protocol Stress dose steroids hydrocortisone 100 mg IV every 8 hours Acetaminophen 1 g IV every 8 hours as needed for mild pain or fever History of Present Illness Chief Complaint: The patient is brought to the emergency department due to concerns regarding altered mentation, with decreased responsiveness and increasing confusion, and auditory difficulty with breathing. Primary Care Provider: Simeon Garner DO The patient is a 34-year-old male past medical history including cerebral palsy, testicular carcinoma, Koolen-Yeimi syndrome, autosomal dominant polycystic kidney disease, episode of epilepsy, mental retardation, DVT, status epilepticus and chronic constipation. He underwent a reportedly 4-hour long oral procedure with dental extractions at [facility] 2 days ago, and was discharged home at that time. Fabric Normalizer notes that he is gradually become more lethargic, has increased confusion, and was noted to have low blood pressure. He was brought to the emergency department for assessment, underwent a septic workup, and due to hypotension was started on Levophed and admitted to the ICU for sepsis with hypotension, aspiration pneumonia and urinary tract infection Allergies Allergy/AdvReac Type Severity Reaction Status Date / Time amoxicillin Allergy Intermediate Rash Verified 05/18/24 23:17 clavulanic acid Allergy Intermediate Rash Verified 05/18/24 23:17 sulfamethoxazole AdvReac Agitated Verified 05/18/24 23:17 [From Bactrim] trimethoprim [From Bactrim] AdvReac Agitated Verified 05/18/24 23:17 Home Medications Medication Instructions Recorded Confirmed Type acetaminophen 500 mg tablet 1,000 mg PO Q6H PRN Pain 10/17/19 05/18/24 History (Tylenol Extra Strength) apixaban 5 mg tablet (Eliquis) 5 mg PO BID 10/17/19 05/18/24 History diazepam 5 mg tablet 5 mg PO BID 10/17/19 05/18/24 History divalproex 500 mg tablet,delayed 500 mg PO BID 10/17/19 05/18/24 History release levetiracetam 500 mg tablet 750 mg PO BID 10/17/19 05/18/24 History lisinopril 5 mg tablet 5 mg PO QAM 10/17/19 05/18/24 History zonisamide 100 mg capsule 100 mg PO DAILYBB 10/17/19 05/18/24 History zonisamide 100 mg capsule 200 mg PO HS 10/17/19 05/18/24 History albuterol sulfate 2.5 mg/3 mL 2.5 mg (3 mL) inhalation Q4H PRN 06/24/21 05/18/24 Rx (0.083 %) solution for nebulization bronchospasm #75 mL famotidine 20 mg tablet 20 mg PO BID 09/01/23 05/18/24 History Past Med/Surg History Problem List (Updated 05/19/24 @ 00:26 by Eliud Taylor MD) Acute hypotension Nephrolithiasis Family history of prostate cancer 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 Sepsis (Acute) Fever (Acute) Wheezing (Acute) COVID-19 (Acute) Epilepsy Cerebral palsy Pneumonia (Acute) Bronchitis (Acute) Respiratory distress (Acute) EP (epilepsy) (Chronic) Back pain (Acute) MR (mental retardation) (Acute) Kidney stone on left side (Acute) Breakthrough seizure (Acute) Urinary tract infection (Acute) Seizure (Acute) History of cerebral palsy History of seizure disorder History of chronic constipation Acute DVT (deep venous thrombosis) Constipation (Acute) Status epilepticus Testicular cancer (Acute 02/27/17) "Swelling of the left testicle Status post emergency room evaluation 02/27/2017 Status post ultrasound and then left radical orchiectomy 02/27/2017 Seminoma unifocal, 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, normal AFP, LDH, and HCG Stage pT1 pNX" Medical History (Updated 05/19/24 @ 00:26 by Eliud Taylor MD) Testicular cancer Kidney disease Surgical History No pertinent past surgical history Family History Other Hypertension Social History Smoking Status: Never smoker Second Hand Exposure: No; Do You Dip or Chew Tobacco: No; Hx Alcohol Use: No Hx Substance Use: No Preferred Language: Australian Communication Ability: Effective Cook Cashier Food Prep Required: No Beliefs That Will Affect Care: None marital status: Single Current Living Situation: Parent current occupational status: disabled Feels Safe at Home: Yes Assistive Devices: Walker and Wheelchair Review of Systems Review of Systems: Patient is unable to contribute to review of systems and HPI due to ongoing medical conditions Physical Exam Physical Exam: The patient is awake, unresponsive to questioning, does open his eyes and moans and groans a bit. HEENT--PERRL, EOMI, mucous membranes covered with dried blood. Neck--supple. No JVD. No bruits. Thyroid normal, trachea midline, no adenopathy. Heart--tachycardic Lungs--coarse breath sounds throughout with wheezes Abdomen--normal bowel sounds and soft. Nontender. Nondistended, no hernias or masses, no organomegaly. Extremities--no cyanosis or clubbing. No edema. Dermatologic--normal skin turgor, normal color, no abnormal lymph nodes, no rash. Neurologic--cranial nerves II through XII grossly intact. Rheumatologic--limited exam Psychiatric--mildly agitated. Results & Data Results & Data Vital Signs (Past 12 Hours) Vital Signs Temp Pulse Resp BP Pulse Ox O2 Del Method O2 Flow Rate 05/18/24 22:24 111 H 21 93 Nasal Cannula 4 05/18/24 22:15 90/56 L 05/18/24 22:15 90/56 L 05/18/24 22:15 90/56 L 05/18/24 22:15 90/56 L 05/18/24 22:09 103 H 23 91 05/18/24 22:00 76/50 L 05/18/24 21:53 114 H 23 93 05/18/24 21:47 106 H 23 86 L 05/18/24 21:45 86/56 L 05/18/24 21:35 103 H 27 H 88 L 05/18/24 21:32 105 H 24 90 Nasal Cannula 4 05/18/24 21:30 86/58 L 05/18/24 21:26 94/56 L 05/18/24 21:15 87/60 L 05/18/24 21:14 106 H 19 97 05/18/24 21:08 114 H 22 94 05/18/24 21:00 97/50 L 05/18/24 21:00 97/50 L 05/18/24 20:53 123 H 23 95 05/18/24 20:44 91/77 L 97 Nasal Cannula 4 05/18/24 20:26 129 H 21 96/72 L 97 Nasal Cannula 4 05/18/24 20:16 24 95 Nasal Cannula 4 05/18/24 20:16 130 H 18 94 Nasal Cannula 4 05/18/24 20:15 97/64 L 05/18/24 20:02 123 H 20 93 Nasal Cannula 4 05/18/24 20:01 114/86 05/18/24 19:47 87 L Room Air 05/18/24 19:47 87 L Room Air 0 05/18/24 19:44 133 H 19 87 L Room Air 05/18/24 19:30 119/89 05/18/24 19:30 119/89 05/18/24 19:29 145 H 17 91 05/18/24 19:26 129 H 27 H 89 L 05/18/24 19:17 127/85 05/18/24 19:14 139 H 05/18/24 18:54 39.5 C H 135 H 26 H 119/89 88 L Room Air Laboratory Results Laboratory Results WBC 5.82 K/ul (4.8-10.8) 05/18/24 19: RBC 4.43 M/uL (4.70-6.10) L 05/18/24 19: Hgb 13.4 g/dl (14.0-18.0) L 05/18/24 19: POC Hgb 14.3 g/dl (14.0-18.0) 05/18/24 20:09 Hct 40.0 % (42.0-52.0) L 05/18/24 19: POC Hct 42 % (42-52) 05/18/24 20:09 MCV 90.3 fL (80.0-100.0) 05/18/24 19: MCH 30.2 pg (25.0-34.0) 05/18/24: MCHC 33.5 g/dL (32.0-36.0) 05/18/24: RDW Std Deviation 45.1 fL (36.4-46.3) 05/18/24: RDW Coeff of [place] 13.5 % (11.5-14.5) 05/18/24: Plt Count 169 K/uL (130-400) 05/18/24: MPV 11.7 fL (9.4-12.4) 05/18/24: Immature Gran % (Auto) 0.2 % 05/18/24: Neut % (Auto) 81.3 % 05/18/24: Lymph % (Auto) 11.2 % 05/18/24 19: [place] % (Auto) 6.5 % 05/18/24: Eos % (Auto) 0.5 % 05/18/24: Baso % (Auto) 0.3 % 05/18/24: Neut # (Auto) 4.73 K/uL (1.40-6.50) 05/18/24: Lymph # (Auto) 0.65 K/uL (1.20-3.40) L 05/18/24: [place] # (Auto) 0.38 K/uL (0.11-0.59) 05/18/24 19: Eos # (Auto) 0.03 K/uL (0.00-0.50) 05/18/24 19: Baso # (Auto) 0.02 K/uL (0.00-0.20) 05/18/24 19: Immature Gran # (Auto) 0.01 K/uL (0.01-0.20) 05/18/24 19: PT 11.4 Seconds (9.0-12.0) 05/18/24 19: INR 1.1 (0.9-1.1) 05/18/24 19: APTT 38 Seconds (21-31) H 05/18/24: PTT Ratio 1.4 05/18/24: VBG pH 7.29 (7.36-7.41) L 05/18/24 23:53 VBG pCO2 43 mmHg (38-50) 05/18/24 23:53 VBG pO2 46 mmHg 05/18/24 23:53 VBG HCO3 21 mmol/L 05/18/24 23:53 VBG O2 Saturation 78.4 % 05/18/24 23:53 VBG Base Excess -5.7 mEq/L 05/18/24 23:53 POC Sodium 137 mmol/L (135-144) 05/18/24 20:09 Sodium 138 mmol/L (136-145) 05/18/24 19: POC Potassium 3.9 mmol/L (3.3-5.0) 05/18/24 20:09 Potassium 4.0 mmol/L (3.5-5.1) 05/18/24 19: POC Chloride 105 mmol/L (101-112) 05/18/24 20:09 Chloride 102 mmol/L (98-107) 05/18/24 19: Carbon Dioxide 25 mmol/L (21-32) 05/18/24 19: POC Total CO2 21 mmol/L (24-31) L 05/18/24 20:09 Anion Gap 11 (3-11) 05/18/24 19: POC Anion Gap 16.0 mmol/L (16-25) 05/18/24 20:09 POC BUN 35 mg/dl (7-18) H 05/18/24 20:09 BUN 42 mg/dl (6-23) H 05/18/24 19: Creatinine 1.83 mg/dl (0.6-1.4) H 05/18/24 19: POC Creatinine 1.8 mg/dl (0.6-1.3) H 05/18/24 20:09 Est Cr Clr Drug Dosing 47.6 ml/min 05/18/24 19: Est GFR ( Amer) 54.2 05/18/24 19: Est GFR (Non-Af Amer) 46.8 05/18/24 19: BUN/Creatinine Ratio 23.0 (10-20) H 05/18/24 19: Glucose 97 mg/dl (70-99(Fasting)) 05/18/24 19: POC Glucose 125 mg/dl (70-99) H 05/19/24 00:04 POC Glucose (other) 93 mg/dl (70-99) 05/18/24 20:09 Lactate 2.0 mmol/L (0.4-2.0) 05/18/24 19: Calcium 9.9 mg/dl (8.6-10.3) 05/18/24 19: POC Ioniz Calcium Massimo 1.08 mmol/l (1.12-1.32) L 05/18/24 20:09 Magnesium 1.9 mg/dl (1.7-2.4) 05/18/24 19: Total Bilirubin 2.1 mg/dl (0.2-1.0) H 05/18/24 19: Direct Bilirubin 1.2 mg/dl (0-0.2) H 05/18/24 19: AST 12 U/L (13-39) L 05/18/24 19: ALT 21 U/L (7-52) 05/18/24 19: Alkaline Phosphatase 64 U/L (34-104) 05/18/24 19: Total Creatine Kinase 140 U/L (30-223) 05/18/24 19: Troponin I High Sens 13.3 pg/ml (0-20) 05/18/24 19: Total Protein 7.2 gm/dl (6.0-8.3) 05/18/24 19: Albumin 4.3 gm/dl (3.4-5.0) 05/18/24 19:29 Procalcitonin 0.49 ng/ml (0-0.5) 05/18/24 19:29 Urine Color [place] 05/18/24 20:14 Urine Appearance Turbid (Clear) A 05/18/24 20:14 Urine pH 5.0 (4.5-7.5) 05/18/24 20:14 Ur Specific [place] 1.022 (1.000-1.030) 05/18/24 20:14 Urine Protein 2+ (Negative) H 05/18/24 20:14 Urine Glucose (UA) Negative (Negative) 05/18/24 20:14 Urine Ketones Negative (Negative) 05/18/24 20:14 Urine Blood 3+ (Negative) H 05/18/24 20:14 Urine Nitrite Negative (Negative) 05/18/24 20:14 Urine Bilirubin 1+ (Negative) H 05/18/24 20:14 Urine Urobilinogen Negative (Negative) 05/18/24 20:14 Ur Leukocyte Esterase 2+ (Negative) H 05/18/24 20:14 Urine WBC (Auto) >50 /hpf (0-5) H 05/18/24 20:14 Urine RBC (Auto) >20 /hpf (0-2) H 05/18/24 20:14 U Hyaline Cast (Auto) >20 /lpf (0-2) H 05/18/24 20:14 U Epithel Cells (Auto) 0-2 /hpf (0-2) 05/18/24 20:14 Urine Bacteria (Auto) 2+ (None Seen) H 05/18/24 20:14 Amorphous Sediment Present (None Prsent) A 05/18/24 20:14 Adenovirus (PCR) Not Detected (NotDetected) 05/18/24 20:17 B. pertussis DNA (PCR) Not Detected (NotDetected) 05/18/24 20:17 B.parapertussis DNA PCR Not Detected (NotDetected) 05/18/24 20:17 C. pneumoniae DNA (PCR) Not Detected (NotDetected) 05/18/24 20:17 Coronavirus OC43 (PCR) Not Detected (NotDetected) 05/18/24 20:17 Coronavirus HKU1 (PCR) Not Detected (NotDetected) 05/18/24 20:17 Coronavirus 229E (PCR) Not Detected (NotDetected) 05/18/24 20:17 SARS-CoV-2 (PCR) Not Detected (NotDetected) 05/18/24 20:17 Coronavirus NL63 (PCR) Not Detected (NotDetected) 05/18/24 20:17 Human Metapneumovir PCR Not Detected (NotDetected) 05/18/24 20:17 Influenza Type A (PCR) Not Detected (NotDetected) 05/18/24 20:17 Influenza Type B (PCR) Not Detected (NotDetected) 05/18/24 20:17 M. pneumoniae (PCR) Not Detected (NotDetected) 05/18/24 20:17 Parainfluenza 1 (PCR) Not Detected (NotDetected) 05/18/24 20:17 Parainfluenza 2 (PCR) Not Detected (NotDetected) 05/18/24 20:17 Parainfluenza 3 (PCR) Not Detected (NotDetected) 05/18/24 20:17 Parainfluenza 4 (PCR) Not Detected (NotDetected) 05/18/24 20:17 RSV (PCR) Not Detected (NotDetected) 05/18/24 20:17 Entero/Rhino (PCR) Not Detected (NotDetected) 05/18/24 20:17 Impressions Abdomen/Pelvis CT 05/18/24 20:17 Exam(s): CT ABDOMEN + PELVIS Without Contrast EXAM: CT Abdomen and Pelvis Without Intravenous Contrast CLINICAL HISTORY: Reason for exam: abd pain ro sbo. TECHNIQUE: Axial computed tomography images of the abdomen and pelvis without intravenous contrast. CTDI is 26 mGy and DLP is 1520 mGy-cm. Automated exposure control was utilized for the study. A dose lowering technique was utilized adhering to the principles of ALARA. COMPARISON: 09/01/2023 FINDINGS: Lung bases: Extensive bilateral nodular interstitial infiltrates. ABDOMEN: Liver: See below. Gallbladder and bile ducts: Unremarkable. No calcified stones. No ductal dilation. Pancreas: Unremarkable. No ductal dilation. Spleen: Unremarkable. No splenomegaly. Adrenals: Unremarkable. No mass. Kidneys and ureters: Innumerable bilateral renal and hepatic cysts consistent with polycystic renal disease. No hydroureter present. Stomach and bowel: Minimal amount of stool within the rectum. No obstruction. No mucosal thickening. PELVIS: Appendix: No findings to suggest acute appendicitis. Bladder: Hutchinson catheter within the urinary bladder. No stones. Reproductive: Unremarkable as visualized. ABDOMEN and PELVIS: Intraperitoneal space: Unremarkable. No free air. No significant fluid collection. Bones/joints: No acute fracture. No dislocation. Soft tissues: Unremarkable. Vasculature: Unremarkable. No abdominal aortic aneurysm. Lymph nodes: Unremarkable. No enlarged lymph nodes. IMPRESSION: Patchy nodular interstitial infiltrates within the lower lobes bilaterally. While this may represent infectious or inflammatory pneumonitis, underlying neoplasm cannot be entirely excluded. Recommend chest CT follow-up to resolution. Findings consistent with polycystic renal disease unchanged from prior exam Electronically signed by: Michael Lowe MD 05/18/24 21:[address] 05/18/24 20:17 Exam(s): CT FACIAL Without Contrast EXAM: CT Maxillofacial Without Intravenous Contrast CLINICAL HISTORY: Reason for exam: sepsis ro abscsess. TECHNIQUE: Axial computed tomography images of the face without intravenous contrast. CTDI is 26 mGy and DLP is 1520 mGy-cm. Automated exposure control was utilized for the study. A dose lowering technique was utilized adhering to the principles of ALARA. COMPARISON: None FINDINGS: Bones/joints: Nondisplaced fracture of the lateral right maxillary sinus wall. Soft tissues: The presence or absence of an abscess cannot be assessed on this unenhanced CT scan. There is asymmetric inflammatory change since swelling about the right upper facial soft tissues near the teeth. Orbits: Unremarkable. Sinuses: Unremarkable. No air-fluid levels. Other findings: Poor dentition. IMPRESSION: Poor dentition with is asymmetric soft tissue swelling about the upper teeth on the right. The presence or absence of an abscess cannot be assessed on this unenhanced CT scan. Remote nondisplaced fracture of the right maxillary sinus wall. Electronically signed by: Michael Lowe MD 05/18/24 22:19 PM Code Status & VTE Plan Code Status Full code Critical Care Time 60 minutes PG Care Time/CCT Total # of Minutes Spent Total Time Spent with Patient: Total time spent is greater than 50% in coordination of care (as documented) at patient's floor/unit and/or counseling patient: Coding Level of Care Code 60106 INT INP/OBS CARE 3/75MIN Diagnoses Sepsis A41.9 Sepsis acute organ dysfunction status: without acute organ dysfunction Sepsis type: sepsis due to unspecified organism Acute hypotension I95.9 Aspiration pneumonia J69.0 Aspiration pneumonia type: unspecified Laterality: left Lung location: lower lobe of lung Urinary tract infection N39.0 Koolen-Yeimi syndrome Q93.88 Testicular carcinoma C62.90 Epilepsy G40.909 Cerebral palsy G80.9 Acute DVT (deep venous thrombosis) I82.409 (1) Sepsis Sepsis acute organ dysfunction status: without acute organ dysfunction Sepsis type: sepsis due to unspecified organism Qualified Code(s): A41.9 - Sepsis, unspecified organism (3) Aspiration pneumonia Aspiration pneumonia type: unspecified Laterality: left Lung location: lower lobe of lung Qualified Code(s): J69.0 - Pneumonitis due to inhalation of food and vomit
[2024-05-18] MEDS: LINEZOLID 600 MG/300 ML BAG IV STA (23:01)
--- NOTE | 2024-05-18 23:27 | Critical Care Consultation ---
Date of Consultation May 18, 2024 Assessment & Plan (1) Septic shock: Reason Critically Ill: 34-year-old male with developmental delay/cerebral palsy, and history of DVT (anticoagulated with Eliquis), seizure disorder, and recent facial surgery with multiple tooth extractions and fillings presents to the ICU with septic shock requiring vasopressor support. Neuro - Seizure disordercontinue home medications. Patient's mother reports his last seizure was in February and they are usually Focal Cardiac - Shocksuspect this is likely septic in etiology, as patient has multiple sources of infection. -See ID for treatment of sepsis -Will obtain TTE, no previous study to compare - Random cortisol pending. Patient did get hydrocortisone in the emergency department x 1 dose - Continue IV fluid resuscitation. He received 3 L crystalloid bolus Initially - Maintain MAP greater than 65. Wean vasopressors as tolerated -Hold antihypertensives - Continuous monitoring on telemetry Respiratory - Hypoxiapatient requiring supplemental oxygen with nasal cannula, no previous pulmonary disease. CT abdomen and pelvis show COVID incidental finding of bibasilar infiltrates of the lungs consistent with pneumonia. Patient does have history of aspiration pneumonia and per mother has had speech swallow study in the past with 4-second delay swallow. - Broad-spectrum antibiotics for coverage of pneumonia. See ID for details - Continue with nasal cannula/supplemental oxygen. Wean as tolerated - Nebs as needed -Continuous monitoring on pulse ox GI - N.p.o. for now. Speech eval pending GERDPPI RENAL/LYTES - AKIpatient with creatinine of 1.8 with previous baseline of 1.0. Suspect d ehydration may be playing a role as patient has had very little p.o. intake over the past 2 days since facial surgery. Possible ATN due to sepsis/hypotension as well. - Received 3 L crystalloid bolus. Continue with fluid resuscitation -Avoid nephrotoxins and renally adjust medications. Holding losartan - Maintain MAP greater than 65 - Monitor routine BMPs. Trend creatinine. Monitor electrolytes and replete as indicated - Foleystrict I's and O's ENDO - No history of diabetes or thyroid disease. ICU hyperglycemic protocol HEME - H&H stable, monitor routine CBC ID - Sepsispatient with multiple potential sources of sepsis at this time including pneumonia/aspiration, UTI, and recent facial surgery in which he has not received prophylactic antibiotics prior - Initially presents with fever and hypotension, lactic acid and procalcitonin within normal limits. No leukocytosis - Urinalysis suspicious for UTI and +2 bacteria. Urine culture pending - Blood cultures pending - Nasal MRSA negative. Will discontinue linezolid - Multiple antibiotic allergies including amoxicillin, Augmentin, Bactrim. He is currently on Zosyn and will continue for now LINES/IV ACCESS - Peripheral IVs. Currently requiring low-dose vasopressor. Due to cognitive dysfunction we will hold on central line as long as vasopressor support remains low. Will consider inserting central venous catheter if patient has increased requirement and Levophed/worsening septic shock. Will monitor closely DVT PROPHYLAXIS - History of DVT and anticoagulated on Eliquis. Will convert to IV heparin for now I have personally spent 52 minutes of critical care time in the direct management of this patient. This is a life/limb threatening event. This includes time spent evaluating patient, direct bedside care, chart review, placing orders, interpretation of diagnostic studies, discussion with consultants, patient, and family members, as well as other required patient management activities. This time is exclusive of all separately billable procedures, and teaching time and separate from and in addition to any other critical care service time. Thank you for allowing us to participate in the care of this patient. Please refer to my attending physician's documentation for any further recommendations. (2) Pneumonia: (3) EP (epilepsy): (4) LEVAR (acute kidney injury): (5) Urinary tract infection: (6) Hypertension: (7) History of DVT (deep vein thrombosis): History of Present Illness Attending Physician: Eliud Taylor MD History of Present Illness Patient is a 34-year-old male with past medical history significant for cerebral palsy, epilepsy, DVT (on Eliquis), aspiration pneumonia, HTN, GERD who presented to the emergency department earlier this evening with altered mental status. Patient was found to be hypotensive and febrile and was given IV fluid bolus and antibiotics. Blood cultures were performed and patient was started on vasopressor support for persistent hypotension, for which she is now being admitted to the ICU. Upon evaluation, the patient's mother was at the bedside. The patient is nonverbal at baseline, and she is his primary underground electrician. Recently the patient had several of his teeth removed with poor digitation and a lso had wisdom teeth and several molars removed as well along with feelings. Per conversation with the mother, cardiology did not recommend antibiotic coverage prophylactically before surgery. He does have allergy to Augmentin. She also states that the patient has had previous admissions to [place] with pneumonia, and states that he had a 4-second swallow this delay in a formal swallow evaluation by speech therapy. She reports that he was having bleeding from his mouth postop, and has had little to eat or drink. She reports that he has not urinated for the past day or had a bowel movement for 2 days. Urinalysis was suspicious for UTI and CT abdomen and pelvis showed bibasilar infiltrates consistent with pneumonia. He did undergo a face CT which was inconclusive for identifying Possible abscess due to lack of contrast. However, patient does have LEVAR with elevated creatinine. He is now being admitted to ICU for treatment of septic shock requiring vasopressor support. Allergies Allergy/AdvReac Type Severity Reaction Status Date / Time amoxicillin Allergy Intermediate Rash Verified 05/18/24 23:17 clavulanic acid Allergy Intermediate Rash Verified 05/18/24 23:17 sulfamethoxazole AdvReac Agitated Verified 05/18/24 23:17 [From Bactrim] trimethoprim [From Bactrim] AdvReac Agitated Verified 05/18/24 23:17 Home Medications Medication Instructions Recorded Confirmed Type acetaminophen 500 mg tablet 1,000 mg PO Q6H PRN Pain 10/17/19 05/18/24 History (Tylenol Extra Strength) apixaban 5 mg tablet (Eliquis) 5 mg PO BID 10/17/19 05/18/24 History diazepam 5 mg tablet 5 mg PO BID 10/17/19 05/18/24 History divalproex 500 mg tablet,delayed 500 mg PO BID 10/17/19 05/18/24 History release levetiracetam 500 mg tablet 750 mg PO BID 10/17/19 05/18/24 History lisinopril 5 mg tablet 5 mg PO QAM 10/17/19 05/18/24 History zonisamide 100 mg capsule 100 mg PO DAILYBB 10/17/19 05/18/24 History zonisamide 100 mg capsule 200 mg PO HS 10/17/19 05/18/24 History albuterol sulfate 2.5 mg/3 mL 2.5 mg (3 mL) inhalation Q4H PRN 06/24/21 05/18/24 Rx (0.083 %) solution for nebulization bronchospasm #75 mL famotidine 20 mg tablet 20 mg PO BID 09/01/23 05/18/24 History Patient History Medical History (Updated 05/19/24 @ 04:05 by ELENA Wang) Nephrolithiasis Family history of prostate cancer 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 COVID-19 Sepsis Cerebral palsy Epilepsy Acute DVT (deep venous thrombosis) MR (mental retardation) Testicular cancer Kidney disease Surgical History No pertinent past surgical history Family History Other Hypertension Social History Smoking Status: Never smoker Second Hand Exposure: No; Do You Dip or Chew Tobacco: No; Hx Alcohol Use: No Hx Substance Use: No Preferred Language: Swedish Communication Ability: Effective Radius Grinder Required: No Beliefs That Will Affect Care: None marital status: Single Current Living Situation: Parent current occupational status: disabled Other Information That Helps Us Care for You: No Feels Safe at Home: Yes Safety Concerns: Feels Safe At This Time Assistive Devices: Walker and Wheelchair Review of Systems Review of Systems: Unobtainable due to cognitive status Physical Exam Constitutional: + behavioral limitations; no acute distr ess Eyes: PERRL, conjunctivae normal, anicteric sclerae ENMT: external ear and nose normal, oropharynx normal Neck: trachea midline, no thyromegaly Respiratory: Coarse crackles auscultated bilaterally in lower right and left lobes. Symmetrical chest wall movement. No labored breathing Cardiovascular: RRR, no murmur, no edema Heart Sounds: normal S1 and normal S2 Extremities: no edema Gastrointestinal (Abdomen): normal bowel sounds, soft, nontender, no hepatosplenomegaly Musculoskeletal: no cyanosis or clubbing, extremities motor strength 5/5 Skin: no rashes, warm and dry Neurologic: Nonverbal. Moves extremities with equal strength bilaterally. PERRLA. Cognitive delay. No facial asymmetry Genitourinary: Indwelling Hutchinson catheter, urine yellow concentrated Results & Data Results & Data Vital Signs (Past 12 Hours) Vital Signs Temp Pulse Resp BP Pulse Ox O2 Del Method O2 Flow Rate 08/25/24 22:24 111 H 21 93 Nasal Cannula 4 05/18/24 22:15 90/56 L 05/18/24 22:15 90/56 L 05/18/24 22:15 90/56 L 05/18/24 22:15 90/56 L 05/18/24 22:09 103 H 23 91 05/18/24 22:00 76/50 L 05/18/24 21:53 114 H 23 93 05/18/24 21:47 106 H 23 86 L 05/18/24 21:45 86/56 L 05/18/24 21:35 103 H 27 H 88 L 05/18/24 21:32 105 H 24 90 Nasal Cannula 4 05/18/24 21:30 86/58 L 05/18/24 21:26 94/56 L 05/18/24 21:15 87/60 L 05/18/24 21:14 106 H 19 97 05/18/24 21:08 114 H 22 94 05/18/24 21:00 97/50 L 05/18/24 21:00 97/50 L 05/18/24 20:53 123 H 23 95 05/18/24 20:44 91/77 L 97 Nasal Cannula 4 05/18/24 20:26 129 H 21 96/72 L 97 Nasal Cannula 4 05/18/24 20:16 24 95 Nasal Cannula 4 05/18/24 20:16 130 H 18 94 Nasal Cannula 4 05/18/24 20:15 97/64 L 05/18/24 20:02 123 H 20 93 Nasal Cannula 4 05/18/24 20:01 114/86 05/18/24 19:47 87 L Room Air 05/18/24 19:47 87 L Room Air 0 05/18/24 19:44 133 H 19 87 L Room Air 05/18/24 19:30 119/89 05/18/24 19:30 119/89 05/18/24 19:29 145 H 17 91 05/18/24 19:26 129 H 27 H 89 L 05/18/24 19:17 127/85 05/18/24 19:14 139 H 05/18/24 18:54 39.5 C H 135 H 26 H 119/89 88 L Room Air Coding Level of Care Code 61819 CRITICAL CARE 1ST 30-74M Diagnoses Septic shock A41.9; R65.21 Pneumonia J18.9 EP (epilepsy) G40.909 LEVAR (acute kidney injury) N17.9 Urinary tract infection N39.0 Hypertension I10 History of DVT (deep vein thrombosis) Z86.718
[2024-05-18] MEDS ORDERED: ONDANSETRON INJ 2 MG/ML 2 ML VIAL IV PRN (23:50)
[2024-05-19] MEDS: NOREPINEPHRINE/D5W 4 MG/250 ML PLCT IV SCH (00:07)
[2024-05-19 00:09] LABS: Base Excess VBG -5.7 mEq/L; HCO3 VBG 21 mmol/L; Oxygen Saturation VBG 78.4 %; PCO2 VBG 43 mmHg (38-50); PO2 VBG 46 mmHg; pH VBG 7.29 (7.36-7.41)
[2024-05-19] MEDS: levETIRAcetam IV 750 MG in 0.9 % SODIUM CHLORIDE 100 ML IV STA (00:17)
--- NOTE | 2024-05-19 00:32 | Billing Data ---
Date of Service May 19, 2024 Coding Level of Care Code 79969 CRITICAL CARE
[2024-05-19] MEDS: HYDROCORTISONE SOD 100 MG in SYRINGE 0 ML IV SCH (00:35)
[2024-05-19] MEDS: PANTOprazole 40 MG in SYRINGE 0 ML IV SCH (00:35)
[2024-05-19] MEDS: VALPROATE SOD 250 MG in DEXTROSE 5% 50 ML IV STA (00:41)
[2024-05-19] MEDS: SODIUM CHLORIDE 0.9% 1,000 ML IV SCH (00:41)
[2024-05-19] MEDS: HEPARIN SODIUM/DEXTROSE 25,000 UNITS/500 ML BAG IV SCH (00:47)
[2024-05-19] MEDS: Heparin IV Adult Wt-Based Low-Dose *NO* INITIAL Bolus Protocol IV STA (00:50)
[2024-05-19] MEDS: diazePAM 5 MG/ML 10ML VIAL IV STA (00:54)
--- NOTE | 2024-05-19 01:31 | Emergency Department Note ---
History of Present Illness General Chief complaint: Fever Stated complaint: Fever, Tachycardia, Tachypnea, Dental Surgery Time Seen by Provider: 05/18/24 19:46 Source: family (Mother at bedside) History of Present Illness Provider complaint: Fever 34-year-old male who is nonverbal with CP presents emergency department with mother for fever. Mother reports that the patient had an extensive dental surgery performed on Sunday under general anesthesia where his teeth were removed and he had multiple dental fillings placed 7. She states since then the patient has been unable to eat and has had increased welling in his jaw. She reports that the patient has developed fever. Patient is on clindamycin. No diarrhea. No vomiting. Home Medications Medication Instructions Recorded Confirmed Type acetaminophen 500 mg tablet 1,000 mg PO Q6H PRN Pain 10/17/19 05/18/24 History (Tylenol Extra Strength) apixaban 5 mg tablet (Eliquis) 5 mg PO BID 10/17/19 05/18/24 History diazepam 5 mg tablet 5 mg PO BID 10/17/19 05/18/24 History divalproex 500 mg tablet,delayed 500 mg PO BID 10/17/19 05/18/24 History release levetiracetam 500 mg tablet 750 mg PO BID 10/17/19 05/18/24 History lisinopril 5 mg tablet 5 mg PO QAM 10/17/19 05/18/24 History zonisamide 100 mg capsule 100 mg PO DAILYBB 10/17/19 05/18/24 History zonisamide 100 mg capsule 200 mg PO HS 10/17/19 05/18/24 History albuterol sulfate 2.5 mg/3 mL 2.5 mg (3 mL) inhalation Q4H PRN 06/24/21 05/18/24 Rx (0.083 %) solution for nebulization bronchospasm #75 mL famotidine 20 mg tablet 20 mg PO BID 09/01/23 05/18/24 History Allergies Allergy/AdvReac Type Severity Reaction Status Date / Time amoxicillin Allergy Intermediate Rash Verified 05/18/24 23:17 clavulanic acid Allergy Intermediate Rash Verified 05/18/24 23:17 sulfamethoxazole AdvReac Agitated Verified 05/18/24 23:17 [From Bactrim] trimethoprim [From Bactrim] AdvReac Agitated Verified 05/18/24 23:17 Past Med/Surg History Problem List (Updated 05/19/24 @ 01:38 by Luis Armando Jaeger MD) Acute UTI (Acute) Pneumonia (Acute) Sepsis (Acute) Acute hypotension Fever (Acute) Wheezing (Acute) Pneumonia (Acute) Bronchitis (Acute) Respiratory distress (Acute) EP (epilepsy) (Chronic) Back pain (Acute) Kidney stone on left side (Acute) Breakthrough seizure (Acute) Urinary tract infection (Acute) Seizure (Acute) History of cerebral palsy History of seizure disorder History of chronic constipation Constipation (Acute) Status epilepticus Testicular cancer (Acute 02/27/17) "Swelling of the left testicle Status post emergency room evaluation 02/27/2017 Status post ultrasound and then left radical orchiectomy 02/27/2017 Seminoma unifocal, 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, normal AFP, LDH, and HCG Stage pT1 pNX" Medical History (Updated 05/19/24 @ 01:38 by Luis Armando Jaeger MD) Nephrolithiasis Family history of prostate cancer 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 COVID-19 Sepsis Cerebral palsy Epilepsy Acute DVT (deep venous thrombosis) MR (mental retardation) Testicular cancer Kidney disease Surgical History No pertinent past surgical history Family History Other Hypertension Social History Smoking Status: Never smoker Second Hand Exposure: No; Do You Dip or Chew Tobacco: No; Hx Alcohol Use: No Hx Substance Use: No Preferred Language: Angolan Communication Ability: Effective Band Saw Marker Required: No Beliefs That Will Affect Care: None marital status: Single Current Living Situation: Parent current occupational status: disabled Other Information That Helps Us Care for You: No Feels Safe at Home: Yes Safety Concerns: Feels Safe At This Time Assistive Devices: Walker and Wheelchair Physical Exam Vital Signs Vital Signs - 24 hr 05/18/24 18:54 05/18/24 19:14 05/18/24 19:17 Temperature 39.5 C H Temperature Source Oral Pulse Rate 135 H 139 H Pulse Rate from SpO2 Sensor Pulse Rhythm Respiratory Rate 26 H Respiratory Depth Shallow Blood Pressure 119/89 127/85 Blood Pressure Mean 99 93 Pulse Oximetry 88 L Oxygen Delivery Method Room Air Oxygen Flow Rate Sepsis Recent Fever Within 48 Hours Yes Sepsis New/Unexplained Change in Mental Status No Sepsis Action Taken by Nursing Physician Notified Oxygen Flow Rate - Titration 05/18/24 19:26 05/18/24 19:29 05/18/24 19:30 Temperature Temperature Source Pulse Rate 129 H 145 H Pulse Rate from SpO2 Sensor 132 H 139 H Pulse Rhythm Respiratory Rate 27 H 17 Respiratory Depth Blood Pressure 119/89 Blood Pressure Mean 99 Pulse Oximetry 89 L 91 Oxygen Delivery Method Oxygen Flow Rate Sepsis Recent Fever Within 48 Hours Sepsis New/Unexplained Change in Mental Status Sepsis Action Taken by Nursing Oxygen Flow Rate - Titration 05/18/24 19:30 05/18/24 19:44 05/18/24 19:47 Temperature Temperature Source Pulse Rate 133 H Pulse Rate from SpO2 Sensor 133 H Pulse Rhythm Respiratory Rate 19 Respiratory Depth Blood Pressure 119/89 Blood Pressure Mean 99 Pulse Oximetry 87 L 87 L Oxygen Delivery Method Room Air Room Air Oxygen Flow Rate 0 Sepsis Recent Fever Within 48 Hours Sepsis New/Unexplained Change in Mental Status Sepsis Action Taken by Nursing Oxygen Flow Rate - Titration 2 05/18/24 19:47 05/18/24 20:01 05/18/24 20:02 Temperature Temperature Source Pulse Rate 123 H Pulse Rate from SpO2 Sensor 125 H Pulse Rhythm Respiratory Rate 20 Respiratory Depth Blood Pressure 114/86 Blood Pressure Mean 98 Pulse Oximetry 87 L 93 Oxygen Delivery Method Room Air Nasal Cannula Oxygen Flow Rate 4 Sepsis Recent Fever Within 48 Hours Sepsis New/Unexplained Change in Mental Status Sepsis Action Taken by Nursing Oxygen Flow Rate - Titration 05/18/24 20:15 05/18/24 20:16 05/18/24 20:16 Temperature Temperature Source Pulse Rate 130 H Pulse Rate from SpO2 Sensor Pulse Rhythm Regular Respiratory Rate 18 24 Respiratory Depth Blood Pressure 97/64 L Blood Pressure Mean 81 Pulse Oximetry 94 95 Oxygen Delivery Method Nasal Cannula Nasal Cannula Oxygen Flow Rate 4 4 Sepsis Recent Fever Within 48 Hours Sepsis New/Unexplained Change in Mental Status Sepsis Action Taken by Nursing Oxygen Flow Rate - Titration 05/18/24 20:26 05/18/24 20:44 05/18/24 20:53 Temperature Temperature Source Pulse Rate 129 H 123 H Pulse Rate from SpO2 Sensor 129 H 132 H 123 H Pulse Rhythm Respiratory Rate 21 23 Respiratory Depth Blood Pressure 96/72 L 91/77 L Blood Pressure Mean 80 81 Pulse Oximetry 97 97 95 Oxygen Delivery Method Nasal Cannula Nasal Cannula Oxygen Flow Rate 4 4 Sepsis Recent Fever Within 48 Hours Sepsis New/Unexplained Change in Mental Status Sepsis Action Taken by Nursing Oxygen Flow Rate - Titration 05/18/24 21:00 05/18/24 21:00 05/18/24 21:08 Temperature Temperature Source Pulse Rate 114 H Pulse Rate from SpO2 Sensor 114 H Pulse Rhythm Respiratory Rate 22 Respiratory Depth Blood Pressure 97/50 L 97/50 L Blood Pressure Mean 68 68 Pulse Oximetry 94 Oxygen Delivery Method Oxygen Flow Rate Sepsis Recent Fever Within 48 Hours Sepsis New/Unexplained Change in Mental Status Sepsis Action Taken by Nursing Oxygen Flow Rate - Titration 05/18/24 21:14 05/18/24 21:15 05/18/24 21:26 Temperature Temperature Source Pulse Rate 106 H Pulse Rate from SpO2 Sensor 106 H Pulse Rhythm Respiratory Rate 19 Respiratory Depth Blood Pressure 87/60 L 94/56 L Blood Pressure Mean 76 62 Pulse Oximetry 97 Oxygen Delivery Method Oxygen Flow Rate Sepsis Recent Fever Within 48 Hours Sepsis New/Unexplained Change in Mental Status Sepsis Action Taken by Nursing Oxygen Flow Rate - Titration 05/18/24 21:30 05/18/24 21:32 05/18/24 21:35 Temperature Temperature Source Pulse Rate 105 H 103 H Pulse Rate from SpO2 Sensor 103 H 102 H Pulse Rhythm Respiratory Rate 24 27 H Respiratory Depth Blood Pressure 86/58 L Blood Pressure Mean 69 Pulse Oximetry 90 88 L Oxygen Delivery Method Nasal Cannula Oxygen Flow Rate 4 Sepsis Recent Fever Within 48 Hours Sepsis New/Unexplained Change in Mental Status Sepsis Action Taken by Nursing Oxygen Flow Rate - Titration 05/18/24 21:45 05/18/24 21:47 05/18/24 21:53 Temperature Temperature Source Pulse Rate 106 H 114 H Pulse Rate from SpO2 Sensor 107 H 111 H Pulse Rhythm Respiratory Rate 23 23 Respiratory Depth Blood Pressure 86/56 L Blood Pressure Mean 73 Pulse Oximetry 86 L 93 Oxygen Delivery Method Oxygen Flow Rate Sepsis Recent Fever Within 48 Hours Sepsis New/Unexplained Change in Mental Status Sepsis Action Taken by Nursing Oxygen Flow Rate - Titration 05/18/24 22:00 05/18/24 22:09 05/18/24 22:15 Temperature Temperature Source Pulse Rate 103 H Pulse Rate from SpO2 Sensor 103 H Pulse Rhythm Respiratory Rate 23 Respiratory Depth Blood Pressure 76/50 L 90/56 L Blood Pressure Mean 62 71 Pulse Oximetry 91 Oxygen Delivery Method Oxygen Flow Rate Sepsis Recent Fever Within 48 Hours Sepsis New/Unexplained Change in Mental Status Sepsis Action Taken by Nursing Oxygen Flow Rate - Titration 05/18/24 22:15 05/18/24 22:15 05/18/24 22:15 Temperature Temperature Source Pulse Rate Pulse Rate from SpO2 Sensor Pulse Rhythm Respiratory Rate Respiratory Depth Blood Pressure 90/56 L 90/56 L 90/56 L Blood Pressure Mean 71 71 71 Pulse Oximetry Oxygen Delivery Method Oxygen Flow Rate Sepsis Recent Fever Within 48 Hours Sepsis New/Unexplained Change in Mental Status Sepsis Action Taken by Nursing Oxygen Flow Rate - Titration 05/18/24 22:24 Temperature Temperature Source Pulse Rate 111 H Pulse Rate from SpO2 Sensor 111 H Pulse Rhythm Respiratory Rate 21 Respiratory Depth Blood Pressure Blood Pressure Mean Pulse Oximetry 93 Oxygen Delivery Method Nasal Cannula Oxygen Flow Rate 4 Sepsis Recent Fever Within 48 Hours Sepsis New/Unexplained Change in Mental Status Sepsis Action Taken by Nursing Oxygen Flow Rate - Titration Physical Exam GENERAL: Patient is ill-appearing. HENT: Exam performed. - Head: Normocephalic and atraumatic. - Mouth/Throat: Swelling of the mouth and jaw. EYES: Conjunctivae and EOM are normal. Pupils are equal, round, and reactive to light. Right eye exhibits no discharge. Left eye exhibits no discharge. No scleral icterus. NECK: Normal range of motion. Neck supple. No JVD present. N CV: Tachycardic rate, regular rhythm, normal heart sounds and intact distal pulses. There is no peripheral edema. Palpable radial pulses bue. PULM/CHEST: Rhonchi bilaterally. Tachypneic. ABD: The abdomen is soft. Course Course 194: The patient was evaluated in room C5. A complete history and physical exam was performed Cardiac monitoring: An order was placed for continuous cardiac monitoring. The monitor shows a rate of 130 with sinus tachycardia rhythm interpreted by [place] Sepsis protocols initiated. 2100: Blood pressure improving with IV fluids. 2215: Patient becoming hypotensive despite 30 cc/kg normal saline bolus. Labs show no leukocytosis lactic acid within normal limits. BioFire negative. Creatinine is elevated to 1.83 up from baseline of 0.9. Imaging shows pneumonia and urinalysis is concerning for infection. Patient treated with Zosyn. Given the patient's continued hypotension despite adequate fluid resuscitation, Levophed will be started. Discussed case with ICU Jasiel who will be down to evaluate the patient. Dr[facility] will evaluate the patient for admission. Administered Medications Norepinephrine Bitartrate (Levophed/D5w) 4 mg in 250 mls @ 13.931 mls/hr IV .[id number] SIM; Protocol Stop: 06/17/24 22:14 Last Titration: 05/19/24 01:03 Dose: 0.04 mcg/kg/min, 11.1 mls/hr Documented By: Admin: 05/19/24 00:07 Dose: 0.05 mcg/kg/min, 13.9 mls/hr Documented By: CLC Co-signed By: KRYSTIN Heparin Sodium/Dextrose (Heparin Sodium/Dextrose) 25,000 units in 500 mls @ 14 mls/hr IV .Q24H SIM; Protocol Stop: 06/17/24 23:14 Last Admin: 05/19/24 00:47 Dose: 700 units/hr, 14 mls/hr Documented By: CLC Co-signed By: YOSEF Hydrocortisone Sodium (Succinate 100 mg/ Syringe) 2 mls @ 4 mls/min IV Q8H SIM Stop: 06/18/24 00:00 Last Admin: 05/19/24 00:35 Dose: 4 mls/min Documented By: CLC Pantoprazole Sodium 40 mg/ (Syringe) 10 mls @ 5 mls/min IV BID SIM Stop: 06/17/24 23:49 Last Admin: 05/19/24 00:35 Dose: 5 mls/min Documented By: CLC Sodium Chloride (Nss) 1,000 mls @ 150 mls/hr IV .Q6H40M SIM Stop: 06/17/24 23:49 Last Admin: 05/19/24 00:41 Dose: 150 mls/hr Documented By: CLC Discontinued Medications Diazepam (Diazepam 5 Mg/Ml 10ml Vial) 10 mg IV ONE STA Stop: 05/18/24 22:57 Last Admin: 05/19/24 00:54 Dose: 10 mg Documented By: CLC Heparin Sodium/Dextrose (Heparin Iv Adult Wt-Based Low-Dose *No* Initial Bolus Protocol) 1 each IV ONE STA; Protocol Stop: 05/18/24 22:46 Last Admin: 05/19/24 00:50 Dose: 1 each Documented By: CLC Sodium Chloride (Nss) 1,000 mls @ 999 mls/hr IV .Q1H1M ONE Stop: 05/18/24 20:46 Last Infusion: 05/18/24 21:06 Dose: Infused Documented By: Admin: 05/18/24 19:54 Dose: 999 mls/hr Documented By: VALDO Piperacillin Sod/Tazobactam Sod (Zosyn) 4.5 gm in 120 mls @ 240 mls/hr IV NOW ONE Stop: 05/18/24 20:27 Last Infusion: 05/18/24 21:39 Dose: Infused Documented By: Admin: 05/18/24 21:02 Dose: 240 mls/hr Documented By: VALDO Sodium Chloride (Nss) 1,000 mls @ 999 mls/hr IV .Q1H1M ONE Stop: 05/18/24 21:51 Last Infusion: 05/18/24 21:39 Dose: Infused Documented By: Admin: 05/18/24 21:02 Dose: 999 mls/hr Documented By: VALDO Sodium Chloride (Nss) 500 mls @ 999 mls/hr IV .Q31M ONE Stop: 05/18/24 21:21 Last Infusion: 05/18/24 21:57 Dose: Infused Documented By: Admin: 05/18/24 21:02 Dose: 999 mls/hr Documented By: VALDO Acetaminophen (Ofirmev) 1,000 mg in 100 mls @ 400 mls/hr IV NOW STA Stop: 05/18/24 21:30 Last Infusion: 05/18/24 22:15 Dose: Infused Documented By: Admin: 05/18/24 21:56 Dose: 400 mls/hr Documented By: VALDO Sodium Chloride (Nss) 1,000 mls @ 999 mls/hr IV .Q1H1M ONE Stop: 05/18/24 23:12 Last Infusion: 05/19/24 01:02 Dose: Infused Documented By: Admin: 05/18/24 22:15 Dose: 999 mls/hr Documented By: VALDO Valproic Acid 250 mg/ Dextrose 52.5 mls @ 55 mls/hr IV ONE STA Stop: 05/18/24 23:39 Last Admin: 05/19/24 00:41 Dose: 55 mls/hr Documented By: HEATHER Linezolid (Zyvox) 600 mg in 300 mls @ 300 mls/hr IV ONE STA Stop: 05/18/24 23:41 Last Infusion: 05/19/24 01:02 Dose: Infused Documented By: Admin: 05/18/24 23:01 Dose: 300 mls/hr Documented By: VALDO Levetiracetam 750 mg/ Sodium (Chloride) 107.5 mls @ 430 mls/hr IV ONE STA Stop: 05/18/24 22:59 Last Infusion: 05/19/24 01:02 Dose: Infused Documented By: Admin: 05/19/24 00:17 Dose: 430 mls/hr Documented By: HEATHER Critical Care Time Critical Care Time: Yes Total Critical Care Time: 73 I have personally spent greater than 73 minutes of critical care time in the direct management of this patient. This includes bedside care, interpretation of diagnostic studies, and testing, discussion with consultants, patient, and family members, and other required patient management activities. This 73 minutes is in excess of all separately billable procedures. Medical Decision Making Laboratory Data Attestation: I reviewed the patient's lab results. 05/18/24 19:29 05/18/24 19:29 Lab Results 05/18/24 05/18/24 05/18/24 Range/Units 19:29 20:09 20:14 WBC 5.82 (4.8-10.8) K/ul RBC 4.43 L (4.70-6.10) M/uL Hgb 13.4 L (14.0-18.0) g/dl POC Hgb 14.3 (14.0-18.0) g/dl Hct 40.0 L (42.0-52.0) % POC Hct 42 (42-52) % MCV 90.3 (80.0-100.0) fL MCH 30.2 (25.0-34.0) pg MCHC 33.5 (32.0-36.0) g/dL RDW Std Deviation 45.1 (36.4-46.3) fL RDW Coeff of Holley 13.5 (11.5-14.5) % Plt Count 169 (130-400) K/uL MPV 11.7 (9.4-12.4) fL Immature Gran % (Auto) 0.2 % Neut % (Auto) 81.3 % Lymph % (Auto) 11.2 % [place] % (Auto) 6.5 % Eos % (Auto) 0.5 % Baso % (Auto) 0.3 % Neut # (Auto) 4.73 (1.40-6.50) K/uL Lymph # (Auto) 0.65 L (1.20-3.40) K/uL [place] # (Auto) 0.38 (0.11-0.59) K/uL Eos # (Auto) 0.03 (0.00-0.50) K/uL Baso # (Auto) 0.02 (0.00-0.20) K/uL Immature Gran # (Auto) 0.01 (0.01-0.20) K/uL PT 11.4 (9.0-12.0) Seconds INR 1.1 (0.9-1.1) APTT 38 H (21-31) Seconds PTT Ratio 1.4 POC Sodium 137 (135-144) mmol/L Sodium 138 (136-145) mmol/L POC Potassium 3.9 (3.3-5.0) mmol/L Potassium 4.0 (3.5-5.1) mmol/L POC Chloride 105 (101-112) mmol/L Chloride 102 (98-107) mmol/L Carbon Dioxide 25 (21-32) mmol/L POC Total CO2 21 L (24-31) mmol/L Anion Gap 11 (3-11) POC Anion Gap 16.0 (16-25) mmol/L POC BUN 35 H (7-18) mg/dl BUN 42 H (6-23) mg/dl Creatinine 1.83 H (0.6-1.4) mg/dl POC Creatinine 1.8 H (0.6-1.3) mg/dl Est Cr Clr Drug Dosing 47.6 ml/min Est GFR ( Amer) 54.2 Est GFR (Non-Af Amer) 46.8 BUN/Creatinine Ratio 23.0 H (10-20) Glucose 97 (70-99(Fasting)) mg/dl POC Glucose (other) 93 (70-99) mg/dl Lactate 2.0 (0.4-2.0) mmol/L Calcium 9.9 (8.6-10.3) mg/dl POC Ioniz Calcium Massimo 1.08 L (1.12-1.32) mmol/l Magnesium 1.9 (1.7-2.4) mg/dl Total Bilirubin 2.1 H (0.2-1.0) mg/dl Direct Bilirubin 1.2 H (0-0.2) mg/dl AST 12 L (13-39) U/L ALT 21 (7-52) U/L Alkaline Phosphatase 64 (34-104) U/L Total Creatine Kinase 140 (30-223) U/L Troponin I High Sens 13.3 (0-20) pg/ml Total Protein 7.2 (6.0-8.3) gm/dl Albumin 4.3 (3.4-5.0) gm/dl Procalcitonin 0.49 (0-0.5) ng/ml Urine Color R[place] Urine Appearance Turbid A (Clear) Urine pH 5.0 (4.5-7.5) Ur Specific [place] 1.022 (1.000-1.030) Urine Protein 2+ H (Negative) Urine Glucose (UA) Negative (Negative) Urine Ketones Negative (Negative) Urine Blood 3+ H (Negative) Urine Nitrite Negative (Negative) Urine Bilirubin 1+ H (Negative) Urine Urobilinogen Negative (Negative) Ur Leukocyte Esterase 2+ H (Negative) Urine WBC (Auto) >50 H (0-5) /hpf Urine RBC (Auto) >20 H (0-2) /hpf U Hyaline Cast (Auto) >20 H (0-2) /lpf U Epithel Cells (Auto) 0-2 (0-2) /hpf Urine Bacteria (Auto) 2+ H (None Seen) Amorphous Sediment Present A (None Prsent) Adenovirus (PCR) (NotDetected) B. pertussis DNA (PCR) (NotDetected) B.parapertussis DNA PCR (NotDetected) C. pneumoniae DNA (PCR) (NotDetected) Coronavirus OC43 (PCR) (NotDetected) Coronavirus HKU1 (PCR) (NotDetected) Coronavirus 229E (PCR) (NotDetected) SARS-CoV-2 (PCR) (NotDetected) Coronavirus NL63 (PCR) (NotDetected) Human Metapneumovir PCR (NotDetected) Influenza Type A (PCR) (NotDetected) Influenza Type B (PCR) (NotDetected) M. pneumoniae (PCR) (NotDetected) Parainfluenza 1 (PCR) (NotDetected) Parainfluenza 2 (PCR) (NotDetected) Parainfluenza 3 (PCR) (NotDetected) Parainfluenza 4 (PCR) (NotDetected) RSV (PCR) (NotDetected) Entero/Rhino (PCR) (NotDetected) 05/18/24 Range/Units 20:17 WBC (4.8-10.8) K/ul RBC (4.70-6.10) M/uL Hgb (14.0-18.0) g/dl POC Hgb (14.0-18.0) g/dl Hct (42.0-52.0) % POC Hct (42-52) % MCV (80.0-100.0) fL MCH (25.0-34.0) pg MCHC (32.0-36.0) g/dL RDW Std Deviation (36.4-46.3) fL RDW Coeff of Holley (11.5-14.5) % Plt Count (130-400) K/uL MPV (9.4-12.4) fL Immature Gran % (Auto) % Neut % (Auto) % Lymph % (Auto) % [place] % (Auto) % Eos % (Auto) % Baso % (Auto) % Neut # (Auto) (1.40-6.50) K/uL Lymph # (Auto) (1.20-3.40) K/uL [place] # (Auto) (0.11-0.59) K/uL Eos # (Auto) (0.00-0.50) K/uL Baso # (Auto) (0.00-0.20) K/uL Immature Gran # (Auto) (0.01-0.20) K/uL PT (9.0-12.0) Seconds INR (0.9-1.1) APTT (21-31) Seconds PTT Ratio POC Sodium (135-144) mmol/L Sodium (136-145) mmol/L POC Potassium (3.3-5.0) mmol/L Potassium (3.5-5.1) mmol/L POC Chloride (101-112) mmol/L Chloride (98-107) mmol/L Carbon Dioxide (21-32) mmol/L POC Total CO2 (24-31) mmol/L Anion Gap (3-11) POC Anion Gap (16-25) mmol/L POC BUN (7-18) mg/dl BUN (6-23) mg/dl Creatinine (0.6-1.4) mg/dl POC Creatinine (0.6-1.3) mg/dl Est Cr Clr Drug Dosing ml/min Est GFR ( Amer) Est GFR (Non-Af Amer) BUN/Creatinine Ratio (10-20) Glucose (70-99(Fasting)) mg/dl POC Glucose (other) (70-99) mg/dl Lactate (0.4-2.0) mmol/L Calcium (8.6-10.3) mg/dl POC Ioniz Calcium Massimo (1.12-1.32) mmol/l Magnesium (1.7-2.4) mg/dl Total Bilirubin (0.2-1.0) mg/dl Direct Bilirubin (0-0.2) mg/dl AST (13-39) U/L ALT (7-52) U/L Alkaline Phosphatase (34-104) U/L Total Creatine Kinase (30-223) U/L Troponin I High Sens (0-20) pg/ml Total Protein (6.0-8.3) gm/dl Albumin (3.4-5.0) gm/dl Procalcitonin (0-0.5) ng/ml Urine Color Urine Appearance (Clear) Urine pH (4.5-7.5) Ur Specific [place] (1.000-1.030) Urine Protein (Negative) Urine Glucose (UA) (Negative) Urine Ketones (Negative) Urine Blood (Negative) Urine Nitrite (Negative) Urine Bilirubin (Negative) Urine Urobilinogen (Negative) Ur Leukocyte Esterase (Negative) Urine WBC (Auto) (0-5) /hpf Urine RBC (Auto) (0-2) /hpf U Hyaline Cast (Auto) (0-2) /lpf U Epithel Cells (Auto) (0-2) /hpf Urine Bacteria (Auto) (None Seen) Amorphous Sediment (None Prsent) Adenovirus (PCR) Not Detected (NotDetected) B. pertussis DNA (PCR) Not Detected (NotDetected) B.parapertussis DNA PCR Not Detected (NotDetected) C. pneumoniae DNA (PCR) Not Detected (NotDetected) Coronavirus OC43 (PCR) Not Detected (NotDetected) Coronavirus HKU1 (PCR) Not Detected (NotDetected) Coronavirus 229E (PCR) Not Detected (NotDetected) SARS-CoV-2 (PCR) Not Detected (NotDetected) Coronavirus NL63 (PCR) Not Detected (NotDetected) Human Metapneumovir PCR Not Detected (NotDetected) Influenza Type A (PCR) Not Detected (NotDetected) Influenza Type B (PCR) Not Detected (NotDetected) M. pneumoniae (PCR) Not Detected (NotDetected) Parainfluenza 1 (PCR) Not Detected (NotDetected) Parainfluenza 2 (PCR) Not Detected (NotDetected) Parainfluenza 3 (PCR) Not Detected (NotDetected) Parainfluenza 4 (PCR) Not Detected (NotDetected) RSV (PCR) Not Detected (NotDetected) Entero/Rhino (PCR) Not Detected (NotDetected) Imaging Data Radiologist's Impression: Abdomen/Pelvis CT 05/18/24 20:17 Exam(s): CT ABDOMEN + PELVIS Without Contrast EXAM: CT Abdomen and Pelvis Without Intravenous Contrast CLINICAL HISTORY: Reason for exam: abd pain ro sbo. TECHNIQUE: Axial computed tomography images of the abdomen and pelvis without intravenous contrast. CTDI is 26 mGy and DLP is 1520 mGy-cm. Automated exposure control was utilized for the study. A dose lowering technique was utilized adhering to the principles of ALARA. COMPARISON: 09/01/2023 FINDINGS: Lung bases: Extensive bilateral nodular interstitial infiltrates. ABDOMEN: Liver: See below. Gallbladder and bile ducts: Unremarkable. No calcified stones. No ductal dilation. Pancreas: Unremarkable. No ductal dilation. Spleen: Unremarkable. No splenomegaly. Adrenals: Unremarkable. No mass. Kidneys and ureters: Innumerable bilateral renal and hepatic cysts consistent with polycystic renal disease. No hydroureter present. Stomach and bowel: Minimal amount of stool within the rectum. No obstruction. No mucosal thickening. PELVIS: Appendix: No findings to suggest acute appendicitis. Bladder: Hutchinson catheter within the urinary bladder. No stones. Reproductive: Unremarkable as visualized. ABDOMEN and PELVIS: Intraperitoneal space: Unremarkable. No free air. No significant fluid collection. Bones/joints: No acute fracture. No dislocation. Soft tissues: Unremarkable. Vasculature: Unremarkable. No abdominal aortic aneurysm. Lymph nodes: Unremarkable. No enlarged lymph nodes. IMPRESSION: Patchy nodular interstitial infiltrates within the lower lobes bilaterally. While this may represent infectious or inflammatory pneumonitis, underlying neoplasm cannot be entirely excluded. Recommend chest CT follow-up to resolution. Findings consistent with polycystic renal disease unchanged from prior exam Electronically signed by: Michael Lowe MD 05/18/24 21:[address] 05/18/24 20:17 Exam(s): CT FACIAL Without Contrast EXAM: CT Maxillofacial Without Intravenous Contrast CLINICAL HISTORY: Reason for exam: sepsis ro abscsess. TECHNIQUE: Axial computed tomography images of the face without intravenous contrast. CTDI is 26 mGy and DLP is 1520 mGy-cm. Automated exposure control was utilized for the study. A dose lowering technique was utilized adhering to the principles of ALARA. COMPARISON: None FINDINGS: Bones/joints: Nondisplaced fracture of the lateral right maxillary sinus wall. Soft tissues: The presence or absence of an abscess cannot be assessed on this unenhanced CT scan. There is asymmetric inflammatory change since swelling about the right upper facial soft tissues near the teeth. Orbits: Unremarkable. Sinuses: Unremarkable. No air-fluid levels. Other findings: Poor dentition. IMPRESSION: Poor dentition with is asymmetric soft tissue swelling about the upper teeth on the right. The presence or absence of an abscess cannot be assessed on this unenhanced CT scan. Remote nondisplaced fracture of the right maxillary sinus wall. Electronically signed by: Michael Lowe MD 05/18/24 22:19 PM ECG Data Attestation: I personally reviewed and interpreted this ECG as follows: Additional Comments: Sinus tachycardia with a rate of 137. OK 90 QRS 162 QTc 573. Bifascicular block present. No significant change from the EKG in October 2021. [facility] Narrative 194: The patient was evaluated in room C5. A complete history and physical exam was performed Cardiac monitoring: An order was placed for continuous cardiac monitoring. The monitor shows a rate of 130 with sinus tachycardia rhythm interpreted by nh Sepsis protocols initiated. 2099: Blood pressure improving with IV fluids. 2214: Patient becoming hypotensive despite 30 cc/kg normal saline bolus. Labs show no leukocytosis lactic acid within normal limits. BioFire negative. Creatinine is elevated to 1.83 up from baseline of 0.9. Imaging shows pneumonia and urinalysis is concerning for infection. Patient treated with Zosyn. Given the patient's continued hypotension despite adequate fluid resuscitation, Levophed will be started. Discussed case with ICU Jasiel who will be down to evaluate the patient. Dr. Espinoza [facility] hospitalist is aware the patient will evaluate the patient for admission. Impression & Plan Sepsis, Pneumonia, Acute UTI Discharge Plan Visit Data Chief Complaint: Fever Stated Complaint: Fever, Tachycardia, Tachypnea, Dental Surgery ED Provider: Luis Armando Jaeger Discharge Problem: Sepsis, Pneumonia, Acute UTI Patient Disposition: Admitted As Inpatient Discharge Instructions Interventions: ED Discharge Assessment Last Done: 05/18/24 23:14
[2024-05-19 01:43] LABS: BUN Creatinine Ratio 22.5 (10-20); Calcium 7.6 mg/dl (8.6-10.3); Creatinine Clr Calc Pharmacy 61.3 ml/min; Est GFR (African American) 73.6 ml/min; Est GFR (Non-African American) 63.5 ml/min
[2024-05-19] MEDS ORDERED: ALBUT/IPRATROP 3MG/0.5MG NEB 3 ML VIAL NEB PRN (02:42)
[2024-05-19] MEDS: PIPERACILLIN/TAZOBACTAM 4.5 GM/100 ML BAG IV SCH (02:49)
[2024-05-19 04:59] LABS: Basophils # (auto) 0.01 K/uL (0.00-0.20); Basophils % (auto) 0.2 %; Immature Granulocytes # (auto) 0.01 K/uL (0.01-0.20); Immature Granulocytes % (auto) 0.2 %; Lymphocytes # (auto) 0.43 K/uL (1.20-3.40); Lymphocytes % (auto) 7.3 %; Mean Corpuscular Hemoglobin 29.8 pg (25.0-34.0); Mean Corpuscular Hgb Conc 32.4 g/dL (32.0-36.0); Mean Corpuscular Volume 92.1 fL (80.0-100.0); Mean Platelet Volume 11.5 fL (9.4-12.4); Monocytes # (auto) 0.46 K/uL (0.11-0.59); Monocytes % (auto) 7.8 %; Neutrophils % (auto) 84.5 %; Platelet Count 118 K/uL (130-400); RDW Coefficient of Variation 13.6 % (11.5-14.5); RDW Standard Deviation 46.4 fL (36.4-46.3); Red Blood Count 3.69 M/uL (4.70-6.10); White Blood Count 5.91 K/ul (4.8-10.8)
[2024-05-19 05:08] LABS: Partial Thromboplastin Ratio 1.8; Partial Thromboplastin Time 48 Seconds (21-31); Prothrombin Time 11.3 Seconds (9.0-12.0)
[2024-05-19 05:21] LABS: Albumin Globulin Ratio 1.3 (0.9-2); Albumin Level 3.2 gm/dl (3.4-5.0); BUN Creatinine Ratio 21.1 (10-20); Bilirubin,Total 1.4 mg/dl (0.2-1.0); Calcium 7.5 mg/dl (8.6-10.3); Creatinine Clr Calc Pharmacy 65.5 ml/min; Est GFR (African American) 79.7 ml/min; Est GFR (Non-African American) 68.8 ml/min; Globulin 2.4 gm/dl (2.5-4.0); Magnesium 1.7 mg/dl (1.7-2.4); Potassium 4.6 mmol/L (3.5-5.1); Total Protein 5.6 gm/dl (6.0-8.3)
[2024-05-19] MEDS: VALPROATE SOD 250 MG in DEXTROSE 5% 50 ML IV SCH (06:27)
[2024-05-19] MEDS: MAGNESIUM SULFATE / D5W 1 GM/100 ML BAG IV SCH (06:29)
[2024-05-19] MEDS ORDERED: ALBUT/IPRATROP 3MG/0.5MG NEB 3 ML VIAL NEB SCH (07:00)
--- NOTE | 2024-05-19 07:17 | Hospitalist Progress Note ---
Date of Service May 19, 2024 Assessment & Plan (1) Septic shock: (2) Pneumonia: (3) EP (epilepsy): (4) LEVAR (acute kidney injury): (5) Urinary tract infection: (6) Hypertension: (7) History of DVT (deep vein thrombosis): Nacho Rodriguez is a 34M w/ PMH of Koolen-Yeimi syndrome, autosomal dominant polycystic kidney disease, HTN, epilepsy, nephrolithiasis, cerebral palsy, testicular cancer (2017), and constipation who presented after gradually becoming more lethargic after receiving an extensive dental procedure with extractions at [facility] [place] 05/17/24. Patient required pressors on admission for sepsis. Sepsis a/w Hypotension - Likely d/t #2 & #3 - BP declining on presentation despite IVFs - Patient started on Levophed in ED and transitioned to ICU 05/19 weaning Levophed - Fluid resuscitation ongoing w/ Plasmalyte @ 100 cc/hr - Blood and urine cultures pending - Empiric Zosyn ongoing, MRSA nares negative, Linezolid d/c - Stress dose steroids hydrocortisone 100 mg IV every 8 hours, random cortisol pending - Acetaminophen 1 g IV every 8 hours as needed for mild pain or fever - Community Relations Advisor consulted for further management Pneumonia a/w Aspiration - CXR w/ perihilar interstitial/vascular thickening - CT w/ Patchy nodular interstitial infiltrates within the lower lobes bilaterally. - Abx as above - Continue supportive measures O2 of 4L NC required overnight, now on room air Duonebs Q2WA, and PRN UTI - Urinalysis abnormal on presentation - Hutchinson placed - Urine culture and sensitivities pending - Abx as above Seizure disorder/Cerebral palsy - Changing medications to IV: Diazepam 5 mg PO to IV twice daily, Continue divalproex from 500 p.o. twice daily --> 250 IV 4 times daily Continue Keppra from 750 mg p.o. twice daily --> 750 mg IV twice daily GERD/Hiatal hernia - Continue famotidine 20 mg p.o. twice daily --> Protonix 40 mg IV twice daily DVT History - Continue Eliquis 5 mg p.o. twice daily --> heparin IV standard dosing per protocol Plan FENGI: NPO IVF: NSS 150cc/hr DVT: Heparin Dispo: ICU Admission and Anticipated Discharge Date Admission Date: May 18, 2024 Supervising Physician Co-Signing Physician Notes I personally examined the patient and verified all clark points of history and exam, discussed case, and agree with decision making with Dr Mackay Seems to be doing better. Vitals noted, in general he is awake appears to be in no distress. Breathing unlabored no accessory muscle use good effort. Skin without rashes pallor or icterus. Septic shockfortunately improving. Appreciate ICU management. Continue current care for now. Otherwise as above Subjective Michael was resting comfortably in bed upon arrival, was awake and responsive to voice and commands, but remained non-verbal. Patient's mother Criss was at bedside. Criss notes that Michael seems much better this morning than when he presented, she believes he is closer to his baseline. Patient's mother and nursing noted no acute events since ICU admission overnight. HPI limited as patient is non-verbal/minimally verbal at baseline. Physical Exam Physical Exam: Gen: NAD, awake and alert, non-verbal, responds to simple commands HEENT: Supple, no LAD, no thyromegaly, no JVD Resp:Non-labored, coarse crackles in lower to middle lobes bilaterally, no wheezing - Responds to commands to take deep nya ths CV:RRR, normal S1/S2, no M/R/G Abd: Soft, non-distended, no TTP, normoactive bowels, no masses Extr: 2+ dp bilaterally, no edema - Responds to commands to move toes on r ight foot (not left, patient baseline) - Responds to commands to squeeze hands Skin: No rashes lesions or erythema Results & Data Results & Data Vital Signs (Past 12 Hours) Vital Signs Temp Pulse Pulse Resp BP BP Pulse Ox 05/19/24 01:03 36.7 C 77 22 96 05/19/24 01:00 118/64 05/19/24 01:00 118/64 05/19/24 01:00 118/64 05/19/24 00:54 36.8 C 76 17 97 05/19/24 00:48 36.8 C 83 17 96 05/19/24 00:45 86/62 L 05/19/24 00:45 86/62 L 05/19/24 00:45 86/62 L 05/19/24 00:45 86/62 L 05/19/24 00:24 37.0 C 80 16 93 05/19/24 00:15 97/64 L 05/19/24 00:15 37.1 C 74 17 95 05/19/24 00:12 104/62 05/19/24 00:12 104/62 05/19/24 00:00 05/19/24 00:00 37.2 C 96 H 16 99 05/19/24 00:00 95 H 05/18/24 23:40 37.3 C 102 H 16 103/72 98 05/18/24 22:24 111 H 21 93 05/18/24 22:15 90/56 L 05/18/24 22:15 90/56 L 05/18/24 22:15 90/56 L 05/18/24 22:15 90/56 L 05/18/24 22:09 103 H 23 91 05/18/24 22:00 76/50 L 05/18/24 21:53 114 H 23 93 05/18/24 21:47 106 H 23 86 L 05/18/24 21:45 86/56 L 05/18/24 21:35 103 H 27 H 88 L 05/18/24 21:32 105 H 24 90 05/18/24 21:30 86/58 L 05/18/24 21:26 94/56 L 05/18/24 21:15 87/60 L 05/18/24 21:14 106 H 19 97 05/18/24 21:08 114 H 22 94 05/18/24 21:00 97/50 L 05/18/24 21:00 97/50 L 05/18/24 20:53 123 H 23 95 05/18/24 20:44 91/77 L 97 05/18/24 20:26 129 H 21 96/72 L 97 05/18/24 20:16 24 95 05/18/24 20:16 130 H 18 94 05/18/24 20:15 97/64 L 05/18/24 20:02 123 H 20 93 05/18/24 20:01 114/86 05/18/24 19:47 87 L 05/18/24 19:47 87 L 05/18/24 19:44 133 H 19 87 L 05/18/24 19:30 119/89 05/18/24 19:30 119/89 05/18/24 19:29 145 H 17 91 05/18/24 19:26 129 H 27 H 89 L 05/18/24 19:17 127/85 05/18/24 19:14 139 H O2 Del Method O2 Flow Rate 05/19/24 01:03 05/19/24 01:00 05/19/24 01:00 05/19/24 01:00 05/19/24 00:54 05/19/24 00:48 05/19/24 00:45 05/19/24 00:45 05/19/24 00:45 05/19/24 00:45 05/19/24 00:24 05/19/24 00:15 05/19/24 00:15 05/19/24 00:12 05/19/24 00:12 05/19/24 00:00 Nasal Cannula 4 05/19/24 00:00 05/19/24 00:00 05/18/24 23:40 Nasal Cannula 4 05/18/24 22:24 Nasal Cannula 4 05/18/24 22:15 05/18/24 22:15 05/18/24 22:15 05/18/24 22:15 05/18/24 22:09 05/18/24 22:00 05/18/24 21:53 05/18/24 21:47 05/18/24 21:45 05/18/24 21:35 05/18/24 21:32 Nasal Cannula 4 05/18/24 21:30 05/18/24 21:26 05/18/24 21:15 05/18/24 21:14 05/18/24 21:08 05/18/24 21:00 05/18/24 21:00 05/18/24 20:53 05/18/24 20:44 Nasal Cannula 4 05/18/24 20:26 Nasal Cannula 4 05/18/24 20:16 Nasal Cannula 4 05/18/24 20:16 Nasal Cannula 4 05/18/24 20:15 05/18/24 20:02 Nasal Cannula 4 05/18/24 20:01 05/18/24 19:47 Room Air 05/18/24 19:47 Room Air 0 05/18/24 19:44 Room Air 05/18/24 19:30 05/18/24 19:30 05/18/24 19:29 05/18/24 19:26 05/18/24 19:17 05/18/24 19:14 Resident Activity Tracking Resident Involvement: Resident Care Provided Care Provided: Adult Hospital Medicine
[2024-05-19 07:42] LABS: ANTI-Xa, UFH(UnfractionatedHep 0.55 IU/ml (0.3-0.7)
--- NOTE | 2024-05-19 07:45 | XRay Report ---
XR chest 1V portable HISTORY: Sepsis COMPARISON: Chest 11/08/2021. FINDINGS: Low lung volumes. Moderate gaseous distention of the stomach, unchanged. This results in mi ld elevation of left hemidiaphragm. There are poststernotomy changes. The heart remains enlarged. Per ihilar interstitial/vascular thickening has progressed. No pneumothorax. No pleural effusions. IMPRESSION: Interval progression of the perihilar interstitial/vascular thickening. This likely represents mild p ulmonary edema. A pneumonia also remains in the differential diagnosis. ACT 112: Negative or not required by law. Electronically signed by: Elio Alvarez M.D. 05/19/2024 7:42 AM
[2024-05-19] MEDS: ICU Protocol for HYPERglycemia SCH (07:53)
[2024-05-19] MEDS: ZONISAMIDE 100 MG CAPSULE PO SCH ×2 (08:01→21:36)
[2024-05-19] MEDS ORDERED: diazePAM 5 MG/ML 10ML VIAL IV SCH (09:00)
[2024-05-19] MEDS ORDERED: DIAZEPAM IV SCH (09:00)
[2024-05-19] MEDS: DIAZEPAM IV SCH (09:10)
[2024-05-19] MEDS: PLASMA-LYTE A 1,000 ML IV SCH (09:43)
[2024-05-19] MEDS ORDERED: LINEZOLID 600 MG/300 ML BAG IV SCH (10:00)
[2024-05-19] MEDS: CALCIUM GLUCONATE 1,000 MG/60 ML BAG IV SCH (10:10)
[2024-05-19] MEDS: levETIRAcetam IV 750 MG in 0.9 % SODIUM CHLORIDE 100 ML IV SCH (10:16)
--- NOTE | 2024-05-19 10:54 | Critical Care Progress Note ---
Date of Service May 19, 2024 Assessment & Plan (1) Septic shock: Plan: Reason Critically Ill: 34-year-old male with developmental delay/cerebral palsy, and history of DVT (anticoagulated with Eliquis), seizure disorder, and recent facial surgery with multiple tooth extractions and fillings presents to the ICU with septic shock requiring vasopressor support. Neuro - Seizure disordercontinue home medications. Patient's mother reports his last seizure was in February and they are usually Focal Cardiac - Shocksuspect this is likely septic in etiology, as patient has multiple sources of infection. -See ID for treatment of sepsis -Will obtain TTE, no previous study to compare - Random cortisol pending. Patient did get hydrocortisone in the emergency department x 1 dose - Continue IV fluid resuscitation. He received 3 L crystalloid bolus Initially - Maintain MAP greater than 65. Wean vasopressors as tolerated -Hold antihypertensives - Continuous monitoring on telemetry Respiratory - Hypoxiapatient requiring supplemental oxygen with nasal cannula, no previous pulmonary disease. CT abdomen and pelvis show COVID incidental finding of bibasilar infiltrates of the lungs consistent with pneumonia. Patient does have history of aspiration pneumonia and per mother has had speech swallow study in the past with 4-second delay swallow. - Broad-spectrum antibiotics for coverage of pneumonia. See ID for details - Continue with nasal cannula/supplemental oxygen. Wean as tolerated - Nebs as needed -Continuous monitoring on pulse ox GI - N.p.o. for now. Speech eval pending GERDPPI RENAL/LYTES - AKIpatient with creatinine of 1.8 with previous baseline of 1.0. Suspect dehydration may be playing a role as patient has had very little p.o. intake over the past 2 days since facial surgery. Possible ATN due to sepsis/hypotensi on as well. - Received 3 L crystalloid bolus. Continue with fluid resuscitation -Avoid nephrotoxins and renally adjust medications. Holding losartan - Maintain MAP greater than 65 - Monitor routine BMPs. Trend creatinine. Monitor electrolytes and replete as indicated - Foleystrict I's and O's ENDO - No history of diabetes or thyroid disease. ICU hyperglycemic protocol HEME - H&H stable, monitor routine CBC ID - Sepsispatient with multiple potential sources of sepsis at this time including pneumonia/aspiration, UTI, and recent facial surgery in which he has not received prophylactic antibiotics prior - Initially presents with fever and hypotension, lactic acid and procalcitonin within normal limits. No leukocytosis - Urinalysis suspicious for UTI and +2 bacteria. Urine culture pending - Blood cultures pending - Nasal MRSA negative. Will discontinue linezolid - Multiple antibiotic allergies including amoxicillin, Augmentin, Bactrim. He is currently on Zosyn and will continue for now LINES/IV ACCESS - Peripheral IVs. Currently requiring low-dose vasopressor. Due to cognitive dysfunction we will hold on central line as long as vasopressor support remains low. Will consider inserting central venous catheter if patient has increased requirement and Levophed/worsening septic shock. Will monitor closely DVT PROPHYLAXIS - History of DVT and anticoagulated on Eliquis. Will convert to IV heparin for now Stable for transfer to pcu (2) Pneumonia: (3) EP (epilepsy): (4) LEVAR (acute kidney injury): (5) Urinary tract infection: (6) Hypertension: (7) History of DVT (deep vein thrombosis): Admission and Anticipated Discharge Date Admission Date: May 18, 2024 Physical Exam Constitutional: + behavioral limitations; no acute distr ess Eyes: PERRL, conjunctivae normal, anicteric sclerae ENMT: external ear and nose normal, oropharynx normal Neck: trachea midline, no thyromegaly Cardiovascular: RRR, no murmur, no edema Heart Sounds: normal S1 and normal S2 Extremities: no edema Gastrointestinal (Abdomen): normal bowel sounds, soft, nontender, no hepatosplenomegaly Musculoskeletal: no cyanosis or clubbing, extremities motor strength 5/5 Skin: no rashes, warm and dry Results & Data Results & Data Vital Signs (Past 12 Hours) Vital Signs Temp Pulse Pulse Resp BP BP Pulse Ox 05/19/24 08:50 05/19/24 08:03 36.5 C 68 17 89 L 05/19/24 08:02 87/56 L 05/19/24 08:02 87/56 L 05/19/24 07:50 36.4 C L 05/19/24 07:44 67 05/19/24 07:00 36.5 C 68 18 97 05/19/24 07:00 95/54 L 05/19/24 01:03 36.7 C 77 22 96 05/19/24 01:00 118/64 05/19/24 01:00 118/64 05/19/24 01:00 118/64 05/19/24 00:54 36.8 C 76 17 97 05/19/24 00:48 36.8 C 83 17 96 05/19/24 00:45 86/62 L 05/19/24 00:45 86/62 L 05/19/24 00:45 86/62 L 05/19/24 00:45 86/62 L 05/19/24 00:24 37.0 C 80 16 93 05/19/24 00:15 97/64 L 05/19/24 00:15 37.1 C 74 17 95 05/19/24 00:12 104/62 05/19/24 00:12 104/62 05/19/24 00:00 05/19/24 00:00 37.2 C 96 H 16 99 05/19/24 00:00 95 H 05/18/24 23:40 37.3 C 102 H 16 103/72 98 O2 Del Method O2 Flow Rate 05/19/24 08:50 Nasal Cannula 2 05/19/24 08:03 05/19/24 08:02 05/19/24 08:02 05/19/24 07:50 Oxymask 4 05/19/24 07:44 05/19/24 07:00 05/19/24 07:00 05/19/24 01:03 05/19/24 01:00 05/19/24 01:00 05/19/24 01:00 05/19/24 00:54 05/19/24 00:48 05/19/24 00:45 05/19/24 00:45 05/19/24 00:45 05/19/24 00:45 05/19/24 00:24 05/19/24 00:15 05/19/24 00:15 05/19/24 00:12 05/19/24 00:12 05/19/24 00:00 Nasal Cannula 4 05/19/24 00:00 05/19/24 00:00 05/18/24 23:40 Nasal Cannula 4 Coding Level of Care Code 02655 SUB INP/OBS CARE 2/35MIN Diagnoses Septic shock A41.9; R65.21 Pneumonia J18.9 EP (epilepsy) G40.909 LEVAR (acute kidney injury) N17.9 Urinary tract infection N39.0 Hypertension I10 History of DVT (deep vein thrombosis) Z86.718
--- NOTE | 2024-05-19 14:50 | Billing Data ---
Date of Service May 19, 2024 Coding Level of Care Code 55800 SUB INP/OBS CARE
[2024-05-19] MEDS: bisacodyL 10 MG SUPP PR PRN (16:54)
--- NOTE | 2024-05-20 05:57 | Electrocardiogram Report ---
Test Reason : Blood Pressure : */* mmHG Vent. Rate : 137 BPM Atrial Rate : 137 BPM P-R Int : 90 ms QRS Dur : 162 ms QT Int : 380 ms P-R-T Axes : 65 -63 37 degrees QTcB Int : 573 ms Sinus tachycardia with short FL Right bundle branch block Left anterior fascicular block Bifascicular block Abnormal ECG When compared with ECG of 08-Nov-2021 19:12, No significant change was found Confirmed by Umesh Gutierrez ([id number]) on 05/20/2024 5:56:40 AM Referred By: REFERRED SELF Confirmed By: Umesh Gutierrez
--- NOTE | 2024-05-20 06:48 | Hospitalist Progress Note ---
Date of Service May 20, 2024 Assessment & Plan (1) Septic shock: (2) Pneumonia: (3) EP (epilepsy): (4) LEVAR (acute kidney injury): (5) Urinary tract infection: (6) Hypertension: (7) History of DVT (deep vein thrombosis): Nacho Rodriguez is a 34M w/ PMH of Koolen-Yeimi syndrome, autosomal dominant polycystic kidney disease, HTN, epilepsy, nephrolithiasis, cerebral palsy, testicular cancer (2017), and constipation who presented after gradually becoming more lethargic after receiving an extensive dental procedure with extractions at [facility] [place] 05/17/24. Patient required pressors on admission for sepsis. Sepsis a/w Hypotension - Likely d/t #2 & #3 - Initially presents with fever and hypotension, lactic acid and procalcitonin - Vitals: BP lower side on presentation; improving Last 24 hours: 86-127/ 54-82; Now 114/77 O2 96 at 2L/min NC, Afebrile throughout I/O: 5056/2250 : +ve 2800 bal; Urine: 1.14ml/kg/hr; Fluid Held - Norepi on hold; hemodynamically stable ( MAP .65 throughout) - Fluid resuscitation-Stopped; transitioned to normal diet. - Blood and urine cultures pending Blood no growth at 24h Urine w/ pinpoint growth, re-incubating - Empiric Zosyn( Tazopip) ongoing: Day 3 05/19 MRSA nares negative, Linezolid d/c Multiple antibiotic allergies including amoxicillin, Augmentin, Bactrim. - Acetaminophen 1 g IV every 8 hours as needed for mild pain or fever - Fur Trimming Machine Operator consulted for further managementt. Face CT: Expected findings Pneumonia a/w Aspiration Clinical improvement noted; came off O2 SPO2 maintained at RA, No fever - CXR w/ perihilar interstitial/vascular thickening - CT w/ Patchy nodular interstitial infiltrates within the lower lobes bilaterally. - Abx as above - Continue supportive measures Duonebs (Albu+Ipra) Q2WA, and PRN Chronic constipation: Baseline constipation treated with Bisacodyl Supp every alternate day. No bowel movement since 7 days, mother feels he is in discomfort d/t same. Adding Miralax in graded dosing. Mother is concerned about risk of seizure; Miralax is safe unless he's dehydrated Strict I/O chart Restart IV fluid if signs of dehydration UTI - Hutchinson Insitu - Urine CS: Re-incubating after pp growth - Abx as above Seizure disorder/Cerebral palsy Last Seizure : February 2024 - Changed medications to IV: Diazepam 5 mg PO to IV twice daily, Continue divalproex from 500 p.o. twice daily --> 250 IV 4 times daily Continue Keppra( Levetiracetam) from 750 mg p.o. twice daily --> 750 mg IV twice daily Zonisamide 100 mg PO Daily GERD/Hiatal hernia - Continue famotidine 20 mg p.o. twice daily --> Protonix 40 mg IV twice daily DVT History - Continue Eliquis 5 mg p.o. twice daily --> heparin IV standard dosing per protocol Today's Aptt: 37; Anti Xa :038 LEVAR and PCKD Improved Cr 0.96--- <1.83; Strict I/O charting Maintain MAP greater than 65 Losartan on hold for maintaing MAP; can restart gradually Plan FENGI : Normal Diet IVF Stoped DVT: Heparin Dispo: ICU to PCU Admission and Anticipated Discharge Date Admission Date: May 18, 2024 Supervising Physician Co-Signing Physician Notes I personally examined the patient and verified all clark points of history and exam, discussed case, and agree with decision making with Dr Okeefe Seems to be doing better overall. Family present. Updated the best my ability and to their satisfaction. Vitals noted, in general he is awake and alert does not appear to be in distress. Breathing unlabored no accessory muscle use good effort. Skin without rashes pallor or icterus. Neuro without focal deficits. Septic shockimproving. Safe for transfer out of ICU. Continue antibiotics. Chronic constipationgive trial of MiraLAX anticoagulated Subjective Michael was resting comfortably in bed upon arrival, was awake and responsive to voice and commands, but remained non-verbal. Patient's mother Criss was at bedside. Criss notes that Michael seems improving however his constipation is worrisome. He has not been able to empty bowel despite suppository since a week now. She says they used to give him suppository every once in two days at home to help baseline constipation. Nursing notes incontinence of liquidly stool and no acute events since ICU admission overnight. HPI limited as patient is non- verbal/minimally verbal at baseline. Review of Systems Review of Systems: As per HPI Physical Exam Physical Exam: Gen: NAD, awake and alert, non-verbal, responds to simple commands, Baseline as per mom as well HEENT: Supple, no LAD, no thyromegaly, no JVD Resp:Non-labored, coarse crackles in lower to middle lobes bilaterally, no wheezing - Responds to commands to take deep breaths CV:RRR, normal S1/S2, no M/R/G Abd: Soft, non-distended, no TTP, normoactive bowels, no masses Extr: 2+ dp bilaterally, no edema - Responds to commands to move toes on r ight foot (not left, patient baseline) - Responds to commands to squeeze hands Skin: Lip is swollen; scabbed wound present in R>L side of mouth opening, likely from past surgery Results & Data Results & Data Vital Signs (Past 12 Hours) Vital Signs Temp Pulse Resp BP Pulse Ox O2 Del Method O2 Flow Rate 05/20/24 05:00 114/77 05/20/24 05:00 114/77 05/20/24 05:00 36.6 C 77 21 96 05/20/24 04:45 36.6 C 68 26 H 95 05/20/24 04:15 36.5 C 60 22 97 05/20/24 04:00 127/82 05/20/24 04:00 127/82 05/20/24 04:00 36.5 C 68 18 99 05/20/24 03:45 36.4 C L 58 L 15 98 05/20/24 03:33 36.4 C L 57 L 22 96 05/20/24 03:24 36.4 C L 70 13 98 05/20/24 03:00 109/62 05/20/24 03:00 36.4 C L 59 L 19 95 05/20/24 02:45 36.3 C L 59 L 19 95 05/20/24 02:21 36.3 C L 58 L 18 98 05/20/24 02:09 36.3 C L 70 18 100 05/20/24 01:45 36.2 C L 60 23 96 05/20/24 01:30 36.2 C L 67 22 99 05/20/24 01:27 36.2 C L 66 25 H 98 05/20/24 01:00 36.2 C L 70 14 99 05/20/24 01:00 116/76 05/20/24 01:00 116/76 05/20/24 01:00 116/76 05/20/24 00:48 36.2 C L 70 15 100 05/20/24 00:21 36.2 C L 75 13 98 05/20/24 00:00 127/76 05/19/24 23:57 36.2 C L 72 21 99 05/19/24 23:48 36.2 C L 83 22 91 05/19/24 23:15 36.3 C L 62 20 99 05/19/24 23:00 99/58 L 05/19/24 23:00 99/58 L 05/19/24 23:00 36.4 C L 63 19 97 05/19/24 22:51 36.4 C L 67 21 95 05/19/24 22:36 36.5 C 76 24 95 05/19/24 22:30 96/55 L 05/19/24 22:30 96/55 L 05/19/24 22:25 Nasal Cannula 2 05/19/24 22:12 36.5 C 67 19 94 05/19/24 22:09 36.5 C 71 14 97 05/19/24 22:00 113/63 05/19/24 22:00 113/63 05/19/24 21:48 36.4 C L 71 20 96 05/19/24 21:45 36.4 C L 71 19 96 05/19/24 21:30 106/66 05/19/24 21:30 106/66 05/19/24 21:30 106/66 05/19/24 21:30 106/66 05/19/24 21:30 36.4 C L 62 21 96 05/19/24 21:18 36.4 C L 56 L 18 100 05/19/24 21:12 36.3 C L 70 25 H 99 05/19/24 21:00 116/85 05/19/24 21:00 116/85 05/19/24 21:00 116/85 05/19/24 20:57 36.2 C L 71 18 99 05/19/24 20:48 36.3 C L 59 L 19 96 05/19/24 20:30 104/62 05/19/24 20:30 104/62 05/19/24 20:30 36.2 C L 68 20 95 05/19/24 20:15 36.2 C L 63 16 100 05/19/24 20:03 36.2 C L 62 16 100 05/19/24 20:00 113/69 05/19/24 20:00 113/69 05/19/24 19:51 36.2 C L 62 22 100 05/19/24 19:33 36.1 C L 61 17 100 05/19/24 19:30 112/69 05/19/24 19:30 112/69 05/19/24 19:30 Resident Activity Tracking Resident Involvement: Resident Care Provided Care Provided: Adult Hospital Medicine
[2024-05-20 06:59] LABS: Albumin Globulin Ratio 1.3 (0.9-2); Albumin Level 3.5 gm/dl (3.4-5.0); BUN Creatinine Ratio 16.7 (10-20); Bilirubin,Total 0.8 mg/dl (0.2-1.0); Calcium 8.4 mg/dl (8.6-10.3); Creatinine Clr Calc Pharmacy 95.3 ml/min; Est GFR (African American) 118.2 ml/min; Globulin 2.6 gm/dl (2.5-4.0); Magnesium 2.3 mg/dl (1.7-2.4); Potassium 3.9 mmol/L (3.5-5.1); Total Protein 6.1 gm/dl (6.0-8.3)
[2024-05-20 07:12] LABS: ANTI-Xa, UFH(UnfractionatedHep 0.38 IU/ml (0.3-0.7); Partial Thromboplastin Ratio 1.4; Partial Thromboplastin Time 37 Seconds (21-31); Prothrombin Time 10.5 Seconds (9.0-12.0)
[2024-05-20 07:17] LABS: Basophils # (auto) 0.03 K/uL (0.00-0.20); Basophils % (auto) 0.8 %; Eosinophils # (auto) 0.09 K/uL (0.00-0.50); Eosinophils % (auto) 2.3 %; Hematocrit (blood only) 31.9 % (42.0-52.0); Hemoglobin 10.6 g/dl (14.0-18.0); Immature Granulocytes # (auto) 0.02 K/uL (0.01-0.20); Immature Granulocytes % (auto) 0.5 %; Lymphocytes # (auto) 0.84 K/uL (1.20-3.40); Lymphocytes % (auto) 21.1 %; Mean Corpuscular Hemoglobin 30.1 pg (25.0-34.0); Mean Corpuscular Hgb Conc 33.2 g/dL (32.0-36.0); Mean Corpuscular Volume 90.6 fL (80.0-100.0); Mean Platelet Volume 12.7 fL (9.4-12.4); Monocytes # (auto) 0.39 K/uL (0.11-0.59); Monocytes % (auto) 9.8 %; Neutrophils # (auto) 2.62 K/uL (1.40-6.50); Neutrophils % (auto) 65.5 %; Platelet Count 117 K/uL (130-400); RDW Coefficient of Variation 13.6 % (11.5-14.5); RDW Standard Deviation 45.7 fL (36.4-46.3); Red Blood Count 3.52 M/uL (4.70-6.10); White Blood Count 3.99 K/ul (4.8-10.8)
[2024-05-20] MEDS: ACETAMINOPHEN SUSP 325 MG/10.15 ML UDC PO PRN (07:32)
[2024-05-20] MEDS: ACETAMINOPHEN 325 MG TAB PO PRN (07:46)
[2024-05-20] MEDS ORDERED: POLYETHYLENE (MIRALAX) 17 GM PACK PO SCH (14:15)
--- NOTE | 2024-05-20 15:57 | Billing Data ---
Date of Service May 20, 2024 Coding Level of Care Code 18229 SUB INP/OBS CARE
[2024-05-20] MEDS: POLYETHYLENE (MIRALAX) 17 GM PACK PO STA (16:18)
[2024-05-20] MEDS: POLYETHYLENE (MIRALAX) 17 GM PACK PO SCH (20:51)
[2024-05-21 05:34] LABS: Basophils # (auto) 0.01 K/uL (0.00-0.20); Basophils % (auto) 0.3 %; Eosinophils # (auto) 0.18 K/uL (0.00-0.50); Eosinophils % (auto) 5.4 %; Hematocrit (blood only) 28.8 % (42.0-52.0); Hemoglobin 9.6 g/dl (14.0-18.0); Immature Granulocytes # (auto) 0.01 K/uL (0.01-0.20); Immature Granulocytes % (auto) 0.3 %; Lymphocytes # (auto) 0.74 K/uL (1.20-3.40); Lymphocytes % (auto) 22.3 %; Mean Corpuscular Hgb Conc 33.3 g/dL (32.0-36.0); Mean Platelet Volume 11.1 fL (9.4-12.4); Monocytes # (auto) 0.42 K/uL (0.11-0.59); Monocytes % (auto) 12.7 %; Neutrophils # (auto) 1.96 K/uL (1.40-6.50); Platelet Count 146 K/uL (130-400); RDW Coefficient of Variation 13.3 % (11.5-14.5); RDW Standard Deviation 44.4 fL (36.4-46.3); White Blood Count 3.32 K/ul (4.8-10.8)
[2024-05-21 05:35] LABS: ANTI-Xa, UFH(UnfractionatedHep 0.28 IU/ml (0.3-0.7)
[2024-05-21 05:45] LABS: BUN Creatinine Ratio 13.5 (10-20); Calcium 8.2 mg/dl (8.6-10.3); Est GFR (African American) 107.3 ml/min; Est GFR (Non-African American) 92.6 ml/min; Potassium 3.6 mmol/L (3.5-5.1)
--- NOTE | 2024-05-21 06:46 | Hospitalist Progress Note ---
Date of Service May 21, 2024 Assessment & Plan (1) Septic shock: (2) Pneumonia: (3) EP (epilepsy): (4) LEVAR (acute kidney injury): (5) Urinary tract infection: (6) Hypertension: (7) History of DVT (deep vein thrombosis): Nacho Rodriguez is a 34M w/ PMH of Koolen-Yeimi syndrome, autosomal dominant polycystic kidney disease, HTN, epilepsy, nephrolithiasis, cerebral palsy, testicular cancer (2017), and constipation who presented after gradually becoming more lethargic after receiving an extensive dental procedure with extractions at [facility] [place]. Patient required pressors on admission for sepsis. Sepsis a/w Hypotension - Likely d/t #2 & #3 - Initially presents with fever and hypotension, lactic acid and procalcitonin - Vitals: BP lower side on presentation; improving Last 24 hours ;MAP: Now 114/77 O2 at RA maintained, Afebrile throughou - Transitioned to normal diet; difficult intake coz of oral issue - Blood and urine cultures pending Blood no growth at 24h Urine CS: Enterococci sentitive to Tazopip( Day 4 today) 05/19 MRSA nares negative, Linezolid d/c Face CT : No concerning findings Pneumonia a/w Aspiration Clinical improvement noted; came off O2 SPO2 maintained at RA, No fever - CXR w/ perihilar interstitial/vascular thickening - CT w/ Patchy nodular interstitial infiltrates within the lower lobes bilaterally. - Abx as above - Continue supportive measures Duonebs (Albu+Ipra) Q2WA, and PRN Chronic constipation: Baseline constipation treated with Bisacodyl Supp every alternate day. Bowel movement yesterday; Miralax refused after 1st dose UTI - Urine CS: Enterococcuus Sensitive to Abx as above Seizure disorder/Cerebral palsy Last Seizure : February 2024 - Changed medications to IV: Diazepam 5 mg PO to IV twice daily, Continue divalproex from 500 p.o. twice daily --> 250 IV 4 times daily Continue Keppra( Levetiracetam) from 750 mg p.o. twice daily --> 750 mg IV twice daily Zonisamide 100 mg PO Daily GERD/Hiatal hernia - Continue famotidine 20 mg p.o. twice daily --> Protonix 40 mg IV twice daily DVT History - Continue Eliquis 5 mg p.o. twice daily --> heparin IV standard dosing per protocol Today's Anti Xa : 0.28 LEVAR and PCKD Improved Cr 0.96--- <1.83; Strict I/O charting Maintain MAP greater than 65 Losartan on hold for maintaing MAP; can restart gradually Plan FENGI : Normal Diet IVF Stoped DVT: Heparin Dispo: ICU to PCU Admission and Anticipated Discharge Date Admission Date: May 18, 2024 Supervising Physician Co-Signing Physician Notes I personally examined the patient and verified all clark points of history and exam, discussed case, and agree with decision making with Dr Okeefe some drainage from his mouthdiscussed oral surgery last Sundayrather extensive extractions. Vitals noted, in general he is awake and alert does not appear to be in distress. not able to get a great mouth exam, but does not appear to have any overt exudate/erythema/deformitieswhat I can see appears to be healing appropriately from surgery. Breathing unlabored no accessory muscle use good effort. Skin without rashes pallor or icterus. Neuro without focal deficits. Septic shockimproving. Continue Zosynanticipate being able to switch to Augmentin once he is able to take p.o. antibiotics reliably mouth drainageon Zosyn, doubt infectious, CT scan from 05/18 does not show an abscess, although radiology does note that it cannot be ruled outand yet at the same time would be quite unlikely to form an abscess that quickly after surgery. Suspect extensive oral surgery leading to extensive areas that need to heal, and some degree of drainage that is part of the normal healing process. Continue to follow. Will try to reach out to his oral surgeon to see if there is anything else we should be suspicious for but it does not appear to be the casemother was able to pull up the op notes on the patient portal, and I was able to review them. Continue to follow clinically. Right now this seems to preclude him being able to be safely discharged home though, however, because he is really not having any adequate p.o. intake to sustain himself outside of IV access Chronic constipationgive trial of MiraLAX anticoagulated Subjective Michael was resting comfortably in bed upon arrival, was awake and responsive to voice and commands, but remained non-verbal. Patient's mother Criss was at bedside. Criss notes that Michael seems improving however he seems to be in pain and needed more tyenol yesterday. He had good bowel movement yesterday. Complains of more secretion from mouth than before; Blood mixed; likely from procedure site. HPI limited as patient is non-verbal/minimally verbal at baseline. Review of Systems Review of Systems: As per HPI Physical Exam Physical Exam: Gen: NAD, awake and alert, non-verbal, responds to simple commands, Baseline as per mom as well HEENT: Supple, no LAD, no thyromegaly, no JVD Resp:Non-labored, coarse crackles in lower to middle lobes bilaterally, no wheezing - Responds to commands to take deep breaths CV:RRR, normal S1/S2, no M/R/G Abd: Soft, non-distended, no TTP, normoactive bowels, no masses Extr: 2+ dp bilaterally, no edema - Responds to commands to move toes on r ight foot (not left, patient baseline) - Responds to commands to squeeze hands Skin: Lip is swollen; scabbed wound present in R>L side of mouth opening, likely from past surgery Results & Data Results & Data Vital Signs (Past 12 Hours) Vital Signs Temp Pulse Resp BP Pulse Ox O2 Del Method 05/21/24 04:00 101/71 05/21/24 03:42 36.6 C 51 L 20 95 05/21/24 03:09 36.7 C 57 L 24 93 05/21/24 03:00 103/71 05/21/24 03:00 103/71 05/21/24 00:00 124/83 05/20/24 23:51 36.8 C 70 22 95 05/20/24 23:03 36.8 C 68 98 05/20/24 23:00 127/80 05/20/24 22:54 36.8 C 65 95 05/20/24 22:00 36.9 C 70 90 05/20/24 22:00 100/68 05/20/24 22:00 100/68 05/20/24 22:00 100/68 05/20/24 20:07 Room Air 05/20/24 19:06 37.2 C 76 19 90 05/20/24 19:01 108/70
[2024-05-21] MEDS ORDERED: POLYETHYLENE (MIRALAX) 17 GM PACK PO SCH ×2 (08:00→20:00)
[2024-05-21 14:41] LABS: ANTI-Xa, UFH(UnfractionatedHep 0.27 IU/ml (0.3-0.7)
--- NOTE | 2024-05-21 15:46 | Billing Data ---
Date of Service May 21, 2024 Coding Level of Care Code 04997 SUB INP/OBS CARE MIN
[2024-05-21 21:35] LABS: ANTI-Xa, UFH(UnfractionatedHep 0.29 IU/ml (0.3-0.7)
[2024-05-21] MEDS: diazePAM 5 MG TABLET PO SCH (22:09)
--- NOTE | 2024-05-22 06:56 | Communication Note ---
Date of Service: May 22, 2024 Received sign out from overnight physician coverage that patient's mother independently discontinued his heparin drip 0344. Orders were placed to reflect this change.
--- NOTE | 2024-05-22 07:06 | Hospitalist Progress Note ---
Date of Service May 22, 2024 Assessment & Plan (1) Septic shock: (2) Pneumonia: (3) EP (epilepsy): (4) LEVAR (acute kidney injury): (5) Urinary tract infection: (6) Hypertension: (7) History of DVT (deep vein thrombosis): Nacho Rodriguez is a 34M w/ PMH of Koolen-Yeimi syndrome, autosomal dominant polycystic kidney disease, HTN, epilepsy, nephrolithiasis, cerebral palsy, testicular cancer (2017), and constipation who presented after gradually becoming more lethargic after receiving an extensive dental procedure with extractions at [facility] [place]. Patient required pressors on admission for sepsis. Daily progress: Food intake:Towards normal Switch IV Meds to Oral. Continue DVT prophylaxis with Eliquis now; stop heparin PT moved him from bed to recliner in afternoon. Lips looks better than before. He is ready for discharge; mom wants one more day for dis arrangement. Sepsis a/w Hypotension - Likely d/t #2 & #3 - Initially presented in sepsis - Vitals: BP lower side on presentation; improving Last 24 hours ; MAP >65 O2 at RA maintained, Afebrile throughout - Transitioned to normal diet; able to intake more towards goal today. - Blood and urine cultures pending Blood no growth at 24h Urine CS: Enterococci sentitive to Tazopip (Day 5 today) 05/19 MRSA nares negative, Linezolid d/c Face CT : No concerning findings Pneumonia a/w Aspiration Clinical improvement noted; came off O2 SPO2 maintained at RA, No fever - CXR w/ perihilar interstitial/vascular thickening - CT w/ Patchy nodular interstitial infiltrates within the lower lobes bilaterally. - Abx as above - Continue supportive measures Duonebs (Albu+Ipra) Q2WA, and PRN Chronic constipation: Baseline constipation treated with Bisacodyl Supp every alternate day. Bowel movement + UTI - Urine CS: Enterococcuus Sensitive to Abx as above Seizure disorder/Cerebral palsy Last Seizure : February 2024 - Changed medications to IV: Diazepam 5 mg PO to IV twice daily, Continue divalproex from 500 p.o. twice daily --> 250 IV 4 times daily Continue Keppra( Levetiracetam) from 750 mg p.o. twice daily --> 750 mg IV twice daily Zonisamide 100 mg PO Daily GERD/Hiatal hernia - Continue famotidine 20 mg p.o. twice daily --> Protonix 40 mg IV twice daily DVT History - Continue Eliquis 5 mg p.o. twice daily --> heparin IV standard dosing per protocol Today's Anti Xa : 0.28 LEVAR and PCKD Improved Cr 0.96--- <1.83; Strict I/O charting Maintain MAP greater than 65 Losartan on hold for maintaing MAP; can restart gradually Plan FENGI : Normal Diet IVF Stoped DVT: Eliquis now Dispo: ICU to PCU Admission and Anticipated Discharge Date Admission Date: May 18, 2024 Supervising Physician Co-Signing Physician Notes I personally examined the patient and verified all clark points of history and exam, discussed case, and agree with decision making with Dr Okeefe Doing better overall. P.o. intake more or less back to his baseline from home.. Vitals noted, in general he is awake and alert No obvious distress. Breathing unlabored no accessory muscle use good effort. Skin without rashes pallor or icterus. Neuro without focal deficits. Septic shock Improvedtreated with Zosynanticipate switch to Augmentin (will need to discuss prior possible allergic reaction with mother, and weigh risk/benefit of this versus something cierra to a floroquinolone) mouth drainageonantibiotics, doubt infectious, CT scan from 05/18 does not show an abscess, although radiology does note that it cannot be ruled outand yet at the same time would be quite unlikely to form an abscess that quickly after surgery. Suspect extensive oral surgery leading to extensive areas that need to heal, and some degree of drainage that is part of the normal healing process. has appt later this week Chronic constipationgive trial of MiraLAX anticoagulated Subjective Michael was resting comfortably in bed upon arrival, was awake and responsive to voice and commands, but remained non-verbal. Patient's mother Criss was at bedside. She was concerned about his IV medicines can be changed to oral now. They had hard time during night to maintain IV ongoing and hence refused. Secrections from mouth seems improving. HPI limited as patient is non-verbal/minimally verbal at baseline. Review of Systems Review of Systems: As per HPI Physical Exam Physical Exam: Gen: NAD, awake and alert, non-verbal, responds to simple commands, Baseline as per mom as well HEENT: Supple, no LAD, no thyromegaly, no JVD Resp:Non-labored, coarse crackles in lower to middle lobes bilaterally, no wheezing - Responds to commands to take deep breaths CV:RRR, normal S1/S2, no M/R/G Abd: Soft, non-distended, no TTP, normoactive bowels, no masses Extr: 2+ dp bilaterally, no edema - Responds to commands to move toes on r ight foot (not left, patient baseline) - Responds to commands to squeeze hands Skin: Lip is swollen; scabbed wound present in R>L side of mouth opening, likely from past surgery Results & Data Results & Data Vital Signs (Past 12 Hours) Vital Signs Temp Pulse Resp BP Pulse Ox O2 Del Method 05/22/24 03:40 36.8 C 56 L 16 141/86 H 96 Room Air 05/21/24 21:15 36.7 C 52 L 16 144/84 H 97 Room Air 05/21/24 21:00 Room Air Resident Activity Tracking Resident Involvement: Resident Care Provided Care Provided: Adult Hospital Medicine
[2024-05-22 08:11] LABS: Basophils # (auto) 0.02 K/uL (0.00-0.20); Basophils % (auto) 0.5 %; Eosinophils % (auto) 5.3 %; Hematocrit (blood only) 30.8 % (42.0-52.0); Hemoglobin 10.2 g/dl (14.0-18.0); Immature Granulocytes # (auto) 0.05 K/uL (0.01-0.20); Immature Granulocytes % (auto) 1.3 %; Lymphocytes # (auto) 0.65 K/uL (1.20-3.40); Lymphocytes % (auto) 17.3 %; Mean Corpuscular Hemoglobin 29.4 pg (25.0-34.0); Mean Corpuscular Hgb Conc 33.1 g/dL (32.0-36.0); Mean Corpuscular Volume 88.8 fL (80.0-100.0); Mean Platelet Volume 10.5 fL (9.4-12.4); Monocytes # (auto) 0.44 K/uL (0.11-0.59); Monocytes % (auto) 11.7 %; Neutrophils % (auto) 63.9 %; Platelet Count 189 K/uL (130-400); RDW Coefficient of Variation 13.5 % (11.5-14.5); RDW Standard Deviation 43.7 fL (36.4-46.3); Red Blood Count 3.47 M/uL (4.70-6.10); White Blood Count 3.76 K/ul (4.8-10.8)
[2024-05-22 08:14] LABS: ANTI-Xa, UFH(UnfractionatedHep 0.15 IU/ml (0.3-0.7)
[2024-05-22 08:37] LABS: Albumin Globulin Ratio 1.3 (0.9-2); Albumin Level 3.5 gm/dl (3.4-5.0); BUN Creatinine Ratio 13.5 (10-20); Bilirubin,Total 0.6 mg/dl (0.2-1.0); Creatinine Clr Calc Pharmacy 93.8 ml/min; Est GFR (African American) 118.2 ml/min; Globulin 2.7 gm/dl (2.5-4.0); Potassium 3.8 mmol/L (3.5-5.1); Total Protein 6.2 gm/dl (6.0-8.3)
[2024-05-22] MEDS ORDERED: ALBUTEROL 0.083% NEBU SOLN 3 ML VIAL INH PRN (18:26)
--- NOTE | 2024-05-22 18:58 | Billing Data ---
Date of Service May 22, 2024 Coding Level of Care Code 52363 SUB INP/OBS CARE
[2024-05-22] MEDS: diazePAM 5 MG TABLET PO SCH (20:08)
[2024-05-22] MEDS: FAMOTIDINE 20 MG TAB PO SCH (20:09)
[2024-05-22] MEDS: APIXABAN 5 MG TABLET PO SCH (20:09)
[2024-05-22] MEDS: ZONISAMIDE 100 MG CAPSULE PO SCH (20:09)
[2024-05-22] MEDS ORDERED: ZONISAMIDE 100 MG CAPSULE PO SCH (21:00)
[2024-05-22] MEDS ORDERED: diazePAM 5 MG TABLET PO SCH (21:00)
[2024-05-22] MEDS: levETIRAcetam 250 MG TAB PO SCH (21:01)
[2024-05-22] MEDS: ACETAMINOPHEN 500 MG TAB PO PRN (23:14)
[2024-05-22] MEDS: DIVALPROEX DELAY RELEASE 500 MG TAB PO SCH (23:14)
[2024-05-23] MEDS ORDERED: ZONISAMIDE 100 MG CAPSULE PO SCH (06:30)
--- NOTE | 2024-05-23 06:52 | Hospitalist Progress Note ---
Date of Service May 23, 2024 Assessment & Plan (1) Septic shock: (2) Pneumonia: (3) EP (epilepsy): (4) LEVAR (acute kidney injury): (5) Urinary tract infection: (6) Hypertension: (7) History of DVT (deep vein thrombosis): Nacho Rodriguez is a 34M w/ PMH of Koolen-Yeimi syndrome, autosomal dominant polycystic kidney disease, HTN, epilepsy, nephrolithiasis, cerebral palsy, testicular cancer (2017), and constipation who presented after gradually becoming more lethargic after receiving an extensive dental procedure with extractions at [facility] [place] 05[place]24. Patient required pressors on admission for sepsis. Daily progress: Food intake:Towards normal Switch IV Meds to Oral. Continue DVT prophylaxis with Eliquis now; stop heparin PT moved him from bed to recliner in afternoon. Lips looks better than before. He is ready for discharge; mom wants one more day for dis arrangement. Sepsis a/w Hypotension - Likely d/t #2 & #3 - Initially presented in sepsis - Vitals: BP lower side on presentation; improving Last 24 hours ; MAP >65 O2 at RA maintained, Afebrile throughout - Transitioned to normal diet; able to intake more towards goal today. - Blood and urine cultures pending Blood no growth at 24h Urine CS: Enterococci sentitive to Tazopip (Day 5 today) 05/19 MRSA nares negative, Linezolid d/c Face CT : No concerning findings Pneumonia a/w Aspiration Clinical improvement noted; came off O2 SPO2 maintained at RA, No fever - CXR w/ perihilar interstitial/vascular thickening - CT w/ Patchy nodular interstitial infiltrates within the lower lobes bilaterally. - Abx as above - Continue supportive measures Duonebs (Albu+Ipra) Q2WA, and PRN Chronic constipation: Baseline constipation treated with Bisacodyl Supp every alternate day. Bowel movement + UTI - Urine CS: Enterococcuus Sensitive to Abx as above Seizure disorder/Cerebral palsy Last Seizure : February 2024 - Changed medications to IV: Diazepam 5 mg PO to IV twice daily, Continue divalproex from 500 p.o. twice daily --> 250 IV 4 times daily Continue Keppra( Levetiracetam) from 750 mg p.o. twice daily --> 750 mg IV twice daily Zonisamide 100 mg PO Daily GERD/Hiatal hernia - Continue famotidine 20 mg p.o. twice daily --> Protonix 40 mg IV twice daily DVT History - Continue Eliquis 5 mg p.o. twice daily --> heparin IV standard dosing per protocol Today's Anti Xa : 0.28 LEVAR and PCKD Improved Cr 0.96--- <1.83; Strict I/O charting Maintain MAP greater than 65 Losartan on hold for maintaing MAP; can restart gradually Plan FENGI : Normal Diet IVF Stoped DVT: Eliquis now Dispo: ICU to PCU Admission and Anticipated Discharge Date Admission Date: May 18, 2024 Subjective Michael was resting comfortably in bed upon arrival, was awake and responsive to voice and commands, but remained non-verbal. Patient's mother Criss was at bedside. She was concerned about his IV medicines can be changed to oral now. They had hard time during night to maintain IV ongoing and hence refused. Secrections from mouth seems improving. HPI limited as patient is non-verbal/minimally verbal at baseline. Review of Systems Review of Systems: As per HPI Physical Exam Physical Exam: Gen: NAD, awake and alert, non-verbal, responds to simple commands, Baseline as per mom as well HEENT: Supple, no LAD, no thyromegaly, no JVD Resp:Non-labored, coarse crackles in lower to middle lobes bilaterally, no wheezing - Responds to commands to take deep breaths CV:RRR, normal S1/S2, no M/R/G Abd: Soft, non-distended, no TTP, normoactive bowels, no masses Extr: 2+ dp bilaterally, no edema - Responds to commands to move toes on r ight foot (not left, patient baseline) - Responds to commands to squeeze hands Skin: Lip is swollen; scabbed wound present in R>L side of mouth opening, likely from past surgery Results & Data Results & Data Vital Signs (Past 12 Hours) Vital Signs Temp Pulse Resp BP Pulse Ox O2 Del Method 05/22/24 20:15 Room Air 05/22/24 20:01 36.8 C 55 L 20 129/81 92 Room Air
[2024-05-23 08:09] VITALS: RESP 18; TEMP 98.1; O2SAT 96
[2024-05-23] MEDS: AMOXICILLIN/CLAVULANATE 875 MG TAB PO SCH (08:20)
[2024-05-23] MEDS: ZONISAMIDE 100 MG CAPSULE PO SCH (08:20)
[2024-05-23 09:14] LABS: Hematocrit (blood only) 31.2 % (42.0-52.0); Hemoglobin 10.8 g/dl (14.0-18.0)
--- NOTE | 2024-05-23 12:49 | Discharge Summary ---
Date of Service May 23, 2024 Admission HPI Per Admitting Provider The patient is a 34-year-old male past medical history including cerebral palsy, testicular carcinoma, Koolen-Yeimi syndrome, autosomal dominant polycystic kidney disease, episode of epilepsy, mental retardation, DVT, status epilepticus and chronic constipation. He underwent a reportedly 4-hour long oral procedure with dental extractions at [facility] 2 days ago, and was discharged home at that time. Housing Management Representative notes that he is gradually become more lethargic, has increased confusion, and was noted to have low blood pressure. He was brought to the emergency department for assessment, underwent a septic workup, and due to hypotension was started on Levophed and admitted to the ICU for sepsis with hypotension, aspiration pneumonia and urinary tract infection Admission Exam Per Admitting Provider The patient is awake, unresponsive to questioning, does open his eyes and moans and groans a bit. HEENT--PERRL, EOMI, mucous membranes covered with dried blood. Neck--supple. No JVD. No bruits. Thyroid normal, trachea midline, no adenopathy. Heart--tachycardic Lungs--coarse breath sounds throughout with wheezes Abdomen--normal bowel sounds and soft. Nontender. Nondistended, no hernias or masses, no organomegaly. Extremities--no cyanosis or clubbing. No edema. Dermatologic--normal skin turgor, normal color, no abnormal lymph nodes, no rash. Neurologic--cranial nerves II through XII grossly intact. Rheumatologic--limited exam Psychiatric--mildly agitated. Principal Diagnosis Aspiration Pneumonia in Sepsis with UTI Discharge Exam Gen: Baseline status as per mom HEENT: Supple, no LAD, no thyromegaly, no JVD Resp: BL CTABS, no wheeze, rhonchi, improved than admission CV:[id number] Abd: Soft, non-distended, Non tender, BS+nt Extremities: Swelling reduced to baseline, no rashes, movement to baseline Discharge Data Allergies Allergy/AdvReac Type Severity Reaction Status Date / Time amoxicillin Allergy Intermediate Rash Verified 05/18/24 23:17 clavulanic acid Allergy Intermediate Rash Verified 05/18/24 23:17 sulfamethoxazole AdvReac Agitated Verified 05/18/24 23:17 [From Bactrim] trimethoprim [From Bactrim] AdvReac Agitated Verified 05/18/24 23:17 Consultations 05/18/24 21:42 ED Decision to Admit Stat 05/18/24 23:50 Consult [employer] Routine Ordered Studies 05/18/24 20:17 CT abd pelvis wo con Stat CT facial bones wo con Stat Hospital Course (1) Septic shock: (2) Pneumonia: (3) EP (epilepsy): (4) LEVAR (acute kidney injury): (5) Urinary tract infection: (6) Hypertension: (7) History of DVT (deep vein thrombosis): Nacho Rodriguez is a 34M w/ PMH of Koolen-Yeimi syndrome, autosomal dominant polycystic kidney disease, HTN, epilepsy, nephrolithiasis, cerebral palsy, testicular cancer (2017), and constipation who presented after gradually becoming more lethargic after receiving an extensive dental procedure with extractions at [facility] 05/17/24. Patient required pressors on admission for sepsis. Daily progress on discharge day Food intake: Baseline; Switched all IV Meds to Oral. Continue DVT prophylaxis with Eliquis now; stop heparin Lips looks better than before. He is ready for discharge. Mom agrees. We are holding Losartan given recent hypotension secondary to sepsis; can resume in a week after PCP eval. Sepsis a/w Hypotension - Likely d/t #2 & #3 - Initially presented in sepsis - Vitals: BP lower side on presentation; improving Last 24 hours ; MAP >65 O2 at RA maintained, Afebrile throughout - Transitioned to normal diet; able to intake more towards goal today. - Blood and urine cultures pending Blood no growth at 24h Urine CS: Enterococci sentitive to Tazopip (Day 5 today) 05/19 MRSA nares negative, Linezolid d/c Face CT : No concerning findings Pneumonia a/w Aspiration Clinical improvement noted; came off O2 SPO2 maintained at RA, No fever - CXR w/ perihilar interstitial/vascular thickening - CT w/ Patchy nodular interstitial infiltrates within the lower lobes bilaterally. - Abx as above - Continue supportive measures Duonebs (Albu+Ipra) Q2WA, and PRN Chronic constipation: Baseline constipation treated with Bisacodyl Supp every alternate day + Miralax 17 gm TID for 7 days ion dis. Bowel movement + UTI - Urine CS: Enterococcuus Sensitive to Abx as above Seizure disorder/Cerebral palsy Last Seizure : February 2024 Diazepam 5 mg PO twice daily, Continue divalproex from 500 PO 4 times daily Continue Keppra( Levetiracetam) from 750 mg p.o. twice daily Zonisamide 100 mg PO Daily GERD/Hiatal hernia - Continue famotidine 20 mg p.o. twice daily DVT History - Continue Eliquis 5 mg p.o. twice daily LEVAR and PCKD Improved Cr 0.96 Losartan on hold for 1 week more;restart on PCP F/U Total Time Total Time Spent Total Time Spent (In Minutes): <30 Discharge Plan Discharge Items Patient Disposition: Home - Self-Care Reason For Visit: SEPSIS, HYPOTENSION, ASPIRATION PNEUMONIA, UTI Discharge Diagnosis: Improved Aspiration pneumonia and UTI with sepsis Condition on Discharge: Good Activity: Per Instructions section Non-emergency contact: Primary Care Provider Call non-emergency contact if: your symptoms worsen Follow-up/Referrals: Simeon Garner DO [Primary Care Provider] - 05/30/24 1:00 pm (Please arrive for appointment 15 mins. early) Diet: Regular Addtl Attending Provider Instructions: Michael came into sepsis due to lung infection because of aspiration. He also had urine tract infection, which could be possible addition to his sepsis. We treated him with broad antibiotics to cover his lung infection, urine infection and any possible infection in is mouth( likely due to recent dental surgery). He improved very rapidly in hospital ; signifies he had infection not with very resistant bugs like MRSA, Pseudomonas, so we are sending him in Augmentin which should be enough to cover his bugs. For him to recover fully, it will take few more weeks. I expect him to come to baseline by a month or so. He would benefit from ambulation at his best and baseline diet intake in addition to medicines we are treating him with. His blood thinner is changed back to Eliquis and all his previous oral medicines are resumed on previous dose. We are still holding his pressure medicine for some time because he presented with very low blood pressure on admission because of sepsis. This can be started on evaluation by PCP at office. Given he is able to tolerate food before discharge he should be able to protect his gas pipe from aspiration now as he is swallowing baseline. His secretions from mouth will gradually decrease in amount and color as we noticed during hospital stay as well. Visiting his dental doctor for next appointment is highly suggested. To ou evaluation; infection in his mouth is very less likely. We saw normal healing in his surgery site on our exam. Some clots is expected as a part of normal healing, we do not want you to disrupt that often by pressure or vigorous cleaning/ suctioning. Addtl Organizational Development Consultant Provider Instructions: - His BP med is on hold because of sepsis: plan to restart on office evaluation - Recovered from sepsis very rapidly; discharging on Augmentin Pending Studies at Discharge: No Stand-Alone Forms: My [facility], Smoking Cessation Medications and DC Order Prescriptions: New amoxicillin-pot clavulanate 875-125 mg tablet 1 tab PO Q12H 3 Days Qty: 6 0RF polyethylene glycol 3350 [Miralax] 17 gram/dose powder 17 g PO TID 7 Days Qty: 357 0RF bisacodyl 10 mg suppository 10 mg NV .Alternate day PRN (Reason: constipation) 28 Days Qty: 12 0RF Continued levetiracetam 500 mg tablet 750 mg PO BID divalproex 500 mg tablet,delayed release (DR/EC) 500 mg PO BID acetaminophen [Tylenol Extra Strength] 500 mg Tablet 1,000 mg PO Q6H PRN (Reason: Pain) zonisamide 100 mg capsule 100 mg PO DAILYBB zonisamide 100 mg capsule 200 mg PO HS diazepam 5 mg tablet 5 mg PO BID Eliquis 5 mg tablet 5 mg PO BID albuterol sulfate 2.5 mg /3 mL (0.083 %) solution for nebulization 2.5 mg inhalation Q4H PRN (Reason: bronchospasm) Qty: 75 0RF famotidine 20 mg tablet 20 mg PO BID Held lisinopril 5 mg tablet 5 mg PO QAM Hold Instructions: Resume on 05/30/24. Held because of sepsis in admission Can resume on PCP evaluation on F/U. Discharge Orders: Discharge Order (Routine); Ordered 05/23/24 Ordered By: Tiara Lackey/Other Patient Handouts: Safety During a Seizure, Treating Pneumonia Admission Data Admit Date/Time: 05/18/24 23:01 Attending Provider: Michael Lora Admit Provider: Eliud Taylor Primary Care Provider: Simeon Garner Other Providers: Eliud Taylor; iMgue Alexander Other Interventions: Discharge Summary Assessment (RN) Last Done: 05/23/24 14:15 Supervising Physician Co-Signing Physician Notes I personally examined the patient and verified all clark points of history and exam, discussed case, and agree with decision making with Dr Okeefe no new problems ready to go home, mom has good questions all answered to the best of my ability. Vitals noted, in general he is awake and alert No obvious distress. Breathing unlabored no accessory muscle use good effort. Skin without rashes pallor or icterus. Neuro without focal deficits. Septic shock Improvedtreated with Zosynfinish out with augmentin (tolera ting well) mouth drainageonantibiotics, doubt infectious, CT scan from 05/18 does not show an abscess, although radiology does note that it cannot be ruled outand yet at the same time would be quite unlikely to form an abscess that quickly after surgery. Suspect extensive oral surgery leading to extensive areas that need to heal, and some degree of drainage that is part of the normal healing process. has appt next week Chronic constipationgive trial of MiraLAX - discussed again anticoagulated safe/stable for home otherwise as above
[2024-05-23 14:21] VITALS: BP 141/86; PULSE 102
--- NOTE | 2024-05-23 14:58 | Billing Data ---
Date of Service May 23, 2024 Coding Level of Care Code 09168 IN/OBS DISCH 30 MIN/LESS
== END 2024-05-23 16:54 | disposition home or self-care (01) | DRG 871 ==
LOC: ED 19:08 → 1E 23:01 → SUATTDRO 23:01 → 1E 23:14 → 3N 05-21 15:05